=== PATIENT | male | born 1945 | race Caucasian/White ===

== ENCOUNTER 2018-02-25 12:37 | Emergency (ER) | payer MEDICARE, OTHER, SELFPAY ==
[2018-02-25 12:38] VITALS: BP 160/87; PULSE 110; RESP 18; TEMP 36.5; O2SAT 98; BMI 22.0
--- NOTE | 2018-02-25 12:54 | EKG12_ITS ---
Test Reason : CP Blood Pressure : / mmHG Vent. Rate : 099 BPM Atrial Rate : 099 BPM P-R Int : 152 ms QRS Dur : 082 ms QT Int : 330 ms P-R-T Axes : 067 062 058 degrees QTc Int : 423 ms Normal sinus rhythm Minimal voltage criteria for LVH, may be normal variant Nonspecific ST abnormality Abnormal ECG Confirmed by CARI PARDO, TAJ ([id number]), news video editor JACQUELINE COHEN ([id number]) on 03/01/2018 2:45:32 PM Referred By: WILLEM Confirmed By:TAJ ALCALA MD
--- NOTE | 2018-02-25 12:54 | RAD_ITS ---
STUDY: X-RAY CHEST REASON FOR EXAM: Male, 72 years old. Chest pain. TECHNIQUE: AP upright portable view. COMPARISON: None. FINDINGS: Pulmonary hypoinflation. Equivocal pulmonary nodule in the right upper lobe measuring approximately 0.6 x 0.9 cm. This overlies the right sixth posterior rib. There is no demonstrated pleural abnormality. Normal size heart. Normal mediastinum and jefferson. Normal visualized pulmonary arteries. Normal visualized aortic arch and descending thoracic aorta. Normal visualized thoracic spine. Normal visualized ribs, clavicles, and shoulders. There is no demonstrated abnormality of the visualized soft tissue structures of the upper abdomen. RAD/Chest 1 View (Portable) IMPRESSION: 1. Equivocal pulmonary nodule in the right upper lobe measuring 0.6 x 0.9 cm. 2. Mild COPD. 3. No acute cardiopulmonary pathology. COMMENT: High resolution CT chest will be very helpful for further evaluation. Electronically Signed: Gavino Castro MD at 13:56 EST , Service support ,
[2018-02-25 12:55] VITALS: BP 161/94; PULSE 91; RESP 17; O2SAT 100
[2018-02-25 13:05] LABS: Absolute Lymphocyte Count 1.25 X10^3/ul (0.83-4.51); Absolute Neutrophil Count 3.4 X10^3/uL (2.0-7.7); Basophil# 0.03 X10^3/uL; Basophil% 0.6 % (0-1); Eosinophil# 0.03 X10^3/uL; Eosinophils% 0.6 % (0-5); Hematocrit 40.7 % (40-54); Hemoglobin 13.6 g/dl (13.0-16.5); Lymphocyte # 1.25 X10^3/ul (4.0); Lymphocyte % 24.1 % (19-41); Mean Corp Hgb Conc 33.4 g/gl (32-36); Mean Corpuscular Volume 89.6 fL (80-94); Mean Platelet Vol. 10.1 fl (6.2-12.0); Monocyte# 0.47 X10^3/uL; Monocyte% 9.1 % (0-10); Neutrophil # 3.39 X10^3/uL (2.7-7.7); Neutrophil % 65.4 % (47-70); POSITIVE COUNT NO; POSITIVE DIFFERENTIAL NO; POSITIVE MORPHOLOGY NO; Platelet Count 240 K/mm3 (150-450); RBC Distribution Width CV 13.9 % (11.6-14.6); RBC Distribution Width SD 44.7 fl (35.1-43.9); Red Blood Count 4.54 M/mm3 (4.6-6.2); White Blood Count 5.2 K/mm3 (4.4-11.0)
--- NOTE | 2018-02-25 13:08 | ED.VISSUMM ---
- ER Visit Summary Date of Service: 02/25/18 Chief Complaint: Chest pain History of Present Illness: The patient is a 72 M history of prior chest pain of uncertain etiology. Patient states had a negative stress test 10 or so years ago. Also one time when he was at an area of [place] he went to a local hospital they were concerned he may be having an [place]. He transferred him to [facility] about 6 years ago and he states he had a negative cardiac catheterization and workup then. States he is very active he has no exertional chest pain or exertional dyspnea. He states the last several days he has had chest pain. Not associated with exertion or position. Denies any dyspnea. No hemoptysis. No pleuritic nature to the pain. He is never had a DVT or PE. He has had no recent travel, surgery or immobilization. No calf pain or swelling. There is no significant family history of cardiac disease. He quit smoking 25 years ago. He is not treated for hypertension and is currently on no medications. He is not treated for high cholesterol. Physical Examination: Very well-appearing 72-year-old male. Vital signs are stable he is afebrile. His pulse ox is 98% on room air no hypoxia. HEENT exam unremarkable. Neck nontender no lymphadenopathy. No JVD. Lungs clear to auscultation bilaterally. Heart regular rhythm rate about 100 no murmur. Chest wall nontender. No ecchymosis or bruising. No subcu air crepitance. Abdomen is soft and nontender normal bowel sounds no peritoneal signs. Moving all 4 extremities. Equal symmetrical endband sizer. Dorsi plantar flexion intact. Equal symmetrical radial pulses. Calves are nontender without edema or cords. Back is nontender. Neurologically is awake and alert with no focal motor deficits. Test Results: Patient will undergo cardiac workup. CBC normal. White count of 5. Hemoglobin 13. Electrolytes unremarkable. Troponin normal. EKG sinus rhythm rate of 70 no change. Unchanged from prior EKG from 2013. Chest x-ray no acute process the radiologist read a right upper lobe nodule. Which I discussed with the patient he can do follow-up for that. Emergency Department Course and Treatment: Patient treated with p.o. aspirin. Treatment Plan: Repeat exam patient is doing well at 1536. He symptom-free. His exam is unchanged. We discussed all his test results. He is comfortable being discharged home. In light that he has had a prior negative stress test. Negative cardiac catheter he has had atypical noncardiac chest pain before along with this being nonexertional and comfortable with him being discharged. Disposition: [] Impression: Acute atypical chest pain This note was generated with [employer] dictation software. It may contain incorrect words, spelling, and punctuation that were not noted in review of the chart prior to signing ED Disposition - Plan for ED Patient: Chief Complaint: Chest Pain Referrals: Nick Mercedes Chi, MD [Primary Care Provider] -
--- NOTE | 2018-02-25 13:11 | ED.DCSUM_ITS ---
- ER Visit Summary Date of Service: 02/25/18 Chief Complaint: Chest pain History of Present Illness: The patient is a 72 M history of prior chest pain of uncertain etiology. Patient states had a negative stress test 10 or so years ago. Also one time when he was at an area of [place] he went to a local hospital they were concerned he may be having an [place]. He transferred him to [facility] about 6 years ago and he states he had a negative cardiac catheterization and workup then. States he is very active he has no exertional chest pain or exertional dyspnea. He states the last several days he has had chest pain. Not associated with exertion or position. Denies any dyspnea. No hemoptysis. No pleuritic nature to the pain. He is never had a DVT or PE. He has had no recent travel, surgery or immobilization. No calf pain or swelling. There is no significant family history of cardiac disease. He quit smoking 25 years ago. He is not treated for hypertension and is currently on no medications. He is not treated for high cholesterol. Physical Examination: Very well-appearing 72-year-old male. Vital signs are stable he is afebrile. His pulse ox is 98% on room air no hypoxia. HEENT exam unremarkable. Neck nontender no lymphadenopathy. No JVD. Lungs clear to auscultation bilaterally. Heart regular rhythm rate about 100 no murmur. Chest wall nontender. No ecchymosis or bruising. No subcu air crepitance. Abdomen is soft and nontender normal bowel sounds no peritoneal signs. Moving all 4 extremities. 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 Dorsi plantar flexion intact. Equal symmetrical radial pulses. Calves are nontender without edema or cords. Back is nontender. Neurologically is awake and alert with no focal motor deficits. Test Results: Patient will undergo cardiac workup. CBC normal. White count of 5. Hemoglobin 13. Electrolytes unremarkable. Troponin normal. EKG sinus rhythm rate of 70 no change. Unchanged from prior EKG from 2013. Chest x-ray no acute process the radiologist read a right upper lobe nodule. Which I discussed with the patient he can do follow-up for that. Emergency Department Course and Treatment: Patient treated with p.o. aspirin. Treatment Plan: Repeat exam patient is doing well at 1536. He symptom-free. His exam is unchanged. We discussed all his test results. He is comfortable being discharged home. In light that he has had a prior negative stress test. Negative cardiac catheter he has had atypical noncardiac chest pain before along with this being nonexertional and comfortable with him being discharged. Disposition: [] Impression: Acute atypical chest pain This note was generated with [employer] dictation software. It may contain incorrect words, spelling, and punctuation that were not noted in review of the chart prior to signing ED Disposition - Plan for ED Patient: Chief Complaint: Chest Pain Referrals: Nick Mercedes Chi, MD [Primary Care Provider] -
[2018-02-25] MEDS: Aspirin 81 MG TAB.CHEW 324 MG PO (13:12)
[2018-02-25 13:16] LABS: Anion Gap 6 (5-15); BUN 11 mg/dL (7-18); BUN/Creat Ratio 13.5 RATIO (10-20); Calcium,Total 8.4 mg/dL (8.5-10.1); Chloride 104 mmol/L (98-107); Creatinine, Serum 0.82 mg/dL (0.70-1.30); EST Glomerular Filtration Rate 99 mL/min (>60); Est Glom Filt Rate - Afr Amer 120 mL/min (>60); Estimated Creatinine Clearance 71.31 ml/min; Glucose 106 mg/dL (74-106); Potassium 3.7 mmol/L (3.5-5.1); Sodium Level 138 mmol/L (136-145)
--- NOTE | 2018-02-25 15:40 | ED.DEP ---
ED Disposition - Plan for ED Patient: Disposition: Home or Assisted Living Chief Complaint: Chest Pain Instructions: ED Chest Pain Atypical Unkn Cause Referrals: Nick Mercedes Chi, MD [Primary Care Provider] - As soon as possible Additional Instructions: Your labs and tests were all negative today. Call and follow-up with Dr. Mercedes for repeat evaluation and he can decide if he wants to do outpatient stress testing.
[2018-02-25 15:48] VITALS: BP 144/84; PULSE 70; RESP 16; O2SAT 99
== END 2018-02-25 16:00 | disposition home or self-care (01) ==
PROVIDERS: Emergency Provider Emergency Medicine; Family Provider Family Medicine Geriatric Medicine; PCP Family Medicine Geriatric Medicine
DX: R07.89 Other chest pain (principal); Z87.891 Personal history of nicotine dependence
CPT/HCPCS: 71045; 80048; 84484; 85025; 93005; 99285; A4216

== ENCOUNTER → 2018-03-02 14:58 | Outpatient (CLI) | payer MEDICARE, OTHER, SELFPAY ==
[2018-02-25 12:38] VITALS: BMI 22.0
[2018-03-04 07:42] LABS: Hep C Antibodies <0.1 s/co ratio (0.0-0.9)
--- OUTSIDE RECORDS SUMMARY | 2018-04-18 20:50 | XMS RPT_ITS ---
:1945 Author Organization OHIP Support Name Relationship Address Phone KAMRYN CANTOR Unavailable [address] + [place] [address] DEVAUGHN, CARLA Unavailable [address] + [place] [address] R Unavailable Unavailable Unavailable DEVAUGHN, KAMRYN Unavailable [address] + [place] [address] DEVAUGHN, CARLA Unavailable [address] + [place] [address] R Unavailable Unavailable Unavailable DEVAUGHN, CARLA Unavailable Unavailable + DEVAUGHN, CARLA Unavailable Unavailable + DEVAUGHN, KAMRYN Unavailable [address] [facility] + [place] [address] DEVAUGHN, CARLA Unavailable [address] + [place] [address] R Unavailable Unavailable Unavailable DEVAUGHN, KAMRYN Unavailable [address] + [place] [address] DEVAUGHN, CARLA Unavailable [address] + [place] [address] R Unavailable Unavailable Unavailable DEVAUGHN, KAMRYN Unavailable [facility] + [place] [address] DEVAUGHN, CARLA Unavailable [address] + [place] [address] R Unavailable Unavailable Unavailable DEVAUGHN, KAMRYN Unavailable [facility] + [place] [address] DEVAUGHN, CARLA Unavailable [address] + [place] [address] R Unavailable Unavailable Unavailable DEVAUGHN, KAMRYN Unavailable [facility] + [place] [address] DEVAUGHN, CARLA Unavailable [address] + [place] [address] R Unavailable Unavailable Unavailable DEVAUGHN, KAMRYN Unavailable [facility] + [place] [address] DEVAUGHN, CARLA Unavailable [address] + [place] [address] R Unavailable Unavailable Unavailable DEVAUGHN, KAMRYN Unavailable [facility] + [place] [address] DEVAUGHN, CARLA Unavailable [address] + [place] [address] R Unavailable Unavailable Unavailable Care Team Providers Name Role Phone Daren, Carmen Chi Attending Unavailable Daren, Carmen Chi Primary Care Unavailable Daren, Carmen Chi Attending Unavailable Daren, Carmen Chi Referring Unavailable Daren, Carmen Chi Primary Care Unavailable Daren, Carmen Chi Attending Unavailable Daren, Camren Chi Referring Unavailable Daren, Carmen Chi Primary Care Unavailable Daphney Branch Attending Unavailable Manuelito, Jona Attending Unavailable Daren, Carmen Chi Referring Unavailable Dani Menchaca Attending Unavailable Daren, Carmen Chi Primary Care Unavailable Manuelito, Ona Attending Unavailable Manuelito, Ona Attending Unavailable Manuelito, Jona Referring Unavailable Daren, Carmen Chi Primary Care Unavailable Manuelito, Ona Attending Unavailable Manuelito, Jona Referring Unavailable Daren, Carmen Chi Primary Care Unavailable Manuelito, Jona Consulting Unavailable Chong, Dr. Santi Enciso Attending Unavailable Hearn, Dr. Santi Pinedo Referring Unavailable Nadiya, Dr. Santi Pinedo Primary Care Unavailable PROBLEMS PROBLEMS DATE TYPE CONDITION / CODE ATTENDING STATUS SOURCE 04/07/2018 Unknown R07.9 - Chest Manuelito, Jona Active [place] pain, unspecified Community / R07.9(ICD-10) Hospital Repository 03/02/2018 Unknown Z13.89 - Daren, Carmen Chi Active [place] Encounter for Community screening for Hospital other disorder / Repository Z13.89(ICD-10) PROCEDURES PROCEDURES No Procedure Records FoundRESULTS RESULTS STRESS REPORT Observed: 04/07/2018 Status: F Source: [place] 12:55 PM [facility] Cardiovascular Services [address] [place] [address] MR#: [id number] Acct: [id number] Name: TONEY CANTOR Rep #: [id number] : 1945 72 From: Jona Billings MD Primary Care: Daren PARDO,Carmen Calderón Status: REG CLI Ordering Dr: Etta: Conrado Treviño Stress Test Report Exercise myocardial perfusion stress test. 72-year-old man with a history of chest pain. Medications: Aspirin pravastatin and lisinopril. Stress protocol: Resting EKG demonstrates normal sinus rhythm with a rate of 75 bpm normal intervals are noted resting blood pressure 132/80 mmHg. The patient exercised according to regular Riley protocol for a total duration of 9 minutes and 30 seconds patient completed 1 minute 30 seconds to stage IV of the Riley protocol the maximum heart rate attained was 160 bpm which was 106% of maximum predicted heart rate the maximum workload was 10.9 metabolic equivalents. At rest there were no ST or T wave changes noted suggest ischemia at peak exercise upsloping ST changes only were noted with normally the criteria for ischemia. No clinical angina was noted. The resting blood pressure 132/90 with a peak blood pressure 150/78. Myocardial perfusion protocol. 10.6 mCi of technetium 99m sestamibi was injected at rest. The patient exercised according to regular Riley protocol. At peak exercise 31.7 mCi of technetium 99m sestamibi was injected stress images were obtained stress and rest images were reconstructed and compared in the short axis vertical long horizontal long axis. Gated images were also obtained Perfusion SPECT analysis: Review of the stress images demonstrate normal uptake of tracer noted in all areas of the myocardium. The resting images similarly demonstrate normal uptake of tracer noted in all areas of the myocardium. No areas of reversibility are noted suggest ischemia. Gated SPECT analysis: The gated ejection fraction is noted to be 72%. Conclusion: Normal exercise myocardial perfusion stress test at a high workload. Preserved ejection fraction. Good functional aerobic capacity. 04/07/18 1255 <Electronically signed by Jona Billings MD> Date Jona Billings MD CC: Jona Billings MD; Carmen Chong MD Date Dictated: 04/07/18 1252 Date Transcribed: 04/07/18 125 Upkeep Worker: CO Signed ECHOCARDIOGRAM COMPLETE Observed: 04/07/2018 Status: F Source: [place] [address]:31 PM [facility] REPOSIT[facility] Cardiovascular Services [address] [place] [address] Echo Complete 04/07/18922 MR#: [id number] Acct: [id number] Name: TONEY CANTOR Rep #: [id number] : 1945 72 From: Jona Billings MD Attending Dr: Jona Billings MD Status: REG CLI Ordering Dr: Jona Billings MD Date: 04/07/18 Location: [facility] Sex: M C Admitted: Reason For Study: CHEST PAIN Procedure This was a 2D Doppler, Color Flow transthoracic echocardiogram. Exam performed in department. Left Ventricle Normal LV size. Left ventricular systolic function is normal. The estimated ejection fraction is 60 %. Stage 1 diastolic dysfunction. No regional wall motion abnormalities noted. Right Ventricle Normal RV size. Normal systolic function. Atria Normal left atrium. Normal right atrium. Patent foramen ovale. Hypermobile atrial septum. Mitral Valve Normal mitral valve. Trivial mitral valve insufficiency. Tricuspid Valve Normal tricuspid valve. Mild (1+) tricuspid valve insufficiency. Pulmonary artery systolic pressure is 25 mmHg. Aortic Valve Trisinus/trileaflet aortic valve. Pulmonic Valve Normal pulmonic valve. Great Vessels Normal aortic root. The pulmonary artery is normal size. Normal inferior vena cava. Pericardium/Pleural No pericardial effusion. Medication Performed a rapid injection of agitated mix of 9 cc saline and 1cc air to assess for atrial septal defect. MMode/2D Measurements AND Calculations LVIDd: 4.6 cm IVSd: 0.54 cm Ao root diam: 3.3 cm LVIDs: 3.0 cm LVPWd: 0.70 cm RVDd: 3.8 cm FS: 34.3 % LAV(MOD-bp): 33.7 ml EDV(MOD-sp2): 73.7 ml SV(MOD-sp2): 48.6 ml LAV(MOD-bp) Indexed: 20.5 ml/m2 EF(MOD-sp2): 66.0 % LAV(MOD-sp2): 38.4 ml LAV(MOD-sp4): 27.9 ml LA dimension(2D): 2.9 cm LA A4 area: 13.0 cm2 RA A4 area: 15.0 cm2 Time Measurements MV dec time: 0.25 sec Doppler Measurements AND Calculations MV E max cristino: 81.5 cm/sec Lat Peak E' Cristino: 11.6 cm/sec Med Peak E' Cristino: 9.7 cm/sec MV A max cristino: 81.0 cm/sec E/E' lat: 7.0 E/E' med: 8.4 MV E/A: 1.0 Ao V2 max: 144.0 cm/sec LV V1 max: 147.4 cm/sec PA V2 max: 112.2 cm/sec Ao max P.3 mmHg LV V1 max P.7 mmHg TR max cristino: 228.9 cm/sec TR max P.1 mmHg Interpretation Summary Normal LV size. Left ventricular systolic function is normal. The estimated ejection fraction is 60 %. Stage 1 diastolic dysfunction. Hypermobile atrial septum. Patent foramen ovale. Mild (1+) tricuspid valve insufficiency. Ordering Physician: Jona Billings Referring Physician: CARMEN CHONG Performed By: Hanna Guy RDCS 04/07/18 1230 Date Jona Billings MD CC: Jona Billings MD; Carmen Chong MD Date Dictated: 04/07/18922 Date Transcribed: 04/07/18 123 Upkeep Worker: Signed DIAG MAMM W/CAD, Observed: 03/11/2018 Status: F Source: [facility] 8:48 AM [facility] REPOSITORY [facility] Imaging Services [address] [place], [place] [address] [address] DIAG MAMM W/CAD, BILAT MR#: [id number] Acct: [id number] Name: TONEY CANTOR Rep #: [id number] : 1945 M 72 From: Anuj Dean MD PCP: Carmen Chong MD, Chi Status: REG CLI Study: DIAG MAMM W/CAD, BILAT Date of Exam: 03/11/18 Exam# [id number] Ordering Dr: Carmen Chong MD MAMMOGRAPHY - BILATERAL DIAGNOSTIC REASON FOR EXAM: Male, 72 years old. Left breast discomfort. PERTINENT HISTORY: Non-contributory. TECHNIQUE: Digital bilateral breast basil (3D mammographic acquisition) in the CC and MLO projections. 2-D mediolateral oblique (MLO) and craniocaudad (CC) views of both breasts were obtained. CAD: Full Field Digital Mammography with Computer Added Detection was performed. COMPARISON: None. Baseline examination. FINDINGS: Breast Composition: The breasts are almost entirely fatty. There are no dominant masses or suspicious calcifications. No other significant abnormalities are identified. BI/DIAG MAMM W/CAD, BILAT IMPRESSION: Negative diagnostic mammogram. Yearly followup mammogram recommended. (A) ASSESSMENT CATEGORY: BIRADS Category 1: Negative. A letter regarding these results will be sent to the patient by the facility within 30 days. Approximately 10% of breast cancers are not detected by mammography. A normal mammogram should not delay biopsy of a clinically suspicious abnormality. Electronically Signed: Anuj Dean MD at 15:03 EST Tel [phone], Service support , CC: Carmen Chong MD Upkeep Worker: Signed CARDIOLOGY VISIT Observed: 03/10/2018 Status: F Source: [place] 4:34 PM [facility] REPOSITORY [facility] [address] [place] [address]. [address] [place] [address] OFFICE VISIT Date of Service: 03/10/18 MR#: [id number] Acct: [id number] Name: TONEY CANTOR Rep #: [id number] : 1945 Provider: Jona Billings MD Age/Sex: 72/M Location: [facility] Status: Signed HPI HPI Chief Complaint: Initial visit Details: TONEY CANTOR, is a 72 M who presents to the office today for an initial visit. He is a gentleman with no previous coronary artery disease history who says that he has been very active and has had chest discomfort which is lasted approximately 3 weeks. He says that it does not necessarily occur with activity he is very active and sometimes rakes leaves without any problems. He has had no dizziness or diaphoresis no near syncope or syncope. Approximately 6 years ago he presented here with significant chest discomfort and there was a concern that he was having a myocardial infarction was transferred to [facility] where he underwent a cardiac catheterization which was normal. He has had not had any dizziness or diaphoresis no near syncope or syncope. He did have a stress test approximately 10 years ago or so. He presented to the emergency room recently with a discomfort his EKG demonstrated normal sinus rhythm with no acute changes but minimal voltage criteria for LVH was noted. His physical exam here today demonstrates clear lung witt regular rate and rhythm and no pedal edema. Intake Vital Signs03/10/18 Height 5 ft 5 in Intake Visit Reasons: PCP ref'd for chest pain Allergies Iodinated Contrast- Oral and IV Dye [CONTRASTS] Allergy (Verified 03/10/18 12:43) Hives Medications aspirin 81 mg tablet,delayed release 81 mg PO QDAY #30 tab 03/10/18 [Rx Confirmed 03/10/18] azelaic acid 20 % topical cream 1 applic TOPICAL BID 03/10/18 [History Confirmed 03/10/18] lisinopril 10 mg tablet 10 mg PO DAILY #30 tab 03/10/18 [Rx Confirmed 03/10/18] [facility] Medical History Hyperlipidemia (Chronic) Lung nodule (Chronic) Rosacea (Chronic) Tinnitus (Chronic) Surgical History History of eye surgery (Resolved) History of left heart catheterization (Resolved 2011) History of nasal septoplasty (Resolved) Social History Smoking Status: Former smoker quit date: 03/23/91 pack-years: 13 ROS Const Const: Negative for fatigue, weakness, difficulty sleeping, frequent falls, excessive sweating or headache(s) Eyes Eyes: Negative for loss of peripheral vision, transient loss of vision, blurry vision, tunnel vision or double vision ENT ENT: Negative for headache(s), dizziness, Nosebleed/epistaxis or balance problems Cardio Chest Pain: Yes Location: left chest Palpitations: No Edema: None Muscle aches with walking: None Resp Respiratory: Negative for SOB with activity, SOB at rest, SOB orthopnea\SOB lying down, paroxysmal nocturnal dyspnea or Cough GI GI: Negative nausea, heartburn, black,tarry stools or vomiting : Negative for hematuria Musc Musc: Negative for balance problems, muscle aches/ myalgia, muscle weakness or joint pain Skin Skin: Negative non-healing lesions, unusual bruising or rash Neuro Neuro: Negative for weakness, frequent falls, headache(s), blurry vision, double vision, dizziness, lightheadedness, orthostatic symptoms, near syncope, syncope or lack of coordination Allan Hematologic/Lymphatic: Negative for easy bruising or easy bleeding Endo Endo: Negative for fatigue, excessive sweating or increased thirst/drinking Psych Psych: Negative for anxiety or depression Allergy Allergy/Immunology: Negative for hives, Negative for rash Cardiology Exam Const Appearance: cooperative, healthy appearing, well developed, well groomed and no acute distress Nutritional Appearance: well nourished and average body habitus Orientation: alert, awake and oriented x3 Head Head: normal to inspection, normocephalic and atraumatic Ears: hearing grossly normal bilaterally and external ears normal Nose: external nose normal, nasal mucous membranes and turbinates normal, nares normal, septum normal, no nasal discharge Face and Sinus: face symmetric Mouth: oral mucosae normal, tongue normal, oropharynx normal and moist mucous membranes Teeth and gingiva: dentition normal Throat: posterior oropharynx normal, tonsils normal and uvula midline Eyes General: appearance normal, both eyes and all related structures Eyelids: eyelids normal Conjunctivae: conjunctivae normal Pupils: PERRL, normal by confrontation and accommodation normal EOM: EOM intact bilaterally Neck Neck: normal visual inspection, trachea midline and no JVD JVD: +5 Carotids: normal carotid upstroke and bounding pulses Chest Chest inspection: normal inspection of the chest, symmetric chest movement and normal respiratory effort Auscultation: Bilateral: Clear to Auscultation Cardio Palpation: normal PMI Rate: regular rate Rhythm: regular rhythm Heart sounds: S1 normal, S2 normal and normal, physiologic split S2; negative rub, gallop or murmur GI GI: normal to inspection, soft, no hepatosplenomegaly and bowel sounds present Neuro General: alert, awake, oriented x3, no focal sensory deficit, gait normal and moves all extremities Skin Skin: no rashes or lesions noted Extremities Pulses: Normal: Right Femoral Pulse, Left Femoral Pulse, Right Dorsalis Pedis Pulse, Left Dorsalis Pedis Pulse, Right Posterior Tibial Pulse, Left Posterior Tibial Pulse, Right Radial Pulse, Left Radial Pulse Lower Extremity Edema: None: Bilateral Musculoskel Musculoskeletal: No joint tenderness Psych Psychological: normal affect Assessment AND Plan 1. Chest pain, unspecified type R07.9 Plan He does complain of chest discomfort which appears to be somewhat atypical. My recommendation would be to better control his blood pressure with lisinopril 10 mg a day and take a baby aspirin. In addition I would suggest that he start an antacid 20 mg of omeprazole a day. A stress test and an echocardiogram will be performed and depending on the findings further recommendations will be made. If his blood pressure response to exercise is normal and the stress test is normal then I will take him off all the medications. They appear to be enough atypical findings that I do not think that he needs to have a stress test right away. Thank you for allowing me to participate in the care of your patient. Please don't hesitate to call if any issues arise Orders Orders: Plan Detail Other Medications New: Follow Up 3 Months (jhr) Coding Level of Care Code Off vis,new,level 4 Diagnoses Chest pain, unspecified type R07.9 Chest pain type: unspecified Coding Level of Care Code Off vis,new,level 4 Diagnoses Chest pain, unspecified type R07.9 Chest pain type: unspecified 03/10/18 1634 <Electronically signed by Jona Billings MD> Date Jona Billings MD Cosigner Signature: Date (if applicable) CC: Carmen Chong MD AORTA Observed: 03/08/2018 Status: F Source: [place] 8:12 AM [facility] Imaging Services [address] [place] [address] Aorta MR#: [id number] Acct: [id number] Name: TONEY CANTOR Rep #: [id number] : 1945 M 72 From: Aron Diaz DO PCP: Daren PARDO,Carmen Calderón Status: REG CLI Study: Aorta Date of Exam: 03/08/18 Exam# [id number] Ordering Dr: Carmen Chong MD PROCEDURES: ULTRASOUND AORTA REASON FOR EXAM: Male, 72 years old. History of tobacco use, rule out abdominal aortic aneurysm TECHNIQUE: Ultrasound evaluation of the aorta was performed with real-time and static manjarrez-scale imaging. COMPARISON: None. FINDINGS: There is no elongation or tortuosity of the abdominal aorta. Aorta measures: Proximal 2.4 cm. Middle 2.0 cm. Distal 1.6 cm. Aorta measure transversely: Proximal 2.6 cm. Middle 2.4 cm. Distal 1.7 cm. Right iliac artery measures: 0.9 cm. Right iliac artery measure transversely: 0.9 cm. Left iliac artery measures: 0.8 cm. Left iliac artery measure transversely: 0.9 cm. There is no demonstrated aneurysm.. US/Aorta IMPRESSION: Normal abdominal aorta. Electronically Signed: Aron Diaz DO at 11:06 EST Tel , Service support , CC: Carmen Chong MD Upkeep Worker: Signed HEPATITIS C ANTIBODIES Collected: 03/02/2018 Status: F Source: [place] 3:01 PM [facility] REPOSITORY TYPE CODE TESTS RESULT OUT OF RANGE REFERENCE UNITS LAB L3100.0650 0.0-0.9 s/co ratio Normal HEP C AB <0.1 Result Comment: Negative: < 0.8 Indeterminate: 0.8 - 0.9 Positive: > 0.9 The CDC recommends that a positive HCV antibody result be followed up with a HCV Nucleic Acid Amplification test (908114). Performed at: [address] [id number] Manufacturing Project Manager: Steven Gonzalez PhD, Phone: [phone] Performed By: #### L3100.0625 #### [facility] (refer to report for specific site) refer to report for address and phone number 12 LEAD ELECTROCARDIOGRAM Observed: 03/01/2018 Status: F Source: [place] 2:45 PM [facility] Cardiovascular Services [address] [place] [address] 12 Lead EKG 02/25/18 1246 MR#: [id number] Acct: [id number] Name: TONEY CANTOR Rep #: [id number] : 1945 72 From: Jona Billings MD Attending Dr: Status: DEP ER Ordering Dr: Dani Menchaca MD Date: 02/25/18 Location: ED Sex: M C Admitted: Test Reason : CP Blood Pressure : / mmHG Vent. Rate : 099 BPM Atrial Rate : 099 BPM P-R Int : 152 ms QRS Dur : 082 ms QT Int : 330 ms P-R-T Axes : 067 062 058 degrees QTc Int : 423 ms Normal sinus rhythm Minimal voltage criteria for LVH, may be normal variant Nonspecific ST abnormality Abnormal ECG Confirmed by JONA BILLINGS MD ([id number]), publication editor JACQUELINE COHEN ([id number]) on 03/01/2018 2:45:32 PM Referred By: WILLEM Confirmed By:JONA BILLINGS MD 03/01/18 1445 Date Jona Billings MD CC: Dani Menchaca MD; Carmen Chong MD Signed DISCHARGE INSTRUCTION Observed: 02/25/2018 Status: F Source: [place] 4:52 PM [facility] Medical Records Department [address] [place] [address] Discharge Instruction 02/25/18 1540 MR#: [id number] Acct: [id number] Name: TONEY CANTOR Rep #: [id number] : 1945 72 From: Dani Menchaca MD PCP: Carmen Chong MD, Chi Status: DEP ER ED Disposition - Plan for ED Patient: Disposition: Home or Assisted Living Chief Complaint: Chest Pain Instructions: ED Chest Pain Atypical Unkn Cause Referrals: Carmen Chong Chi, MD [Primary Care Provider] - As soon as possible Additional Instructions: Your labs and tests were all negative today. Call and follow-up with Dr. Chong for repeat evaluation and he can decide if he wants to do outpatient stress testing. What to do if you have Problems For any increased pain, shortness of breath, bleeding, nausea or vomiting, chest pain, or any unexpected problems, contact your Primary Care Provider. Call [facility] ([phone]) or report to the closest Emergency Room. Call 911 if necessary. 02/25/18 1652 <Electronically signed by Dani Menchaca MD> Date Dani Menchaca MD Cosigner Signature (If Indicated): Date CC: Carmen Chong MD EMERGENCY DEPARTMENT Observed: 02/25/2018 Status: F Source: [place] [facility] 4:52 PM [facility] Medical Records Department [address] [place] [address] Emergency Department Summary 02/25/18 1308 MR#: [id number] Acct: [id number] Name: TONEY CANTOR Rep #: [id number] : 1945 72 From: Dani Menchaca MD PCP: Carmen Chong MD, Chi Status: DEP ER - ER Visit Summary Date of Service: 02/25/18 Chief Complaint: Chest pain History of Present Illness: The patient is a 72 M history of prior chest pain of uncertain etiology. Patient states had a negative stress test 10 or so years ago. Also one time when he was at an area of [place] he went to a local hospital they were concerned he may be having an [place]. He transferred him to [facility] about 6 years ago and he states he had a negative cardiac catheterization and workup then. States he is very active he has no exertional chest pain or exertional dyspnea. He states the last several days he has had chest pain. Not associated with exertion or position. Denies any dyspnea. No hemoptysis. No pleuritic nature to the pain. He is never had a DVT or PE. He has had no recent travel, surgery or immobilization. No calf pain or swelling. There is no significant family history of cardiac disease. He quit smoking 25 years ago. He is not treated for hypertension and is currently on no medications. He is not treated for high cholesterol. Physical Examination: Very well-appearing 72-year-old male. Vital signs are stable he is afebrile. His pulse ox is 98% on room air no hypoxia. HEENT exam unremarkable. Neck nontender no lymphadenopathy. No JVD. Lungs clear to auscultation bilaterally. Heart regular rhythm rate about 100 no murmur. Chest wall nontender. No ecchymosis or bruising. No subcu air crepitance. Abdomen is soft and nontender normal bowel sounds no peritoneal signs. Moving all 4 extremities. Equal symmetrical morning show host. Dorsi plantar flexion intact. Equal symmetrical radial pulses. Calves are nontender without edema or cords. Back is nontender. Neurologically is awake and alert with no focal motor deficits. Test Results: Patient will undergo cardiac workup. CBC normal. White count of 5. Hemoglobin 13. Electrolytes unremarkable. Troponin normal. EKG sinus rhythm rate of 70 no change. Unchanged from prior EKG from 2013. Chest x-ray no acute process the radiologist read a right upper lobe nodule. Which I discussed with the patient he can do follow-up for that. Emergency Department Course and Treatment: Patient treated with p.o. aspirin. Treatment Plan: Repeat exam patient is doing well at 1536. He symptom-free. His exam is unchanged. We discussed all his test results. He is comfortable being discharged home. In light that he has had a prior negative stress test. Negative cardiac catheter he has had atypical noncardiac chest pain before along with this being nonexertional and comfortable with him being discharged. Disposition: [] Impression: Acute atypical chest pain This note was generated with [employer] dictation software. It may contain incorrect words, spelling, and punctuation that were not noted in review of the chart prior to signing ED Disposition - Plan for ED Patient: Chief Complaint: Chest Pain Referrals: Carmen Chong Chi, MD [Primary Care Provider] - What to do if you have Problems For any increased pain, shortness of breath, bleeding, nausea or vomiting, chest pain, or any unexpected problems, contact your Primary Care Provider. Call [facility] ([phone]) or report to the closest Emergency Room. Call 911 if necessary. 02/25/18 8492 <Electronically signed by Dani Menchaca MD> Date Dani Menchaca MD Cosigner Signature (If Indicated): Date CC: Carmen Chong MD CHEST 1 VIEW Observed: 02/25/2018 Status: F Source: DWIGHT (PORTABLE) 12:55 PM [facility] Imaging Services [address] [place] [address] 14382 Chest 1 View (Portable) MR#: [id number] Acct: [id number] Name: TNOEY CANTOR Rep #: [id number] : 1945 M 72 From: Gavino Castro MD PCP: Carmen Chong MD, Chi Status: REG ER Study: Chest 1 View (Portable) Date of Exam: 02/25/18 Exam# [id number] Ordering Dr: Dani Menchaca MD STUDY: X-RAY CHEST REASON FOR EXAM: Male, 72 years old. Chest pain. TECHNIQUE: AP upright portable view. COMPARISON: None. FINDINGS: Pulmonary hypoinflation. Equivocal pulmonary nodule in the right upper lobe measuring approximately 0.6 x 0.9 cm. This overlies the right sixth posterior rib. There is no demonstrated pleural abnormality. Normal size heart. Normal mediastinum and jefferson. Normal visualized pulmonary arteries. Normal visualized aortic arch and descending thoracic aorta. Normal visualized thoracic spine. Normal visualized ribs, clavicles, and shoulders. There is no demonstrated abnormality of the visualized soft tissue structures of the upper abdomen. RAD/Chest 1 View (Portable) IMPRESSION: 1. Equivocal pulmonary nodule in the right upper lobe measuring 0.6 x 0.9 cm. 2. Mild COPD. 3. No acute cardiopulmonary pathology. COMMENT: High resolution CT chest will be very helpful for further evaluation. Electronically Signed: Gavino Castro MD at 13:56 EST , Service support , CC: Dani Menchaca MD; Carmen Chong MD Upkeep Worker: Signed CBC W/DIFF, AUTOMATED Collected: 02/25/2018 Status: F Source: FAIZA 12:50 PM [facility] REPOSITORY TYPE CODE TESTS RESULT OUT OF RANGE REFERENCE UNITS LAB L100.1000 4.4-11.0 K/mm3 Normal WBC 5.2 LAB L100.1200 4.6-6.2 M/mm3 Low RBC 4.54 LAB L100.1300 13.0-16.5 g/dl Normal HGB 13.6 LAB L100.1400 40-54 % Normal HCT 40.7 LAB L100.1500 80-94 fL Normal MCV 89.6 LAB L100.1600 27.0-32.0 pg Normal MCH 30.0 LAB L100.1700 32-36 g/gl Normal MCHC 33.4 LAB L100.1810 11.6-14.6 % Normal RDW CV 13.9 LAB L100.1820 35.1-43.9 fl High RDW SD 44.7 LAB L100.1900 150-450 K/mm3 Normal PLT 240 LAB L100.2000 6.2-12.0 fl Normal MPV 10.1 LAB L100.2100 47-70 % Normal NEUT% 65.4 LAB L100.2200 19-41 % Normal LY% 24.1 LAB L100.2300 0-10 % Normal MONO% 9.1 LAB L100.2400 0-5 % Normal EO% 0.6 LAB L100.2500 0-1 % Normal BASO% 0.6 LAB L100.2550 0.0-0.9 % Normal IM GRAN % 0.200 Result Comment: IG% - Immature Granulocytes (promyelocytes, myelocytes and metamyelocytes) > 1% indicates that a LEFT SHIFT is Present. LAB L100.2620 2.0-7.7 X10 3/uL Normal Absolute Neut 3.4 LAB L100.2720 0.83-4.51 X10 3/ul Normal Absolute Lymph 1.25 Performed By: #### L100.0100 #### [facility] [address] [place], [address] BASIC METABOLIC Collected: 02/25/2018 Status: F Source: DWIGHT PROFILE (BMP) 12:50 PM [facility] REPOSITORY TYPE CODE TESTS RESULT OUT OF RANGE REFERENCE UNITS LAB L501.0100 74-106 mg/dL Normal GLU 106 Result Comment: Fasting Glucose result from 100 to 125 mg/dL suggests IMPAIRED HOMEOSTASIS per A.D.A. criteria. Please note revised GLUCOSE reference range effective 2017. LAB L501.1000 7-18 mg/dL Normal BUN 11 LAB L501.1100 0.70-1.30 mg/dL Normal CREAT,SERUM 0.82 Result Comment: The validity of the calculated GFR AND GFRAA in patients over 70 years has not been determined. Clinical correlation is essential. LAB L501.1110 >60 mL/min Normal EST GFR 99 Result Comment: Non- GFR Calc LAB L501.1115 >60 mL/min Normal EST GFR - AA 120 Result Comment: GFR Calc LAB L501.1255 ml/min Normal Estimated CRCL 71.31 LAB L501.1300 10-20 RATIO Normal BUN/CRE 13.5 LAB L501.2200 8.5-10 mg/dL Low .1 CA 8.4 LAB L501.5300 136-14 mmol/L Normal 5 NA 138 LAB L501.5600 3.5-5. mmol/L Normal 1 K 3.7 LAB L501.5900 98-107 mmol/L Normal CL 104 LAB L501.6100 21.0-3 mmol/L Normal 2.0 CO2 28.0 LAB L501.6200 5-15 Normal GAP 6 Performed By: #### L500.2500, L501.4010 #### [facility] [address] [place], [address] TROPONIN-I Collected: 02/25/2018 Status: F Source: FAIZA 12:50 PM [facility] REPOSITORY TYPE CODE TESTS RESULT OUT OF RANGE REFERENCE UNITS LAB L501.4010 <0.045 ng/mL Normal < 0.015 TROPONIN-I Result Comment: TROPONIN-I EXPECTED VALUES <0.045 Negative 0.045 - 0.590 Consistent with Cardiac Damage > OR = 0.600 Critical Value Not every elevated troponin is indicative of WA. These values should be used with clinical judgement in examining the patient's clinical picture for diagnosis. To establish a diagnosis of WA versus myocardial injury, there must be a demonstrated rise and/or fall in the troponin values, in addition to ischemic symptoms, EKG changes, new regional wall motion abnormality, and/or angiographical evidence. PLEASE NOTE: REFERENCE RANGES EDITED 17 Performed By: #### L500.2500, L501.4010 #### [facility] [address] [place], [address] ALLERGIES ALLERGIES DATE TYPE / CODE NAME / CODE REACTION SEVERITY SOURCE 03/10/2018 Drug Iodinated Hives Unknown [facility] Allergy/[facility] 392306(SNOM and IV Repository ED CT) Dye/[id number](R XNORM) ENCOUNTERS ENCOUNTERS ADMIT/DISCHARGE ACCOUNT ADMITTING ENCOUNTER LOCATION SOURCE NUMBER CLASS 04/07/2018 [id number] Ambulatory BMSBuilding:Karsten Kendall MS.CF.[facility] Repository 04/07/2018 [id number] Ambulatory [facility] ing:[facility] Repository 03/31/2018 [id number] Ambulatory [address] [place] [address] Repository 03/11/2018 [id number] Ambulatory [facility] ing:OPUS Repository 03/10/2018/03/10/20 [id number] Ambulatory BMSBuilding:Karsten Kendall 20 MS.[facility] Repository 03/09/2018 [id number] Ambulatory BMSBuilding:Karsten Kendall MS.[facility] Repository 03/08/2018 [id number] Ambulatory [facility] ing:US Repository 03/02/2018 [id number] Ambulatory [facility] ing:POLAB3 Repository 02/25/2018/02/26/20 [id number] Emergency [address] ing:ED Repository 02/25/2018/02/26/20 [id number] Ambulatory BMSBuilding:[place] [facility] Repository PAYERS PAYERS ENCOUNTER GUARANTOR PAYER SUBSCRIBER SOURCE 04/07/2018 TONEY Odell Primary TONEY Odell [place] [id number] [place] Insurance:MEDICARE HOUSERDOB: [place] PART A [facility] [id number] Hospital 884[address]Ddw: (330) Number: Repository [phone] () [id number] Date:2018-03-11 04/07/2018 Secondary TONEY Odell [place] Insurance:[facility] HOUSERDOB: [facility] CARE [id number] Hospital Number: Repository [id number] Date:7082-92-04NW [facility] [place], [place] [address]EJ: 04/07/2018 Tertiary NOT GIVENUNK [place] Insurance:SELF PAY [facility] Number: Effective Repository Date:2018-04-07 04/07/2018 TONEY Odell Primary TONEY Kendall [id number] [place] Insurance:MEDICARE HOUSERDOB: [place] PART A [facility] [id number] Hospital 56645Qfu: (330) Number: Repository [phone] () [id number] Date:2018-03-11 04/07/2018 Secondary TONEY A [place] Insurance:[facility] HOUSERDOB: [facility] CARE [id number] Hospital Number: Repository [id number] Date:2813-89-95[address], [place] [address]ZZ: 04/07/2018 Tertiary NOT GIVENUNK [place] Insurance:SELF PAY [facility] Number: Effective Repository Date:2018-03-11 03/31/2018 TONEY Primary TONEY University HOUSERDOB: Insurance:MedicarePol HOUSERDOB: [facility] icy Number: [id number] Repository NAPLES CAROLE, [id number] 0 [facility] [id number]: Date:Plan Name:[facility] LIYA LAM B [id number]: (HH) (HP) 03/31/[address] [facility] Insurance:United HOUSERDOB: [facility] HealthCare [id number] Repository [place] Number: 0 [place] [id number] LIYA LAM Date:Plan Name:Health [id number]: () 03/11/2018 TONEY Cass Primary TONEY A [place] [id number] [place] Insurance:MEDICARE HOUSERDOB: [place] PART A [facility] [id number] [facility] [address]702Fsf: (330) Number: Repository [phone] () [id number] Date:2018-03-02 03/11/2018 Secondary TONEY A [place] Insurance:[facility] HOUSERDOB: [facility] CARE [id number] Hospital Number: Repository [id number] Date:1817-89-14WX [facility] [address]70[address], [place] [address]XV: 03/11/2018 Tertiary NOT GIVENUNK [place] Insurance:SELF PAY [facility] Hospital Number: Effective Repository Date:2018-03-02 03/10/2018 TONEY A Primary Insurance: TONEY A [place] [id number] [place] [facility] HOUSERDOB: [place] Number: [id number] [facility] 67423Qtl: 330 [id number] Repository [phone] () Date:9647-95-07JS [address] [address]QJQZJ, [place] [address]YL: 03/10/2018 Secondary TONEY A [place] Insurance:[facility] HOUSERDOB: [facility] CARE [id number] [id number] Hospital Number: Repository [id number] Date:9357-71-16OB [facility] [address]QS, [place] [address]AV: 03/10/2018 Tertiary NOT GIVENUNK [place] Insurance:SELF PAY [facility] Number: Effective Repository Date:2018-03-10 03/09/2018 TONEY A Primary TONEY A [place] [id number] [place] Insurance:MEDICARE HOUSERDOB: [place] PART A [facility] [id number] Hospital 538[address]Whr: (330) Number: Repository [phone] () [id number] Date:2018-03-09 03/09/2018 Secondary TONEY A [place] Insurance:[facility] HOUSERDOB: [facility] CARE [address] [place] [address] [id number] Hospital Number: Repository [id number] Date:0281-56-27VH [facility] [id number], [place] [address]XA: 03/09/2018 Tertiary NOT GIVENUNK [place] Insurance:SELF PAY [facility] Hospital Number: Effective Repository Date:2018-03-09 03/08/2018 TONEY A Primary TONEY A [place] [id number] [place] Insurance:MEDICARE HOUSERDOB: [place] PART A [facility] [id number] Hospital 19[address]Ecp: (330) Number: Repository [phone] () [id number] Date:2018-03-02 03/08/2018 Secondary TONEY A [place] Insurance:[facility] HOUSERDOB: Community CARE [id number] Hospital Number: Repository [id number] Date:7752-83-87GW [facility] [address]507[address]NMFAXJT, [place] [address]TT: 03/08/2018 Tertiary NOT GIVENUNK [place] Insurance:SELF PAY [facility] Number: Effective Repository Date:2018-03-02 03/02/2018 TONEY A Primary TONEY A [place] [id number] [place] Insurance:MEDICARE HOUSERDOB: [place] PART A [facility] [id number] Hospital 10[address]Upd: (330) Number: Repository [phone] () [id number] Date:2018-03-02 03/02/2018 Secondary TONEY A [place] Insurance:UNITED TH HOUSERDOB: [facility] CARE [id number] Hospital Number: Repository [id number] Date:5838-37-39AB [address], [place] [address]ZZ: 03/02/2018 Tertiary NOT GIVENUNK [place] Insurance:SELF PAY [facility] Number: Effective Repository Date:2018-03-02 02/25/2018 TONEY A Primary TONEY A [place] [id number] [place] Insurance:MEDICARE HOUSERDOB: [place] [facility] [id number] Hospital [address]Mbg: (330) Number: Repository [phone] () [id number] Date:2018-02-25 02/25/2018 Secondary TONEY A [place] Insurance:[facility] HOUSERDOB: [place] [id number] [id number] Hospital Number: Repository [id number] Date:7870-91-37WG [address], [place] [address]DH: 02/25/2018 Tertiary NOT GIVENUNK [place] Insurance:SELF PAY [facility] Hospital Number: Effective Repository Date:2018-02-25 02/25/2018 TONEY A Primary Insurance:RR TONEY A [place] [id number] [place] MEDICAREPoly HOUSERDOB: [place] Number: [id number] Hospital [address]Kza: 330 [id number] Repository [phone] () Date:9348-45-21VT [address] [address]HDYR [place] [address]OB: 02/25/2018 Secondary TONEY A [place] Insurance:[facility] HOUSERDOB: [place] [id number] [id number] Hospital Number: Repository [id number] Date:5399-10-09TW [address], [place] [address]RM: 02/25/2018 Tertiary NOT GIVENUNK [place] Insurance:SELF PAY [facility]: Effective Repository Date:2018-02-25
== END ==
PROVIDERS: Family Provider Family Medicine Geriatric Medicine; PCP Family Medicine Geriatric Medicine; Visit Provider Family Medicine Geriatric Medicine
DX: Z13.89 Encounter for screening for other disorder (principal)
CPT/HCPCS: 36415; 86803

== ENCOUNTER → 2018-03-08 08:10 | Outpatient (CLI) | payer MEDICARE, OTHER, SELFPAY ==
[2018-02-25 12:38] VITALS: BMI 22.0
--- NOTE | 2018-03-08 08:12 | US_ITS ---
PROCEDURES: ULTRASOUND AORTA REASON FOR EXAM: Male, 72 years old. History of tobacco use, rule out abdominal aortic aneurysm TECHNIQUE: Ultrasound evaluation of the aorta was performed with real-time and static manjarrez-scale imaging. COMPARISON: None. FINDINGS: There is no elongation or tortuosity of the abdominal aorta. Aorta measures: Proximal 2.4 cm. Middle 2.0 cm. Distal 1.6 cm. Aorta measure transversely: Proximal 2.6 cm. Middle 2.4 cm. Distal 1.7 cm. Right iliac artery measures: 0.9 cm. Right iliac artery measure transversely: 0.9 cm. Left iliac artery measures: 0.8 cm. Left iliac artery measure transversely: 0.9 cm. There is no demonstrated aneurysm.. US/Aorta IMPRESSION: Normal abdominal aorta. Electronically Signed: Aron Diaz DO at 11:06 EST Tel , Service support ,
--- OUTSIDE RECORDS SUMMARY | 2018-06-09 18:58 | XMS RPT_ITS ---
:1945 Author Organization OHIP Support Name Relationship Address Phone KAMRYN CANTOR Unavailable [address] + [place] [address] DEVAUGHN, CARLA Unavailable [address] + [place] [address] R Unavailable Unavailable Unavailable DEVAUGHN, KAMRYN Unavailable [address] + [place] [address] DEVAUGHN, CARLA Unavailable [address] + [place] [address] R Unavailable Unavailable Unavailable DEVAUGHN, CARLA Unavailable Unavailable + DEVAUGHN, CARLA Unavailable Unavailable + DEVAUGHN, KAMRYN Unavailable [address] + [place] [address] DEVAUGHN, CARLA Unavailable [address] + [place] [address] R Unavailable Unavailable Unavailable DEVAUGHN, KAMRYN Unavailable [address] + [place] [address] DEVAUGHN, CARLA Unavailable [address] + [place] [address] R Unavailable Unavailable Unavailable DEVAUGHN, KAMRYN Unavailable [address] + [place] [address] DEVAUGHN, CARLA Unavailable [address] + [place] [address] R Unavailable Unavailable Unavailable DEVAUGHN, KAMRYN Unavailable [address] + [place] [address] DEVAUGHN, CARLA Unavailable [address] + [place] [address] R Unavailable Unavailable Unavailable DEVAUGHN, KAMRYN Unavailable [address] + [place] [address] DEVAUGHN, CARLA Unavailable [address] + [place] [address] R Unavailable Unavailable Unavailable DEVAUGHN, KAMRYN Unavailable [address] + [place] [address] DEVAUGHN, CARLA Unavailable [address] + [place] [address] R Unavailable Unavailable Unavailable DEVAUGHN, KAMRYN Unavailable [address] + [place] [address] DEVAUGHN, CARLA Unavailable [address] + [place] [address] R Unavailable Unavailable Unavailable Care Team Providers Name Role Phone Daphney Branch Attending Unavailable Manuelito, Point Clear Attending Unavailable Daren, Carmen Chi Referring Unavailable Dani Menchaca Attending Unavailable Daren, Carmen Chi Primary Care Unavailable Draen, Carmen Chi Attending Unavailable Daren, Carmen Chi Referring Unavailable Daren, Carmen Chi Primary Care Unavailable Daren, Carmen Chi Attending Unavailable Daren, Carmen Chi Referring Unavailable Daren, Carmen Chi Primary Care Unavailable Daren, Caremn Chi Attending Unavailable Daren, Cramen Chi Primary Care Unavailable Manuelito, Point Clear Attending Unavailable Manuelito, Point Clear Referring Unavailable Daren, Carmen Chi Primary Care Unavailable Manuelito, Point Clear Consulting Unavailable Manuelito, Point Clear Attending Unavailable Manuelito, Jona Referring Unavailable Daren, Carmen Chi Primary Care Unavailable Manuelito, Jona Attending Unavailable Chong, Dr. Santi Enciso Attending Unavailable Hearn, Dr. Santi Pinedo Referring Unavailable Hearn, Dr. Santi Pinedo Primary Care Unavailable PROBLEMS [...] 04/07/2018 Status: F Source: [place] 12:55 PM [facility] REPOSITORY [facility] Cardiovascular Services [address] [place] [address] MR#: [id number] Acct: [id number] Name: TONEY CANTOR Rep #: [id number] : 1945 72 From: Jona Billings MD [...] Dictated: 04/07/18 1252 Date Transcribed: 04/07/18 125 Data Processing Specialist: [place] Signed ECHOCARDIOGRAM COMPLETE Observed: 04/07/2018 Status: F Source: [place] [address]:31 PM [facility] REPOSITORY [facility] Cardiovascular Services [address] [place] [address] Echo Complete 04/07/18922 MR#: [id number] Acct: [id number] Name: TONEY CANTOR Rep #: [id number] : 1945 72 From: Jona Billings MD Attending Dr: Jona Billings MD Status: REG CLI Ordering Dr: Jona Billings MD Date: 04/07/18 Location: [facility] Sex: M C Admitted: Reason For [...] Date Dictated: 04/07/18922 Date Transcribed: 04/07/18 123 Data Processing Specialist: Signed DIAG MAMM W/CAD, Observed: 03/11/2018 Status: F Source: [facility] 8:48 AM [facility] REPOSITORY [facility] Imaging Services [address] [place], [place] [address] [address] DIAG MAMM W/CAD, BILAT MR#: [id number] Acct: [id number] Name: TONEY CANTOR Rep #: [id number] : 1945 M 72 From: Anuj Dean MD PCP: Carmen Chong MD, Chi Status: REG CLI Study: DIAG MAMM W/CAD, BILAT Date of Exam: 03/11/18 Exam# [id number] Ordering Dr: Carmen Chong MD MAMMOGRAPHY - [...] Anuj Dean MD at 15:03 EST Tel [phone], Service support , CC: Carmen Chong MD Data Processing Specialist: Signed CARDIOLOGY VISIT Observed: 03/10/2018 Status: F Source: [place] REPORT 4:34 PM [facility] REPOSITORY [facility] [address] [place] [address]. [address] [place] [address] OFFICE VISIT Date of Service: 03/10/18 MR#: [id number] Acct: [id number] Name: TONEY CANTOR Rep #: [id number] : 1945 Provider: Jona Billings MD Age/Sex: 72/M Location: [facility] Status: Signed HPI HPI Chief Complaint: Initial [...] having a myocardial infarction was transferred to [facility] where he underwent a cardiac catheterization which [...] DAILY #30 tab 03/10/18 [Rx Confirmed 03/10/18] [facility] Medical History Hyperlipidemia (Chronic) Lung nodule (Chronic) [...] 03/08/2018 Status: F Source: [place] 8:12 AM [facility] REPOSITORY [facility] Imaging Services [address] [place] [address] Aorta MR#: [id number] Acct: [id number] Name: TONEY CANTOR Rep #: [id number] : 1945 M 72 From: Aron Diaz DO PCP: Daren PARDO,Carmen Calderón Status: REG CLI Study: Aorta Date of Exam: 03/08/18 Exam# [id number] Ordering Dr: Carmen Chong MD PROCEDURES: ULTRASOUND [...] Service support , CC: Carmen Chong MD Data Processing Specialist: Signed HEPATITIS C ANTIBODIES Collected: 03/02/2018 Status: F Source: [place] 3:01 PM [facility] REPOSITORY TYPE CODE TESTS RESULT OUT OF RANGE REFERENCE UNITS LAB L3100.0650 0.0-0.9 s/co ratio Normal HEP C AB <0.1 Result Comment: Negative: < 0.8 Indeterminate: 0.8 - 0.9 Positive: > 0.9 The CDC recommends that a positive HCV antibody result be followed up with a HCV Nucleic Acid Amplification test (874163). Performed at: [address] [id number] Flat Breakdown Processor: Steven Gonzalez PhD, Phone: [phone] Performed By: #### L3100.0625 #### [facility] (refer to report for specific site) refer to report for address and phone number 12 LEAD ELECTROCARDIOGRAM Observed: 03/01/2018 Status: F Source: [place] 2:45 PM [facility] REPOSITORY [facility] Cardiovascular Services [address] [place] [address] 12 Lead EKG 02/25/18 1246 MR#: [id number] Acct: [id number] Name: TONEY CANTOR Rep #: [id number] : 1945 72 From: Jona Billings MD [...] ECG Confirmed by JONA BILLINGS MD ([id number]), editor in chief JACQUELINE COHEN ([id number]) on 03/01/2018 2:45:32 PM Referred By: WILLEM Confirmed By:JONA BILLINGS MD 03/01/18 1445 Date Jona Billings MD CC: Dani Menchaca MD; Carmen Chong MD Signed DISCHARGE INSTRUCTION Observed: 02/25/2018 Status: F Source: [place] 4:52 PM [facility] REPOSITORY [facility] Medical Records Department [address] [place] [address] Discharge Instruction 02/25/18 1540 MR#: [id number] Acct: [id number] Name: TONEY CANTOR Rep #: [id number] : 1945 72 From: Dani Menchaca MD [...] your Primary Care Provider. Call [facility] ([phone]) or report to the closest Emergency Room. Call 911 if necessary. 02/25/18 1652 <Electronically signed by Dani Menchaca MD> Date Dani Menchaca MD Cosigner Signature (If Indicated): Date CC: Carmen Chong MD EMERGENCY DEPARTMENT Observed: 02/25/2018 Status: F Source: [place] SUMMARY 4:52 PM [facility] REPOSITORY [facility] Medical Records Department [address] [place] [address] Emergency Department Summary 02/25/18 1308 MR#: [id number] Acct: [id number] Name: TONEY CANTOR Rep #: [id number] : 1945 72 From: Dani Menchaca MD [...] when he was at an area of [place] he went to a local hospital they were concerned he may be having an [place]. He transferred him to [facility] about 6 years ago and he states [...] signs. Moving all 4 extremities. Equal symmetrical demonstrator sales. Dorsi plantar flexion intact. Equal symmetrical radial [...] chest pain This note was generated with [employer] dictation software. It may contain incorrect words, [...] your Primary Care Provider. Call [facility] ([phone]) or report to the closest Emergency Room. Call 911 if necessary. 02/25/18 4422 <Electronically signed by Dani Menchaca MD> Date Dani Menchaca MD Cosigner Signature (If Indicated): Date CC: Carmen Chong MD CHEST 1 VIEW Observed: 02/25/2018 Status: F Source: [place] (PORTABLE) 12:55 PM [facility] REPOSITORY [facility] Imaging Services [address] [place] [address] Chest 1 View (Portable) MR#: [id number] Acct: [id number] Name: TONEY CANTOR Rep #: [id number] : 1945 M 72 From: Gavino Castro MD PCP: Carmen Chong MD, Chi Status: REG ER Study: Chest 1 View (Portable) Date of Exam: 02/25/18 Exam# [id number] Ordering Dr: Dani Menchaca MD STUDY: X-RAY [...] CC: Dani Menchaca MD; Carmen Chong MD Data Processing Specialist: Signed CBC W/DIFF, AUTOMATED Collected: 02/25/2018 Status: F Source: [place] 12:50 PM [facility] REPOSITORY TYPE CODE TESTS RESULT OUT OF [...] Lymph 1.25 Performed By: #### L100.0100 #### [facility] Laboratory [address] [facility] [place], [address] BASIC METABOLIC Collected: 02/25/2018 Status: F Source: [place] PROFILE (BMP) 12:50 PM [facility] REPOSITORY TYPE CODE TESTS RESULT OUT OF [...] 6 Performed By: #### L500.2500, L501.4010 #### [facility] Laboratory [address] [facility] [place], [address] TROPONIN-I Collected: 02/25/2018 Status: F Source: [place] 12:50 PM [facility] REPOSITORY TYPE CODE TESTS RESULT OUT OF RANGE REFERENCE UNITS LAB L501.4010 <0.045 ng/mL Normal < 0.015 TROPONIN-I Result Comment: TROPONIN-I EXPECTED VALUES <0.045 Negative 0.045 - 0.590 Consistent with Cardiac Damage > OR = 0.600 Critical Value Not every elevated troponin is indicative of [place]. These values should be used with clinical judgement in examining the patient's clinical picture for diagnosis. To establish a diagnosis of [place] versus myocardial injury, there must be a demonstrated rise and/or fall in the troponin values, in addition to ischemic symptoms, EKG changes, new regional wall motion abnormality, and/or angiographical evidence. PLEASE NOTE: REFERENCE RANGES EDITED 17 Performed By: #### L500.2500, L501.4010 #### [facility] [address], [address] ALLERGIES ALLERGIES DATE TYPE / CODE NAME / CODE REACTION SEVERITY SOURCE 03/10/2018 Drug Iodinated Hives Unknown [facility] Allergy/[facility] [id number](SNOM and IV Repository ED CT) Dye/[id number](R XNORM) ENCOUNTERS ENCOUNTERS ADMIT/DISCHARGE ACCOUNT ADMITTING ENCOUNTER LOCATION SOURCE NUMBER CLASS 04/07/2018 [id number] Ambulatory BMSBuilding:Karsten Kendall MS.CF.[facility] Repository 04/07/2018 [id number] Ambulatory [facility] ing:[facility] Repository 03/31/2018 [id number] Ambulatory [address] [place] [address] Repository 03/11/2018 [id number] Ambulatory [facility] ing:OPUS Repository 03/10/2018/03/10/20 [id number] Ambulatory BMSBuilding:Karsten Kendall 20 MS.[facility] Repository 03/09/2018 [id number] Ambulatory BMSBuilding:Karsten Kendall MS.[facility] Repository 03/08/2018 [id number] Ambulatory [facility] ing:US Repository 03/02/2018 [id number] Ambulatory [facility] ing:POLAB3 Repository 02/25/2018/02/26/20 [id number] Emergency [address] ing:ED Repository 02/25/2018/02/26/20 [id number] Ambulatory BMSBuilding:[place] [facility] Repository PAYERS PAYERS ENCOUNTER GUARANTOR PAYER SUBSCRIBER SOURCE 04/07/2018 TONEY Odell Primary TONEY Odell [place] [id number] [place] Insurance:MEDICARE HOUSERDOB: [place] PART A [facility] [id number] Hospital [address]Jmb: (330) Number: Repository [phone] () [id number] Date:2018-03-11 04/07/2018 Secondary TONEY Odell [place] Insurance:[facility] HOUSERDOB: [facility] CARE [id number] Hospital Number: Repository [id number] Date:6505-26-58RY [facility] [address]36[address], [place] [address]CH: 04/07/2018 Tertiary NOT GIVENUNK [place] Insurance:SELF PAY [facility] Number: Effective Repository Date:2018-04-07 04/07/2018 TONEY Odell Primary TONEY Kendall [id number] [place] Insurance:MEDICARE HOUSERDOB: [place] PART A [facility] [id number] Hospital [address]Uno: (330) Number: Repository [phone] () [id number] Date:2018-03-11 04/07/2018 Secondary TONEY A [place] Insurance:[facility] HOUSERDOB: [facility] CARE [id number] Hospital Number: Repository [id number] Date:1890-61-[address], [place] [address]NX: 04/07/2018 Tertiary NOT GIVENUNK [place] Insurance:SELF PAY [facility] Number: Effective Repository Date:2018-03-11 03/31/2018 TONEY Primary TONEY University HOUSERDOB: Insurance:MedicarePol HOUSERDOB: [facility] icy Number: [id number] Repository [place], [id number] 0 [facility] [id number]: Date:Plan Name:[facility] LIYA LAM B [id number]: (EK) (HP) 03/31/2018 Secondary [facility] Insurance:United HOUSERDOB: [facility] [id number] Repository [place] Number: 0 [place] [id number] LIYA LAM Date:Plan Name:Health [id number]: () 03/11/2018 TONEY Cass Primary TONEY A [place] [id number] [place] Insurance:MEDICARE HOUSERDOB: [place] PART A [facility] [id number] [facility] 118[address]Vpg: (330) Number: Repository [phone] () [id number] Date:2018-03-02 03/11/2018 Secondary TONEY A [place] Insurance:[facility] HOUSERDOB: [facility] CARE [id number] Hospital Number: Repository [id number] Date:6098-14-80LY [facility] [address]TCEFVHB, [place] [address]SV: 03/11/2018 Tertiary NOT GIVENUNK [place] Insurance:SELF PAY [facility] Hospital Number: Effective Repository Date:2018-03-02 03/10/2018 TONEY A Primary Insurance: TONEY A [place] [id number] [place] MEDICAREKaleida Healthy HOUSERDOB: [place] Number: [id number] [facility] [address]Jlj: 330 [id number] Repository [phone] () Date:3541-90-49[address] [address], [place] [address]TY: 03/10/2018 Secondary TONEY A [place] Insurance:[facility] HOUSERDOB: [facility] CARE [id number] [id number] Hospital Number: Repository [id number] Date:5029-27-62TR [facility] [address]690ZLPQCOP, [place] [address]JI: 03/10/2018 Tertiary NOT GIVENUNK [place] Insurance:SELF PAY [facility] Number: Effective Repository Date:2018-03-10 03/09/2018 TONEY A Primary TONEY A [place] [id number] [place] Insurance:MEDICARE HOUSERDOB: [place] PART A [facility] [id number] Hospital [address]Ayh: (330) Number: Repository [phone] () [id number] Date:2018-03-09 03/09/2018 Secondary TONEY A [place] Insurance:[facility] HOUSERDOB: [facility] CARE [address] [place] [address] [id number] Hospital Number: Repository [id number] Date:7984-56-96YK [facility] 188383RPFINJK, [place] [address]TD: 03/09/2018 Tertiary NOT GIVENUNK [place] Insurance:SELF PAY [facility] Hospital Number: Effective Repository Date:2018-03-09 03/08/2018 TONEY A Primary TONEY A [place] [id number] [place] Insurance:MEDICARE HOUSERDOB: [place] PART A [facility] [id number] Hospital [address]Amk: (330) Number: Repository [phone] () [id number] Date:2018-03-02 03/08/2018 Secondary TONEY A [place] Insurance:[facility] HOUSERDOB: Community CARE [id number] Hospital Number: Repository [id number] Date:0546-26-41VT [facility] [address]8073[place]UQ, [place] [address]HA: 03/08/2018 Tertiary NOT GIVENUNK [place] Insurance:SELF PAY [facility] Number: Effective Repository Date:2018-03-02 03/02/2018 TONEY A Primary TONEY A [place] [id number] [place] Insurance:MEDICARE HOUSERDOB: [place] PART A [facility] [id number] Hospital [address]Cbt: (330) Number: Repository [phone] () [id number] Date:2018-03-02 03/02/2018 Secondary TONEY A [place] Insurance:UNITED TH HOUSERDOB: [facility] CARE [id number] [id number] Hospital Number: Repository [id number] Date:4074-81-36[address]JXMGHSC, [place] [address]VD: 03/02/2018 Tertiary NOT GIVENUNK [place] Insurance:SELF PAY [facility] Number: Effective Repository Date:2018-03-02 02/25/2018 TONEY A Primary TONEY A [place] [id number] [place] Insurance:MEDICARE HOUSERDOB: [place] [facility] [place] [facility] [id number] Hospital [address]Wyy: (330) Number: Repository [phone] () [id number] Date:2018-02-25 02/25/2018 Secondary TONEY A [place] Insurance:[facility] HOUSERDOB: [place] [id number] [id number] Hospital Number: Repository [id number] Date:1420-71-66[address]IPF, [place] [address]DI: 02/25/2018 Tertiary NOT GIVENUNK [place] Insurance:SELF PAY [facility] Hospital Number: Effective Repository Date:2018-02-25 02/25/2018 TONEY A Primary Insurance:RR TONEY A [place] [id number] [place] MEDICAREPoly HOUSERDOB: [place] Number: [id number] Hospital 12[address]Ftx: 330 [id number] Repository [phone] () Date:8863-20-13[address]OTGYCLJ [place] [address]PB: 02/25/2018 Secondary TONEY A [place] Insurance:[facility] HOUSERDOB: [place] [id number] [id number] Hospital Number: Repository [id number] Date:2835-33-70CM [address]GUCMX, [place] [address]AR: 02/25/2018 Tertiary NOT GIVENUNK [place] Insurance:SELF PAY [facility] Number: Effective Repository Date:2018-02-25
== END ==
PROVIDERS: Family Provider Family Medicine Geriatric Medicine; PCP Family Medicine Geriatric Medicine; Referring Provider Family Medicine Geriatric Medicine; Visit Provider Family Medicine Geriatric Medicine
DX: Z87.891 Personal history of nicotine dependence (principal)
CPT/HCPCS: 76775

== ENCOUNTER → 2018-03-11 08:43 | Outpatient (CLI) | payer MEDICARE, OTHER, SELFPAY ==
[2018-02-25 12:38] VITALS: BMI 22.0
[2018-03-10 15:56] VITALS: BMI 21.6
--- NOTE | 2018-03-11 08:46 | BI_ITS ---
MAMMOGRAPHY - BILATERAL DIAGNOSTIC REASON FOR EXAM: Male, 72 years old. Left breast discomfort. PERTINENT HISTORY: Non-contributory. TECHNIQUE: Digital bilateral breast basil (3D mammographic acquisition) in the CC and MLO projections. 2-D mediolateral oblique (MLO) and craniocaudad (CC) views of both breasts were obtained. CAD: Full Field Digital Mammography with Computer Added Detection was performed. COMPARISON: None. Baseline examination. FINDINGS: Breast Composition: The breasts are almost entirely fatty. There are no dominant masses or suspicious calcifications. No other significant abnormalities are identified. BI/DIAG MAMM W/CAD, BILAT IMPRESSION: Negative diagnostic mammogram. Yearly followup mammogram recommended. (A) ASSESSMENT CATEGORY: BIRADS Category 1: Negative. A letter regarding these results will be sent to the patient by the facility within 30 days. Approximately 10% of breast cancers are not detected by mammography. A normal mammogram should not delay biopsy of a clinically suspicious abnormality. Electronically Signed: Anuj Dean MD at 15:03 EST Tel [phone], Service support ,
== END ==
PROVIDERS: Family Provider Family Medicine Geriatric Medicine; PCP Family Medicine Geriatric Medicine; Referring Provider Family Medicine Geriatric Medicine; Visit Provider Family Medicine Geriatric Medicine
DX: N62 Hypertrophy of breast (principal)
CPT/HCPCS: 77062; 77066; G0279

== ENCOUNTER → 2018-04-07 06:42 | Outpatient (CLI) | payer MEDICARE, OTHER, SELFPAY ==
[2018-03-10 15:56] VITALS: BMI 21.6
--- NOTE | 2018-04-07 06:45 | ECHOD_ITS ---
Reason For Study: CHEST PAIN Procedure This was a 2D Doppler, Color Flow transthoracic echocardiogram. Exam performed in department. Left Ventricle Normal LV size. Left ventricular systolic function is normal. The estimated ejection fraction is 60 %. Stage 1 diastolic dysfunction. No regional wall motion abnormalities noted. Right Ventricle Normal RV size. Normal systolic function. Atria Normal left atrium. Normal right atrium. Patent foramen ovale. Hypermobile atrial septum. Mitral Valve Normal mitral valve. Trivial mitral valve insufficiency. Tricuspid Valve Normal tricuspid valve. Mild (1+) tricuspid valve insufficiency. Pulmonary artery systolic pressure is 25 mmHg. Aortic Valve Trisinus/trileaflet aortic valve. Pulmonic Valve Normal pulmonic valve. Great Vessels Normal aortic root. The pulmonary artery is normal size. Normal inferior vena cava. Pericardium/Pleural No pericardial effusion. Medication Performed a rapid injection of agitated mix of 9 cc saline and 1cc air to assess for atrial septal defect. MMode/2D Measurements & Calculations LVIDd: 4.6 cm IVSd: 0.54 cm Ao root diam: 3.3 cm LVIDs: 3.0 cm LVPWd: 0.70 cm RVDd: 3.8 cm FS: 34.3 % LAV(MOD-bp): 33.7 ml EDV(MOD-sp2): 73.7 ml SV(MOD-sp2): 48.6 ml LAV(MOD-bp) Indexed: 20.5 ml/m2 EF(MOD-sp2): 66.0 % LAV(MOD-sp2): 38.4 ml LAV(MOD-sp4): 27.9 ml LA dimension(2D): 2.9 cm LA A4 area: 13.0 cm2 RA A4 area: 15.0 cm2 Time Measurements MV dec time: 0.25 sec Doppler Measurements & Calculations MV E max cristino: 81.5 cm/sec Lat Peak E' Cristino: 11.6 cm/sec Med Peak E' Cristino: 9.7 cm/sec MV A max cristino: 81.0 cm/sec E/E' lat: 7.0 E/E' med: 8.4 MV E/A: 1.0 Ao V2 max: 144.0 cm/sec LV V1 max: 147.4 cm/sec PA V2 max: 112.2 cm/sec Ao max P.3 mmHg LV V1 max P.7 mmHg TR max cristino: 228.9 cm/sec TR max P.1 mmHg Interpretation Summary Normal LV size. Left ventricular systolic function is normal. The estimated ejection fraction is 60 %. Stage 1 diastolic dysfunction. Hypermobile atrial septum. Patent foramen ovale. Mild (1+) tricuspid valve insufficiency. Ordering Physician: Jona Billings Referring Physician: CARMEN CHONG Performed By: Farley, Hanna, RDCS
--- NOTE | 2018-04-07 12:52 | STRESSREP ---
Stress Test Report Exercise myocardial perfusion stress test. 72-year-old man with a history of chest pain. Medications: Aspirin pravastatin and lisinopril. Stress protocol: Resting EKG demonstrates normal sinus rhythm with a rate of 75 bpm normal intervals are noted resting blood pressure 132/80 mmHg. The patient exercised according to regular Riley protocol for a total duration of 9 minutes and 30 seconds patient completed 1 minute 30 seconds to stage IV of the Riley protocol the maximum heart rate attained was 160 bpm which was 106% of maximum predicted heart rate the maximum workload was 10.9 metabolic equivalents. At rest there were no ST or T wave changes noted suggest ischemia at peak exercise upsloping ST changes only were noted with normally the criteria for ischemia. No clinical angina was noted. The resting blood pressure 132/90 with a peak blood pressure 150/78. Myocardial perfusion protocol. 10.6 mCi of technetium 99m sestamibi was injected at rest. The patient exercised according to regular Riley protocol. At peak exercise 31.7 mCi of technetium 99m sestamibi was injected stress images were obtained stress and rest images were reconstructed and compared in the short axis vertical long horizontal long axis. Gated images were also obtained Perfusion SPECT analysis: Review of the stress images demonstrate normal uptake of tracer noted in all areas of the myocardium. The resting images similarly demonstrate normal uptake of tracer noted in all areas of the myocardium. No areas of reversibility are noted suggest ischemia. Gated SPECT analysis: The gated ejection fraction is noted to be 72%. Conclusion: Normal exercise myocardial perfusion stress test at a high workload. Preserved ejection fraction. Good functional aerobic capacity.
--- OUTSIDE RECORDS SUMMARY | 2018-06-11 22:14 | XMS RPT_ITS ---
:1945 Author Organization OHIP Support Name Relationship Address Phone KAMRYN CANTOR Unavailable [address] + [place] [address] DEVAUGHN, CARLA Unavailable [address] + [place] [address] R Unavailable Unavailable Unavailable DEVAUGHN, KAMRYN Unavailable [address] + [place] [address] DEVAUGHN, CARLA Unavailable [address] + [place] [address] R Unavailable Unavailable Unavailable DEVAUGHN, CARLA Unavailable Unavailable + DEVAUGHN, CARLA Unavailable Unavailable + DEVAUGHN, KAMRYN Unavailable [address] + [place] [address] DEVAUGHN, CARLA Unavailable [address] + [place] [address] R Unavailable Unavailable Unavailable DEVAUGHN, KAMRYN Unavailable [address] + [place] [address] DEVAUGHN, CARLA Unavailable [address] + [place] [address] R Unavailable Unavailable Unavailable DEVAUGHN, KAMRYN Unavailable [address] + [place] [address] DEVAUGHN, CARLA Unavailable [address] + [place] [address] R Unavailable Unavailable Unavailable DEVAUGHN, KAMRYN Unavailable [address] + [place] [address] DEVAUGHN, CARLA Unavailable [address] + [place] [address] R Unavailable Unavailable Unavailable DEVAUGHN, KAMRYN Unavailable [address] + [place] [address] DEVAUGHN, CARLA Unavailable [address] + [place] [address] R Unavailable Unavailable Unavailable DEVAUGHN, KAMRYN Unavailable [address] + [place] [address] DEVAUGHN, CARLA Unavailable [address] + [place] [address] R Unavailable Unavailable Unavailable DEVAUGHN, KAMRYN Unavailable [address] + [place] [address] DEVAUGHN, CARLA Unavailable [address] + [place] [address] R Unavailable Unavailable Unavailable Care Team Providers [...] Daren, Carmen Chi Primary Care Unavailable Manuelito, Soldier Attending Unavailable Manuelito, Soldier Attending Unavailable Manuelito, Jona Referring Unavailable Daren, Carmen Chi Primary Care Unavailable Manuelito, Soldier Attending Unavailable Manuelito, Jona Referring Unavailable Daren, [...] 04/07/2018 Status: F Source: [place] 12:55 PM [facility] HOSPITAL REPOSITORY [facility] Cardiovascular Services [address] [place] [address] MR#: [id number] Acct: [id number] Name: TONEY CANTOR Rep #: [id number] : 1945 72 From: Jona Billings MD [...] Dictated: 04/07/18 1252 Date Transcribed: 04/07/18 125 Assignment Officer: CO Signed ECHOCARDIOGRAM COMPLETE Observed: 04/07/2018 Status: F Source: [place] [address]:31 PM [facility] Cardiovascular Services [address] [place] [address] Echo Complete 04/07/18922 MR#: [id number] Acct: [id number] Name: TONEY CANTOR Rep #: [id number] : 1945 72 From: Jona Billings MD Attending Dr: Jona Billings MD Status: REG CLI Ordering Dr: Jona Billings MD Date: 04/07/18 Location: [facility] Sex: M C Admitted: Reason For Study: [...] Date Dictated: 04/07/18922 Date Transcribed: 04/07/18 123 Assignment Officer: Signed DIAG MAMM W/CAD, Observed: 03/11/2018 Status: F Source: [facility] 8:48 AM [facility] Imaging Services [address] [place], [place] [address] [address] DIAG MAMM W/CAD, BILAT MR#: [id number] Acct: [id number] Name: TONEY CANTOR Rep #: [id number] : 1945 M 72 From: Anuj Dean MD PCP: Carmen Chong MD, Chi Status: REG CLI Study: DIAG MAMM W/CAD, BILAT Date of Exam: 03/11/18 Exam# [id number] Ordering Dr: Carmen Chong MD MAMMOGRAPHY - [...] Anuj Dean MD at 15:03 EST Tel [phone], Service support , CC: Carmen Chong MD Assignment Officer: Signed CARDIOLOGY VISIT Observed: 03/10/2018 Status: F Source: [place] RE[place] 4:34 PM [facility] [address] [place] [address]. [address] [place] [address] OFFICE VISIT Date of Service: 03/10/18 MR#: [id number] Acct: [id number] Name: TONEY CANTOR Rep #: [id number] : 1945 Provider: Jona Billings MD Age/Sex: 72/M Location: [facility] Status: Signed HPI HPI Chief Complaint: Initial [...] having a myocardial infarction was transferred to [facility] where he underwent a cardiac catheterization [...] DAILY #30 tab 03/10/18 [Rx Confirmed 03/10/18] [facility] Medical History Hyperlipidemia (Chronic) Lung nodule (Chronic) [...] 03/08/2018 Status: F Source: [place] 8:12 AM [facility] Imaging Services [address] [place] [address] Aorta MR#: [id number] Acct: [id number] Name: TONEY CANTOR Rep #: [id number] : 1945 M 72 From: Aron Diaz DO PCP: Daren PARDO,Carmen Calderón Status: REG CLI Study: Aorta Date of Exam: 03/08/18 Exam# [id number] Ordering Dr: Carmen Chong MD PROCEDURES: ULTRASOUND [...] Service support , CC: Carmen Chong MD Assignment Officer: Signed HEPATITIS C ANTIBODIES Collected: 03/02/2018 Status: F Source: [place] 3:01 PM [facility] TYPE CODE TESTS RESULT OUT OF RANGE REFERENCE UNITS LAB L3100.0650 0.0-0.9 s/co ratio Normal HEP C AB <0.1 Result Comment: Negative: < 0.8 Indeterminate: 0.8 - 0.9 Positive: > 0.9 The CDC recommends that a positive HCV antibody result be followed up with a HCV Nucleic Acid Amplification test (510239). Performed at: [address] [id number] Bankruptcy Assistant: Steven Gonzalez PhD, Phone: [phone] Performed By: #### L3100.0625 #### [facility] (refer to report for specific site) refer to report for address and phone number 12 LEAD ELECTROCARDIOGRAM Observed: 03/01/2018 Status: F Source: [place] 2:45 PM [facility] Cardiovascular Services [address] [place] [address] 12 Lead EKG 02/25/18 1246 MR#: [id number] Acct: [id number] Name: TONEY CANTOR Rep #: [id number] : 1945 72 From: Jona Billings MD [...] ECG Confirmed by JONA BILLINGS MD ([id number]), script editor JACQUELINE COHEN ([id number]) on 03/01/2018 2:45:32 PM Referred By: WILLEM Confirmed By:JONA BILLINGS MD 03/01/18 1445 Date Jona Billings MD CC: Dani Menchaca MD; Carmen Chong MD Signed DISCHARGE INSTRUCTION Observed: 02/25/2018 Status: F Source: [place] 4:52 PM [facility] Medical Records Department [address] [place] [address] Discharge Instruction 02/25/18 1540 MR#: [id number] Acct: [id number] Name: TONEY CANTOR Rep #: [id number] : 1945 72 From: Dani Menchaca MD [...] your Primary Care Provider. Call [facility] ([phone]) or report to the closest Emergency Room. Call 911 if necessary. 02/25/18 1652 <Electronically signed by Dani Menchaca MD> Date Dani Menchaca MD Cosigner Signature (If Indicated): Date CC: Carmen Chong MD EMERGENCY DEPARTMENT Observed: 02/25/2018 Status: F Source: [place] SUMMARY 4:52 PM [facility] RE[facility] Medical Records Department [address] [place] [address] Emergency Department Summary 02/25/18 1308 MR#: [id number] Acct: [id number] Name: TONEY CANTOR Rep #: [id number] : 1945 72 From: Dani Menchaca MD [...] when he was at an area of [place] he went to a local hospital they were concerned he may be having an MN. He transferred him to [facility] about 6 years ago and [...] signs. Moving all 4 extremities. Equal symmetrical senior editor. Dorsi plantar flexion intact. Equal symmetrical radial [...] chest pain This note was generated with userfox dictation software. It may contain incorrect words, [...] your Primary Care Provider. Call [facility] ([phone]) or report to the closest Emergency Room. Call 911 if necessary. 02/25/18 4982 <Electronically signed by Dani Menhcaca MD> Date Dani Menchaca MD Cosigner Signature (If Indicated): Date CC: Carmen Chong MD CHEST 1 VIEW Observed: 02/25/2018 Status: F Source: [place] (PORTABLE) 12:55 PM [facility] Imaging Services [address] [place] [address] Chest 1 View (Portable) MR#: [id number] Acct: [id number] Name: TONEY CANTOR Rep #: [id number] : 1945 M 72 From: Gavino Castro MD PCP: Carmen Chong MD, Chi Status: REG ER Study: Chest 1 View (Portable) Date of Exam: 02/25/18 Exam# [id number] Ordering Dr: Dani Menchaca MD STUDY: X-RAY [...] CC: Dani Menchaca MD; Carmen Chong MD Assignment Officer: Signed CBC W/DIFF, AUTOMATED Collected: 02/25/2018 Status: F Source: [place] 12:50 PM [facility] TYPE CODE TESTS RESULT OUT OF [...] Lymph 1.25 Performed By: #### L100.0100 #### [facility] [address] [facility] [place], [address] BASIC METABOLIC Collected: 02/25/2018 Status: F Source: [place] PROFILE (BMP) 12:50 PM [facility] RE[facility] TYPE CODE TESTS RESULT OUT OF [...] 6 Performed By: #### L500.2500, L501.4010 #### [facility] [address] [facility] [place], [address] TROPONIN-I Collected: 02/25/2018 Status: F Source: [place] 12:50 PM [facility] TYPE CODE TESTS RESULT OUT OF RANGE REFERENCE UNITS LAB L501.4010 <0.045 ng/mL Normal < 0.015 TROPONIN-I Result Comment: TROPONIN-I EXPECTED VALUES <0.045 Negative 0.045 - 0.590 Consistent with Cardiac Damage > OR = 0.600 Critical Value Not every elevated troponin is indicative of MN. These values should be used with clinical judgement in examining the patient's clinical picture for diagnosis. To establish a diagnosis of MN versus myocardial injury, there must be a demonstrated rise and/or fall in the troponin values, in addition to ischemic symptoms, EKG changes, new regional wall motion abnormality, and/or angiographical evidence. PLEASE NOTE: REFERENCE RANGES EDITED 17 Performed By: #### L500.2500, L501.4010 #### [facility] [address] [place], [address] ALLERGIES ALLERGIES DATE TYPE / CODE NAME / CODE REACTION SEVERITY SOURCE 03/10/2018 Drug Iodinated Hives Unknown [facility] Allergy/[facility] [id number](SNOM and IV Repository ED CT) Dye/[id number](R XNORM) ENCOUNTERS ENCOUNTERS ADMIT/DISCHARGE ACCOUNT ADMITTING ENCOUNTER LOCATION SOURCE NUMBER CLASS 04/07/2018 [id number] Ambulatory BMSBuilding:Karsten Kendall MS.CF.[facility] Repository 04/07/2018 [id number] Ambulatory [facility] ing:[facility] Repository 03/31/2018 [id number] Ambulatory [address] [place] [address] Repository 03/11/2018 [id number] Ambulatory [facility] ing:OPUS Repository 03/10/2018/03/10/20 [id number] Ambulatory BMSBuilding:Karsten [address] 18 MS.[facility] Repository 03/09/2018 [id number] Ambulatory BMSBuilding:Karsten Kendall MS.[facility] Repository 03/08/2018 [id number] Ambulatory [facility] ing:US Repository 03/02/2018 [id number] Ambulatory [facility] ing:POLAB3 Repository 02/25/2018/02/26/20 [id number] Emergency [address] ing:ED Repository 02/25/2018/02/26/20 [id number] Ambulatory BMSBuilding:[place] [address] [facility] Repository PAYERS PAYERS ENCOUNTER GUARANTOR PAYER SUBSCRIBER SOURCE 04/07/2018 TONEY Odell Primary TONEY Odell [place] [id number] [place] Insurance:MEDICARE HOUSERDOB: [place] PART A [facility] [id number] Hospital [address]Doo: (330) Number: Repository [phone] () [id number] Date:2018-03-11 04/07/2018 Secondary TONEY Odell [place] Insurance:[facility] HOUSERDOB: [facility] CARE [id number] Hospital Number: Repository [id number] Date:2618-15-48FX [facility] [address]BB[place], [place] [address]XQ: 04/07/2018 Tertiary NOT GIVENUNK [place] Insurance:SELF PAY [facility] Number: Effective Repository Date:2018-04-07 04/07/2018 TONEY Odell Primary TONEY [place] [id number] [place] Insurance:MEDICARE HOUSERDOB: [place] PART A [facility] [id number] Hospital [address]Aej: (330) Number: Repository [phone] () [id number] Date:2018-03-11 04/07/2018 Secondary TONEY A [place] Insurance:[facility] HOUSERDOB: [facility] CARE [id number] Hospital Number: Repository [id number] Date:1783-85-62AC [address], [place] [address]ME: 04/07/2018 Tertiary NOT GIVENUNK [place] Insurance:SELF PAY [facility] Number: Effective Repository Date:2018-03-11 03/31/2018 TONEY Primary TONEY University HOUSERDOB: Insurance:MedicarePol HOUSERDOB: [facility] icy Number: [id number] Repository [place], [id number] 0 [facility] [id number]: Date:Plan Name:[facility] LIYA LAM B [id number]: (TH) (HP) 03/31/2018 Secondary [facility] Insurance:United HOUSERDOB: [facility] HealthCare [id number] Repository [place] Number: 0 [place] [id number] LIYA LAM Date:Plan Name:Health [id number]: () 03/11/2018 TONEY Cass Primary TONEY A [place] [id number] [place] Insurance:MEDICARE HOUSERDOB: [place] [facility] [id number] [facility] [address]Cjz: (330) Number: Repository [phone] () [id number] Date:2018-03-02 03/11/2018 Secondary TONEY A [place] Insurance:[facility] HOUSERDOB: [facility] CARE [id number] Hospital Number: Repository [id number] Date:2662-69-71NX [facility] [address]CPZTWTF, [place] [address]HB: 03/11/2018 Tertiary NOT GIVENUNK [place] Insurance:SELF PAY [facility] Number: Effective Repository Date:2018-03-02 03/10/2018 TONEY A Primary Insurance: TONEY A [place] [id number] [place] [facility] HOUSERDOB: [place] Number: [id number] [facility] [address]Iha: 330 [id number] Repository [phone] () Date:1841-20-51RX [address] [address]ONLFU, [place] [address]AE: 03/10/2018 Secondary TONEY A [place] Insurance:[facility] HOUSERDOB: [facility] CARE [id number] Hospital Number: Repository [id number] Date:1566-01-58EY [facility] [address]32[address]HVQSBOC, [place] [address]HB: 03/10/2018 Tertiary NOT GIVENUNK [place] Insurance:SELF PAY [facility] Number: Effective Repository Date:2018-03-10 03/09/2018 TONEY A Primary TONEY A [place] [id number] [place] Insurance:MEDICARE HOUSERDOB: [place] [facility] [id number] Hospital [address]Wbw: (330) Number: Repository [phone] () [id number] Date:2018-03-09 03/09/2018 Secondary TONEY A [place] Insurance:UNITED [facility] HOUSERDOB: [facility] CARE [address] [place] [address] [id number] Hospital Number: Repository [id number] Date:6041-56-34UR [facility] [address]84[address]GFZ[place]QU, [place] [address]CG: 03/09/2018 Tertiary NOT GIVENUNK [place] Insurance:SELF PAY [facility] Number: Effective Repository Date:2018-03-09 03/08/2018 TONEY A Primary TONEY A [place] [id number] [place] Insurance:MEDICARE HOUSERDOB: [place] [facility] [id number] Hospital [address]Rfo: (330) Number: Repository [phone] () [id number] Date:2018-03-02 03/08/2018 Secondary TONEY A [place] Insurance:UNITED [facility] HOUSERDOB: Community CARE [id number] Hospital Number: Repository [id number] Date:1792-85-45EP [facility] [address]20930MPTZKUQ, [place] [address]GW: 03/08/2018 Tertiary NOT GIVENUNK [place] Insurance:SELF PAY [facility] Number: Effective Repository Date:2018-03-02 03/02/2018 TONEY A Primary TONEY A [place] [id number] [place] Insurance:MEDICARE HOUSERDOB: [place] [facility] [id number] Hospital 157[address]Iho: (330) Number: Repository [phone] () [id number] Date:2018-03-02 03/02/2018 Secondary TONEY A [place] Insurance:UNITED TH HOUSERDOB: [facility] CARE [address]Dekudo [id number] Hospital Number: Repository [id number] Date:0917-22-41CW [address], [place] [address]RV: 03/02/2018 Tertiary NOT GIVENUNK [place] Insurance:SELF PAY [facility] Number: Effective Repository Date:2018-03-02 02/25/2018 TONEY A Primary TONEY A [place] [id number] [place] Insurance:MEDICARE HOUSERDOB: [place] [facility] [id number] Hospital [address]Ttu: (330) Number: Repository [phone] () [id number] Date:2018-02-25 02/25/2018 Secondary TONEY A [place] Insurance:[facility] HOUSERDOB: [place] [id number] [id number] Hospital Number: Repository [id number] Date:7083-33-23RX [address]CRJZVS, [place] [address]LE: 02/25/2018 Tertiary NOT GIVENUNK [place] Insurance:SELF PAY [facility] Number: Effective Repository Date:2018-02-25 02/25/2018 TONEY A Primary Insurance:RR TONEY A [place] [id number] [place] MEDICAREPoly HOUSERDOB: [place] Number: [id number] Hospital [address]Oni: 330 [id number] Repository [phone] () Date:2266-09-03WN [address] [address]GHVPMHF [place] [address]BW: 02/25/2018 Secondary TONEY A [place] Insurance:[facility] HOUSERDOB: [place] [id number] [id number] Hospital Number: Repository [id number] Date:5248-49-98AE [address]NZJ[address], [place] [address]DV: 02/25/2018 Tertiary NOT GIVENUNK [place] Insurance:SELF PAY [facility] Number: Effective Repository Date:2018-02-25
== END ==
PROVIDERS: Family Provider Family Medicine Geriatric Medicine; PCP Family Medicine Geriatric Medicine; Referring Provider Internal Medicine Cardiovascular Disease; Visit Provider Internal Medicine Cardiovascular Disease
DX: R07.9 Chest pain, unspecified (principal)
CPT/HCPCS: 78452; 93017; 93306; A9500; A4216

== ENCOUNTER → 2018-07-22 | Outpatient (CLI) | payer MEDICARE, OTHER, SELFPAY ==
[2018-06-07 09:50] VITALS: BMI 22.1
--- NOTE | 2018-07-22 09:49 | RAD_ITS ---
STUDY: X-RAY - CERVICAL SPINE REASON FOR EXAM: Male, 73 years old. Left-sided neck pain for 2-3 weeks TECHNIQUE: 3 view(s) of the cervical spine were obtained. COMPARISON: None FINDINGS: Normal anterior atlantoaxial articulation. Normal odontoid process. Normal cervical lordosis. There is loss of disc space at C6-C7 more than C5-C6. Multilevel facet arthropathy identified with degenerative anterolisthesis of C4 in relation to C5 (2 mm). No compression fractures seen. The soft tissue structures are unremarkable. RAD/Cerv Spine 2 or 3 Views IMPRESSION: Degenerative disc disease and facet arthropathy, as above. Electronically Signed: Laci Babb MD at 19:38 EDT , Service support ,
== END | disposition home or self-care (01) ==
LOC: RAD 09:48
PROVIDERS: Family Provider Family Medicine Geriatric Medicine; PCP Family Medicine Geriatric Medicine; Referring Provider Family Medicine Geriatric Medicine; Visit Provider Family Medicine Geriatric Medicine
DX: M50.80 Other cervical disc disorders, unspecified cervical region (principal)
CPT/HCPCS: 72040

== ENCOUNTER → 2018-08-10 | Outpatient (CLI) | payer MEDICARE, OTHER, SELFPAY ==
[2018-08-10 10:30] VITALS: BMI 22.1
[2018-08-17 16:09] LABS: Lyme IgG P18 Ab Absent (.); Lyme IgG P23 Ab Absent (.); Lyme IgG P28 Ab Present (.); Lyme IgG P30 Ab Absent (.); Lyme IgG P39 Ab Absent (.); Lyme IgG P41 Ab Present (.); Lyme IgG P45 Ab Absent (.); Lyme IgG P58 Ab Absent (.); Lyme IgG P66 Ab Absent (.); Lyme IgG P93 Ab Absent (.); Lyme IgM P23 Ab Absent (.); Lyme IgM P39 Ab Absent (.); Lyme IgM P41 Ab Absent (.)
[2018-08-17 16:39] LABS: Lyme IgG WB Interpretation Negative (.); Lyme IgM WB Interpretation Negative (.)
== END | disposition home or self-care (01) ==
LOC: POLAB3 15:45
PROVIDERS: Family Provider Family Medicine Geriatric Medicine; PCP Family Medicine Geriatric Medicine; Visit Provider Family Medicine Geriatric Medicine
DX: A69.20 Lyme disease, unspecified (principal)
CPT/HCPCS: 36415; 86617

== ENCOUNTER → 2018-08-31 | Outpatient (CLI) | payer MEDICARE, OTHER, SELFPAY ==
[2018-08-10 10:30] VITALS: BMI 22.1
[2018-08-31 12:46] LABS: Absolute Lymphocyte Count 0.94 X10^3/ul (0.83-4.51); Absolute Neutrophil Count 5.4 X10^3/uL (2.0-7.7); Basophil# 0.01 X10^3/uL; Basophil% 0.1 % (0-1); Eosinophil# 0.01 X10^3/uL; Eosinophils% 0.1 % (0-5); Hematocrit 41.1 % (40-54); Hemoglobin 13.7 g/dl (13.0-16.5); Lymphocyte # 0.94 X10^3/ul (4.0); Lymphocyte % 13.2 % (19-41); Mean Corp Hgb Conc 33.3 g/gl (32-36); Mean Corpuscular Hgb 29.7 pg (27.0-32.0); Mean Corpuscular Volume 89.2 fL (80-94); Mean Platelet Vol. 9.8 fl (6.2-12.0); Monocyte# 0.67 X10^3/uL; Monocyte% 9.4 % (0-10); Neutrophil # 5.42 X10^3/uL (2.7-7.7); Neutrophil % 76.4 % (47-70); Platelet Count 259 K/mm3 (150-450); RBC Distribution Width CV 14.2 % (11.6-14.6); Red Blood Count 4.61 M/mm3 (4.6-6.2); White Blood Count 7.1 K/mm3 (4.4-11.0)
[2018-08-31 13:06] LABS: ALB/GLOB Ratio 0.9 RATIO (0.9-2.4); AST(SGOT) 16 U/L (15-37); Alanine Aminotransfer ALT/SGPT 35 U/L (16-61); Albumin, Serum 3.4 g/dL (3.2-5.0); Alkaline Phosphatase 66 U/L (45-117); Anion Gap 4 (5-15); BUN 18 mg/dL (7-18); BUN/Creat Ratio 21.4 RATIO (10-20); Calcium,Total 8.8 mg/dL (8.5-10.1); Chloride 102 mmol/L (98-107); Creatinine, Serum 0.84 mg/dL (0.70-1.30); EST Glomerular Filtration Rate 95 mL/min (>60); Est Glom Filt Rate - Afr Amer 115 mL/min (>60); Globulin 3.6 g/dL (2.2-4.2); Glucose 116 mg/dL (74-106); Potassium 4.2 mmol/L (3.5-5.1); Sodium Level 135 mmol/L (136-145); Thyroid Stim Hormone (TSH) 0.87 uIU/mL (0.358-3.74)
[2018-08-31 13:12] LABS: POSITIVE COUNT NO; POSITIVE DIFFERENTIAL NO; POSITIVE MORPHOLOGY NO
== END | disposition home or self-care (01) ==
LOC: POLAB3 11:08
PROVIDERS: Family Provider Family Medicine Geriatric Medicine; PCP Family Medicine Geriatric Medicine; Visit Provider Family Medicine Geriatric Medicine
DX: I10 Essential (primary) hypertension (principal)
CPT/HCPCS: 36415; 80053; 84443; 85025

== ENCOUNTER → 2019-03-03 12:15 | Outpatient (CLI) | payer MEDICARE, OTHER, SELFPAY ==
[2018-09-02 11:10] VITALS: BMI 22.1
[2019-03-03 12:37] LABS: Absolute Lymphocyte Count 1.07 X10^3/uL (0.83-4.51); Absolute Neutrophil Count 3.4 X10^3/uL (2.0-7.7); Basophil# 0.04 X10^3/uL; Basophil% 0.8 % (0-1); Eosinophil# 0.07 X10^3/uL; Eosinophils% 1.4 % (0-5); Hematocrit 43.2 % (40-54); Hemoglobin 13.8 g/dL (13.0-16.5); Lymphocyte # 1.07 X10^3/ul (4.0); Lymphocyte % 20.8 % (19-41); Mean Corp Hgb Conc 31.9 g/dL (32-36); Mean Corpuscular Hgb 29.4 pg (27.0-32.0); Mean Corpuscular Volume 91.9 fL (80-94); Mean Platelet Vol. 10.6 fl (6.2-12.0); Monocyte# 0.56 X10^3/uL; Monocyte% 10.9 % (0-10); NRBC Flagged by Analyzer 0 % (0-5); Neutrophil # 3.39 X10^3/uL (2.7-7.7); Neutrophil % 65.7 % (47-70); Platelet Count 240 K/mm3 (150-450); RBC Distribution Width CV 13.2 % (11.6-14.6); RBC Distribution Width SD 44.7 fl (35.1-43.9); White Blood Count 5.2 K/mm3 (4.4-11.0)
[2019-03-03 13:19] LABS: AST(SGOT) 21 U/L (15-37); Alanine Aminotransfer ALT/SGPT 27 U/L (16-61); Albumin, Serum 3.8 g/dL (3.2-5.0); Alkaline Phosphatase 72 U/L (45-117); Anion Gap 6 (5-15); BUN 11 mg/dL (7-18); BUN/Creat Ratio 11.9 RATIO (10-20); Calcium,Total 8.6 mg/dL (8.5-10.1); Chloride 104 mmol/L (98-107); Creatinine, Serum 0.92 mg/dL (0.70-1.30); EST Glomerular Filtration Rate 86 mL/min (>60); Est Glom Filt Rate - Afr Amer 104 mL/min (>60); Globulin 3.7 g/dL (2.2-4.2); Glucose 130 mg/dL (74-106); Potassium 3.9 mmol/L (3.5-5.1); Protein, Total 7.5 g/dL (6.4-8.2); Sodium Level 138 mmol/L (136-145); Thyroid Stim Hormone (TSH) 1.85 uIU/mL (0.358-3.74)
== END ==
PROVIDERS: Family Provider Family Medicine Geriatric Medicine; PCP Family Medicine Geriatric Medicine; Visit Provider Family Medicine Geriatric Medicine
DX: E55.9 Vitamin D deficiency, unspecified (principal); I10 Essential (primary) hypertension
CPT/HCPCS: 36415; 80053; 82306; 84443; 85025

== ENCOUNTER → 2019-05-18 14:44 | Outpatient (CLI) | payer MEDICARE, OTHER, SELFPAY ==
[2018-09-02 11:10] VITALS: BMI 22.1
--- NOTE | 2019-05-18 14:55 | RAD_ITS ---
STUDY: X-RAY - LUMBAR SPINE REASON FOR EXAM: Male, 73 years old. Pt. has history of sciatic pain, currently has been having pain for 3 weeks without relief, NKI TECHNIQUE: 3 view(s) of the lumbar spine were obtained. COMPARISON: None FINDINGS: Decreased lumbar lordosis. There is mild levo scoliosis. There is a normal alignment of the vertebrae. No evidence for acute fracture or subluxation.. There is narrowing of the T12-L1 and L1-2 disc space level and mild endplate spurring The soft tissue structures are unremarkable. RAD/Lumbar Spine 2 or 3 Views IMPRESSION: Mild scoliosis and degenerative change. No evidence for acute fracture or subluxation Electronically Signed: Dani Akhtar MD at 22:53 EST , Service support ,
== END ==
PROVIDERS: PCP Family Medicine Geriatric Medicine; Referring Provider Family Medicine Geriatric Medicine; Visit Provider Family Medicine Geriatric Medicine
DX: M54.5 Low back pain (principal)
CPT/HCPCS: 72100

== ENCOUNTER → 2019-05-25 16:22 | Outpatient (CLI) | payer MEDICARE, OTHER, SELFPAY ==
[2018-09-02 11:10] VITALS: BMI 22.1
--- NOTE | 2019-05-25 16:30 | RAD_ITS ---
STUDY: X-RAY - LEFT HAND REASON FOR EXAM: Male, 73 years old. Left hand swelling and bruising posterior mid hand in area of 2nd-4th metacarpals. NKI. TECHNIQUE: 3 view(s) of the hand. COMPARISON: None. FINDINGS: Normal radiocarpal articulation. Normal distal radioulnar joint. Normal visualized carpal bones. Normal carpal articulations Normal carpometacarpal articulation of the thumb. Normal second through fifth carpometacarpal joints. Normal metacarpi. Normal metacarpophalangeal joint of the thumb. Normal interphalangeal joint of the thumb. Normal proximal and distal phalanges of the thumb. Normal metacarpophalangeal joints of the second through fifth fingers. Degenerative changes at the proximal interphalangeal joints of the second and third fingers. Normal phalanges of the second through fifth fingers. The soft tissue structures are unremarkable. RAD/Hand Min 3 Views IMPRESSION: No acute bony injury of the hand. Electronically Signed: Jong Martinez DO at 22:20 EST Tel [phone], Service support ,
== END ==
PROVIDERS: PCP Family Medicine Geriatric Medicine; Referring Provider Family Medicine Geriatric Medicine; Visit Provider Family Medicine Geriatric Medicine
DX: M79.609 Pain in unspecified limb (principal)
CPT/HCPCS: 73130

== ENCOUNTER → 2019-06-04 08:44 | Outpatient (CLI) | payer MEDICARE, OTHER, SELFPAY ==
[2018-09-02 11:10] VITALS: BMI 22.1
--- NOTE | 2019-06-04 09:21 | MRI_ITS ---
STUDY: MRI LEFT HAND REASON FOR EXAM: Male, 74 years old. PAIN OVER METACARPALS AFTER WRINGING OUT A TOWEL 2 WEEKS AGO. TECHNIQUE: Standardized fat and water weighted pulse sequences were obtained in all 3 orthogonal planes. COMPARISON: X-ray May 25, 2019 FINDINGS: FIRST DIGIT: There is joint space narrowing with spurring and subchondral cysts at the carpometacarpal articulation of the thumb.. Normal metacarpophalangeal joint. Normal interphalangeal joint. Normal proximal, and distal phalanges. Normal flexor and extensor tendons. There is no soft tissue abnormality. SECOND DIGIT: There is cyst or erosion of the head of the second metacarpus. Normal metacarpophalangeal joint. Normal proximal and distal interphalangeal joints. Normal proximal, middle and distal phalanges. Normal flexor and extensor tendons. There is no soft tissue abnormality. THIRD DIGIT: There is cyst or erosion of the head of the third metacarpus. Normal metacarpophalangeal joint. Normal proximal and distal interphalangeal joints. Normal proximal, middle and distal phalanges. Fluid in the sheath of the flexor tendon. There is no soft tissue abnormality. FOURTH DIGIT: There is cyst or erosion of the head of the fourth metacarpus. Normal metacarpophalangeal joint. Normal proximal and distal interphalangeal joints. Normal proximal, middle and distal phalanges. Normal flexor and extensor tendons. There is no soft tissue abnormality. FIFTH DIGIT: There is small cyst or erosion of the head of the fifth metacarpus. Normal metacarpophalangeal joint. Normal proximal and distal interphalangeal joints. Normal proximal, middle and distal phalanges. Normal flexor and extensor tendons. There is no soft tissue abnormality. Normal visualized thenar and hypothenar muscles. Normal lumbricalis and interosseous muscles. There are no solid, cystic or lipomatous masses. MRI/Upper Ext/No Jt/ wo IMPRESSION: No fracture. Arthritic changes including with cysts or erosions of the metacarpal heads and at the basal joint of the thumb. Tenosynovitis with fluid in the sheath of the flexor tendon of the third finger. Electronically Signed: Jt Heredia MD at 11:35 EDT , Service support ,
== END ==
PROVIDERS: PCP Family Medicine Geriatric Medicine; Referring Provider Family Medicine Geriatric Medicine; Visit Provider Family Medicine Geriatric Medicine
DX: M79.643 Pain in unspecified hand (principal)
CPT/HCPCS: 73218

== ENCOUNTER → 2019-09-01 14:58 | Outpatient (CLI) | payer MEDICARE, OTHER, SELFPAY ==
[2018-09-02 11:10] VITALS: BMI 22.1
[2019-09-01 15:47] LABS: Absolute Lymphocyte Count 1.32 X10^3/uL (0.83-4.51); Basophil# 0.05 X10^3/uL; Eosinophil# 0.06 X10^3/uL; Eosinophils% 1.2 % (0-5); Hematocrit 41.5 % (40-54); Hemoglobin 13.2 g/dL (13.0-16.5); Lymphocyte # 1.32 X10^3/ul (4.0); Lymphocyte % 25.8 % (19-41); Mean Corp Hgb Conc 31.8 g/dL (32-36); Mean Corpuscular Hgb 29.3 pg (27.0-32.0); Mean Platelet Vol. 10.3 fl (6.2-12.0); Monocyte# 0.67 X10^3/uL; Monocyte% 13.1 % (0-10); NRBC Flagged by Analyzer 0 % (0-5); Neutrophil % 58.7 % (47-70); Platelet Count 249 K/mm3 (150-450); RBC Distribution Width CV 13.9 % (11.6-14.6); Red Blood Count 4.51 M/mm3 (4.6-6.2); White Blood Count 5.1 K/mm3 (4.4-11.0)
[2019-09-01 16:02] LABS: Vitamin D,25 Hydroxy 26.8 ng/mL
[2019-09-01 16:14] LABS: AST(SGOT) 24 U/L (15-37); Alanine Aminotransfer ALT/SGPT 26 U/L (16-61); Albumin, Serum 3.8 g/dL (3.2-5.0); Alkaline Phosphatase 65 U/L (45-117); Anion Gap 5 (5-15); BUN 12 mg/dL (7-18); BUN/Creat Ratio 15.5 RATIO (10-20); Calcium,Total 9.3 mg/dL (8.5-10.1); Chloride 104 mmol/L (98-107); Creatinine, Serum 0.77 mg/dL (0.70-1.30); EST Glomerular Filtration Rate 105 mL/min (>60); Est Glom Filt Rate - Afr Amer 127 mL/min (>60); Globulin 3.8 g/dL (2.2-4.2); Glucose 94 mg/dL (74-106); Potassium 4.5 mmol/L (3.5-5.1); Protein, Total 7.6 g/dL (6.4-8.2); Sodium Level 140 mmol/L (136-145); Thyroid Stim Hormone (TSH) 1.65 uIU/mL (0.358-3.74)
== END ==
PROVIDERS: PCP Family Medicine Geriatric Medicine; Visit Provider Family Medicine Geriatric Medicine
DX: I10 Essential (primary) hypertension (principal); E55.9 Vitamin D deficiency, unspecified
CPT/HCPCS: 36415; 80053; 82306; 84443; 85025

== ENCOUNTER → 2020-03-06 10:57 | Outpatient (CLI) | payer MEDICARE, OTHER, SELFPAY ==
[2018-09-02 11:10] VITALS: BMI 22.1
[2020-03-06 12:19] LABS: Absolute Lymphocyte Count 1.02 X10^3/uL (0.83-4.51); Absolute Neutrophil Count 2.9 X10^3/uL (2.0-7.7); Basophil# 0.04 X10^3/uL; Basophil% 0.9 % (0-1); Eosinophil# 0.12 X10^3/uL; Eosinophils% 2.6 % (0-5); Hemoglobin 13.2 g/dL (13.0-16.5); Lymphocyte # 1.02 X10^3/ul (4.0); Lymphocyte % 21.9 % (19-41); Mean Corp Hgb Conc 31.4 g/dL (32-36); Mean Corpuscular Hgb 28.8 pg (27.0-32.0); Mean Corpuscular Volume 91.5 fL (80-94); Mean Platelet Vol. 9.7 fl (6.2-12.0); Monocyte# 0.61 X10^3/uL; Monocyte% 13.1 % (0-10); NRBC Flagged by Analyzer 0 % (0-5); Neutrophil # 2.86 X10^3/uL (2.7-7.7); Neutrophil % 61.3 % (47-70); Platelet Count 238 K/mm3 (150-450); RBC Distribution Width CV 13.8 % (11.6-14.6); RBC Distribution Width SD 46.5 fl (35.1-43.9); Red Blood Count 4.59 M/mm3 (4.6-6.2); White Blood Count 4.7 K/mm3 (4.4-11.0)
[2020-03-06 12:38] LABS: Vitamin D,25 Hydroxy 19.1 ng/mL
[2020-03-06 13:07] LABS: ALB/GLOB Ratio 0.9 RATIO (0.9-2.4); AST(SGOT) 18 U/L (15-37); Alanine Aminotransfer ALT/SGPT 27 U/L (16-61); Albumin, Serum 3.6 g/dL (3.2-5.0); Alkaline Phosphatase 78 U/L (45-117); Anion Gap 5 (5-15); BUN 9 mg/dL (7-18); BUN/Creat Ratio 11.3 RATIO (10-20); Calcium,Total 8.6 mg/dL (8.5-10.1); Chloride 106 mmol/L (98-107); Creatinine, Serum 0.79 mg/dL (0.70-1.30); EST Glomerular Filtration Rate 102 mL/min (>60); Est Glom Filt Rate - Afr Amer 123 mL/min (>60); Glucose 81 mg/dL (74-106); Potassium 4.2 mmol/L (3.5-5.1); Protein, Total 7.6 g/dL (6.4-8.2); Sodium Level 140 mmol/L (136-145); Thyroid Stim Hormone (TSH) 1.38 uIU/mL (0.358-3.74)
== END ==
PROVIDERS: PCP Family Medicine Geriatric Medicine; Visit Provider Family Medicine Geriatric Medicine
DX: E55.9 Vitamin D deficiency, unspecified (principal); I10 Essential (primary) hypertension
CPT/HCPCS: 36415; 80053; 82306; 84443; 85025

== ENCOUNTER → 2020-07-06 13:20 | Outpatient (CLI) | payer MEDICARE, OTHER, SELFPAY ==
[2018-09-02 11:10] VITALS: BMI 22.1
--- NOTE | 2020-07-06 13:28 | RAD_ITS ---
STUDY: X-RAY - LUMBAR SPINE REASON FOR EXAM: Male, 75 years old. Lower back pain. TECHNIQUE: 3 view(s) of the lumbar spine were obtained. COMPARISON: 05/18/2019. FINDINGS: Normal lumbar lordosis. There is no substantial scoliosis. There is a normal alignment of the vertebrae. There is multilevel endplate spondylosis of the lumbar vertebrae. Is mild disc space narrowing most marked at L1-2 and L5-S1. Facet degenerative change. There is no evidence of acute fracture or loss of vertebral axial height.. The soft tissue structures are unremarkable. RAD/Lumbar Spine 2 or 3 Views IMPRESSION: Stable degenerative changes of the lumbar spine. Electronically Signed: Marcel Marte DO at 23:55 EDT Tel [phone], Service support ,
== END ==
PROVIDERS: PCP Family Medicine Geriatric Medicine; Referring Provider Family Medicine Geriatric Medicine; Visit Provider Family Medicine Geriatric Medicine
DX: M54.5 Low back pain (principal)
CPT/HCPCS: 72100

== ENCOUNTER → 2020-07-31 07:10 | Outpatient (CLI) | payer MEDICARE, OTHER, SELFPAY ==
[2018-09-02 11:10] VITALS: BMI 22.1
--- NOTE | 2020-07-31 07:20 | MRI_ITS ---
STUDY: MRI LUMBAR SPINE WITHOUT CONTRAST REASON FOR EXAM: Male, 75 years old. SCIATICA TECHNIQUE: Standardized fat and water weighted pulse sequences were obtained in the sagittal and axial planes. COMPARISON: X-ray 07/06/2020 FINDINGS: T12-L1: Normal endplates. Normal disc height, hydration and morphology. Normal bilateral facet joints. Normal central canal and bilateral lateral recesses. Normal bilateral intervertebral neural foramina. Normal lumbar lordosis. There is no substantial scoliosis. Normal conus medullaris that terminates at the L1/L2. L1-2: Mild bilobed disc protrusion produces mild spinal stenosis and mild bilateral neural foraminal stenosis. L2-3: Mild bilobed disc protrusion produces mild spinal stenosis and mild bilateral neural foraminal stenosis. L3-4: Normal endplates. Normal disc height, hydration and morphology. Normal bilateral facet joints. Normal central canal and bilateral lateral recesses. Normal bilateral intervertebral neural foramina. L4-5: Moderate broad disc protrusion produces moderate spinal stenosis with moderate bilateral lateral recess stenosis with abutment of the L5 nerve roots bilaterally and moderate bilateral neural foraminal stenosis. L5-S1: Mild broad disc protrusion produces mild frontal stenosis and mild bilateral neural foraminal stenosis. Normal visualized sacral ala. Normal visualized paraspinous soft tissue structures. MRI/Spine Lumbar (Routine) IMPRESSION: Multilevel degenerative changes, as described above. Electronically Signed: Sanju Kasper MD at 8:56 EDT Tel , Service support ,
== END ==
PROVIDERS: PCP Family Medicine Geriatric Medicine; Referring Provider Family Medicine Geriatric Medicine; Visit Provider Family Medicine Geriatric Medicine
DX: M54.30 Sciatica, unspecified side (principal)
CPT/HCPCS: 72148

== ENCOUNTER 2020-08-13 09:00 | Outpatient (RCR) | payer MEDICARE, OTHER, SELFPAY ==
[2018-09-02 11:10] VITALS: BMI 22.1
--- NOTE | 2020-07-23 17:09 | HP.PTEVAL_ITS ---
Patient's Visit Information TONEY Odell DEVAUGHN is a 75 year old M referred to Physical Therapy by Dr. Nick Mercedes MD with a diagnosis of Spinal Stenosis, Disc Herniation, Sciatica. Date of Evaluation: 07/23/20 Physical Therapist: Carmine Iniguez DPT - Visit Plan Frequency: 1x/Week Duration: 4 Weeks Plan: Pt. is currently independent with his HEP of repeated lumbar flexion exercises every 1-2 hours, clam shells, and bugs-legs only. The pt. was unable to tolerate glute bridges at this time, but is something that we should work towards. The pt. needs to increase transverse abdominal and hip extension strength. Continue to have the pt. progress lumbar flexion exercises and lumbar mechanical traction should be considered in follow up visits as this is something the pt. liked in previous PT treatments. - Subjective Pt. is a 75 yo male who presents to the clinic with low back and hip pain, with symptoms going down into the ankle. The pt. has had symptoms on and off for about 10 years now and has had therapy periodically to reduce the sciatic nerve pain. Previous treatments that have helped the patient is flexion exercises and lumbar traction. He states that in the beginning of June, he and his son drove down to [place] and the drive back made his symptoms worse, which is why he is here for PT. His pain can get up to a 5-6/10 when doing things around the house, walking, and when he stands for long periods of times. The pt. reports that sitting and leaning over in a chair feels good and that he tries to do this to relieve his pain. Denies numbness and tingling and night pain, but has had these symptoms before. 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 - Pain L Low back/hip Pain Intensity (Out of 10): 2 Pain Intensity Range: 5 - Objective Posture: Rounded shoulders, forward head, increased kyphosis in the T-spine. Sensory: All intact, no numbness or tingling. Reflexes: Patellar and Achilles +2 = normal. MMT: Rectus Abdominus 5/5, B Hip flexion 5/5, B Knee flexion 5/5, B knee extension 5/5, B Dorsiflexion/inversion 5/5, B eversion 5/5, R hip extension 4/5 L hip extension 4/5 with pain. ROM: Lumbar flex, lumbar ext = limited, lumbar rotation, lumbar side-bending. Joint Assessment: Hypomobile fro m T7-T10, Upper Lumbar spring tests caused pain and were hypomobile. Special Tests: L +Quadrant Test. Pt. presented to the clinic with flexed posture and limited lumbar extension. The pt. prefers to be in flexed positions due to the symptoms that the patient experiences when he is lumbar extension. The pt. exhibited weak hip extension strength and all others were considered normal. The patients symptoms centralized when doing flexion based exercises and peripheralized when doing extension based exercises and is something that should be implemented in his HEP. The pt. needs PT to address the impairments listed above and to decrease the pain that the patient is experiencing in his low back, hip, and ankle so the pt. can perform all ADL's and hobbies such as golfing and bowling without pain and discomfort. - Special Tests L/S Slump test left side: Positive L/S Slump test right side: Negative L/S Left Straight Leg Raise: Negative L/S Right Straight Leg Raise: Negative Lumbar Lying: Flexion - Mechanical Response: Increases motion Lumbar Lying: Flexion - Symptoms During Testing: Centralizing Lumbar Lying: Flexion - Symptoms After Testing: Centralized Lumbar Lying: Extension - Mechanical Response: Decreases motion Lumbar Lying: Extension - Symptoms During Testing: Peripheralizing Lumbar Lying: Extension - Symptoms After Testing: Peripheralized - Goals Goal 1:: LTG: Pt. will be compliant and independent with his HEP. Goal Time Frame: 2-4 Weeks Goal 2:: LTG: Pt. will be able to walk a 1/2 mile with pain less than a 1/10. Goal Time Frame: 4-6 Weeks Goal 3:: LTG: Pt. will be able to perform all ADL's at home with pain less than a 1/10. Goal Time Frame: 4-6 Weeks Goal 4:: LTG: Pt. will be a 5/5 bilaterally in hip extension, so the pt. can lift medium weighted objects around the house. Goal Time Frame: 4-6 Weeks Goal 5:: LTG: Pt. will increase his lumbar extension ROM by 50%, so the pt. can stand longer than 10 minutes without pain. Goal Time Frame: 4-6 Weeks - Rehabilitation Potential Physical Therapy Diagnosis: The pt. presents to the clinic today with signs and symptoms of lumbar spinal stenosis and sciatic nerve impingement, creating low back, hip, and ankle pain. The pt. denies any N/T and needs PT to address his pain, decreased lumbar extension, and decreased muscular strength. Rehabilitation Potential: Good - Anticipated Interventions Patient/Client Instruction: Educate patient on: Condition, Plan of Care For the Purpose of:: To decrease pain, To increase ROM, To improve muscle performance and motor function, To improve ability to perform ADL's, To increase tolerance to activity/condition/position, To improve performance and independence with ADL's, To improve ability of physical actions for home/c ommunity/work/leisure, To increase flexibility/ROM, To assume or resume ADL's, To reduce risk of recurrence, To prevent re-injury, To improve tolerance to ADL's Therapeutic Exercise to Include: Strength training, Power training, Balance training, Body mechanics, Postural training, Passive ROM, Active ROM, Dynamic Lumbar Stabilization, Moe Exercises For the Purpose of:: To decrease pain, To decrease swelling/inflammation, To increase ROM, To improve nutrient delivery to tissue, To improve muscle performance and motor function, To improve health of tissue, To decrease soft tissue restriction, To increase flexibility/ROM, To improve decision making, To improve self management, To prevent re-injury Pelvic traction supine: Yes For the Purpose of:: To decrease pain, To increase ROM, To improve nutrient delivery to tissue Thank you for the opportunity to evaluate your patient. For Medicare and Medicare HMO plans, please review the plan of care and approve it. It will need to be FAXED BACK to us at [phone] for Medicare purposes. For Medicare only, by signing this I certify the plan of care. Please let me know if there are questions or concerns regarding this plan of care. Physician Signature: Date:
== END 2020-08-13 19:00 | disposition home or self-care (01) ==
LOC: PT 09:00
PROVIDERS: PCP Family Medicine Geriatric Medicine; Referring Provider Family Medicine Geriatric Medicine; Visit Provider Family Medicine Geriatric Medicine
DX: M54.5 Low back pain (principal)
CPT/HCPCS: 97012; 97110; 97161

== ENCOUNTER → 2020-09-04 11:17 | Outpatient (CLI) | payer MEDICARE, OTHER, SELFPAY ==
[2018-09-02 11:10] VITALS: BMI 22.1
[2020-09-04 12:34] LABS: Absolute Lymphocyte Count 0.96 X10^3/uL (0.83-4.51); Absolute Neutrophil Count 3.5 X10^3/uL (2.0-7.7); Basophil# 0.03 X10^3/uL; Basophil% 0.6 % (0-1); Eosinophil# 0.02 X10^3/uL; Eosinophils% 0.4 % (0-5); Hematocrit 41.9 % (40-54); Hemoglobin 13.2 g/dL (13.0-16.5); Lymphocyte # 0.96 X10^3/ul (0.83-4.51); Lymphocyte % 18.6 % (19-41); Mean Corp Hgb Conc 31.5 g/dL (32-36); Mean Corpuscular Hgb 28.9 pg (27.0-32.0); Mean Corpuscular Volume 91.9 fL (80-94); Mean Platelet Vol. 10.1 fl (6.2-12.0); Monocyte# 0.61 X10^3/uL; Monocyte% 11.8 % (0-10); NRBC Flagged by Analyzer 0 % (0-5); Neutrophil # 3.54 X10^3/uL (2.7-7.7); Neutrophil % 68.4 % (47-70); Platelet Count 267 K/mm3 (150-450); RBC Distribution Width CV 14.6 % (11.6-14.6); RBC Distribution Width SD 49.6 fl (35.1-43.9); Red Blood Count 4.56 M/mm3 (4.6-6.2); White Blood Count 5.2 K/mm3 (4.4-11.0)
[2020-09-04 12:35] LABS: Vitamin D,25 Hydroxy 18.8 ng/mL
[2020-09-04 12:51] LABS: ALB/GLOB Ratio 0.9 RATIO (0.9-2.4); AST(SGOT) 24 U/L (15-37); Alanine Aminotransfer ALT/SGPT 29 U/L (16-61); Albumin, Serum 3.5 g/dL (3.2-5.0); Alkaline Phosphatase 69 U/L (45-117); Anion Gap 7 (5-15); BUN 9 mg/dL (7-18); BUN/Creat Ratio 10.6 RATIO (10-20); Calcium,Total 8.4 mg/dL (8.5-10.1); Chloride 103 mmol/L (98-107); Creatinine, Serum 0.85 mg/dL (0.70-1.30); EST Glomerular Filtration Rate 94 mL/min (>60); Est Glom Filt Rate - Afr Amer 113 mL/min (>60); Globulin 3.7 g/dL (2.2-4.2); Glucose 104 mg/dL (74-106); Potassium 3.9 mmol/L (3.5-5.1); Protein, Total 7.2 g/dL (6.4-8.2); Sodium Level 138 mmol/L (136-145); Thyroid Stim Hormone (TSH) 1.62 uIU/mL (0.358-3.74)
== END ==
PROVIDERS: PCP Family Medicine Geriatric Medicine; Visit Provider Family Medicine Geriatric Medicine
DX: E55.9 Vitamin D deficiency, unspecified (principal); I10 Essential (primary) hypertension
CPT/HCPCS: 36415; 80053; 82306; 84443; 85025

== ENCOUNTER 2021-01-04 10:00 | Outpatient (RCR) | payer MEDICARE, OTHER, SELFPAY ==
--- NOTE | 2020-12-06 13:26 | HP.PTEVAL ---
Patient's Visit Information TONEY Odell DEVAUGHN is a 75 year old M referred to Physical Therapy by CLIF Cavanaugh with a diagnosis of OTHER SPECIFIED AFTERCARE FOLLOWING SURGERY. Date of Evaluation: 12/06/20 Physical Therapist: Ken Israel, PT, Cert MDT, OCS - Visit Plan Frequency: 2x /Week Duration: 4 Weeks Plan: PT INTERVETIONS POSTURAL EX'S,DLS ABD/BACK ,LUMBAR ROM GUILHERME,LE FLEXABLITY ADN FUNCTIONAL STRENGTHENING - Subjective This 75 y/o male presents to physical therapy with Left L4-5 micro decompression and microdisectomy on 11/12/[address] Bucio at [facility] d/c next day 11/13/20 and lumbar brace. Seen Last 12/06/20 recommended PT wean brace as tolerated and lumbar ROM after 3 weeks. Tried PT prior to PT didn't help and epidural injections didn't. Patient had MRI prior to surgery. Patient has had lumbar radicular symptoms many years . Symptoms worse with walking and standing and had multiple opinions. Currently, pain located left ankle mild sore back. Denies paresthesia/tingling . Coughing/sneezing -. Bowel/bladder -. Aggravating sitting and standing. Alleviating factors with movement and walking. Patient surgery lumbar affects QOL. SOCIAL: . VOCATION: retired - Pain Left Ankle Pain Intensity (Out of 10): 2 Bilateral Back Pain Intensity (Out of 10): 0 Pain Intensity Range: 10 - Objective POSTURE: mild forward posture. SKIN: incision well approximate. SYMMTRIES: align. PALAPTION: unremarkable. LUMBAR ROM: flexion min loss ,extension mod loss, side glides mod loss. FLEXABLITY: hams min tight. MMT: quads/hams 4/5,hip flexion 4-/5,hip abduction 4-/5,ankle 5/5 - Special Tests L/S Slump test left side: Negative L/S Slump test right side: Negative L/S Left Straight Leg Raise: Negative L/S Right Straight Leg Raise: Negative - Balance/Special Test Scores Oswestry Low Back Score: 19 - Goals Goal 1:: I with HEP to manage back pain Goal Time Frame: 4-6 Weeks Goal 2:: Patient to improve posture for ADL'S for function and housework's Goal Time Frame: 4-6 Weeks Goal 3:: Patient to decrease pain and radicular symptoms by 75 % improvement to improve function Goal Time Frame: 4-6 Weeks Goal 4:: Patient to improve lumbar ROM for function of recovery to improve housework tasks Goal Time Frame: 4-6 Weeks Goal 5:: Patient to improve back owestry score by 5 points or to improve QOL. Goal Time Frame: 4-6 Weeks - Rehabilitation Potential Physical Therapy Diagnosis: This patient underwent s/p lumbar left L4-5 micro decompression, microdiscectomy with decrease ROM ,strength ,function and lumbar ROM impairs function and ADL's thus benefit from skilled PT Rehabilitation Potential: Good - Anticipated Interventions Patient/Client Instruction: Educate patient on: Condition, Plan of Care For the Purpose of:: To decrease pain, To increase ROM, To improve muscle performance and motor function, To improve ability to perform ADL's, To increase tolerance to activity/condition/position, To improve ability of physical actions for home/community/work/leisure, To decrease soft tissue restriction, To increase flexibility/ROM, To reduce risk of recurrence, To prevent re-injury Therapeutic Exercise to Include: Strength training, Endurance training, Body mechanics, Postural training, Flexibilty training, Passive ROM, Active ROM, Dynamic Lumbar Stabilization Comment: BLE For the Purpose of:: To decrease pain, To increase ROM, To improve muscle performance and motor function, To increase tolerance to activity/condition/position, To improve ability of physical actions for home/community/work/leisure, To improve health of tissue, To decrease soft tissue restriction, To increase flexibility/ROM, To reduce risk of recurrence Thank you for the opportunity to evaluate your patient. For Medicare and Medicare HMO plans, please review the plan of care and approve it. It will need to be FAXED BACK to us at [phone] for Medicare purposes. For Medicare only, by signing this I certify the plan of care. Please let me know if there are questions or concerns regarding this plan of care. Physician Signature: Date:
--- NOTE | 2021-01-04 10:29 | HP.PTEVAL ---
Patient's Visit Information TONEY Odell DEVAUGHN is a 75 year old M referred to Physical Therapy by CLIF Cavanaugh with a diagnosis of OTHER SPECIFIED AFTERCARE FOLLOWING SURGERY. Date of Evaluation: 12/06/20 Physical Therapist: Ken Israel, PT, Cert MDT, OCS - Visit Plan Frequency: 2x /Week Duration: 4 Weeks Plan: D/C - Subjective This 75 y/o male presents to physical therapy with Left L4-5 micro decompression and microdisectomy on 11/12/[address] Bucio at [facility] d/c next day 11/13/20 and lumbar brace. Seen Last 12/06/20 recommended PT wean brace as tolerated and lumbar ROM after 3 weeks. Tried PT prior to PT didn't help and epidural injections didn't. Patient had MRI prior to surgery. Patient has had lumbar radicular symptoms many years . Symptoms worse with walking and standing and had multiple opinions. Currently, pain located left ankle mild sore back. Denies paresthesia/tingling . Coughing/sneezing -. Bowel/bladder -. Aggravating sitting and standing. Alleviating factors with movement and walking. Patient surgery lumbar affects QOL. SOCIAL: . VOCATION: retired - Pain Left Ankle Pain Intensity (Out of 10): 0 Bilateral Back Pain Intensity (Out of 10): 0 Pain Intensity Range: 10 - Objective POSTURE: mild forward posture. SKIN: incision well approximate. SYMMTRIES: align. PALAPTION: unremarkable. LUMBAR ROM: flexion min loss ,extension mod loss, side glides mod loss. FLEXABLITY: hams min tight. MMT: quads/hams 4/5,hip flexion 4-/5,hip abduction 4-/5,ankle 5/5 - Special Tests L/S Slump test left side: Negative L/S Slump test right side: Negative L/S Left Straight Leg Raise: Negative L/S Right Straight Leg Raise: Negative - Balance/Special Test Scores Oswestry Low Back Score: 2 - Goals Goal 1:: I with HEP to manage back pain Goal Time Frame: 4-6 Weeks Goal 2:: Patient to improve posture for ADL'S for function and housework's Goal Time Frame: 4-6 Weeks Goal 3:: Patient to decrease pain and radicular symptoms by 75 % improvement to improve function Goal Time Frame: 4-6 Weeks Goal 4:: Patient to improve lumbar ROM for function of recovery to improve housework tasks Goal Time Frame: 4-6 Weeks Goal 5:: Patient to improve back owestry score by 5 points or to improve QOL. Goal Time Frame: 4-6 Weeks - Rehabilitation Potential Physical Therapy Diagnosis: This patient underwent s/p lumbar left L4-5 micro decompression, microdiscectomy with decrease ROM ,strength ,function and lumbar ROM impairs function and ADL's thus benefit from skilled PT Rehabilitation Potential: Good - Anticipated Interventions Patient/Client Instruction: Educate patient on: Condition, Plan of Care For the Purpose of:: To decrease pain, To increase ROM, To improve muscle performance and motor function, To improve ability to perform ADL's, To increase tolerance to activity/condition/position, To improve ability of physical actions for home/community/work/leisure, To decrease soft tissue restriction, To increase flexibility/ROM, To reduce risk of recurrence, To prevent re-injury Therapeutic Exercise to Include: Strength training, Endurance training, Body mechanics, Postural training, Flexibilty training, Passive ROM, Active ROM, Dynamic Lumbar Stabilization Comment: BLE For the Purpose of:: To decrease pain, To increase ROM, To improve muscle performance and motor function, To increase tolerance to activity/condition/position, To improve ability of physical actions for home/community/work/leisure, To improve health of tissue, To decrease soft tissue restriction, To increase flexibility/ROM, To reduce risk of recurrence Thank you for the opportunity to evaluate your patient. For Medicare and Medicare HMO plans, please review the plan of care and approve it. It will need to be FAXED BACK to us at [phone] for Medicare purposes. For Medicare only, by signing this I certify the plan of care. Please let me know if there are questions or concerns regarding this plan of care. Physician Signature: Date:
--- NOTE | 2021-01-04 10:29 | HP.PTDCSUM ---
It has been my pleasure to treat TONEY Odell DEVAUGHN referred by CLIF Cavanaugh, with the diagnosis of OTHER SPECIFIED AFTERCARE FOLLOWING SURGERY for a total of 9 visit(s). Discharge Date: 01/04/21 Please see the following information for a summary of their discharge status. Subjective: Doing well ready for d/c Left Ankle Pain Intensity (Out of 10): 0 Bilateral Back Pain Intensity (Out of 10): 0 % Improvement: 70 Objective/Function: POSTURE:WFL. GAIT: RECIPROCAL PATTERN. NEURO: INTACT. MMT: QUADS/HAMS /HIP 4/5. LUMBAR ROM: FLEXION MIN LOSS,EXTENSION MIN/MOD LOSS Goal 1:: I with HEP to manage back pain Goal Progress: Goal Met Goal 2:: Patient to improve posture for ADL'S for function and housework's Goal Progress: Goal Met Goal 3:: Patient to decrease pain and radicular symptoms by 75 % improvement to improve function Goal Progress: Goal Met Goal 4:: Patient to improve lumbar ROM for function of recovery to improve housework tasks Goal Progress: Goal Met Goal 5:: Patient to improve back owestry score by 5 points or to improve QOL. Goal Progress: Goal Met Plan: D/C Discharge Comments: HEP [facility] If there are questions or concerns regarding this patient's physical therapy, please feel free to call me at [phone]. Thank you for the referral of this patient. Sincerely, Ken Israel, PT, Cert MDT, OCS Balance/Gait/Functional tests - Balance/Special Test Scores Oswestry Low Back Score: 2
== END 2021-01-04 12:48 | disposition home or self-care (01) ==
LOC: PT 10:00
PROVIDERS: PCP Family Medicine Geriatric Medicine; Referring Provider Nurse Practitioner Acute Care; Visit Provider Nurse Practitioner Acute Care
DX: Z48.89 Encounter for other specified surgical aftercare (principal)
CPT/HCPCS: 97110; 97162

== ENCOUNTER → 2021-02-07 10:48 | Outpatient (CLI) | payer MEDICARE, OTHER, SELFPAY ==
[2021-02-07 12:30] LABS: Absolute Lymphocyte Count 1.15 X10^3/uL (0.83-4.51); Absolute Neutrophil Count 2.6 X10^3/uL (2.0-7.7); Basophil# 0.04 X10^3/uL; Basophil% 0.9 % (0-1); Eosinophil# 0.08 X10^3/uL; Eosinophils% 1.8 % (0-5); Hematocrit 39.9 % (40-54); Hemoglobin 12.9 g/dL (13.0-16.5); Lymphocyte # 1.15 X10^3/ul (0.83-4.51); Lymphocyte % 25.5 % (19-41); Mean Corp Hgb Conc 32.3 g/dL (32-36); Mean Corpuscular Hgb 29.3 pg (27.0-32.0); Mean Corpuscular Volume 90.5 fL (80-94); Monocyte# 0.66 X10^3/uL; Monocyte% 14.6 % (0-10); NRBC Flagged by Analyzer 0 % (0-5); Neutrophil # 2.57 X10^3/uL (2.7-7.7); Platelet Count 257 K/mm3 (150-450); RBC Distribution Width CV 13.9 % (11.6-14.6); RBC Distribution Width SD 46.5 fl (35.1-43.9); Red Blood Count 4.41 M/mm3 (4.6-6.2); White Blood Count 4.5 K/mm3 (4.4-11.0)
[2021-02-07 12:52] LABS: ALB/GLOB Ratio 0.8 RATIO (0.9-2.4); AST(SGOT) 24 U/L (15-37); Alanine Aminotransfer ALT/SGPT 28 U/L (16-61); Albumin, Serum 3.3 g/dL (3.2-5.0); Alkaline Phosphatase 76 U/L (45-117); Anion Gap 4 (5-15); BUN 13 mg/dL (7-18); BUN/Creat Ratio 17.2 RATIO (10-20); Calcium,Total 8.6 mg/dL (8.5-10.1); Chloride 105 mmol/L (98-107); Creatinine, Serum 0.76 mg/dL (0.70-1.30); EST Glomerular Filtration Rate 108 mL/min (>60); Est Glom Filt Rate - Afr Amer 130 mL/min (>60); Glucose 91 mg/dL (74-106); Potassium 4.2 mmol/L (3.5-5.1); Protein, Total 7.3 g/dL (6.4-8.2); Sodium Level 137 mmol/L (136-145); Thyroid Stim Hormone (TSH) 2.32 uIU/mL (0.358-3.74)
== END ==
PROVIDERS: PCP Family Medicine Geriatric Medicine; Visit Provider Family Medicine Geriatric Medicine
DX: R53.83 Other fatigue (principal)
CPT/HCPCS: 36415; 80053; 84443; 85025

== ENCOUNTER → 2021-03-07 12:11 | Outpatient (CLI) | payer MEDICARE, OTHER, SELFPAY ==
[2021-03-07 12:48] LABS: Absolute Lymphocyte Count 0.92 X10^3/uL (0.83-4.51); Basophil# 0.04 X10^3/uL; Basophil% 1.1 % (0-1); Eosinophil# 0.06 X10^3/uL; Eosinophils% 1.7 % (0-5); Hemoglobin 12.7 g/dL (13.0-16.5); Lymphocyte # 0.92 X10^3/ul (0.83-4.51); Lymphocyte % 25.4 % (19-41); Mean Corp Hgb Conc 32.6 g/dL (32-36); Mean Corpuscular Hgb 29.2 pg (27.0-32.0); Mean Corpuscular Volume 89.7 fL (80-94); Mean Platelet Vol. 10.4 fl (6.2-12.0); Monocyte# 0.55 X10^3/uL; Monocyte% 15.2 % (0-10); NRBC Flagged by Analyzer 0 % (0-5); Neutrophil # 2.04 X10^3/uL (2.7-7.7); Neutrophil % 56.3 % (47-70); Platelet Count 229 K/mm3 (150-450); RBC Distribution Width CV 13.4 % (11.6-14.6); RBC Distribution Width SD 44.2 fl (35.1-43.9); Red Blood Count 4.35 M/mm3 (4.6-6.2); White Blood Count 3.6 K/mm3 (4.4-11.0)
[2021-03-07 13:19] LABS: Vitamin D,25 Hydroxy 19.4 ng/mL
[2021-03-07 13:39] LABS: ALB/GLOB Ratio 0.9 RATIO (0.9-2.4); AST(SGOT) 18 U/L (15-37); Alanine Aminotransfer ALT/SGPT 25 U/L (16-61); Albumin, Serum 3.4 g/dL (3.2-5.0); Alkaline Phosphatase 82 U/L (45-117); Anion Gap 2 (5-15); BUN 15 mg/dL (7-18); BUN/Creat Ratio 19.6 RATIO (10-20); Calcium,Total 8.9 mg/dL (8.5-10.1); Chloride 106 mmol/L (98-107); Creatinine, Serum 0.77 mg/dL (0.70-1.30); EST Glomerular Filtration Rate 106 mL/min (>60); Est Glom Filt Rate - Afr Amer 128 mL/min (>60); Globulin 3.8 g/dL (2.2-4.2); Glucose 102 mg/dL (74-106); Potassium 4.2 mmol/L (3.5-5.1); Protein, Total 7.2 g/dL (6.4-8.2); Sodium Level 138 mmol/L (136-145); Thyroid Stim Hormone (TSH) 1.72 uIU/mL (0.358-3.74)
== END ==
PROVIDERS: PCP Family Medicine Geriatric Medicine; Visit Provider Family Medicine Geriatric Medicine
DX: E55.9 Vitamin D deficiency, unspecified (principal); I10 Essential (primary) hypertension
CPT/HCPCS: 36415; 80053; 82306; 84443; 85025

== ENCOUNTER → 2021-03-20 | Outpatient (CLI) | payer MEDICARE, OTHER, SELFPAY | END | disposition home or self-care (01) | LOC: LABSPEC 15:40 | PROVIDERS: PCP Family Medicine Geriatric Medicine; Referring Provider Physician Assistant; Visit Provider Physician Assistant | DX: U07.1 COVID-19 (principal) | CPT/HCPCS: 87635; U0005; U0003 ==

== ENCOUNTER 2021-04-30 11:29 | Outpatient (CLI) | payer MEDICARE, OTHER, SELFPAY ==
[2021-04-30 14:15] LABS: Creatinine, Serum 0.72 mg/dL (0.70-1.30); EST Glomerular Filtration Rate 113 mL/min (>60); Est Glom Filt Rate - Afr Amer 137 mL/min (>60)
== END 2021-04-30 23:59 | disposition home or self-care (01) ==
LOC: LAB 11:31
PROVIDERS: PCP Family Medicine Geriatric Medicine; Visit Provider Nurse Practitioner
DX: M54.10 Radiculopathy, site unspecified (principal)
CPT/HCPCS: 36415; 82565

== ENCOUNTER 2021-05-13 10:30 | Outpatient (RCR) | payer MEDICARE, OTHER, SELFPAY ==
--- NOTE | 2021-04-17 11:48 | HP.PTEVAL ---
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 Date of Evaluation: 04/17/21 Physical Therapist: Ken Israel, PT, Cert MDT, OCS - Visit Plan Frequency: 2x /Week Duration: 4 Weeks Plan: PT INTERVETIONS DLS,POSTURAL EX'S ,LE FLEXABILITY ,MODALTIES PRN AND FUNCTIONAL STRENGTHNEING - Subjective This 75 y/o male presents to physical therapy with back pain with radiculopathy. Patient underwent s/p lumbar discectomy/laminectomy in October 2019. Patient did PT which helped and ex's at [employer] [employer] [employer] on own doing well . But started bowling and symptoms progressively worse with back and left leg. So, seen EXTERIOR DESIGNER and recommended PT tried prednisone didn't help . Pain ,located left lumbar tibia to foot. Patient has tingling in foot . During day ache in ankle and tibia. Aggravating sitting, twisting, driving and sleeping. Patient symptoms affects ability to sleep pain in worse. Coughing/sneezing-.Bowel/bladder -. Patient pain affects ability to perform ADLS and housework's. SOCIAL: single. VOCATION: retired - Pain Left Lower Extremity Pain Intensity (Out of 10): 5 Pain Intensity Range: 10 Comment: lower leg Left Back Pain Intensity (Out of 10): 1 Pain Intensity Range: 10 - Objective POSTURE: mild forward posture. GAIT: reciprocal pattern. NEURO: c/o tingling left foot, reflexes L3-4,L5-S1 2/3. SYMMRTIES: align. MMT: quads/hams 4/5, hip flexion ,hip abduction 4-/5,ankle 4/5. LUMBAR ROM: min loss, extension min/mod loss ,side glides mins. FLEXABLITY: hamstrings min tight - Special Tests L/S Slump test left side: Negative L/S Slump test right side: Negative L/S Left Straight Leg Raise: Negative L/S Right Straight Leg Raise: Negative Lumbar Standing: Flexion - Mechanical Response: No effect Lumbar Standing: Flexion - Symptoms During Testing: No effect Lumbar Standing: Flexion - Symptoms After Testing: No effect Lumbar Standing: Extension - Mechanical Response: No effect Lumbar Standing: Extension - Symptoms During Testing: No effect Lumbar Standing: Extension - Symptoms After Testing: No effect Lumbar Standing: Right Side Glides - Mechanical Response: No effect Lumbar Standing: Right Side [place] - Symptoms During Testing: No effect Lumbar Standing: Right Side [place] - Symptoms After Testing: No effect Lumbar Standing: Left Side [place] - Mechanical Response: No effect Lumbar Standing: Left Side [place] - Symptoms During Testing: No effect Lumbar Standing: Left Side [place] - Symptoms After Testing: No effect - Balance/Special Test Scores Oswestry Low Back Score: 27 - Goals Goal 1:: I with HEP for lumbar Goal Time Frame: 4-6 Weeks Goal 2:: Patient to demonstrate 50% improvement with lower leg symptoms with function. Goal Time Frame: 4-6 Weeks Goal 3:: Patient improve strength hip strength 4-/5 to improve gait Goal Time Frame: 4-6 Weeks Goal 4:: Patient to improve back owestry by 5 points to improve function/QOL Goal Time Frame: 4-6 Weeks Goal 5:: Patient improve posture and positioning at night to sleep 80% of the time Goal Time Frame: 4-6 Weeks - Rehabilitation Potential Physical Therapy Diagnosis: Patient has h/o lumbar laminectomy /discectomy last year but symptoms became worse in left lower leg with positioning and sleeping and daily function thus benefit from skilled PT Rehabilitation Potential: Good - Anticipated Interventions Patient/Client Instruction: Educate patient on: Condition, Plan of Care For the Purpose of:: To decrease pain, To increase ROM, To improve muscle performance and motor function, To improve ability to perform ADL's, To increase tolerance to activity/condition/position, To improve ability of physical actions for home/community/work/leisure, To improve health of tissue, To decrease soft tissue restriction, To increase flexibility/ROM Therapeutic Exercise to Include: Strength training, Power training, Body mechanics, Postural training, Flexibilty training, Dynamic Lumbar Stabilization For the Purpose of:: To decrease pain, To increase ROM, To improve muscle performance and motor function, To improve ability to perform ADL's, To increase tolerance to activity/condition/position, To improve ability of physical actions for home/community/work/leisure, To improve health of tissue, To decrease soft tissue restriction, To increase flexibility/ROM TENS: Yes IF ES: Yes Cryotherapy (ice pack, ice massage): Yes Ultrasound (thermal/non thermal): Yes For the Purpose of:: To decrease pain, To increase ROM, To improve nutrient delivery to tissue, To increase oxygenation perfusion, To improve health of tissue, To decrease soft tissue restriction Thank you for the opportunity to evaluate your patient. For Medicare and Medicare HMO plans, please review the plan of care and approve it. It will need to be FAXED BACK to us at [phone] for Medicare purposes. For Medicare only, by signing this I certify the plan of care. Please let me know if there are questions or concerns regarding this plan of care. Physician Signature: Date:
== END 2021-05-13 19:00 | disposition home or self-care (01) ==
LOC: PT 10:30
PROVIDERS: PCP Family Medicine Geriatric Medicine; Referring Provider Nurse Practitioner; Visit Provider Nurse Practitioner
DX: M43.16 Spondylolisthesis, lumbar region (principal); M54.10 Radiculopathy, site unspecified
CPT/HCPCS: 97035; 97110; 97162

== ENCOUNTER → 2021-09-05 | Outpatient (CLI) | payer MEDICARE, OTHER, SELFPAY ==
[2021-09-05 11:53] LABS: Absolute Lymphocyte Count 1.09 X10^3/uL (0.83-4.51); Absolute Neutrophil Count 2.3 X10^3/uL (2.0-7.7); Basophil# 0.05 X10^3/uL; Basophil% 1.2 % (0-1); Eosinophil# 0.13 X10^3/uL; Eosinophils% 3.1 % (0-5); Hematocrit 37.2 % (40-54); Hemoglobin 12.2 g/dL (13.0-16.5); Lymphocyte # 1.09 X10^3/ul (0.83-4.51); Lymphocyte % 26.3 % (19-41); Mean Corp Hgb Conc 32.8 g/dL (32-36); Mean Corpuscular Hgb 29.2 pg (27.0-32.0); Mean Platelet Vol. 10.5 fl (6.2-12.0); Monocyte# 0.57 X10^3/uL; Monocyte% 13.8 % (0-10); NRBC Flagged by Analyzer 0 % (0-5); Neutrophil # 2.29 X10^3/uL (2.7-7.7); Neutrophil % 55.4 % (47-70); Platelet Count 204 K/mm3 (150-450); RBC Distribution Width CV 13.7 % (11.6-14.6); RBC Distribution Width SD 45.1 fl (35.1-43.9); Red Blood Count 4.18 M/mm3 (4.6-6.2); White Blood Count 4.1 K/mm3 (4.4-11.0)
[2021-09-05 12:20] LABS: ALB/GLOB Ratio 0.9 RATIO (0.9-2.4); AST(SGOT) 25 U/L (15-37); Alanine Aminotransfer ALT/SGPT 28 U/L (16-61); Albumin, Serum 3.4 g/dL (3.2-5.0); Alkaline Phosphatase 77 U/L (45-117); Anion Gap 5 (5-15); BUN 15 mg/dL (7-18); Calcium,Total 8.5 mg/dL (8.5-10.1); Chloride 106 mmol/L (98-107); Creatinine, Serum 0.75 mg/dL (0.70-1.30); EST Glomerular Filtration Rate 108 mL/min (>60); Est Glom Filt Rate - Afr Amer 131 mL/min (>60); Globulin 3.6 g/dL (2.2-4.2); Glucose 93 mg/dL (74-106); Potassium 4.4 mmol/L (3.5-5.1); Sodium Level 137 mmol/L (136-145); Thyroid Stim Hormone (TSH) 1.56 uIU/mL (0.358-3.74)
[2021-09-05 12:26] LABS: Vitamin D,25 Hydroxy 21.8 ng/mL
== END | disposition home or self-care (01) ==
LOC: POLAB3 10:37
PROVIDERS: PCP Family Medicine Geriatric Medicine; Visit Provider Family Medicine Geriatric Medicine
DX: E55.9 Vitamin D deficiency, unspecified (principal); I10 Essential (primary) hypertension
CPT/HCPCS: 36415; 80053; 82306; 84443; 85025

== ENCOUNTER → 2021-09-12 | Outpatient (CLI) | payer MEDICARE, OTHER, SELFPAY ==
--- NOTE | 2021-09-12 10:43 | RAD_ITS ---
STUDY: X-RAY - UNILATERAL RIBS ( RIGHT ) WITH CHEST REASON FOR EXAM: Male, 76 years old. Rib pain. TECHNIQUE - RIBS: 4 view(s) of the ribs. TECHNIQUE - CHEST: Single frontal view of the chest. COMPARISON: Chest x-ray dated 02/25/2018. FINDINGS - RIBS: Diffuse osteopenia of the osseous structure. No displaced rib fracture identified. FINDINGS - CHEST: Stable hyperinflation with scattered healed parenchymal granulomatous calcifications. Thickening of the horizontal fissure on the right unchanged. There is no demonstrated pleural abnormality. Normal size heart. Normal mediastinum and jefferson. Normal visualized pulmonary arteries. Stable aortic tortuosity. Normal visualized thoracic spine. Normal visualized ribs, clavicles, and shoulders. There is no demonstrated abnormality of the visualized soft tissue structures of the upper abdomen. RAD/Ribs Uni Min 3V w/PA Chest IMPRESSION: RIBS: Osteopenia. No displaced rib fracture. CHEST: Stable mild hyperexpansion. Electronically Signed: Richard Royal MD at 9:34 EDT ,
== END | disposition home or self-care (01) ==
PROVIDERS: PCP Family Medicine Geriatric Medicine; Referring Provider Family Medicine Geriatric Medicine; Visit Provider Family Medicine Geriatric Medicine
DX: R07.89 Other chest pain (principal)
CPT/HCPCS: 71101

== ENCOUNTER 2021-11-22 13:25 | Emergency (ER) | payer MEDICARE, OTHER, SELFPAY ==
[2021-11-22 13:25] VITALS: BP 148/87; BP 160/103; PULSE 90; PULSE 92; RESP 14; RESP 15; TEMP 36.8; TEMP 37.2; O2SAT 97; O2SAT 98; BMI 21.2
--- NOTE | 2021-11-22 13:50 | EKG12_ITS ---
Test Reason : CP Blood Pressure : / mmHG Vent. Rate : 099 BPM Atrial Rate : 099 BPM P-R Int : 158 ms QRS Dur : 076 ms QT Int : 330 ms P-R-T Axes : 067 063 053 degrees QTc Int : 423 ms Normal sinus rhythm Normal ECG Confirmed by BALJIT PARDO, GIL ([id number]), editor newspaper HA RAYMOND ([id number]) on 11/26/2021 8:57:34 AM Referred By: DILIA Confirmed By:JULIANNE SMILEY MD
[2021-11-22 14:07] LABS: Absolute Lymphocyte Count 0.94 X10^3/uL (0.83-4.51); Absolute Neutrophil Count 3.6 X10^3/uL (2.0-7.7); Basophil# 0.03 X10^3/uL; Basophil% 0.6 % (0-1); Eosinophil# 0.02 X10^3/uL; Eosinophils% 0.4 % (0-5); Hematocrit 40.4 % (40-54); Hemoglobin 13.3 g/dL (13.0-16.5); Lymphocyte # 0.94 X10^3/ul (0.83-4.51); Lymphocyte % 18.4 % (19-41); Mean Corp Hgb Conc 32.9 g/dL (32-36); Mean Corpuscular Hgb 29.4 pg (27.0-32.0); Mean Corpuscular Volume 89.4 fL (80-94); Mean Platelet Vol. 9.7 fl (6.2-12.0); Monocyte# 0.55 X10^3/uL; Monocyte% 10.7 % (0-10); NRBC Flagged by Analyzer 0 % (0-5); Neutrophil # 3.57 X10^3/uL (2.7-7.7); Neutrophil % 69.7 % (47-70); Platelet Count 231 K/mm3 (150-450); RBC Distribution Width CV 14.6 % (11.6-14.6); RBC Distribution Width SD 47.1 fl (35.1-43.9); Red Blood Count 4.52 M/mm3 (4.6-6.2); White Blood Count 5.1 K/mm3 (4.4-11.0)
[2021-11-22 14:25] LABS: Troponin-I HS 5 pg/mL (3.0-78.0)
[2021-11-22 14:40] VITALS: BP 132/80; PULSE 69; RESP 12; O2SAT 100
--- NOTE | 2021-11-22 15:39 | ED.VIS.CHEST ---
HPI History of Present Illness Chief Complaint: Chest Pain Detail of Chief Complaint: Left sided chest pain with no associated symptoms or radiation Informant: patient Onset/Context/Timing Onset: Weeks (2.5 weeks ago) Activity at onset: sudden Timing: Continuous Quality: Positive for Aching Location: Left Parasternal Current Severity: Mild Maximum Severity: Moderate Worsened By: Nothing Relieved By: Nothing Associated Symptoms: Negative for Nausea, Vomiting, Diaphoresis, Dyspnea, Cough, Fever, Lightheadedness, Acid Reflux or Palpitations Narrative Narrative: Patient is a 76-year-old male with history of allergic rhinitis who presents with left-sided chest pain. His last stress test and cardiac cath were both negative. Patient states this episode of pain started 2.5 weeks ago. There is no exacerbating, precipitating or alleviating factors. There is no associated symptoms. He denies history of GERD, reflux or peptic ulcer disease. He denies black or maroon-colored stool. He denies dyspnea, dyspnea on exertion, PND or orthopnea. There is no history of trauma. He denies history of VTE. Denies leg pain, swelling or discoloration. Prior Similar Symptoms: Yes (No etiology was found) Recent Illness/Hospitalization: No CVD Risk Factors: Positive for Hypertension; Negative for Diabetes, Hypercholesterolemia, Family History 1' </=55 or Smoking PE Risk Factors: Negative for Recent Travel/Surgery, Recent Immobilization, Prior DVT or PE, Cancer or OCP + Smoking + >/=35 TAD Risk Factors: Positive for Hypertension; Negative for Marfan's Syndrome or Family History PFSH PFS Medical History Degenerative disc disease, cervical Essential (primary) hypertension Hyperlipidemia Lung nodule Patent foramen ovale Rosacea Rosacea Segmental and somatic dysfunction of cervical region Segmental and somatic dysfunction of thoracic region Tinnitus Home Medications fluticasone propionate 50 mcg/actuation nasal spray,suspension 2 spray intranasal DAILY 08/10/18 [History Last Taken Unknown] metronidazole 0.75 % topical gel 1 applic topical ONCE 08/10/18 [History Last Taken Unknown] doxycycline calcium 50 mg/5 mL oral syrup 50 mg PO BID 10/03/20 [History Last Taken Unknown] naproxen sodium 220 mg capsule (Aleve) 220 mg PO BID PRN 10/03/20 [History Last Taken Unknown] Allergy/AdvReac Type Severity Reaction Status Date / Time Iodinated Contrast Media Allergy Hives Verified 10/03/20 09:50 [CONTRASTS] Surgical History History of eye surgery History of left heart catheterization (2011) History of nasal septoplasty Social History Smoking Status: Former smoker quit date: 03/23/91 pack-years: 13 alcohol intake: current alcohol intake frequency: a few times a week Alcohol type: beer caffeine: No ROS ROS ED Constitutional Constitutional ED: Denies chills, fever(s), subjective or sweats Eyes Eyes: Reports none; Denies blurry vision or change in vision ENT ENT ED: Denies ear pain, rhinorrhea or sore throat Cardiovascular Cardiovascular: Reports as per HPI; Denies orthopnea or paroxysmal nocturnal dyspnea Respiratory/Chest Respiratory/Chest: Denies cough, dyspnea, dyspnea on exertion, orthopnea or paroxysmal nocturnal dyspnea Gastrointestinal Gastrointestinal: Denies abdominal pain, melena, nausea or vomiting Genitourinary Genitourinary ED: Denies dysuria or hematuria Musculoskeletal Musculoskeletal: Denies arthralgias, back pain, myalgias or neck pain Integumentary Denies Abrasions or rash Neurologic Neurologic: Denies paresthesias or weakness Psychiatric Psychiatric: Reports anxiety; Denies depression Hematologic/Lymphatic Hematologic/Lymphatic: Denies easy bleeding, easy bruising or lymphadenopathy EXAM Physical Exam Const Vital Signs: 11/22/21 13:25 11/22/21 13:25 11/22/21 14:40 Temperature 98.9 F 98.2 F Temperature Source Temporal Oral Pulse Rate 92 90 69 Respiratory Rate 14 15 12 Blood Pressure 148/87 H 160/103 H 132/80 H Blood Pressure Mean 107 122 97 Pulse Ox 98 97 100 Oxygen Delivery Method Room Air Room Air Room Air Positive well nourished and well developed General Appearance ED: well developed and NAD; Negative for pallor HEENT Reports moist mucous membranes HEENT Narrative: Ears normal. Nares patent. Uvula midline. No deviation tongue with protrusion. No erythema or exudate. normocephalic and atraumatic Eyes PERRL and EOMs intact bilaterally General Eye ED: Negative for pale conjunctiva or scleral icterus Neck no lymphadenopathy, supple and no JVD Resp normal respiratory effort and clear to auscultation bilaterally Cardio regular rate, regular rhythm, S1 normal heart sound, S2 normal heart sound and no murmurs Peripheral Pulses: pulses 2+ throughout GI soft to palpation, non-tender and non-distended; Negative for hepatosplenomegaly Back/Spine no CVA tenderness and no thoracic nor lumbar tenderness Extremity normal to inspection Extremity Narrative: There is no asymmetry, swelling, discoloration, leg vein distention, palpable cords or tenderness along the distribution of the deep venous system. Neuro oriented x3, CN's II-XII intact bilaterally, no sensory deficits noted and gait normal Sensorium / Orientation: awake Motor Exam: strength 5/5 throughout Psych mental status grossly normal Skin no rashes or lesions noted General Skin Exam: Negative for jaundice or pallor MDM MDM MDM Narrative Medical decision making narrative: With very atypical chest pain. Patient's work-up is negative. EKG revealed a normal sinus rhythm and normal. Troponin with 2-1/2 weeks of pain is less than 7 and is normal and has a 100% negative predictive value for cardiac disease. Lab Data Labs: Laboratory Results - last 24 hr 11/22/21 11/22/21 11/22/21 14:00 14:00 14:00 WBC 5.1 RBC 4.52 L Hgb 13.3 Hct 40.4 MCV 89.4 MCH 29.4 MCHC 32.9 RDW Std Deviation 47.1 H RDW Coeff of Tono 14.6 Plt Count 231 MPV 9.7 Immature Gran % (Auto) 0.200 Neut % (Auto) 69.7 Lymph % (Auto) 18.4 L [place] % (Auto) 10.7 H Eos % (Auto) 0.4 Baso % (Auto) 0.6 Absolute Neuts (auto) 3.6 Absolute Lymphs (auto) 0.94 Nucleated RBC % 0 Troponin I High Sens 5 Cancelled EKG Initial EKG: Attestation: I personally reviewed and interpreted this EKG as follows: Interpretation: Sinus Rhythm (Ventricular is 99. The EKG is normal. FL interval 208 ms. QS duration 76 ms. QT duration 330 ms. [place] is normal.) Discharge Plan Triage Chief Complaint: Chest Pain ED Provider: Shane Ortiz Dx/Rx/DC Orders Clinical Impression: Left-sided chest pain Instructions: ED Chest Pain, Noncardiac, ED Chest Pain, Uncertain Cause Prescriptions: No Action metronidazole 0.75 % gel 1 applic TOPICAL ONCE fluticasone propionate 50 mcg/actuation spray,suspension 2 spray INTRANASAL DAILY doxycycline calcium 50 mg/5 mL syrup 50 mg PO BID naproxen sodium [Aleve] 220 mg capsule 220 mg PO BID PRN Primary Care Provider: Nick Mercedes Chi Referrals: Nick Mercedes Chi, MD [Primary Care Provider] - As Needed Disposition Disposition: Home, Self Care
[2021-11-22 15:52] VITALS: BP 137/81; PULSE 70
== END 2021-11-22 15:53 | disposition home or self-care (01) ==
PROVIDERS: Emergency Provider Emergency Medicine; PCP Family Medicine Geriatric Medicine; Visit Provider Emergency Medicine
DX: R07.9 Chest pain, unspecified (principal); Z87.891 Personal history of nicotine dependence
CPT/HCPCS: 84484; 85025; 93005; 99284; J7030; A4216

== ENCOUNTER → 2022-03-27 | Outpatient (CLI) | payer MEDICARE, OTHER, SELFPAY ==
[2022-03-27 12:56] LABS: Absolute Lymphocyte Count 1.25 X10^3/uL (0.83-4.51); Absolute Neutrophil Count 2.3 X10^3/uL (2.0-7.7); Basophil# 0.02 X10^3/uL; Basophil% 0.5 % (0-1); Eosinophil# 0.15 X10^3/uL; Eosinophils% 3.4 % (0-5); Hematocrit 42.2 % (40-54); Hemoglobin 13.2 g/dL (13.0-16.5); Lymphocyte # 1.25 X10^3/ul (0.83-4.51); Lymphocyte % 28.5 % (19-41); Mean Corp Hgb Conc 31.3 g/dL (32-36); Mean Corpuscular Hgb 28.5 pg (27.0-32.0); Mean Corpuscular Volume 91.1 fL (80-94); Mean Platelet Vol. 10.7 fl (6.2-12.0); NRBC Flagged by Analyzer 0 % (0-5); Neutrophil # 2.25 X10^3/uL (2.7-7.7); Neutrophil % 51.4 % (47-70); Platelet Count 222 K/mm3 (150-450); RBC Distribution Width CV 13.9 % (11.6-14.6); RBC Distribution Width SD 46.7 fl (35.1-43.9); Red Blood Count 4.63 M/mm3 (4.6-6.2); White Blood Count 4.4 K/mm3 (4.4-11.0)
[2022-03-27 13:13] LABS: Vitamin D,25 Hydroxy 21.3 ng/mL
[2022-03-27 13:22] LABS: ALB/GLOB Ratio 0.9 RATIO (0.9-2.4); AST(SGOT) 23 U/L (15-37); Alanine Aminotransfer ALT/SGPT 28 U/L (16-61); Albumin, Serum 3.7 g/dL (3.2-5.0); Alkaline Phosphatase 74 U/L (45-117); Anion Gap 5 (5-15); BUN 17 mg/dL (7-18); BUN/Creat Ratio 18.4 RATIO (10-20); Calcium,Total 8.8 mg/dL (8.5-10.1); Chloride 104 mmol/L (98-107); Creatinine, Serum 0.92 mg/dL (0.70-1.30); EST Glomerular Filtration Rate 85 mL/min (>60); Est Glom Filt Rate - Afr Amer 103 mL/min (>60); Globulin 3.9 g/dL (2.2-4.2); Glucose 137 mg/dL (74-106); Protein, Total 7.6 g/dL (6.4-8.2); Sodium Level 136 mmol/L (136-145); Thyroid Stim Hormone (TSH) 2.08 uIU/mL (0.358-3.74)
== END | disposition home or self-care (01) ==
LOC: POLAB3 09:04
PROVIDERS: PCP Family Medicine Geriatric Medicine; Visit Provider Family Medicine Geriatric Medicine
DX: E55.9 Vitamin D deficiency, unspecified (principal); R53.83 Other fatigue
CPT/HCPCS: 36415; 80053; 82306; 84443; 85025

== ENCOUNTER → 2022-10-02 | Outpatient (CLI) | payer MEDICARE, OTHER, SELFPAY ==
[2022-10-02 12:03] LABS: Absolute Lymphocyte Count 1.27 X10^3/uL (0.83-4.51); Absolute Neutrophil Count 2.2 X10^3/uL (2.0-7.7); Basophil# 0.04 X10^3/uL; Eosinophil# 0.12 X10^3/uL; Eosinophils% 2.9 % (0-5); Hematocrit 40.9 % (40-54); Hemoglobin 13.1 g/dL (13.0-16.5); Lymphocyte # 1.27 X10^3/ul (0.83-4.51); Lymphocyte % 30.9 % (19-41); Mean Corpuscular Volume 90.7 fL (80-94); Mean Platelet Vol. 10.9 fl (6.2-12.0); Monocyte% 12.2 % (0-10); NRBC Flagged by Analyzer 0 % (0-5); Neutrophil # 2.17 X10^3/uL (2.7-7.7); Neutrophil % 52.8 % (47-70); Platelet Count 211 K/mm3 (150-450); RBC Distribution Width CV 14.7 % (11.6-14.6); RBC Distribution Width SD 49.7 fl (35.1-43.9); Red Blood Count 4.51 M/mm3 (4.6-6.2); White Blood Count 4.1 K/mm3 (4.4-11.0)
[2022-10-02 12:22] LABS: Vitamin D,25 Hydroxy 33.9 ng/mL
[2022-10-02 12:31] LABS: ALB/GLOB Ratio 0.8 RATIO (0.9-2.4); AST(SGOT) 21 U/L (15-37); Alanine Aminotransfer ALT/SGPT 21 U/L (16-61); Albumin, Serum 3.3 g/dL (3.2-5.0); Alkaline Phosphatase 71 U/L (45-117); Anion Gap 6 (5-15); BUN 16 mg/dL (7-18); BUN/Creat Ratio 19.2 RATIO (10-20); Calcium,Total 8.6 mg/dL (8.5-10.1); Chloride 105 mmol/L (98-107); Creatinine, Serum 0.83 mg/dL (0.70-1.30); EST Glomerular Filtration Rate 95 mL/min (>60); Est Glom Filt Rate - Afr Amer 115 mL/min (>60); Glucose 107 mg/dL (74-106); Potassium 4.1 mmol/L (3.5-5.1); Protein, Total 7.3 g/dL (6.4-8.2); Sodium Level 139 mmol/L (136-145); Thyroid Stim Hormone (TSH) 1.73 uIU/mL (0.358-3.74)
== END | disposition home or self-care (01) ==
LOC: POLAB3 08:50
PROVIDERS: PCP Family Medicine Geriatric Medicine; Visit Provider Family Medicine Geriatric Medicine
DX: R53.83 Other fatigue (principal); E55.9 Vitamin D deficiency, unspecified
CPT/HCPCS: 36415; 80053; 82306; 84443; 85025

== ENCOUNTER → 2023-03-04 | Outpatient (CLI) | payer MEDICARE, OTHER, SELFPAY | END | disposition home or self-care (01) | LOC: PSN 09:12 | PROVIDERS: PCP Family Medicine Geriatric Medicine; Referring Provider Family Medicine Geriatric Medicine; Visit Provider Family Medicine Geriatric Medicine | DX: R68.83 Chills (without fever) (principal) | CPT/HCPCS: 87635; 87804; 87807; C9803 ==

== ENCOUNTER → 2023-04-09 | Outpatient (CLI) | payer MEDICARE, OTHER, SELFPAY ==
--- OUTSIDE RECORDS SUMMARY | 2023-04-09 09:53 | XMS RPT_ITS | CCD ---
Author Name Unknown Address [address] [place] [address] Organization [facility] Care Team Providers Care Water Treatment Plant Supervisor Name Role Phone Santi Schwarz Unavailable Unavailable [employer] BIT TRIPOLER-AIDS COUNSELOR, Darlene Unavailable Allergies Allergy Classification Reported Allergen(s) Allergy Type Date of Onset Reaction(s) Facility (1 source) No Alert Propensity to adverse reactions to drug 1 Dept. of Dermatology (1 source) Contrast media drug allergy 1 hives [facility] Work Phone: (1 source) House dust mite; Translations: [DUST MITES] allergy to substance 1 [facility] Work Phone: Medications Current Medications Medication Drug Class(es) Dates Sig (Normalized) Sig (Original) ketoconazole 20 mg/ml topical cream (3 sources) Azole Antifungal Start: 03-31-2018 392267 Medication ketoconazole 2 % shampoo ketoconazole 2 % shampoo 2 % 1 Application topically every other day 03/31/2018 Active (Current) Completed/Discontinued Medications Medication Drug Class(es) Dates Sig (Normalized) Sig (Original) acetaminophen 500 mg oral tablet (1 source) TYLENOL EXTRA STRENGTH 500 MG TABS 1 tablet by mouth as needed acetaminophen 21016566079 Galina Tellez biotin 1 mg oral capsule (1 source) take 1 tablet by mouth once daily BIOTIN 1 MG CAPS 1 tablet by mouth once a day as directed biotin [id number] Iqra MAYER Cholecalciferol (1 source) Vitamin D take 1 tablet by mouth once daily VITAMIN D3 10 MCG (400 UNIT) CAPS 1 tablet by mouth once a day as directed cholecalciferol (vitamin d3) [id number] Iqra Hein AT doxycycline hyclate 20 mg oral tablet (1 source) Tetracycline-class Drug Start: 10-03-2020 DOXYCYCLINE HYCLATE 20 MG TABS 1 tablet by mouth as needed doxycycline hyclate [id number] Luis Fischerprem AT fluocinonide 0.5 mg/ml topical cream (1 source) Corticosteroid Start: 03-31-2018 147640 Medication fluocinonide 0.05 % topical solution fluocinonide 0.05 % topical solution 0.05 % 1 Application topically daily 03/31/2018 Prior History No Longer Active fluticasone propionate 0.05 mg/actuat metered dose nasal spray (1 source) Corticosteroid Start: 10-03-2020 take 1 spray(s) nasal route once daily FLONASE ALLERGY RELIEF 50 MCG/ACT SUSP 1 spray into both nostrils once a day as directed fluticasone propionate [id number] Erlinda Frey AT metroNIDAZOLE 7.5 mg/ml topical cream (2 sources) Nitroimidazole Antimicrobial Start: 10-03-2020 METRONIDAZOLE 0.75 % CREA to skin twice a day as directed metronidazole [id number] Erlinda Frey AT Problems Active Problems Problem Classification Problem Date Documented Date Episodic/Chronic Neoplasms of unspecified nature or uncertain behavior (2 sources) Neoplasm of uncertain behavior of skin Onset: 12-18-2020 Episodic Other acquired deformities (1 source) Lumbar spondylolisthesis; Translations: [Spondylolisthesis, lumbar region] Onset: 04-11-2021 04-11-2021 Episodic Other inflammatory condition of skin (3 sources) Other seborrheic dermatitis Onset: 03-30-2018 Episodic Other inflammatory condition of skin (2 sources) Pruritus, unspecified Onset: 03-30-2018 Episodic Other skin disorders (2 sources) Actinic keratosis Onset: 12-18-2020 Episodic Other skin disorders (2 sources) Rash and other nonspecific skin eruption Onset: 08-26-2016 Episodic Spondylosis; intervertebral disc disorders; other back problems (1 source) Prolapsed lumbar intervertebral disc; Translations: [Other intervertebral disc displacement, lumbar region] Onset: 10-11-2020 10-11-2020 Chronic Spondylosis; intervertebral disc disorders; other back problems (1 source) Backache; Translations: [Radiculopathy, site unspecified] Onset: 04-11-2021 04-11-2021 Episodic Past or Other Problems Problem Classification Problem Date Documented Da te Episodic/Chronic Other aftercare (1 source) Surgical follow-up; Translations: [Encounter for other specified surgical aftercare] Onset: 11-29-2020 11-29-2020 Episodic Unclassified (3 sources) Onset: 07-12-2019 Unclassified (1 source) Onset: 07-05-2014 Unclassified (1 source) Problem Results Test Name Value Interpretation Reference Range Facil ity Vital Signs Date Time Vital Sign Value Performing Clinician Facility 1945 23:00-0500 >na< Santi Schwarz Dept. of Dermatology NEGATED: Highlighted [id number] 15:16-0500 Body height 165.1 cm Iqra Duecker AT [facility] Work Phone: NEGATED: Highlighted [id number] 15:16-0500 Body height 165 cm Iqra Duecker AT [facility] Work Phone: NEGATED: Highlighted [id number] 15:16-0500 Body mass index (BMI) [Ratio] 22.55 kg/m2 Iqra Duecker AT [facility] Work Phone: NEGATED: Highlighted [id number] 15:16-0500 Body temperature 97.7 [degF] Iqra Duecker AT [facility] Work Phone: NEGATED: Highlighted [id number] 15:16-0500 Body weight 61.24 kg Iqra Duecker AT [facility] Work Phone: NEGATED: Highlighted [id number] 15:16-0500 Body weight 61 kg Iqra Duecker AT [facility] Work Phone: Encounters Encounter Date Encounter Type Care Provider Facility Start: 12-18-2020 Office outpatient vi sit 15 minutes Santi Chong Dept[facility] of Dermatology Start: 07-20-2019 Office outpatient vi sit 15 minutes Santi Schwarz [facility]at[facility] Start: 07-12-2019 Office outpatient vi sit 15 minutes Santi Schwarz [facility] Start: 03-30-2018 Office outpatient vi sit 15 minutes Santi Schwarz [facility] Start: 08-26-2016 Office outpatient vi sit 15 minutes Santi Schwarz [facility] Start: 07-05-2014 Office outpatient vi sit 15 minutes Santi Schwarz [facility]ology Start: 07-05-2014 Office outpatient vi sit 25 minutes Santi Schwarz Dept[facility] of Dermatology Procedures Date Procedure Procedure Detail Performing Clinician Start: 05-09-2021 End: 05-09-2021 BP scrn no perf at interval Darlene Ruiz BIT TRIPOLER-AIDS COUNSELOR Work Phone: Start: 05-09-2021 End: 05-09-2021 Calc BMI norm parameters Darlene Key ick BIT TRIPOLER-AIDS COUNSELOR Work Phone: Start: 05-09-2021 End: 05-09-2021 Current tobacco non-user cad cap copd pv dm Darlene Ruiz BIT TRIPOLER-AIDS COUNSELOR Work Phone: Start: 05-09-2021 End: 05-09-2021 Docrev cur meds by vidya Ruiz BIT TRIPOLER-AIDS COUNSELOR Work Phone: Start: 05-09-2021 End: 05-09-2021 Pain neg no plan Darlene Ruiz BIT TRIPOLER-AIDS COUNSELOR Work Phone: Start: 05-09-2021 End: 05-09-2021 Patient encounter procedure Darlene Ruiz BIT TRIPOLER-AIDS COUNSELOR Work Phone: Start: 12-18-2020 Destruction premalig nant lesion 1st Santi Schwarz Start: 12-18-2020 Established Office V isit Level 3 01045~GC~25 Santi Chong Start: 12-18-2020 Tangential biopsy sk in single lesion Santi Chong Start: 09-12-2019 Excision mal lesion trunk/arm/leg 1.1-2.0 cm Santi Schwarz Start: 07-20-2019 Punch biopsy skin si ngle lesion Santi Chong Start: 03-30-2018 Established Office V isit Level 4 Teofilo Cabral Start: 08-26-2016 Established Office V isit Level 3 Julianna Mata Start: 08-26-2016 Smr prim src wet wesley nt nfct agt Santiparker Schwarz Start: 07-05-2014 Bx skin subcutaneous&/mucous membrane 1 lesion Santi Chong NEGATED: Highlighted rowStart: 05-09-2021 End: 05-09-2021 Documentation of current medications Iqra Hein AT Plan of Treatment Date Care Activity Detail Author Start: 05-09-2021 End: 05-09-2021 Patient encounter procedure Appointment [facility] Work Phone: Immunizations Immunization Date Immunization Notes Care Provider Fa cility 1945 pneumococcal conjuga te vaccine, 7 valent Santi Schwarz Dept. of Dermatology Social History Date Type Detail Facility Start: 12-30-2020 End: 05-09-2021 Dept. of Dermatology Start: 1945 Sex Assigned At Male D ept. of Dermatology Goals Date Patient Goal Desired Activity /State Instructions 05-09-2021 Note Date & Type Note Facility [facility] Work Phone: Progress note 11-02-2020 Note Date & Type Note Facility 11-02-2020 Note HNO ID: [id number] Author: Amanuel Jc MD Service: ? Author Type: Physician Type: Progress Notes Filed: 11/02/2020 10:34 AM Note Text: NEUROSURGERY CONSULT NOTE Amanuel Jc MD Date of visit: November 02, 2020 Patient Name: Mr.Thomas Cass Cantor Date of : 1945 Current Age: [age] year old Sex: male MRN/E# [id number] Chief Complaint: Patient presents with: New Patient Evaluation HISTORY OF PRESENT ILLNESS : The patient is a 75 year old, right handed male without a significant past medical history, who presents for neurosurgical evaluation. Mr. Cantro presents to the office today as a new patient with imaging for evaluation of low back pain. He describes a 4 month history of worsening low back and left leg pain. He states he has a long standing history of low back pain with sciatica, however is usually able to relieve his symptoms with physical therapy and home exercises. Since June of this year he has experienced persistent low back pain into the left gluteal region through the left lateral calf and foot. He noes associated numbness and tingling in the left foot. He notes his pain is worse with standing, bending, lifting, and ambulation; improves with rest. He has participated in physical therapy and undergone lumbar epidural injections without lasting improvement of his symptoms. He presents today for evaluation and plan of care. Symptoms: low back pain into the left lower extremity PREVIOUS CONSERVATIVE TREATMENTS: Physical therapy Pain management Injections NSAID's Home exercise PREVIOUS SURGERY: None PAIN EVALUATION 11/02/2020 0952 Pain Level: 3 Pain Location: Leg-Left Description: Shooting Duration Amount of Time: 5 Duration Units: Months Frequency: Continuous Intervention/Comfort measure: Reposition;Positioning PAST MEDICAL HISTORY Diagnosis Date - Chronic rhinitis 2007 - Depression - Dizziness - light-headed intermittent, positional - Esophageal reflux rare severe episodes, negative cardiac admission - Hyperlipidemia borderline - Mycosis fungoides, unspecified site, 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 - Rosacea Dx in , dry skin also - Sciatica MRI 06/2010-mild stenosis - Spondylolisthesis of lumbar region 04/11/2015 - Tinnitus, bilateral PAST SURGICAL HISTORY Procedure Laterality Date - COLONOSCOP W/ OR W/O [facility] 08-01-04 Repeat in - COLONOSCOP W/ OR W/O [facility] 10/30/2014 Colonoscopy - EGD 2007 - EPIDURAL 2010 x2 - REPAIR OF NASAL SEPTUM Septoplasty - TONSILLECTOMY HX FAMILY HISTORY Problem Relation Age of Onset - Hypertension Father - None Mother - None Brother - Stroke Paternal Grandmother - Hypertension Paternal Grandmother ALLERGIES Allergen Reactions - Iodine [Contrast Dy* Hives - Latex Pt face gets red and has sinus issue Current Outpatient Medications Medication Sig Dispense Refill - Fluticasone Furoate (FLONASE SENSIMIST) 27.5 mcg/actuation nasal spray Use 2 Sprays in each nostril once daily. 0 - metroNIDAZOLE (NORITATE) 1 % cream Apply 1 application to affected area once daily as needed. No current facility-administered medications for this visit. REVIEW OF SYSTEMS Review of Systems Constitutional: Negative for chills, diaphoresis and fever. HENT: Negative for congestion, ear pain and sinus pressure. Eyes: Negative for discharge and redness. Respiratory: Negative for cough, shortness of breath and wheezing. Cardiovascular: Negative for chest pain, palpitations and leg swelling. Gastrointestinal: Negative for constipation, diarrhea and nausea. Endocrine: Negative for cold intolerance and heat intolerance. Genitourinary: Positive for difficulty urinating. Negative for frequency and urgency. Weak steam at hs Musculoskeletal: Positive for back pain. Negative for gait problem and neck pain. Skin: Negative for rash and wound. Allergic/Immunologic: Negative for environmental allergies and food allergies. Neurological: Negative for dizziness, weakness and numbness. Hematological: Does not bruise/bleed easily. Psychiatric/Behavioral: Negative for agitation. The patient is not nervous/anxious. OBJECTIVE: BP 158/91 Pulse 81 Temp 98 Ht 5' 5 (1.65m) Wt 127 lb (57.6kg) SpO2 98% BMI 21.13 kg/(m2). PHYSICAL EXAM: Physical Exam HENT: Head: Normocephalic and atraumatic. Right Ear: External ear normal. Left Ear: External ear normal. Eyes: Conjunctiva/sclera: Conjunctivae normal. Pulmonary: Effort: Pulmonary effort is normal. Musculoskeletal: General: Normal range of motion. Cervical back: Normal range of motion. Skin: General: Skin is warm and dry. Neurological: Mental Status: He is alert and oriented to person, place, and time. Gait: Gait is intact. Psychiatric: Mood and Affect: Mood and affect normal. Neurological Exam Mental Status Aler (more content not included)... [facility] Evaluation note Note Date & Type Note Facility Evaluation note N/A Dept. of Dermato logy Evaluation note Note Date & Type Note Facility Evaluation note There may be informa tion available, but it has not been provided by the sender. [facility] [place] [facility] Work Phone: Reason for referral (narrative) Note Date & Type Note Facility Dept. of Dermatology Summary Purpose Family History No Family History Records FoundNo Family History Records FoundThere may be information available, but it has not been provided by the sender.No Family History Records Found Advance Directives No Advanced Directives Records FoundNo Advanced Directives Records FoundThere may be information available, but it has not been provided by the sender.No Advanced Directives Records Found Chief Complaint Chief Complaint Description Start Date lower back post Left L4-5 mi crodecompression and microdiscectomy on 11/12/2020 Preliminary chief co mplaint data, not yet signed by the author as of Additional Source Comments (unrecognized sect ion and content) No Status Records FoundNo Status Records FoundNo Status Records Found INFORMATION SOURCE (unrecogn ized section and content) DATE CREATED AUTHOR AUTHOR'S ORGANIZ ATION 11/03/2020 [facility] DATE CREATED AUTHOR AUTHOR'S ORGANIZ ATION 05/15/2021 [facility] Reason for Visit (unrecogniz ed section and content) FOR RECORDS PERTAINING TO PATIENTS WHO ARE OR HAVE BEEN ENROLLED IN A CHEMICAL DEPENDENCY/SUBSTANCEABUSE PROGRAM, SOME INFORMATION MAY BE OMITTED. This clinical summary was aggregated from multiple sources. Caution should be exercised in using it in the provision of clinical care. This summary normalizes information from multiple sources, and as a consequence, information in this document may materially change the coding, format and clinical context of patient data. In addition, data may be omitted in some cases. CLINICAL DECISIONS SHOULD BE BASED ON THE PRIMARY CLINICAL RECORDS. [employer] provides no warranty or guarantee of the accuracy or completeness of information in this document.
[2023-04-09 12:19] LABS: Absolute Neutrophil Count 2.6 X10^3/uL (2.0-7.7); Basophil# 0.03 X10^3/uL; Basophil% 0.7 % (0-1); Eosinophil# 0.07 X10^3/uL; Eosinophils% 1.5 % (0-5); Hematocrit 42.6 % (40-54); Hemoglobin 13.5 g/dL (13.0-16.5); Lymphocyte % 26.3 % (19-41); Mean Corp Hgb Conc 31.7 g/dL (32-36); Mean Corpuscular Hgb 29.1 pg (27.0-32.0); Mean Corpuscular Volume 91.8 fL (80-94); Mean Platelet Vol. 10.1 fl (6.2-12.0); Monocyte# 0.61 X10^3/uL; Monocyte% 13.4 % (0-10); NRBC Flagged by Analyzer 0 % (0-5); Neutrophil # 2.64 X10^3/uL (2.7-7.7); Neutrophil % 57.9 % (47-70); Platelet Count 240 K/mm3 (150-450); RBC Distribution Width CV 14.6 % (11.6-14.6); RBC Distribution Width SD 49.1 fl (35.1-43.9); Red Blood Count 4.64 M/mm3 (4.6-6.2); White Blood Count 4.6 K/mm3 (4.4-11.0)
[2023-04-09 12:58] LABS: Vitamin D,25 Hydroxy 25.3 ng/mL
[2023-04-09 13:27] LABS: ALB/GLOB Ratio 0.9 RATIO (0.9-2.4); AST(SGOT) 23 U/L (15-37); Alanine Aminotransfer ALT/SGPT 30 U/L (16-61); Albumin, Serum 3.6 g/dL (3.2-5.0); Alkaline Phosphatase 84 U/L (45-117); Anion Gap 5 (5-15); BUN 17 mg/dL (7-18); BUN/Creat Ratio 20.5 RATIO (10-20); Calcium,Total 9.1 mg/dL (8.5-10.1); Chloride 105 mmol/L (98-107); Creatinine, Serum 0.83 mg/dL (0.70-1.30); EST Glomerular Filtration Rate 96 mL/min (>60); Est Glom Filt Rate - Afr Amer 116 mL/min (>60); Globulin 3.8 g/dL (2.2-4.2); Glucose 87 mg/dL (74-106); Potassium 3.9 mmol/L (3.5-5.1); Protein, Total 7.4 g/dL (6.4-8.2); Sodium Level 138 mmol/L (136-145); Thyroid Stim Hormone (TSH) 1.84 uIU/mL (0.358-3.74)
== END | disposition home or self-care (01) ==
LOC: POLAB3 09:29
PROVIDERS: PCP Family Medicine Geriatric Medicine; Visit Provider Family Medicine Geriatric Medicine
DX: R53.83 Other fatigue (principal); E55.9 Vitamin D deficiency, unspecified
CPT/HCPCS: 36415; 80053; 82306; 84443; 85025

== ENCOUNTER → 2023-04-30 | Outpatient (CLI) | payer MEDICARE, OTHER, SELFPAY ==
--- OUTSIDE RECORDS SUMMARY | 2023-04-30 09:34 | XMS RPT_ITS | CCD ---
Author Name Unknown Address [address] [place] [address] Organization [facility] Care Team Providers Care Marine Machinist Name Role Phone Santi Schwarz Unavailable Unavailable [employer] POLITICAL THEORY PROFESSOR-LIQUOR RECTIFIER, Darlene Unavailable [phone] Allergies Allergy Classification Reported Allergen(s) Allergy Type Date of Onset Reaction(s) Facility (1 source) No Alert Propensity to adverse reactions to drug 1 Dept. of Dermatology (1 source) Contrast media drug allergy 1 hives [facility] Work Phone: (1 source) House dust mite; Translations: [DUST MITES] allergy to substance 1 [facility] Work Phone: Medications Current Medications Medication Drug Class(es) Dates Sig (Normalized) Sig (Original) ketoconazole 20 mg/ml topical cream (3 sources) Azole Antifungal Start: 03-31-2018 742537 Medication ketoconazole 2 % shampoo ketoconazole 2 % shampoo 2 % 1 Application topically every other day 03/31/2018 Active (Current) Completed/Discontinued Medications Medication Drug Class(es) Dates Sig (Normalized) Sig (Original) acetaminophen 500 mg oral tablet (1 source) TYLENOL EXTRA STRENGTH 500 MG TABS 1 tablet by mouth as needed acetaminophen [id number] Galina Tellez biotin 1 mg oral capsule (1 source) take 1 tablet by mouth once daily BIOTIN 1 MG CAPS 1 tablet by mouth once a day as directed biotin [id number] Iqra MAYER Cholecalciferol (1 source) Vitamin D take 1 tablet by mouth once daily VITAMIN D3 10 MCG (400 UNIT) CAPS 1 tablet by mouth once a day as directed cholecalciferol (vitamin d3) [id number] Iqra Hein AT doxycycline hyclate 20 mg oral tablet (1 source) Tetracycline-class Drug Start: 10-03-2020 DOXYCYCLINE HYCLATE 20 MG TABS 1 tablet by mouth as needed doxycycline hyclate [id number] Luis Fischerprem AT fluocinonide 0.5 mg/ml topical cream (1 source) Corticosteroid Start: 03-31-2018 990141 Medication fluocinonide 0.05 % topical solution fluocinonide 0.05 % topical solution 0.05 % 1 Application topically daily 03/31/2018 Prior History No Longer Active fluticasone propionate 0.05 mg/actuat metered dose nasal spray (1 source) Corticosteroid Start: 10-03-2020 take 1 spray(s) nasal route once daily FLONASE ALLERGY RELIEF 50 MCG/ACT SUSP 1 spray into both nostrils once a day as directed fluticasone propionate [id number] Erlinda Frey AT metroNIDAZOLE 7.5 mg/ml topical cream (2 sources) Nitroimidazole Antimicrobial Start: 10-03-2020 METRONIDAZOLE 0.75 % CREA to skin twice a day as directed metronidazole [id number] Erlinda Frey AT Problems Active Problems Problem [...] Santi Schwarz Dept. of Dermatology NEGATED: Highlighted [id number] 15:16-0500 Body height 165.1 cm Iqra Duecker AT [facility] Work Phone: NEGATED: Highlighted [id number] 15:16-0500 Body height 165 cm Iqra Duecker AT [facility] Work Phone: NEGATED: Highlighted [id number] 15:16-0500 Body mass index (BMI) [Ratio] 22.55 kg/m2 Iqra Duecker AT [facility] Work Phone: NEGATED: Highlighted [id number] 15:16-0500 Body temperature 97.7 [degF] Iqra Duecker AT [facility] Work Phone: NEGATED: Highlighted [id number] 15:16-0500 Body weight 61.24 kg Iqra Duecker AT [facility] Work Phone: NEGATED: Highlighted [id number] 15:16-0500 Body weight 61 kg Iqra Duecker AT [facility] Work Phone: Encounters Encounter Date Encounter [...] scrn no perf at interval Darlene Ruiz POLITICAL THEORY PROFESSOR-LIQUOR RECTIFIER Work Phone: Start: 05-09-2021 End: 05-09-2021 Calc BMI norm parameters Darlene Key ick POLITICAL THEORY PROFESSOR-LIQUOR RECTIFIER Work Phone: Start: 05-09-2021 End: 05-09-2021 Current tobacco non-user cad cap copd pv dm Darlene Ruiz POLITICAL THEORY PROFESSOR-LIQUOR RECTIFIER Work Phone: Start: 05-09-2021 End: 05-09-2021 Docrev cur meds by vidya Ruiz POLITICAL THEORY PROFESSOR-LIQUOR RECTIFIER Work Phone: Start: 05-09-2021 End: 05-09-2021 Pain neg no plan Darlene Ruiz POLITICAL THEORY PROFESSOR-LIQUOR RECTIFIER Work Phone: Start: 05-09-2021 End: 05-09-2021 Patient encounter procedure Darlene Ruiz POLITICAL THEORY PROFESSOR-LIQUOR RECTIFIER Work Phone: Start: 12-18-2020 Destruction premalig nant lesion 1st Santi Schwarz Start: 12-18-2020 Established Office V isit Level 3 88016~GC~25 Santi Chong Start: 12-18-2020 Tangential biopsy sk [...] 05-09-2021 End: 05-09-2021 Patient encounter procedure Appointment [facility] Work [...] 05-09-2021 Note Date & Type Note Facility [facility] Work Phone: Progress note 11-02-2020 Note Date & Type Note Facility 11-02-2020 Note HNO ID: [id number] Author: Amanuel Jc MD Service: ? Author Type: Physician Type: Progress Notes Filed: 11/02/2020 10:34 AM Note Text: NEUROSURGERY CONSULT NOTE Amanuel Jc MD Date of visit: November 02, 2020 Patient Name: Mr.Thomas Cass Cantor Date of : 1945 Current Age: [age] year old Sex: male MRN/E# [id number] Chief Complaint: Patient presents with: New Patient Evaluation HISTORY OF PRESENT ILLNESS : The patient is a 75 year old, right handed male without a significant past medical history, who presents for neurosurgical evaluation. Mr. Cantor presents to the office today as a [...] Laterality Date - COLONOSCOP W/ OR W/O [facility] SPEC 08-01-04 Repeat in - COLONOSCOP W/ OR W/O [facility] SPEC 10/30/2014 Colonoscopy - EGD 2007 - [...] Mental Status Aler (more content not included)... [facility] Evaluation note Note Date & Type Note Facility Evaluation note N/A Dept. of Dermato logy Evaluation note Note Date & Type Note Facility Evaluation note There may be informa tion available, but it has not been provided by the sender. [facility] [place] [facility] Work Phone: Reason [...] DATE CREATED AUTHOR AUTHOR'S ORGANIZ ATION 11/03/2020 [facility] DATE CREATED AUTHOR AUTHOR'S ORGANIZ ATION 05/15/2021 [facility] Reason for Visit (unrecogniz ed section [...] BE BASED ON THE PRIMARY CLINICAL RECORDS. [employer] provides no warranty or guarantee of the accuracy or completeness of information in this document.
[2023-04-30 10:18] LABS: PSA,Total - Annual Screen 2.18 ng/mL (0.00-4.00)
== END | disposition home or self-care (01) ==
PROVIDERS: PCP Family Medicine Geriatric Medicine; Referring Provider Urology; Visit Provider Urology
DX: Z12.5 Encounter for screening for malignant neoplasm of prostate (principal)
CPT/HCPCS: 36415; 84153; G0103

== ENCOUNTER → 2023-05-08 | Outpatient (CLI) | payer MEDICARE, OTHER, SELFPAY ==
--- OUTSIDE RECORDS SUMMARY | 2023-05-08 09:30 | XMS RPT_ITS | CCD ---
Author Name Unknown Address [address] [place] [address] Organization [facility] Care Team Providers Care Food Service Technician Name Role Phone Santi Schwarz Unavailable Unavailable [employer] ORCHID HAND-REIMBURSEMENT COORDINATOR, Darlene Unavailable [phone] Allergies Allergy Classification Reported Allergen(s) Allergy Type Date of Onset Reaction(s) Facility (1 source) No Alert Propensity to adverse reactions to drug 1 [facility]atology (1 source) Contrast media drug allergy 1 hives [facility] Work Phone: (1 source) House dust mite; Translations: [DUST MITES] allergy to substance 1 [facility] Work Phone: Medications Current Medications Medication Drug Class(es) Dates Sig (Normalized) Sig (Original) ketoconazole 20 mg/ml topical cream (3 sources) Azole Antifungal Start: 03-31-2018 278259 Medication ketoconazole 2 % shampoo ketoconazole 2 % shampoo 2 % 1 Application topically every other day 03/31/2018 Active (Current) Completed/Discontinued Medications Medication Drug Class(es) Dates Sig (Normalized) Sig (Original) acetaminophen 500 mg oral tablet (1 source) TYLENOL EXTRA STRENGTH 500 MG TABS 1 tablet by mouth as needed acetaminophen [id number] Galina Tellez biotin 1 mg oral capsule (1 source) take 1 tablet by mouth once daily BIOTIN 1 MG CAPS 1 tablet by mouth once a day as directed biotin 71886978969 Iqra MAYER Cholecalciferol (1 source) Vitamin D take 1 tablet by mouth once daily VITAMIN D3 10 MCG (400 UNIT) CAPS 1 tablet by mouth once a day as directed cholecalciferol (vitamin d3) 92299431224 Iqra Hein AT doxycycline hyclate 20 mg oral tablet (1 source) Tetracycline-class Drug Start: 10-03-2020 DOXYCYCLINE HYCLATE 20 MG TABS 1 tablet by mouth as needed doxycycline hyclate [id number] Luis Fischerprem AT fluocinonide 0.5 mg/ml topical cream (1 source) Corticosteroid Start: 03-31-2018 854128 Medication fluocinonide 0.05 % topical solution fluocinonide 0.05 % topical solution 0.05 % 1 Application topically daily 03/31/2018 Prior History No Longer Active fluticasone propionate 0.05 mg/actuat metered dose nasal spray (1 source) Corticosteroid Start: 10-03-2020 take 1 spray(s) nasal route once daily FLONASE ALLERGY RELIEF 50 MCG/ACT SUSP 1 spray into both nostrils once a day as directed fluticasone propionate 55131893608 Erlinda Frey AT metroNIDAZOLE 7.5 mg/ml topical cream (2 sources) Nitroimidazole Antimicrobial Start: 10-03-2020 METRONIDAZOLE 0.75 % CREA to skin twice a day as directed metronidazole 12554868011 Erlinda Frey AT Problems Active Problems Problem [...] Santi Schwarz Dept. of Dermatology NEGATED: Highlighted [id number] 15:16-0500 Body height 165.1 cm Iqra Duecker AT [facility] Work Phone: NEGATED: Highlighted [id number] 15:16-0500 Body height 165 cm Iqra Duecker AT [facility] Work Phone: NEGATED: Highlighted [id number] 15:16-0500 Body mass index (BMI) [Ratio] 22.55 kg/m2 Iqra Duecker AT [facility] Work Phone: NEGATED: Highlighted [id number] 15:16-0500 Body temperature 97.7 [degF] Iqra Duecker AT [facility] Work Phone: NEGATED: Highlighted [id number] 15:16-0500 Body weight 61.24 kg Iqra Duecker AT [facility] Work Phone: NEGATED: Highlighted [id number] 15:16-0500 Body weight 61 kg Iqra Duecker AT [facility] Work Phone: Encounters Encounter Date Encounter Type Care Provider Facility Start: 12-18-2020 Office outpatient vi sit 15 minutes Santi Chong Dept. of Dermatology Start: 07-20-2019 Office outpatient vi sit 15 minutes Snati Schwarz Dept. of Dermatology Start: 07-12-2019 Office [...] scrn no perf at interval Darlene Ruiz ORCHID HAND-REIMBURSEMENT COORDINATOR Work Phone: Start: 05-09-2021 End: 05-09-2021 Calc BMI norm parameters Darlene Key ick ORCHID HAND-REIMBURSEMENT COORDINATOR Work Phone: Start: 05-09-2021 End: 05-09-2021 Current tobacco non-user cad cap copd pv dm Darlene Ruiz ORCHID HAND-REIMBURSEMENT COORDINATOR Work Phone: Start: 05-09-2021 End: 05-09-2021 Docrev cur meds by vidya Ruiz ORCHID HAND-REIMBURSEMENT COORDINATOR Work Phone: Start: 05-09-2021 End: 05-09-2021 Pain neg no plan Darlene Ruiz ORCHID HAND-REIMBURSEMENT COORDINATOR Work Phone: Start: 05-09-2021 End: 05-09-2021 Patient encounter procedure Darlene Ruiz ORCHID HAND-REIMBURSEMENT COORDINATOR Work Phone: Start: 12-18-2020 Destruction premalig nant lesion 1st Santi Schwarz Start: 12-18-2020 Established Office V isit Level 3 84631~GC~25 Santi Chong Start: 12-18-2020 Tangential biopsy sk [...] 05-09-2021 End: 05-09-2021 Patient encounter procedure Appointment [facility] Work Phone: Immunizations [...] 05-09-2021 Note Date & Type Note Facility [facility] Work Phone: Progress note 11-02-2020 Note Date & Type Note Facility 11-02-2020 Note HNO ID: [id number] Author: Amanuel Jc MD Service: ? Author Type: Physician Type: Progress Notes Filed: 11/02/2020 10:34 AM Note Text: NEUROSURGERY CONSULT NOTE Amanuel Jc MD Date of visit: November 02, 2020 Patient Name: Mr.Thomas Cass Cantor Date of : 1945 Current Age: [age] year old Sex: male MRN/E# [id number] Chief Complaint: Patient presents with: New Patient [...] Laterality Date - COLONOSCOP W/ OR W/O [facility] SPEC 08-01-04 Repeat in - COLONOSCOP W/ OR W/O [facility] SPEC 10/30/2014 Colonoscopy - EGD 2007 - [...] Mental Status Aler (more content not included)... [facility] Evaluation note Note Date & Type Note Facility Evaluation note N/A Dept. of Dermato logy Evaluation note Note Date & Type Note Facility Evaluation note There may be informa tion available, but it has not been provided by the sender. [facility] [place] [facility] Work Phone: Reason [...] DATE CREATED AUTHOR AUTHOR'S ORGANIZ ATION 11/03/2020 [facility] DATE CREATED AUTHOR AUTHOR'S ORGANIZ ATION 05/15/2021 [facility] Reason for Visit (unrecogniz ed [...] BE BASED ON THE PRIMARY CLINICAL RECORDS. [employer] provides no warranty or guarantee of the accuracy or completeness of information in this document.
== END | disposition home or self-care (01) ==
PROVIDERS: PCP Family Medicine Geriatric Medicine; Referring Provider Family Medicine Geriatric Medicine; Visit Provider Family Medicine Geriatric Medicine
DX: R68.83 Chills (without fever) (principal)
CPT/HCPCS: 87631

== ENCOUNTER → 2023-06-09 | Outpatient (CLI) | payer MEDICARE, OTHER, SELFPAY | END | disposition home or self-care (01) | LOC: PSN 10:48 | PROVIDERS: PCP Family Medicine Geriatric Medicine; Referring Provider Family Medicine Geriatric Medicine; Visit Provider Family Medicine Geriatric Medicine | DX: R68.83 Chills (without fever) (principal) | CPT/HCPCS: 87631 ==

== ENCOUNTER → 2023-10-08 | Outpatient (CLI) | payer MEDICARE, OTHER, SELFPAY ==
[2023-10-08 12:42] LABS: Absolute Lymphocyte Count 1.25 X10^3/uL (0.83-4.51); Absolute Neutrophil Count 2.1 X10^3/uL (2.0-7.7); Basophil# 0.04 X10^3/uL; Eosinophil# 0.14 X10^3/uL; Eosinophils% 3.4 % (0-5); Hematocrit 40.9 % (40-54); Hemoglobin 13.2 g/dL (13.0-16.5); Lymphocyte # 1.25 X10^3/ul (0.83-4.51); Lymphocyte % 30.1 % (19-41); Mean Corp Hgb Conc 32.3 g/dL (32-36); Mean Corpuscular Hgb 29.3 pg (27.0-32.0); Mean Corpuscular Volume 90.7 fL (80-94); Mean Platelet Vol. 10.6 fl (6.2-12.0); Monocyte# 0.58 X10^3/uL; NRBC Flagged by Analyzer 0 % (0-5); Neutrophil # 2.13 X10^3/uL (2.7-7.7); Neutrophil % 51.3 % (47-70); Platelet Count 208 K/mm3 (150-450); RBC Distribution Width CV 13.9 % (11.6-14.6); RBC Distribution Width SD 46.5 fl (35.1-43.9); Red Blood Count 4.51 M/mm3 (4.6-6.2); White Blood Count 4.2 K/mm3 (4.4-11.0)
[2023-10-08 13:07] LABS: Vitamin D,25 Hydroxy 26.2 ng/mL
[2023-10-08 13:55] LABS: ALB/GLOB Ratio 0.9 RATIO (0.9-2.4); AST(SGOT) 26 U/L (15-37); Alanine Aminotransfer ALT/SGPT 21 U/L (16-61); Albumin, Serum 3.5 g/dL (3.2-5.0); Alkaline Phosphatase 71 U/L (45-117); Anion Gap 6 (5-15); BUN 16 mg/dL (7-18); BUN/Creat Ratio 19.3 RATIO (10-20); Calcium,Total 8.9 mg/dL (8.5-10.1); Chloride 105 mmol/L (98-107); Creatinine, Serum 0.83 mg/dL (0.70-1.30); EST Glomerular Filtration Rate 96 mL/min (>60); Est Glom Filt Rate - Afr Amer 116 mL/min (>60); Globulin 3.8 g/dL (2.2-4.2); Glucose 82 mg/dL (74-106); Potassium 4.1 mmol/L (3.5-5.1); Protein, Total 7.3 g/dL (6.4-8.2); Sodium Level 138 mmol/L (136-145); Thyroid Stim Hormone (TSH) 2.19 uIU/mL (0.358-3.74)
== END | disposition home or self-care (01) ==
LOC: POLAB3 10:23
PROVIDERS: PCP Family Medicine Geriatric Medicine; Visit Provider Family Medicine Geriatric Medicine
DX: R53.83 Other fatigue (principal); E55.9 Vitamin D deficiency, unspecified
CPT/HCPCS: 36415; 80053; 82306; 84443; 85025

== ENCOUNTER → 2024-04-12 | Outpatient (CLI) | payer MEDICARE, OTHER, SELFPAY ==
[2024-04-12 10:16] LABS: Absolute Lymphocyte Count 1.23 X10^3/uL (0.83-4.51); Absolute Neutrophil Count 2.4 X10^3/uL (2.0-7.7); Basophil# 0.04 X10^3/uL; Basophil% 0.9 % (0-1); Eosinophil# 0.11 X10^3/uL; Eosinophils% 2.5 % (0-5); Hematocrit 39.4 % (40-54); Hemoglobin 12.8 g/dL (13.0-16.5); Lymphocyte # 1.23 X10^3/ul (0.83-4.51); Lymphocyte % 27.5 % (19-41); Mean Corp Hgb Conc 32.5 g/dL (32-36); Mean Corpuscular Hgb 28.8 pg (27.0-32.0); Mean Corpuscular Volume 88.7 fL (80-94); Monocyte# 0.66 X10^3/uL; Monocyte% 14.7 % (0-10); NRBC Flagged by Analyzer 0 % (0-5); Neutrophil # 2.43 X10^3/uL (2.7-7.7); Neutrophil % 54.2 % (47-70); Platelet Count 216 K/mm3 (150-450); RBC Distribution Width CV 14.5 % (11.6-14.6); RBC Distribution Width SD 46.5 fl (35.1-43.9); Red Blood Count 4.44 M/mm3 (4.6-6.2); White Blood Count 4.5 K/mm3 (4.4-11.0)
[2024-04-12 10:44] LABS: Vitamin D,25 Hydroxy 24.7 ng/mL
[2024-04-12 10:48] LABS: ALB/GLOB Ratio 0.9 RATIO (0.9-2.4); AST(SGOT) 20 U/L (15-37); Alanine Aminotransfer ALT/SGPT 26 U/L (16-61); Albumin, Serum 3.4 g/dL (3.2-5.0); Alkaline Phosphatase 80 U/L (45-117); Anion Gap 2 (5-15); BUN 13 mg/dL (7-18); BUN/Creat Ratio 14.5 RATIO (10-20); Calcium,Total 8.6 mg/dL (8.5-10.1); Chloride 108 mmol/L (98-107); EST Glomerular Filtration Rate 87 mL/min (>60); Est Glom Filt Rate - Afr Amer 106 mL/min (>60); Globulin 3.6 g/dL (2.2-4.2); Glucose 87 mg/dL (74-106); Sodium Level 138 mmol/L (136-145)
--- NOTE | 2024-04-12 11:05 | RAD_ITS ---
EXAM: XR CERVICAL SPINE, 2 OR 3 VIEWS CLINICAL INDICATION: CERVICAL DISC DISEASE TECHNIQUE: Frontal and lateral views of the cervical spine. COMPARISON: No relevant prior studies available. FINDINGS: VERTEBRAE: Multilevel bilateral facet arthropathy. DISC SPACES: Moderate disc space narrowing and marginal osteophytes C5-C6 and C6-C7. Uncovertebral joint osteophytes bilaterally at C5-C6 that may cause neural foraminal narrowing. SOFT TISSUES: Unremarkable. No prevertebral soft tissue widening. LUNG APICES: Clear. RAD/Cerv Spine 2 or 3 Views IMPRESSION: 1. Moderate spondylosis C5-C6 and C6-C7. 2. Uncovertebral joint osteophytes bilaterally at C5-C6 that may cause neural foraminal narrowing. 3. Multilevel bilateral facet arthropathy. Electronically Signed: Hansel Reese MD at 5:56 EST ,
== END | disposition home or self-care (01) ==
PROVIDERS: PCP Family Medicine Geriatric Medicine; Referring Provider Family Medicine Geriatric Medicine; Visit Provider Family Medicine Geriatric Medicine
DX: M50.90 Cervical disc disorder, unspecified, unspecified cervical region (principal); R53.83 Other fatigue; E55.9 Vitamin D deficiency, unspecified
CPT/HCPCS: 36415; 72040; 80053; 82306; 84443; 85025

== ENCOUNTER → 2024-05-03 | Outpatient (CLI) | payer MEDICARE, OTHER, SELFPAY ==
[2024-05-03 16:12] LABS: PSA,Total- Diagnostic 2.07 ng/mL (0.0-4.0)
== END | disposition home or self-care (01) ==
LOC: LAB 09:22
PROVIDERS: PCP Family Medicine Geriatric Medicine; Referring Provider Urology; Visit Provider Urology
DX: N40.1 Benign prostatic hyperplasia with lower urinary tract symptoms (principal)
CPT/HCPCS: 36415; 84153; G0103

== ENCOUNTER 2024-05-19 09:00 | Outpatient (RCR) | payer MEDICARE, OTHER, SELFPAY ==
--- NOTE | 2024-04-19 13:02 | HP.PTEVAL ---
Patient's Visit Information Visit Information Visit Information: TONEY CANTOR is a 78 year old M referred to Physical Therapy by Dr. Nick Mercedes MD with a diagnosis of CERVICAL DISC DISEASE. Date of Evaluation: 04/19/24 Physical Therapist: Ken Israel PT, Cert MDT, OCS Visit Plan Frequency: 2x /Week Duration: 4 Weeks Plan: PT INTERVENTIONS CERVICAL ROM ,POSTURAL EX'S ,STRENGTHENING ,AND MANUAL THERAPY ( CERVICAL TRACTION) Subjective Subjective: This 78 y/o male presents to physical therapy with cervical pain. Patient has had cervical pain ~ [address] palomino PT and x-rays Moderate spondylosis C5-C6 and C6-C7,Uncovertebral joint osteophytes bilaterally at C5-C6 that may cause .neural foraminal narrowing,Multilevel bilateral facet arthropathy. Patient has no medication. Denies MCNEILL/dizziness /nausea/tinnitus. Location left UT/Cervical. Aggravating factors ,turning ,driving. Alleviating factors rest.Patient denies paresthesia/tingling. Patient has seen chiropractor in past. Seems neck pain more in winter. Patient condition affects QOL and function. Goals rob decrease pain. SOCIAL: VOCATION: RETIRED Pain Left Neck: Pain Intensity (Out of 10): 2 Objective Objective: POSTURE: mild forward posture PALATION: unremarkable NEURO: denies paresthesia/tingling ,reflexes C5-6-7 2/3 CERVICAL ROM: flexion min loss ,lateral flexion/rotation mod loss ,extension mod loss MMT: BUE 4/5 Grossly Special Tests C/S Radiculapathy - Left Upper limb tension test: Negative C/S Radiculapathy - Right Upper limb tension test: Negative C/S Radiculapathy - Left Spurlings: Negative C/S Radiculapathy - Right Spurlings: Negative C/S Radiculapathy - Left Cervical distraction: Negative C/S Radiculapathy - Right Cervical distraction: Negative C/S Radiculapathy - Left Relief test: Negative C/S Radiculapathy - Right Relief test: Negative Sharp Rosa: Negative Vertebral Artery Test: Negative Alar Ligament Test: Negative Balance/Special Test Scores Oswestry Neck Score: 12 Goals Goal 1:: Patient to be I with HEP for neck Goal Time Frame: 4-6 Weeks Goal 2:: Patient demonstrate 50% improvement with less pain and improved function Goal Time Frame: 4-6 Weeks Goal 3:: Patient to improve quick dash by 5 points to improve QOL and function Goal Time Frame: 4-6 Weeks Goal 4:: Patient to improve cervical ROM for function of recovery to drive Goal Time Frame: 4-6 Weeks Rehabilitation Potential Physical Therapy Diagnosis: This patient has cervical pain with stenosis with decrease ROM and pain impairs function thus benefit from skilled PT Rehabilitation Potential: Good Anticipated Interventions Patient/Client Instruction: Educate patient on: Condition and Plan of Care For the Purpose of:: To decrease pain, To increase ROM, To improve muscle performance and motor function, To improve ability to perform ADL's, To improve ability of physical actions for home/community/work/leisure, To improve health of tissue, To decrease soft tissue restriction, To increase flexibility/ROM, To reduce risk of recurrence, To prevent re-injury and To improve tolerance to ADL's Therapeutic Exercise to Include: Strength training, Postural training, Flexibilty training and Active ROM For the Purpose of:: To decrease pain, To increase ROM, To improve muscle performance and motor function, To increase tolerance to activity/condition/position, To improve ability of physical actions for home/community/work/leisure, To improve health of tissue, To decrease soft tissue restriction, To increase flexibility/ROM and To improve tolerance to ADL's Manual Therapy Techniques to Include: Mobilization Comment: TRACTION CERVICAL For the Purpose of:: To decrease pain, To increase ROM, To improve nutrient delivery to tissue, To increase oxygenation perfusion, To improve health of tissue and To decrease soft tissue restriction TENS: Yes IF ES: Yes Cryotherapy (ice pack, ice massage): Yes Thermo therapy (hot pack): Yes Ultrasound (thermal/non thermal): Yes For the Purpose of:: To decrease pain, To increase ROM, To improve nutrient delivery to tissue and To increase oxygenation perfusion Text: Thank you for the opportunity to evaluate your patient. For Medicare and Medicare HMO plans, please review the plan of care and approve it. It will need to be FAXED BACK to us at [phone] for Medicare purposes. For Medicare only, by signing this I certify the plan of care. Please let me know if there are questions or concerns regarding this plan of care. Physician Signature: Date:
--- NOTE | 2024-05-19 09:28 | HP.PTDCSUM ---
Discharge Summary D/C summary: It has been my pleasure to treat TONEY CANTOR referred by Dr. Nick Mercedes MD, with the diagnosis of CERVICAL DISC DISEASE for a total of 10 visit(s). Discharge Date: 05/19/24 Please see the following information for a summary of their discharge status. Subjective Subjective: Workout at [employer] 2-3 xweek Patient is able to do as much as he wants Pain Left Neck: Pain Intensity (Out of 10): 2 Overall Improvement % Improvement: 20 Objective Objective/Function: POSTURE: mild forward posture PALATION: unremarkable NEURO: denies paresthesia/tingling ,reflexes C5-6-7 2/3 CERVICAL ROM: flexion min loss ,lateral flexion/rotation mod loss ,extension mod loss MMT: BUE 4/5 Grossly Goals Goal 1:: Patient to be I with HEP for neck Goal Progress: Goal Met Goal 2:: Patient demonstrate 50% improvement with less pain and improved function Goal Progress: Progressing Goal 3:: Patient to improve quick dash by 5 points to improve QOL and function Goal 4:: Patient to improve cervical ROM for function of recovery to drive Goal Progress: Goal Met Plan Plan: D/C TO HEP D/C Information Discharge Comments: HEP d/c sentence: If there are questions or concerns regarding this patient's physical therapy, please feel free to call me at [phone]. Thank you for the referral of this patient. Sincerely, Ken Israel, PT, Cert MDT, OCS Balance/Gait/Functional tests Balance/Special Test Scores Oswestry Neck Score: 6 Improvement % Improvement: 20
== END 2024-05-19 19:00 | disposition home or self-care (01) ==
LOC: PT 09:00
PROVIDERS: PCP Family Medicine Geriatric Medicine; Referring Provider Family Medicine Geriatric Medicine; Visit Provider Family Medicine Geriatric Medicine
DX: M50.90 Cervical disc disorder, unspecified, unspecified cervical region (principal); M54.2 Cervicalgia
CPT/HCPCS: 97110; 97140; 97162; 97530

== ENCOUNTER → 2024-07-27 | Outpatient (CLI) | payer MEDICARE, OTHER, SELFPAY ==
--- NOTE | 2024-07-27 06:49 | MRI_ITS ---
PROCEDURE: SPINE CERVICAL (ROUTINE) 07/27/2024 REASON FOR EXAM: NECK PAIN CERVICAL DISC DISEASE TECHNIQUE: Multiplanar and multisequence images were obtained without IV contrast administration. Axial and sagittal T1 and T2 weighted images were obtained. Fat suppressed images were also obtained. COMPARISON: None. FINDINGS: Diffuse spondylosis. Multilevel degenerative disc disease. There is normal signal intensity from the visualized bone marrow without evidence of replacement or acute fracture. The visualized portions of the spinal cord are unremarkable. The visualized portions of the posterior fossa are unremarkable. There is normal cervical lordosis. Evaluation of the individual levels revealed the following: C2-C3: Grade 1 anterolisthesis measuring 2.2 mm. Mild diffuse disc bulge. The spinal canal is not narrowed. Mild bilateral neural foraminal narrowing. C3-C4: Grade 1 anterolisthesis measuring 3.4 mm. Mild diffuse disc bulge. The spinal canal is not narrowed. Mild bilateral neural foraminal narrowing. C4-C5: Grade 1 anterolisthesis measuring 3.3 mm. Mild diffuse disc bulge. The spinal canal is not narrowed. Mild bilateral neural foraminal narrowing. C5-C6: Mild degenerative reactive bone marrow edema surrounding the left facet joint. Grade 1 anterolisthesis measuring 4.7 mm. Mild diffuse disc bulge. The spinal canal is mildly narrowed. Moderate bilateral neural foraminal narrowing. C6-C7: Grade 1 anterolisthesis measuring 2.8 mm. Mild diffuse disc bulge. The spinal canal is mildly narrowed. Moderate bilateral neural foraminal narrowing. C7-T1: Grade 1 anterolisthesis measuring 3.6 mm. Mild diffuse disc bulge. The spinal canal is not narrowed. Mild bilateral neural foraminal narrowing. MRI/Spine Cervical (Routine) IMPRESSION: Spondylosis. Degenerative disc disease. Reading [facility]
== END | disposition home or self-care (01) ==
LOC: OPMRI 07:40
PROVIDERS: PCP Family Medicine Geriatric Medicine; Referring Provider Family Medicine Geriatric Medicine; Visit Provider Family Medicine Geriatric Medicine
DX: M50.90 Cervical disc disorder, unspecified, unspecified cervical region (principal); M54.12 Radiculopathy, cervical region
CPT/HCPCS: 72141

== ENCOUNTER → 2024-08-18 | Outpatient (CLI) | payer MEDICARE, OTHER, SELFPAY ==
[2024-08-18 12:51] LABS: Absolute Lymphocyte Count 1.34 X10^3/uL (0.83-4.51); Absolute Neutrophil Count 3.5 X10^3/uL (2.0-7.7); Basophil# 0.05 X10^3/uL; Basophil% 0.9 % (0-1); Eosinophil# 0.21 X10^3/uL; Eosinophils% 3.6 % (0-5); Hemoglobin 11.9 g/dL (13.0-16.5); Lymphocyte # 1.34 X10^3/ul (0.83-4.51); Mean Corp Hgb Conc 33.1 g/dL (32-36); Mean Corpuscular Hgb 29.8 pg (27.0-32.0); Mean Platelet Vol. 10.3 fl (6.2-12.0); NRBC Flagged by Analyzer 0 % (0-5); Neutrophil # 3.49 X10^3/uL (2.7-7.7); Platelet Count 208 K/mm3 (150-450); RBC Distribution Width CV 14.4 % (11.6-14.6); RBC Distribution Width SD 47.4 fl (35.1-43.9); White Blood Count 5.8 K/mm3 (4.4-11.0)
== END | disposition home or self-care (01) ==
LOC: LAB 11:49
PROVIDERS: PCP Family Medicine Geriatric Medicine; Referring Provider Family Medicine Geriatric Medicine; Visit Provider Family Medicine Geriatric Medicine
DX: D64.9 Anemia, unspecified (principal)
CPT/HCPCS: 36415; 85025

== ENCOUNTER → 2024-10-11 | Outpatient (CLI) | payer MEDICARE, OTHER, SELFPAY ==
[2024-10-11 10:08] LABS: Hematocrit 42.1 % (40-54); Hemoglobin 13.7 g/dL (13.0-16.5); Immature Granulocytes Count 0.020 X10^3/uL (0.0-0.0); Mean Corp Hgb Conc 32.5 g/dL (32-36); Mean Corpuscular Volume 90.9 fL (80-94); Mean Platelet Vol. 10.1 fl (6.2-12.0); NRBC Flagged by Analyzer 0 % (0-5); Platelet Count 216 K/mm3 (150-450); RBC Distribution Width CV 14.3 % (11.6-14.6); RBC Distribution Width SD 47.9 fl (35.1-43.9); Red Blood Count 4.63 M/mm3 (4.6-6.2); White Blood Count 4.7 K/mm3 (4.4-11.0)
[2024-10-11 11:27] LABS: AST(SGOT) 22 U/L (<=37); Alanine Aminotransfer ALT/SGPT 19 U/L (<=46); Albumin, Serum 4.0 g/dL (3.4-4.8); Alkaline Phosphatase 79 U/L (40-129); Anion Gap 11 (5-15); BUN 14 mg/dL (4-19); BUN/Creat Ratio 17.6 RATIO (10-20); Calcium,Total 9.0 mg/dL (7.6-11.0); Carbon Dioxide 24.1 mmol/L (21.0-32.0); Chloride 103 mmol/L (98-108); Globulin 3.1 g/dL (2.2-4.2); Glucose 127 mg/dL (70-99); Potassium 4.1 mmol/L (3.3-5.1); Vitamin D,25 Hydroxy 22.2 ng/mL (30-100)
[2024-10-11 17:58] LABS: Xtra Tube Kwok EXTRA TUBE
--- OUTSIDE RECORDS SUMMARY | 2024-10-11 19:50 | XMS RPT_ITS | CCD ---
Author Organization [facility] Care Team Providers Care Soap Drier Operator Name Role Phone Santi Martin Unavailable Unavailable Opsitnick MULESER-GROCERY BUYER, Darlene Unavailable [phone] Daren PARDO, Dr. Nick Calderón Primary Care Provider Daren PARDO, Dr. Nick Calderón Attending Provider Daren PARDO, Dr. Nick Calderón Referring Provider Deacon PARDO, Dr. Ajit Granados Attending Provider [phone] Deacon PARDO, Dr. Ajit Granados Referring Provider [phone] Christos PARDO, Dr. Bunch Attending Provider [phone] Manuelito PARDO, Dr. Tenorio Attending Provider Jona Billings Attending Unavailable Daren, Nick Chi Primary Care Unavailable Roof Rex HITCHCOCK Attending Unavailable Daren, Nick Chi Referring Unavailable Daren, Nick Chi Primary Care Unavailable Julio C Sher Attending Unavailable Daren, Nick Chi Referring Unavailable Daren, Nick Chi Primary Care Unavailable Ajit Worthy Referring Unavailable Daren, Nick Chi Primary Care Unavailable Ajit Worthy Attending Unavailable Daren, Nick Chi Attending Unavailable Daren, Nick Chi Referring Unavailable Daren, Nick Chi Primary Care Unavailable Daren, Nick Chi Attending Unavailable Daren, Nick Chi Referring Unavailable Daren, Nick Chi Primary Care Unavailable Daren, Nick Chi Attending Unavailable Daren, Nick Chi Referring Unavailable Daren, Nick Chi Primary Care Unavailable Daren, Nick Chi Primary Care Unavailable Daren, Nick Chi Attending Unavailable Daren, Nick Chi Attending Unavailable Daren, Nick Chi Referring Unavailable Daren, Nick Chi Primary Care Unavailable Daren , Dr. Nick Calderón Primary Care Provider Daren PARDO, Dr. Nick Calderón Attending Provider Daren PARDO, Dr. Nick Calderón Referring Provider Allergies Allergy Classification Reported Allergen(s) Allergy Type Date of Onset Reaction(s) Facility (1 source) No Alert Propensity to adverse reactions to drug 1 [facility] (1 source) Contrast media drug allergy 1 [facility] Work Phone: (1 source) House dust mite; Translations: [DUST MITES] allergy to substance 1 [facility] Work Phone: (16 sources) Iodinated Contrast Media; Translations: [Iodinated Contrast Media] Allergy to substance 1 [facility] Medications Current Medications Medication Drug Class(es) Dates Sig (Normalized) Sig (Original) acetaminophen 325 mg oral tablet (5 sources) Start: 02-28-2024 take 1 tablet by mouth once as needed Acetaminophen (Tylenol) 325 mg tablet Active 325 mg PO ONCE as needed February 28, 2024 1:00am TYLENOL EXTRA ST RENGTH 500 MG TABS 1 tablet by mouth as needed acetaminophen [id number] Galina Tellez acetaminophen 250 mg / aspirin 250 mg / caffeine 65 mg oral tablet (3 sources) Platelet Aggregation Inhibitor, Nonsteroidal Anti-inflammatory Drug, Central Nervous System Stimulant, Methylxanthine Start: 08-04-2024 Duswjlr-Uqhgvwjopmvil-Wryrxz ne (Excedrin Migraine) 250-250-65 mg tablet Active 1 {tbl} PO EVERY 4-6 HOURS as needed August 04, 2024 12:00am ketoconazole 20 mg/ml topical cream (3 sources) Azole Antifungal Start: 03-31-2018 [id number] Medication ketoconazo le 2 % shampoo ketoconazole 2 % shampoo 2 % 1 Application topically every other day 03/31/2018 Active (Current) Start: 08-26-2016 720741 Medicat ion ketoconazole 2 % topical cream ketoconazole 2 % topical cream 2 % 1 Application to affected area daily 12/18/2020 Active (Current) tamsulosin hydrochloride 0.4 mg oral capsule (5 sources) alpha-Adrenergic Alyssa Start: 02-28-2024 take 1 capsule by mouth once daily Tamsulosin 0.4 mg capsule Active 0.4 mg PO daily February 28, 2024 1:00am take 1 capsule by mouth once victor hugo ly TAMSULOSIN HCL 0.4 MG CAPS 1 capsule by mouth once a day tamsulosin [id number] Luis Prado AT Completed/Discontinued Medications Medication Drug Class(es) Dates Sig (Normalized) Sig (Original) aspirin 81 mg delayed release oral tablet (15 sources) Platelet Aggregation Inhibitor, Nonsteroidal Anti-inflammatory Drug Start: 03-10-2018 End: 04-09-2018 Aspirin (Adult Low Dose Aspirin) 81 mg tablet,delayed release (DR/EC) Discontinued 81 mg PO daily March 10, 2018 1:00am April 09, 2018 3:38pm azelaic acid 200 mg/ml topical cream (15 sources) Start: 03-10-2018 End: 08-10-2018 Azelaic Acid 20 % cream Discontinued 1 NMA TOPICAL TWICE A DAY March 10, 2018 1:00am August 10, 2018 10:22am biotin 1 mg oral capsule (1 source) take 1 tablet by mouth once daily BIOTIN 1 MG CAPS 1 tablet by mouth once a day as directed biotin [id number] Iqra Hein AT Cholecalciferol (1 source) Vitamin D take 1 tablet by mouth once daily VITAMIN D3 10 MCG (400 UNIT) CAPS 1 tablet by mouth once a day as directed cholecalciferol (vitamin d3) [id number] Iqra Hein AT doxycycline calcium 10 mg/ml oral suspension (16 sources) Tetracycline-clas s Drug Start: 10-03-2020 End: 02-28-2024 take 50 mg by mouth twice daily Doxycycline Calcium 50 mg/5 mL syrup Discontinued 50 mg PO TWICE A DAY October 03, 2020 12:00am February 28, 2024 10:00am Start: 10-03-2020 DOXYCYCLINE HY CLATE 20 MG TABS 1 tablet by mouth as needed doxycycline hyclate [id number] Luis Prado AT fluocinonide 0.5 mg/ml topical cream (1 source) Corticosteroid Start: 03-31-2018 [id number] Medicat ion fluocinonide 0.05 % topical solution fluocinonide 0.05 % topical solution 0.05 % 1 Application topically daily 03/31/2018 Prior History No Longer Active fluticasone propionate 0.05 mg/actuat metered dose nasal spray (16 sources) Corticosteroid Start: 08-10-2018 End: 02-28-2024 Fluticasone Propionate 50 mcg/actuation spray,suspension Discontinued 2 NMA INTRANASAL DAILY August 10, 2018 12:00am February 28, 2024 10:00am Start: 08-10-2018 Fluticasone Pr opionate Active 2 SPRAY INTRANASAL DAILY August 10, 2018 12:00am lisinopril 10 mg oral tablet (15 sources) Angiotensin Converting Enzyme Inhibitor Start: 03-10-2018 End: 04-09-2018 take 1 tablet by mouth once daily Lisinopril 10 mg tablet Discontinued 10 mg PO DAILY March 10, 2018 1:00am April 09, 2018 3:38pm metroNIDAZOLE 7.5 mg/ml topical cream (17 sources) Nitroimidazole Antimicrobial Start: 10-03-2020 METRONIDAZOLE 0.75 % CREA to skin twice a day as directed metronidazole [id number] Erlinda Frey AT Start: 08-10-2018 Metronidazole 0.75 % gel Active 1 NMA TOPICAL ONCE August 10, 2018 12:00am Start: 08-10-2018 Metronidazole Active 1 APPLIC TOPICAL ONCE August 10, 2018 12:00am Start: 07-05-2014 [id number] Medicat ion metronidazole metronidazole 0.75 % 07/05/2014 Active (Outside) naproxen sodium 220 mg oral capsule (16 sources) Nonsteroidal Anti-inflammatory Drug Start: 10-03-2020 End: 02-28-2024 take 1 capsule by mouth twice daily as needed Naproxen Sodium (Aleve) 220 mg capsule Discontinued 220 mg PO TWICE A DAY as needed October 03, 2020 12:00am February 28, 2024 10:00am take 2 capsules by mouth twice d aily ALEVE 220 MG CAPS 2 capsule by mouth twice a day naproxen sodium [id number] Luis MAYER vitamin b complex (1 source) Nicotinic Acid, Vitamin B12 take 1 tablet by mouth once daily B-COMPLEX/B-12 TABS 1 tablet by mouth once a day as directed vitamin b complex [id number] Galina Tellez pravastatin sodium 40 mg oral tablet (15 sources) HMG-CoA Reductase Inhibitor Start: 019 End: 021 take 1 tablet by mouth once daily Pravastatin 40 mg tablet Discontinued 40 mg PO DAILY August 10, 2018 12:00am October 03, 2020 9:50am triamcinolone acetonide 0.25 mg/ml topical cream (1 source) Corticosteroid Start: [id number] Medication triamcinolone acetonide 0.025 % topical cream triamcinolone acetonide 0.025 % topical cream 0.025 % 1 Application to affected area daily 08/26/2016 Prior History No Longer Active vitamin e 100 unt oral tablet (1 source) take 1 capsule by mouth once daily VITAMIN E 45 MG (100 UNIT) CAPS 1 capsule by mouth once a day as directed vitamin e (dl, acetate) [id number] Iqra Hein AT Problems Active Problems Problem Classification Problem Date Documented Date Episodic/Chronic Cardiac and circulatory congenital anomalies (15 sources) Patent foramen ovale; Translations: [Atrial septal defect] 04-16-2019 Chronic Deficiency and other anemia (1 source) Anemia, unspecified; Translations: [Anemia, unspecified] Onset: 08-23-2024 Episodic Disorders of lipid metabolism (15 sources) Hyperlipidemia; Translations: [Hyperlipidemia, unspecified] 03-10-2018 Chronic Essential hypertension (15 sources) Essential hypertension; Translations: [Essential (primary) hypertension] 04-16-2019 Chronic Hyperplasia of prostate (1 source) Benign prostatic hyperplasia with lower urinary tract symptoms; Translations: [Benign prostatic hyperplasia with lower urinary tract symptoms] Onset: 05-18-2024 Chronic Neoplasms of unspecified nature or uncertain behavior (2 sources) Neoplasm of uncertain behavior of skin Onset: 12-18-2020 Episodic Nonspecific chest pain (20 sources) Chest pain; Translations: [Chest pain, unspecified] 11-30-2021 Episodic Other acquired deformities (1 source) Lumbar spondylolisthesis; Translations: [Spondylolisthesis, lumbar region] Onset: 04-11-2021 04-11-2021 Episodic Other acquired deformities (2 sources) Spondylolisthesis; Translations: [Spondylolisthesis, cervical region] 08-04-2024 Episodic Other inflammatory condition of skin (3 sources) Other seborrheic dermatitis Onset: 03-30-2018 Episodic Other inflammatory condition of skin (2 sources) Pruritus, unspecified Onset: 03-30-2018 Episodic Other skin disorders (2 sources) Actinic keratosis Onset: 12-18-2020 Episodic Other skin disorders (2 sources) Rash and other nonspecific skin eruption Onset: 08-26-2016 Episodic Other upper respiratory infections (4 sources) Upper respiratory infection; Translations: [Acute upper respiratory infection, unspecified] 02-28-2024 Episodic Spondylosis; intervertebral disc disorders; other back problems (18 sources) Prolapsed lumbar intervertebral disc; Translations: [Other intervertebral disc displacement, lumbar region] Onset: 10-11-2020 10-11-2020 Chronic Spondylosis; intervertebral disc disorders; other back problems (4 sources) Backache; Translations: [Radiculopathy, site unspecified] Onset: 04-11-2021 04-11-2021 Episodic Unclassified (1 source) Cough, unspecified; Translations: [Cough, unspecified] Onset: 02-28-2024 Past or Other Problems Problem Classification Problem Date Documented Da te Episodic/Chronic Malaise and fatigue (1 source) Other fatigue; Translations: [Other fatigue] Onset: 05-03-2024 Episodic Other aftercare (1 source) Surgical follow-up; Translations: [Encounter for other specified surgical aftercare] Onset: 11-29-2020 11-29-2020 Episodic Unclassified (3 sources) Onset: 07-12-2019 Unclassified (1 source) Onset: 07-05-2014 Unclassified (1 source) Problem Results Test Name Value Interpretation Reference Range Facility Absolute lymphocyte countOrd ered By: Nick Mercedes on 08-18-2024 Lymphocytes Auto (Unsp spec) [#/Vol] 1.34 10*3/uL 0.83-4.51 [facility] Absolute neutrophil countOrd ered By: Nick Mercedes on 08-18-2024 Neutrophils (Bld) [#/Vol] 3.5 10*3/uL 2.0-7.7 [facility] Automated lymphocyte count a s percentage of total leukocytesOrdered By: Nick Mercedes on 08-18-2024 Lymphocytes/100 WBC Auto (Unsp spec) 23.0 % 19-41 [facility] Basophil percentageOrdered B y: Nick Mercedes on 08-18-2024 Basophils/100 WBC (Bld) 0.9 % 0-1 [facility] CBC W/Diff, Automatedon 07-22 Absolute Lymph 1.34 X10 3/uL Normal 0.83-4.51 [facility] Comment on above: Performed By: #### L 100.0100 #### [facility] [address] [place], [address] Absolute Neut 3.5 X10 3/uL Normal 2.0-7.7 [facility] Comment on above: Performed By: #### L 100.0100 #### [facility] [address] [place], [address] Basophils/100 WBC (Bld) 0.9 % Normal 0-1 [facility] Comment on above: Performed By: #### L 100.0100 #### [facility] [address] [place], [address] Eosinophils/100 WBC (Bld) 3.6 % Normal 0-5 [facility] Comment on above: Performed By: #### L 100.0100 #### [facility] [address] [place], [address] Erythrocyte distribution width (RBC) [Ratio] 14.4 % Normal 11.6-14.6 [facility] Comment on above: Performed By: #### L 100.0100 #### [facility] [address] [place], [address] Hematocrit (Bld) [Volume fraction] 36.0 % Low 40-54 [facility] Comment on above: Performed By: #### L 100.0100 #### [facility] [address] [place], [address] Hemoglobin (Bld) [Mass/Vol] 11.9 g/dL Low 13.0-16.5 [facility] Comment on above: Performed By: #### L 100.0100 #### [facility] [address] [place], [address] IG% 0.500 Normal 0.0-0.9 [facility] Comment on above: Result Comment: IG% - Immature Granulocytes (promyelocytes, myelocytes and metamyelocytes) > 1% indicates that a LEFT SHIFT is Present. Performed By: #### L 100.0100 #### [facility] [address] [place], [address] Lymphocytes/100 WBC (Bld) 23.0 % Normal 19-41 [facility] Comment on above: Performed By: #### L 100.0100 #### [facility] [address] [place], [address] MCH (RBC) [Entitic mass] 29.8 pg Normal 27.0-32.0 [facility] Comment on above: Performed By: #### L 100.0100 #### [facility] [address] [place], [address] MCHC (RBC) [Mass/Vol] 33.1 g/dL Normal 32-36 [facility] Comment on above: Performed By: #### L 100.0100 #### [facility] [address] [place], [address] MCV (RBC) [Entitic vol] 90.0 fL Normal 80-94 [facility] Comment on above: Performed By: #### L 100.0100 #### [facility] [address] [place], [address] Monocytes/100 WBC (Bld) 12.0 % High 0-10 [facility] Comment on above: Performed By: #### L 100.0100 #### [facility] [address] [place], [address] Neutrophils/100 WBC (Bld) 60.0 % Normal 47-70 [facility] Comment on above: Performed By: #### L 100.0100 #### [facility] [address] [place], [address] Nucleated RBC (Bld) [#/Vol] 0 10*3/uL Normal 0-5 [facility] Comment on above: Performed By: #### L 100.0100 #### [facility] [address] [place], [address] Platelet mean volume (Bld) [Entitic vol] 10.3 fL Normal 6.2-12.0 [facility] Comment on above: Performed By: #### L 100.0100 #### [facility] [address] [place], [address] Platelets (Bld) [#/Vol] 208 10*3/uL Normal 150-450 [facility] Comment on above: Performed By: #### L 100.0100 #### [facility] [address] [place], [address] RBC (Bld) [#/Vol] 4.00 10*6/uL Low 4.6-6.2 [facility] Comment on above: Performed By: #### L 100.0100 #### [facility] [address] [place], [address] RDW SD 47.4 fl High 35.1-43.9 [facility] Comment on above: Performed By: #### L 100.0100 #### [facility] [address] [place], [address] WBC (Bld) [#/Vol] 5.8 10*3/uL Normal 4.4-11.0 [facility] Comment on above: Performed By: #### L 100.0100 #### [facility] [address] [place], [address] Eosinophil percentageOrdered By: Nick Mercedes on 08-18-2024 Eosinophils/100 WBC (Bld) 3.6 % 0-5 [facility] Erythrocyte distribution wid th ratioOrdered By: Nick Mercedes on 08-18-2024 Erythrocyte distribution width (RBC) [Ratio] 14.4 % 11.6-14.6 [facility] Erythrocyte distribution wid th standard deviationOrdered By: Nick Mercedes on 08-18-2024 Erythrocyte distribution width (RBC) [Ratio] 47.4 fl High 35.1-43.9 [facility] Hematocrit Auto (Bld) [Volum e fraction]Ordered By: Nick Mercedes on 08-18-2024 Hematocrit (Bld) [Volume fraction] 36.0 % Low 40-54 [facility] Hemoglobin measurementOrdere d By: Nick Mercedes on 08-18-2024 Hemoglobin (Bld) [Mass/Vol] 11.9 g/dL Low 13.0-16.5 [facility] Immature granulocytes/100 WB C Auto (Bld)Ordered By: Nick Mercedes 08-18-2024 Immature granulocytes/100 WBC (Bld) 0.500 % 0.0-0.9 [facility] Comment on above: IG% - Immature Granu locytes (promyelocytes, myelocytes and metamyelocytes) > 1% indicates that a LEFT SHIFT is Present. MCV (mean corpuscular volume ) determinationOrdered By: Nick Mercedes 08-18-2024 MCV (RBC) [Entitic vol] 90.0 fL 80-94 [facility] Mean corpuscular hemoglobin (MCH) determinationOrdered By: Nick Mercedes 08-18-2024 MCH (RBC) [Entitic mass] 29.8 pg 27.0-32.0 [facility] Mean corpuscular hemoglobin concentration (MCHC) determinationOrdered By: Nick Mercedes 08-18-2024 MCHC (RBC) [Mass/Vol] 33.1 g/dL 32-36 [facility] Mean platelet volume determi nationOrdered By: Nick Mercedes 08-18-2024 Platelet mean volume (Bld) [Entitic vol] 10.3 fL 6.2-12.0 [facility] Monocyte percentageOrdered B y: Nick Mercedes on 08-18-2024 Monocytes/100 WBC (Bld) 12.0 % High 0-10 [facility] Neutrophil percentageOrdered By: Nick Mercedes 08-18-2024 Neutrophils/100 WBC (Bld) 60.0 % 47-70 [facility] Nucleated red blood cell per centageOrdered By: Nick Mercedes on 08-18-2024 Nucleated RBC/100 WBC (Bld) [Ratio] 0 % 0-5 [facility] Platelet countOrdered By: Jamie Mercedes on 08-18-2024 Platelets (Bld) [#/Vol] 208 10*3/uL 150-450 [facility] RBC Auto (Bld) [#/Vol]Ordere d By: Nick Mercedes on 08-18-2024 RBC (Bld) [#/Vol] 4.00 10*6/uL Low 4.6-6.2 [facility] White blood cell (WBC) count Ordered By: Nick Mercedes on 08-18-2024 WBC (Bld) [#/Vol] 5.8 10*3/uL 4.4-11.0 [facility] Cerv Spine 2 or 3 Viewson Cerv Spine 2 or 3 Views [facility] [address] [place], [place] [address] Cerv Spine 2 or 3 Views MR#: [id number] Acct: [id number] Name: TONEY CANTOR Rep #: [id number] : 1945 M 79 From: Teofilo Hansen MD PCP: Dr. Nick Mercedes MD Status: DEP AMB Study: Cerv Spine 2 or 3 Views Date of Exam: 08/04/24 Exam# [id number] Ordering Dr: Jeanna Mcallister PA PROCEDURE: CERV SPINE 2 OR 3 VIEWS 08/04/2024 REASON FOR EXAM: CHRONIC PAIN TECHNIQUE: 2 views of the cervical spine. Flexion and extension COMPARISON: 04/12/2024 FINDINGS: The cervical spine is visualized on the lateral view from the skull base to the top of T1. Multilevel spondylosis/discogeni c changes again noted greatest at C5-6 and C6-7. On the flexion view there is a 1-2 mm anterolisthesis of C5 on C6 that is not readily apparent on the neutral image 04/12/2024. This does appear to resolve on the extension view. No fracture. No prevertebral soft tissue swelling. Multilevel facet degenerative changes. RAD/Cerv Spine 2 or 3 Views IMPRESSION: Multilevel spondylosis/discogeni c changes again noted greatest at C5-6 and C6-7. On the flexion view there is a 1-2 mm anterolisthesis of C5 on C6 that is not readily apparent on the neutral image 04/12/2024. This does appear to resolve on the extension view. Reading Location: [id number] CC: DANY Remy; Dr. 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 Orthopedic Visit Reporton Orthopedic Visit Report [facility] [address] [place] [address] [address] [place] [address] OFFICE VISIT Date of Service: 08/04/24 MR#: [id number] Acct: [id number] Name: TONEY CANTOR Rep #: [id number] : 1945 Provider: Dr. Julio C Sher MD Age/Sex: 79/M Location: [facility] [place] Status: Signed Intake Vital Signs 02/28/24 09:05 06/22/24 11:22 08/04/24 09:33 Height 5 ft 5 in 5 ft 5 in 5 ft 5 in Weight: 131 lb BMI 21.8 Intake Visit Reasons: CERVICAL SPINE Chief Complaint: Cervical Spine Pain Accompanied by: Self Is patient in pain?: No Allergies Iodinated Contrast Media (CONTRASTS) Allergy (Verified 08/04/24 09:38) Hives Medications ???Medication ???Instructions ???Recorded ???Confirmed ???Type metronidazole 0.75 % topical gel 1 applic topical ONCE 08/10/18 History acetaminophen 325 mg tablet 325 mg PO ONCE PRN 02/28/24 History (Tylenol) tamsulosin 0.4 mg capsule 0.4 mg PO QDAY 02/28/24 08/04/24 H istory aspirin-acetaminophen -caffeine 250 1 tab PO Q4-6H PRN 08/04/2407/21 History mg-250 mg-65 mg tablet (Excedrin Migraine) Have you fallen in the past year?: No [facility] Rosacea Patent foramen ovale Essential (primary) hypertension Segmental and somatic dysfunction of thoracic region Degenerative disc disease, cervical Segmental and somatic dysfunction of cervical region Tinnitus Rosacea Hyperlipidemia Lung nodule Surgical History History of nasal septoplasty History of eye surgery History of left heart catheterization (2011) Social History Smoking Status: Former smoker quit date: 03/23/91 pack-years: 13 alcohol intake: current alcohol intake frequency: a few times a week Alcohol type: beer caffeine: No HPI CERVICAL SPINE Details: This documentation accurately reflects the service provided and the decisions made by me, Dr. Julio C Sher MD 08/04/24 0957. Part of today???s visit was documented by Colleen Pabon ATC, acting as scribe. TONEY CANTOR is a 79 year old M here today for cervical spine pain. Patient states he doesn't have pain today. He states this spring he has been feeling pretty good as he has quit bowling. He states he believes bowling really aggravates it. He states during the winter his pain seems to be worse. When he was experiencing the pain he states he would get it at the back of the neck and run into the shoulder and down into the shoulder blades. He states he started having an achy pain down the arms but it was only occasionally. He denies any numbness/tingling into the arms/hands. He states he does get headaches and will occasionally wake up with a headache. He states the more movement and activity he does during the day seems to make the headaches better. He has dealt with sciatica in the left leg for several years. He has a history of lumbar spine surgery between L4-5 at [facility] in about 1634-1560. He denies any dexterity or balance issues. Dr. Mercedes had him do physical therapy for the neck. He denies any injections or surgery. Patient is RHD. Patient thinks the neck has been bothering him for 6 years off and on. Patient is non-diabetic, denies any history of stroke, no heart/lung problems, not currently taking blood thinners. Ortho Exam General General: Yes no acute distress and Yes well groomed Neurologic: Yes alert and Yes oriented x3 Psychologic: Yes reasonable and appropriate Spine SPINE TESTING CERVICAL THORACIC LUMBAR Musculoskeletal Strength 0=absent - 5=normal Details: Examination the neck shows no tenderness in the midline or paraspinal region today. Neurologic evaluation of upper extremity shows 5 x 5 power level shows normal sensations in all dermatomes. Tom's is negative. Romberg's is positive. Tandem gait shows mild imbalance. There is bilateral knee brisk reflexes. Coding Level of Care Code Off vis,new,level 4 Diagnoses Cervical radiculopathy M54.12 Spondylolisthesis, cervical region M43.12 Time Spent (min) 45 Assessment and Plan Assessment and Plan (1) Cervical radiculopathy: Status: Acute (2) Spondylolisthesis, cervical region: Status: Acute Orders: Orders Cerv Spine 2 or 3 Views Today M54.2 - Cervicalgia Plan Obtained and reviewed cervical spine x-rays today as well as x-rays and MRI that was done previously. Disc height loss at C5-6 and C6-7 noticed. Subtle C5-6 spondylolisthesis with mild dynamic instability noticed on x-rays. MRI shows C5-6 and C6-7 disc degeneration with mild cord indentation and foraminal stenosis. No cord signal changes. Explained imaging findings in detail with the patient. He carter (more content not included)... Normal [facility] Magnetic resonance imaging r eportOrdered By: Rosette Whittaker on 07-31-2024 Study report [facility] [facility] [address] [place] [address] Spine Cervical (Routine) MR#: [id number] Acct: [id number] Name: TONEY CANTOR Rep #: [id number] : 1945 M 79 From: Sonali Whittaker MD PCP: Dr. Nick Mercedes MD Status: REG Kamila MARTINEZ Study:Spine Cervical (Routine) Date of Exam: 07/27/24 Exam# [id number] Ordering Dr: Nick Mercedes MD PROCEDURE: SPINE CERVICAL (ROUTINE) 07/27/2024 REASON FOR EXAM: NECK PAIN CERVICAL DISC DISEASE TECHNIQUE: Multiplanar and multisequence images were obtained without IV contrast administration. Axial and sagittal T1 and T2 weighted images were obtained. Fat suppressed images were also obtained. COMPARISON: None. FINDINGS: Diffuse spondylosis. Multilevel degenerative disc disease. There is normal signal intensity from the visualized bone marrow without evidence of replacement or acute fracture. The visualized portions of the spinal cord are unremarkable. The visualized portions of the posterior fossa are unremarkable. There is normal cervical lordosis. Evaluation of the individual levels revealed the following: C2-C3: Grade 1 anterolisthesis measuring 2.2 mm. Mild diffuse disc bulge. The spinal canal is not narrowed. Mild bilateral neural foraminal narrowing. C3-C4: Grade 1 anterolisthesis measuring 3.4 mm. Mild diffuse disc bulge. The spinal canal is not narrowed. Mild bilateral neural foraminal narrowing. C4-C5: Grade 1 anterolisthesis measuring 3.3 mm. Mild diffuse disc bulge. The spinal canal is not narrowed. Mild bilateral neural foraminal narrowing. C5-C6: Mild degenerative reactive bone marrow edema surrounding the left facet joint. Grade 1 anterolisthesis measuring 4.7 mm. Mild diffuse disc bulge. The spinal canal is mildly narrowed. Moderate bilateral neural foraminal narrowing. C6-C7: Grade 1 anterolisthesis measuring 2.8 mm. Mild diffuse disc bulge. The spinal canal is mildly narrowed. Moderate bilateral neural foraminal narrowing. C7-T1: Grade 1 anterolisthesis measuring 3.6 mm. Mild diffuse disc bulge. The spinal canal is not narrowed. Mild bilateral neural foraminal narrowing. MRI/Spine Cervical (Routine) IMPRESSION: Spondylosis. Degenerative disc disease. Reading Location: [place] [address] CC: Dr. Nick Mercedes MD ~ Electrical Equipment Tester: Signed [facility] Spine Cervical (Routine)on 0 07-27-2024 Spine Cervical (Routine) [facility] [address] [place], [place] [address] Spine Cervical (Routine) MR#: [id number] Acct: [id number] Name: TONEY CANTOR Rep #: [id number] : 1945 M 79 From: Rosette walker MD PCP: Dr. Nick Mercedes MD Status: REG CLI Study: Spine Cervical (Routine) Date of Exam: Exam# [id number] Ordering Dr: Nick Mercedes MD PROCEDURE: SPINE CERVICAL (ROUTINE) 07/27/2024 REASON FOR EXAM: NECK PAIN CERVICAL DISC DISEASE TECHNIQUE: Multiplanar and multisequence images were obtained without IV contrast administration. Axial and sagittal T1 and T2 weighted images were obtained. Fat suppressed images were also obtained. COMPARISON: None. FINDINGS: Diffuse spondylosis. Multilevel degenerative disc disease. There is normal signal intensity from the visualized bone marrow without evidence of replacement or acute fracture. The visualized portions of the spinal cord are unremarkable. The visualized portions of the posterior fossa are unremarkable. There is normal cervical lordosis. Evaluation of the individual levels revealed the following: C2-C3: Grade 1 anterolisthesis measuring 2.2 mm. Mild diffuse disc bulge. The spinal canal is not narrowed. Mild bilateral neural foraminal narrowing. C3-C4: Grade 1 anterolisthesis measuring 3.4 mm. Mild diffuse disc bulge. The spinal canal is not narrowed. Mild bilateral neural foraminal narrowing. C4-C5: Grade 1 anterolisthesis measuring 3.3 mm. Mild diffuse disc bulge. The spinal canal is not narrowed. Mild bilateral neural foraminal narrowing. C5-C6: Mild degenerative reactive bone marrow edema surrounding the left facet joint. Grade 1 anterolisthesis measuring 4.7 mm. Mild diffuse disc bulge. The spinal canal is mildly narrowed. Moderate bilateral neural foraminal narrowing. C6-C7: Grade 1 anterolisthesis measuring 2.8 mm. Mild diffuse disc bulge. The spinal canal is mildly narrowed. Moderate bilateral neural foraminal narrowing. C7-T1: Grade 1 anterolisthesis measuring 3.6 mm. Mild diffuse disc bulge. The spinal canal is not narrowed. Mild bilateral neural foraminal narrowing. MRI/Spine Cervical (Routine) IMPRESSION: Spondylosis. Degenerative disc disease. Reading Location: [place] [address] CC: Dr. 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 PT D/C Summary (1)on 025 PT D/C Summary (1) [facility] [address] [place] [address] [address] [place] [id number] / REHABILITATION SERVICES DISCHARGE SUMMARY MR#: [id number] Acct: [id number] Name: TONEY CANTOR Rep #: [id number] : 1945 78 From: Naveed Dumont PT. MD Esquivel, OCS Referring Dr.: Dr. Nick Mercedes MD Status: REG RCR Insurance: [place] [employer] [facility] [facility] [id number] Discharge Summary D/C summary: It has been my pleasure to treat TONEY CANTOR referred by Dr. Nick Mercedes MD, with the diagnosis of CERVICAL DISC DISEASE for a total of 10 visit(s). Discharge Date: 05/19/24 Please see the following information for a summary of their discharge status. Subjective Subjective: Workout at [facility] 2-3 xweek Patient is able to do as much as he wants Pain Left Neck: Pain Intensity (Out of 10): 2 Overall Improvement % Improvement: 20 Objective Objective/Function: POSTURE: mild forward posture PALATION: unremarkable NEURO: denies paresthesia/tingling ,reflexes C5-6-7 2/3 CERVICAL ROM: flexion min loss ,lateral flexion/rotation mod loss ,extension mod loss MMT: BUE 4/5 Grossly Goals Goal 1:: Patient to be I with HEP for neck Goal Progress: Goal Met Goal 2:: Patient demonstrate 50% improvement with less pain and improved function Goal Progress: Progressing Goal 3:: Patient to improve quick dash by 5 points to improve QOL and function Goal 4:: Patient to improve cervical ROM for function of recovery to drive Goal Progress: Goal Met Plan Plan: D/C TO HEP D/C Information Discharge Comments: HEP d/c sentence: If there are questions or concerns regarding this patient's physical therapy, please feel free to call me at [phone]. Thank you for the referral of this patient. Sincerely, Ken Israel PT, Cert T, OCS Balance/Gait/Function al tests Balance/Special Test Scores Oswestry Neck Score: 6 Improvement % Improvement: 20 08/22/24 1854 CC: Dr. Nick Mercedes MD JLA Signed Normal [facility] PSA,Total - Annual Screenon 05-03-2024 PSA,TOT SCREEN 2.07 ng/mL Normal 0.00-4.00 [facility] Comment on above: Result Comment: This test was performed using the TPSA assay method for the Dimension chemistry system. Values obtained with different assay methods cannot be used interchangably. When changing PSA assays in the course of monitoring a patient, additional sequential testing should be carried out to confirm baseline values. Performed By: #### L 501.9940, L501.9910 #### [facility] [address] [place], [address] PSA,Total- Diagnosticon 04-23 PSA, DIAGNOSTIC 2.07 ng/mL Normal 0.0-4.0 [facility] Comment on above: Result Comment: This test was performed using the TPSA assay method for the Dimension chemistry system. Values obtained with different assay methods cannot be used interchangably. When changing PSA assays in the course of monitoring a patient, additional sequential testing should be carried out to confirm baseline values. Performed By: #### L 501.9940, L501.9910 #### [facility] [address] [place], [address] Inital Evaluation (1) - PTon 04-19-2024 Inital Evaluation (1) - PT [facility] [address] [place] [address] / REHABILITATION SERVICES INITIAL EVALUATION MR#: [id number] Acct: [id number] Name: TONEY CANTOR Rep #: [id number] : 1945 78 From: Naveed Dumont PT. T, OCS Referring Dr.: Dr. Nick Mercedes MD Status: REG RCR Insurance: [place] [employer] [facility] [id number] Patient's Visit Information Visit Information Visit Information: TONEY CANTOR is a 78 year old M referred to Physical Therapy by Dr. Nick Mercedes MD with a diagnosis of CERVICAL DISC DISEASE. Date of Evaluation: 04/19/24 Physical Therapist: Ken Israel PT, Cert T, OCS Visit Plan Frequency: 2x /Week Duration: 4 Weeks Plan: PT INTERVENTIONS CERVICAL ROM ,POSTURAL EX'S ,STRENGTHENING ,AND MANUAL THERAPY ( CERVICAL TRACTION) Subjective Subjective: This 78 y/o male presents to physical therapy with cervical pain. Patient has had cervical pain [address] recommended PT and x-rays Moderate spondylosis C5-C6 and C6-C7,Uncovertebral joint osteophytes bilaterally at C5-C6 that may cause .neural foraminal narrowing,Multilevel bilateral facet arthropathy. Patient has no medication. Denies MCNEILL/dizziness /nausea/tinnitus. Location left UT/Cervical. Aggravating factors ,turning ,driving. Alleviating factors rest.Patient denies paresthesia/tingling. Patient has seen chiropractor in past. Seems neck pain more in winter. Patient condition affects QOL and function. Goals rob decrease pain. SOCIAL: VOCATION: RETIRED Pain Left Neck: Pain Intensity (Out of 10): 2 Objective Objective: POSTURE: mild forward posture PALATION: unremarkable NEURO: denies paresthesia/tingling ,reflexes C5-6-7 2/3 CERVICAL ROM: flexion min loss ,lateral flexion/rotation mod loss ,extension mod loss MMT: BUE 4/5 Grossly Special Tests C/S Radiculapathy - Left Upper limb tension test: Negative C/S Radiculapathy - Right Upper limb tension test: Negative C/S Radiculapathy - Left Spurlings: Negative C/S Radiculapathy - Right Spurlings: Negative C/S Radiculapathy - Left Cervical distraction: Negative C/S Radiculapathy - Right Cervical distraction: Negative C/S Radiculapathy - Left Relief test: Negative C/S Radiculapathy - Right Relief test: Negative Sharp Rosa: Negative Vertebral Artery Test: Negative Alar Ligament Test: Negative Balance/Special Test Scores Oswestry Neck Score: 12 Goals Goal 1:: Patient to be I with HEP for neck Goal Time Frame: 4-6 Weeks Goal 2:: Patient demonstrate 50% improvement with less pain and improved function Goal Time Frame: 4-6 Weeks Goal 3:: Patient to improve quick dash by 5 points to improve QOL and function Goal Time Frame: 4-6 Weeks Goal 4:: Patient to improve cervical ROM for function of recovery to drive Goal Time Frame: 4-6 Weeks Rehabilitation Potential Physical Therapy Diagnosis: This patient has cervical pain with stenosis with decrease ROM and pain impairs function thus benefit from skilled PT Rehabilitation Potential: Good Anticipated Interventions Patient/Client Instruction: Educate patient on: Condition and Plan of Care For the Purpose of:: To decrease pain, To increase ROM, To improve muscle performance and motor function, To improve ability to perform ADL's, To improve ability of physical actions for home/community/work/l eisure, To improve health of tissue, To decrease soft tissue restriction, To increase flexibility/ROM, To reduce risk of recurrence, To prevent re-injury and To improve tolerance to ADL's Therapeutic Exercise to Include: Strength training, Postural training, Flexibilty training and Active ROM For the Purpose of:: To decrease pain, To increase ROM, To improve muscle performance and motor function, To increase tolerance to activity/condition/po sition, To improve ability of physical actions for home/community/work/l eisure, To improve health of tissue, To decrease soft tissue restriction, To increase flexibility/ROM and To improve tolerance to ADL's Manual Therapy Techniques to Include: Mobilization Comment: TRACTION CERVICAL For the Purpose of:: To decrease pain, To increase ROM, To improve nutrient delivery to tissue, To increase oxygenation perfusion, To improve health of tissue and To decrease soft tissue restriction TENS: Yes IF ES: Yes Cryotherapy (ice pack, ice massage): Yes Thermo therapy (hot pack): Yes Ultrasound (thermal/non thermal): Yes For the Purpose of:: To decrease pain, To increase ROM, To improve nutrient delivery to tissue and To increase oxygenation perfusion Text: Thank you for the opportunity to evaluate your patient. For Medicare and Medicare HMO plans, please review the plan of care and approve it. It will need to be FAXED BACK to us at [phone] for Medicare purposes. For Medicare only, by signing this I c (more content not included)... Normal [facility] Absolute lymphocyte countOrd ered By: Nick Mercedes on 04-12-2024 Lymphocytes Auto (Unsp spec) [#/Vol] 1.23 10*3/uL 0.83-4.51 [facility] Absolute neutrophil countOrd ered By: Nick Mercedes on 04-12-2024 Neutrophils (Bld) [#/Vol] 2.4 10*3/uL 2.0-7.7 [facility] Albumin to globulin ratioOrd ered By: Nick Mercedes on 04-12-2024 Albumin/Globulin [Mass ratio] 0.9 {ratio} 0.9-2.4 [facility] Automated lymphocyte count a s percentage of total leukocytesOrdered By: Nick Mercedes on 04-12-2024 Lymphocytes/100 WBC Auto (Unsp spec) 27.5 % -41 [facility] Basophil percentageOrdered B y: Nick Mercedes on 04-12-2024 Basophils/100 WBC (Bld) 0.9 % 0-1 [facility] Bilirubin, totalOrdered By: Nick Mercedes on 04-12-2024 Bilirubin [Mass/Vol] 0.40 mg/dL 0.20-1.00 [facility] Comment on above: For patients on eltr ombopag therapy, use of Dimension [place] TBIL is not recommended. Blood urea nitrogen (BUN)/cr eatinine ratioOrdered By: Nick Mercedes on 04-12-2024 Urea nitrogen/Creatinine [Mass ratio] 14.5 mg/mg 10-20 [facility] CBC W/Diff, Automatedon 03-24 Absolute Lymph 1.23 X10 3/uL Normal 0.83-4.51 [facility] Comment on above: Performed By: #### L 506.1000, L100.0100, L501.9520, L500.4050 #### [facility] [address] [place], [address] Absolute Neut 2.4 X10 3/uL Normal 2.0-7.7 [facility] Comment on above: Performed By: #### L 506.1000, L100.0100, L501.9520, L500.4050 #### [facility] [address] [place], [address] Basophils/100 WBC (Bld) 0.9 % Normal 0-1 [facility] Comment on above: Performed By: #### L 506.1000, L100.0100, L501.9520, L500.4050 #### [facility] [address] [place], [address] Eosinophils/100 WBC (Bld) 2.5 % Normal 0-5 [facility] Comment on above: Performed By: #### L 506.1000, L100.0100, L501.9520, L500.4050 #### [facility] [address] [place], [address] Erythrocyte distribution width (RBC) [Ratio] 14.5 % Normal 11.6-14.6 [facility] Comment on above: Performed By: #### L 506.1000, L100.0100, L501.9520, L500.4050 #### [facility] [address] [place], [address] Hematocrit (Bld) [Volume fraction] 39.4 % Low 40-54 [facility] Comment on above: Performed By: #### L 506.1000, L100.0100, L501.9520, L500.4050 #### [facility] [address] [place], [address] Hemoglobin (Bld) [Mass/Vol] 12.8 g/dL Low 13.0-16.5 [facility] Comment on above: Performed By: #### L 506.1000, L100.0100, L501.9520, L500.4050 #### [facility] [address] [place], [address] IG% 0.200 Normal 0.0-0.9 [facility] Comment on above: Result Comment: IG% - Immature Granulocytes (promyelocytes, myelocytes and metamyelocytes) > 1% indicates that a LEFT SHIFT is Present. Performed By: #### L 506.1000, L100.0100, L501.9520, L500.4050 #### [facility] [address] [place], [address] Lymphocytes/100 WBC (Bld) 27.5 % Normal 19-41 [facility] Comment on above: Performed By: #### L 506.1000, L100.0100, L501.9520, L500.4050 #### [facility] [address] [place], [address] MCH (RBC) [Entitic mass] 28.8 pg Normal 27.0-32.0 [facility] Comment on above: Performed By: #### L 506.1000, L100.0100, L501.9520, L500.4050 #### [facility] [address] [place], [address] MCHC (RBC) [Mass/Vol] 32.5 g/dL Normal 32-36 [facility] Comment on above: Performed By: #### L 506.1000, L100.0100, L501.9520, L500.4050 #### [facility] [address] [place], [address] MCV (RBC) [Entitic vol] 88.7 fL Normal 80-94 [facility] Comment on above: Performed By: #### L 506.1000, L100.0100, L501.9520, L500.4050 #### [facility] [address] [place], [address] Monocytes/100 WBC (Bld) 14.7 % High 0-10 [facility] Comment on above: Performed By: #### L 506.1000, L100.0100, L501.9520, L500.4050 #### [facility] [address] [place], [address] Neutrophils/100 WBC (Bld) 54.2 % Normal 47-70 [facility] Comment on above: Performed By: #### L 506.1000, L100.0100, L501.9520, L500.4050 #### [facility] [address] [place], [address] Nucleated RBC (Bld) [#/Vol] 0 10*3/uL Normal 0-5 [facility] Comment on above: Performed By: #### L 506.1000, L100.0100, L501.9520, L500.4050 #### [facility] [address] [place], [address] Platelet mean volume (Bld) [Entitic vol] 10.0 fL Normal 6.2-12.0 [facility] Comment on above: Performed By: #### L 506.1000, L100.0100, L501.9520, L500.4050 #### [facility] [address] [place], [address] Platelets (Bld) [#/Vol] 216 10*3/uL Normal 150-450 [facility] Comment on above: Performed By: #### L 506.1000, L100.0100, L501.9520, L500.4050 #### [facility] [address] [place], [address] RBC (Bld) [#/Vol] 4.44 10*6/uL Low 4.6-6.2 [facility] Comment on above: Performed By: #### L 506.1000, L100.0100, L501.9520, L500.4050 #### [facility] [address] [place], [address] RDW SD 46.5 fl High 35.1-43.9 [facility] Comment on above: Performed By: #### L 506.1000, L100.0100, L501.9520, L500.4050 #### [facility] [address] [place], [address] WBC (Bld) [#/Vol] 4.5 10*3/uL Normal 4.4-11.0 [facility] Comment on above: Performed By: #### L 506.1000, L100.0100, L501.9520, L500.4050 #### [facility] [address] [place], [address] Carbon dioxide measurementOr dered By: Nick Mercedes on 04-12-2024 CO2 [Moles/Vol] 27.0 mmol/L 21.0-32.0 [facility] Cerv Spine 2 or 3 Viewson Cerv Spine 2 or 3 Views [facility] [address] [place] [address] Cerv Spine 2 or 3 Views MR#: [id number] Acct: [id number] Name: TONEY CANTOR Rep #: [id number] : 1945 M 78 From: Hansel Flanagan PCP: Dr. Nick Mercedes MD Status: REG CLI Study: Cerv Spine 2 or 3 Views Date of Exam: 04/12/24 Exam# [id number] Ordering Dr: Nick Mercedes MD [id number] EXAM: XR CERVICAL SPINE, 2 OR 3 VIEWS CLINICAL INDICATION: CERVICAL DISC DISEASE TECHNIQUE: Frontal and lateral views of the cervical spine. COMPARISON: No relevant prior studies available. FINDINGS: VERTEBRAE: Multilevel bilateral facet arthropathy. DISC SPACES: Moderate disc space narrowing and marginal osteophytes C5-C6 and C6-C7. Uncovertebral joint osteophytes bilaterally at C5-C6 that may cause neural foraminal narrowing. SOFT TISSUES: Unremarkable. No prevertebral soft tissue widening. LUNG APICES: Clear. RAD/Cerv Spine 2 or 3 Views IMPRESSION: 1. Moderate spondylosis C5-C6 and C6-C7. 2. Uncovertebral joint osteophytes bilaterally at C5-C6 that may cause neural foraminal narrowing. 3. Multilevel bilateral facet arthropathy. Electronically Signed: Hansel Reese MD at 5:56 EST , CC: Dr. 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 Chloride measurementOrdered By: Nick Mercedes on 04-12-2024 Chloride [Moles/Vol] 108 mmol/L High 98-107 [facility] Comprehensive Metabolic Prof ilon 04-12-2024 Albumin [Mass/Vol] 3.4 g/dL Normal 3.2-5.0 [facility] Comment on above: Performed By: #### L 506.1000, L100.0100, L501.9520, L500.4050 ####[facility] [address] [place], [address] Albumin/Globulin [Mass ratio] 0.9 {ratio} Normal 0.9-2.4 [facility] Comment on above: Performed By: #### L 506.1000, L100.0100, L501.9520, L500.4050 ####[facility] [address] [place], [address] ALK P 80 U/L Normal 45-117 [facility] Comment on above: Performed By: #### L 506.1000, L100.0100, L501.9520, L500.4050 ####[facility] [address] [place], [address] ALT [Catalytic activity/Vol] 26 U/L Normal 16-61 [facility] Comment on above: Performed By: #### L 506.1000, L100.0100, L501.9520, L500.4050 ####[facility] [address] [place], [address] AST [Catalytic activity/Vol] 20 U/L Normal 15-37 [facility] Comment on above: Performed By: #### L 506.1000, L100.0100, L501.9520, L500.4050 ####[facility] [address] [place], [address] Bilirubin [Mass/Vol] 0.40 mg/dL Normal 0.20-1.00 [facility] Comment on above: Result Comment: For patients on eltrombopag therapy, use of Dimension [place] TBIL is not recommended. Performed By: #### L 506.1000, L100.0100, L501.9520, L500.4050 ####[facility] [address] [place], [address] BUN/CRE 14.5 RATIO Normal 10-20 [facility] Comment on above: Performed By: #### L 506.1000, L100.0100, L501.9520, L500.4050 ####[facility] [address] [place], [address] CA,Total 8.6 mg/dL Normal 8.5-10.1 [facility] Comment on above: Performed By: #### L 506.1000, L100.0100, L501.9520, L500.4050 ####[facility] [address] [place], [address] Chloride [Moles/Vol] 108 mmol/L High 98-107 [facility] Comment on above: Performed By: #### L 506.1000, L100.0100, L501.9520, L500.4050 ####[facility] [address] [place], [address] CO2 [Moles/Vol] 27.0 mmol/L Normal 21.0-32.0 [facility] Comment on above: Performed By: #### L 506.1000, L100.0100, L501.9520, L500.4050 ####[facility] [address] [place], [address] Creatinine [Mass/Vol] 0.90 mg/dL Normal 0.70-1.30 [facility] Comment on above: Result Comment: The validity of the calculated GFR GFRAA in patients over 70 years has not been determined. Clinical correlation is essential. Performed By: #### L 506.1000, L100.0100, L501.9520, L500.4050 ####[facility] [address] [place], [address] EST GFR - AA 106 mL/min Normal >60 [facility] Comment on above: Result Comment: Afri can Stateless GFR Calc Performed By: #### L 506.1000, L100.0100, L501.9520, L500.4050 ####[facility] [address] [place], [address] GAP 2 Low 5-15 [facility] Comment on above: Performed By: #### L 506.1000, L100.0100, L501.9520, L500.4050 ####[facility] [address] [place], [address] GFR/1.73 sq M.predicted among non-blacks MDRD (S/P/Bld) [Vol rate/Area] 87 mL/min/{1.73_m2} Normal >60 [facility] Comment on above: Result Comment: Non- GFR Calc Performed By: #### L 506.1000, L100.0100, L501.9520, L500.4050 ####[facility] [address] [place], [address] Globulin (S) [Mass/Vol] 3.6 g/dL Normal 2.2-4.2 [facility] Comment on above: Performed By: #### L 506.1000, L100.0100, L501.9520, L500.4050 ####[facility] [address] [place], [address] Glucose [Mass/Vol] 87 mg/dL Normal 74-106 [facility] Comment on above: Performed By: #### L 506.1000, L100.0100, L501.9520, L500.4050 ####[facility] [address] [place], [address] Potassium [Moles/Vol] 4.0 mmol/L Normal 3.5-5.1 [facility] Comment on above: Performed By: #### L 506.1000, L100.0100, L501.9520, L500.4050 ####[facility] [address] [place], [place], [address] Sodium [Moles/Vol] 138 mmol/L Normal 136-145 [facility] Comment on above: Performed By: #### L 506.1000, L100.0100, L501.9520, L500.4050 ####[facility] [address] [place], [address] T PROT 7.0 g/dL Normal 6.4-8.2 [facility] Comment on above: Performed By: #### L 506.1000, L100.0100, L501.9520, L500.4050 ####[facility] [address] [place], [address] Urea nitrogen [Mass/Vol] 13 mg/dL Normal 7-18 [facility] Comment on above: Performed By: #### L 506.1000, L100.0100, L501.9520, L500.4050 ####[facility] [address] [place], [address] Eosinophil percentageOrdered By: Nick Mercedes on 04-12-2024 Eosinophils/100 WBC (Bld) 2.5 % 0-5 [facility] Erythrocyte distribution wid th ratioOrdered By: Nick Mercedes on 04-12-2024 Erythrocyte distribution width (RBC) [Ratio] 14.5 % 11.6-14.6 [facility] Erythrocyte distribution wid th standard deviationOrdered By: Nick Daren on 04-12-2024 Erythrocyte distribution width (RBC) [Ratio] 46.5 fl High 35.1-43.9 [facility] Glomerular filtration rate ( GFR) estimationOrdered By: Nick Daren on 04-12-2024 GFR/1.73 sq M.predicted among non-blacks MDRD (S/P/Bld) [Vol rate/Area] 87 mL/min/{1.73_m2} >60 [facility] Comment on above: Non- GFR Calc Glucose measurementOrdered B y: Nick Mercedes on 04-12-2024 Glucose [Mass/Vol] 87 mg/dL 74-106 [facility] Hematocrit Auto (Bld) [Volum e fraction]Ordered By: Nick Mercedes on 04-12-2024 Hematocrit (Bld) [Volume fraction] 39.4 % Low 40-54 [facility] Hemoglobin measurementOrdere d By: Nick Mercedes on 04-12-2024 Hemoglobin (Bld) [Mass/Vol] 12.8 g/dL Low 13.0-16.5 [facility] Immature granulocytes/100 WB C Auto (Bld)Ordered By: Nick Mercedes 04-12-2024 Immature granulocytes/100 WBC (Bld) 0.200 % 0.0-0.9 [facility] Comment on above: IG% - Immature Granu locytes (promyelocytes, myelocytes and metamyelocytes) > 1% indicates that a LEFT SHIFT is Present. Laboratory - Chemistry and C hemistry - challengeOrdered By: Nick Mercedes 04-12-2024 AST [Catalytic activity/Vol] 20 U/L 15-37 [facility] MCV (mean corpuscular volume ) determinationOrdered By: Nick Mercedes 04-12-2024 MCV (RBC) [Entitic vol] 88.7 fL 80-94 [facility] Mean corpuscular hemoglobin (MCH) determinationOrdered By: Nick Mercedes 04-12-2024 MCH (RBC) [Entitic mass] 28.8 pg 27.0-32.0 [facility] Mean corpuscular hemoglobin concentration (MCHC) determinationOrdered By: Nick Mercedes 04-12-2024 MCHC (RBC) [Mass/Vol] 32.5 g/dL 32-36 [facility] Mean platelet volume determi nationOrdered By: Nick Mercedes 04-12-2024 Platelet mean volume (Bld) [Entitic vol] 10.0 fL 6.2-12.0 [facility] Monocyte percentageOrdered B y: Nick Mercedes on 04-12-2024 Monocytes/100 WBC (Bld) 14.7 % High 0-10 [facility] Neutrophil percentageOrdered By: Nick Mercedes on 04-12-2024 Neutrophils/100 WBC (Bld) 54.2 % 47-70 [facility] Nucleated red blood cell per centageOrdered By: Nick Mercedes on 04-12-2024 Nucleated RBC/100 WBC (Bld) [Ratio] 0 % 0-5 [facility] Platelet countOrdered By: Jamie Mercedes on 04-12-2024 Platelets (Bld) [#/Vol] 216 10*3/uL 150-450 [facility] Potassium measurementOrdered By: Nick Mercedes on 04-12-2024 Potassium [Moles/Vol] 4.0 mmol/L 3.5-5.1 [facility] RBC Auto (Bld) [#/Vol]Ordere d By: Nick Mercedes on 04-12-2024 RBC (Bld) [#/Vol] 4.44 10*6/uL Low 4.6-6.2 [facility] Serum anion gap measurementO rdered By: Nick Mercedes on 04-12-2024 Anion gap [Moles/Vol] 2 mmol/L Low 5-15 [facility] Serum globulin measurementOr dered By: Nick Mercedes on 04-12-2024 Globulin (S) [Mass/Vol] 3.6 g/dL 2.2-4.2 [facility] Serum or plasma alanine goetz otransferase (ALT) measurementOrdered By: Nick Mercedes 04-12-2024 ALT [Catalytic activity/Vol] 26 U/L 16-61 [facility] Serum or plasma albumin nova urement (mass/volume)Ordered By: Nick Mercedes 04-12-2024 Albumin [Mass/Vol] 3.4 g/dL 3.2-5.0 [facility] Serum or plasma alkaline dinorah sphatase measurementOrdered By: Nick Mercedes 04-12-2024 ALP [Catalytic activity/Vol] 80 U/L 45-117 [facility] Serum or plasma calcium nova urement (mass/volume)Ordered By: Nick Mercedes 04-12-2024 Calcium [Mass/Vol] 8.6 mg/dL 8.5-10.1 [facility] Serum or plasma creatinine m easurement (mass/volume)Ordered By: Nick Mercedes 04-12-2024 Creatinine [Mass/Vol] 0.90 mg/dL 0.70-1.30 [facility] Comment on above: The validity of the calculated GFR & GFRAA in patients over 70 years has not been determined. Clinical correlation is essential. Serum or plasma thyroid stim ulating hormone (TSH) measurement (units/volume)Ordered By: Nick Mercedes on 04-12-2024 TSH Qn 2.270 uIU/mL 0.358-3.740 [facility] Serum or plasma urea nitroge n measurement (mass/volume)Ordered By: Nick Mercedes on 04-12-2024 Urea nitrogen [Mass/Vol] 13 mg/dL 7-18 [facility] Sodium levelOrdered By: Nick Mercedes on 04-12-2024 Sodium [Moles/Vol] 138 mmol/L 136-145 [facility] Thyroid Stim Hormone (TSH)on 04-12-2024 TSH 2.270 uIU/mL Normal 0.358-3.740 [facility] Comment on above: Performed By: #### L 506.1000, L100.0100, L501.9520, L500.4050 ####[facility] [address] [place], [place], [address] Total proteinOrdered By: Nick Mercedes on 04-12-2024 Protein [Mass/Vol] 7.0 g/dL 6.4-8.2 [facility] Vitamin D,25 Hydroxyon 04-12 Vitamin D 25-OH 24.7 ng/mL Normal [facility] Comment on above: Result Comment: Mariah min D 25(OH) Status Range Deficiency <20 ng/mL (50nmol/L) Insufficiency 20 - 30 ng/mL (50 - 75 nmol/L) Sufficiency 30 - 100 ng/mL (75 - 250 nmol/L) Toxicity >100 ng/mL (>250 nmol/L) Performed By: #### L 506.1000, L100.0100, L501.9520, L500.4050 ####[facility] [address] [place], [address] White blood cell (WBC) count Ordered By: Nick Mercedes on 04-12-2024 WBC (Bld) [#/Vol] 4.5 10*3/uL 4.4-11.0 [facility] Urgent Care Visit Reporton 1 04-30-2023 Urgent Care Visit Report [facility] [address], [address] [place] [address] OFFICE VISIT Date of Service: 02/28/24 MR#: [id number] Acct: [id number] Name: TONEY CANTOR Rep #: [id number] : 1945 Provider: CLIF stapleton Age/Sex: 78/M Location: [facility] Status: Signed Intake Vital Signs 11/22/21 13:25 02/27/24 13:10 02/28/24 09:05 Height 5 ft 5 in 5 ft 5 in 5 ft 5 in Weight: 137 lb 8 oz BMI 22.8 BP 116/64 Blood Pressure Location Lt brachial Position Sitting Respiration 16 Pulse 67 Pulse Source Monitor Temp 98.3 F Temp Source Temporal Pulse Oximetry (%) 98 Oxygen Delivery Method room air Intake Visit Reasons: COUGH/SINUS/LOW GRADE FEVER Chief Complaint: L sided neck pain Is patient in pain?: No Allergies Iodinated Contrast Media (CONTRASTS) Allergy (Verified 02/28/24 09:05) Hives Medications ???Medication ???Instructions ???Recorded ???Confirmed ???Type metronidazole 0.75 % topical gel 1 applic topical ONCE 08/10/18 02/28/24 History acetaminophen 325 mg tablet 325 mg PO ONCE PRN 02/28/24 02/28/24 History (Tylenol) tamsulosin 0.4 mg capsule 0.4 mg PO QDAY 02/28/24 02/28/24 History Have you fallen in the past year?: No PFSH Medical History Degenerative disc disease, cervical Essential (primary) hypertension Hyperlipidemia Lung nodule Patent foramen ovale Rosacea Rosacea Segmental and somatic dysfunction of cervical region Segmental and somatic dysfunction of thoracic region Tinnitus Surgical History History of eye surgery History of left heart catheterization (2011) History of nasal septoplasty Social History Smoking Status: Former smoker quit date: 03/23/91 pack-years: 13 alcohol intake: current alcohol intake frequency: a few times a week Alcohol type: beer caffeine: No HPI HPI Chief Complaint: L sided neck pain Details: TONEY CANTOR, is a 78 M who presents to the office today for concerns regarding cough, sinus pain, and low grade fever. This started yesterday. He is concerned regarding worsening cough and sinus headache". He has taken OTC medications with minimal relieve. He denies known sick contacts. ROS Const Constitutional: Positive for fever(s), headache(s) and abnormal sleep pattern (cough keeps him up); No body ache, chills, fatigue or change in appetite Eyes Eyes: Positive for discharge (watery); No blurry vision, change in vision, double vision, irritation, vision loss, dry eyes, bulging eyes, floaters, visual disturbances, eye pain, Light sensitivity, spots in vision, tunnel vision or other ENT ENT: Positive for nasal congestion, sinus pressure, sinus pain, nasal discharge, post nasal drip, headache(s) and hoarseness; No ear or mastoid pain, ear discharge, ear pressure, tinnitus, dizziness/vertigo, nosebleed/epistaxis, nose pain, facial pain, dental pain, difficulty swallowing, bad breath, lip swelling, mouth lesions, mouth pain, neck pain, sore throat, tongue swelling or throat swelling Resp Respiratory: Positive for cough (intermittent prodcutve) Cough: Yes productive and non-productive and chest congestion; No change in phlegm color, hemoptysis, pain on inspiration, shortness of breath, pain with cough, stridor or wheezing Cardio Cardiology: No chest pain at rest, chest pain with exertion, shortness of breath, dyspnea on exertion or lightheadedness Gastro GI: No abdominal pain, change in bowel habits, constipation, diarrhea, difficulty swallowing, nausea/dyspepsia or vomiting Genitourinary Male: No burning urination or urinary frequency Musc Musculoskeletal: No joint pain or neck pain Skin Skin: No rash Neuro Neurology: Positive for headache(s); No visual disturbances Psych Psychiatric: Positive for abnormal sleep pattern (cough keeps him up) and No change in appetite Endo Endocrine: No fatigue Aller/Imm Allergy/Immunologic: No lip swelling, throat swelling, tongue swelling or wheezing Exam Const General: cooperative, healthy appearing, comfortable and no acute distress Orientation: alert, awake and oriented x3 HENWA Head: normal to inspection and normocephalic Ears: hearing grossly normal bilaterally, external ears normal and TM's normal bilaterally Nose: external nose normal, nares normal and no nasal discharge Face and sinus: normal facial exam and sinuses nontender Mouth: oral mucosae normal, lip normal, tongue normal, oropharynx normal and moist mucous membranes Throat: posterior oropharynx normal, tonsils normal, uvula midline and no postnasal drainage Eyes General: appearance normal, both eyes and all related structures Neck Neck: normal vis (more content not included)... Normal [facility] CBC W/Diff, Automatedon 09-20-2023 Absolute Lymph 1.25 X10 3/uL Normal 0.83-4.51 [facility] Comment on above: Performed By: #### L 100.0100, L501.9520, L506.1000, L500.4050 ####[facility] [address] [place], [address] Absolute Neut 2.1 X10 3/uL Normal 2.0-7.7 [facility] Comment on above: Performed By: #### L 100.0100, L501.9520, L506.1000, L500.4050 ####[facility] [address] [place], [address] Basophils/100 WBC (Bld) 1.0 % Normal 0-1 [facility] Comment on above: Performed By: #### L 100.0100, L501.9520, L506.1000, L500.4050 ####[facility] [address] [place], [address] Eosinophils/100 WBC (Bld) 3.4 % Normal 0-5 [facility] Comment on above: Performed By: #### L 100.0100, L501.9520, L506.1000, L500.4050 ####[facility] [address] [place], [address] Erythrocyte distribution width (RBC) [Ratio] 13.9 % Normal 11.6-14.6 [facility] Comment on above: Performed By: #### L 100.0100, L501.9520, L506.1000, L500.4050 ####[facility] [address] [place], [address] Hematocrit (Bld) [Volume fraction] 40.9 % Normal 40-54 [facility] Comment on above: Performed By: #### L 100.0100, L501.9520, L506.1000, L500.4050 ####[facility] [address] [place], [address] Hemoglobin (Bld) [Mass/Vol] 13.2 g/dL Normal 13.0-16.5 [facility] Comment on above: Performed By: #### L 100.0100, L501.9520, L506.1000, L500.4050 ####[facility] [address] [place], [address] IG% 0.200 Normal 0.0-0.9 [facility] Comment on above: Result Comment: IG% - Immature Granulocytes (promyelocytes, myelocytes and metamyelocytes) > 1% indicates that a LEFT SHIFT is Present. Performed By: #### L 100.0100, L501.9520, L506.1000, L500.4050 ####[facility] [address] [place], [address] Lymphocytes/100 WBC (Bld) 30.1 % Normal 19-41 [facility] Comment on above: Performed By: #### L 100.0100, L501.9520, L506.1000, L500.4050 ####[facility] [address] [place], [address] MCH (RBC) [Entitic mass] 29.3 pg Normal 27.0-32.0 [facility] Comment on above: Performed By: #### L 100.0100, L501.9520, L506.1000, L500.4050 ####[facility] [address] [place], [address] MCHC (RBC) [Mass/Vol] 32.3 g/dL Normal 32-36 [facility] Comment on above: Performed By: #### L 100.0100, L501.9520, L506.1000, L500.4050 ####[facility] [address] [place], [address] MCV (RBC) [Entitic vol] 90.7 fL Normal 80-94 [facility] Comment on above: Performed By: #### L 100.0100, L501.9520, L506.1000, L500.4050 ####[facility] [address] [place], [address] Monocytes/100 WBC (Bld) 14.0 % High 0-10 [facility] Comment on above: Performed By: #### L 100.0100, L501.9520, L506.1000, L500.4050 ####[facility] [address] [place], [address] Neutrophils/100 WBC (Bld) 51.3 % Normal 47-70 [facility] Comment on above: Performed By: #### L 100.0100, L501.9520, L506.1000, L500.4050 ####[facility] [address] [place], [address] Nucleated RBC (Bld) [#/Vol] 0 10*3/uL Normal 0-5 [facility] Comment on above: Performed By: #### L 100.0100, L501.9520, L506.1000, L500.4050 ####[facility] [address] [place], [address] Platelet mean volume (Bld) [Entitic vol] 10.6 fL Normal 6.2-12.0 [facility] Comment on above: Performed By: #### L 100.0100, L501.9520, L506.1000, L500.4050 ####[facility] [address] [place], [address] Platelets (Bld) [#/Vol] 208 10*3/uL Normal 150-450 [facility] Comment on above: Performed By: #### L 100.0100, L501.9520, L506.1000, L500.4050 ####[facility] [address] [place], [address] RBC (Bld) [#/Vol] 4.51 10*6/uL Low 4.6-6.2 [facility] Comment on above: Performed By: #### L 100.0100, L501.9520, L506.1000, L500.4050 ####[facility] [address] [place], [address] RDW SD 46.5 fl High 35.1-43.9 [facility] Comment on above: Performed By: #### L 100.0100, L501.9520, L506.1000, L500.4050 ####[facility] [address] [place], [address] WBC (Bld) [#/Vol] 4.2 10*3/uL Low 4.4-11.0 [facility] Comment on above: Performed By: #### L 100.0100, L501.9520, L506.1000, L500.4050 ####[facility] [address] [place], [address] Comprehensive Metabolic Prof ilon 10-08-2023 Albumin [Mass/Vol] 3.5 g/dL Normal 3.2-5.0 [facility] Comment on above: Performed By: #### L 100.0100, L501.9520, L506.1000, L500.4050 ####[facility] [address] [place], [address] Albumin/Globulin [Mass ratio] 0.9 {ratio} Normal 0.9-2.4 [facility] Comment on above: Performed By: #### L 100.0100, L501.9520, L506.1000, L500.4050 ####[facility] [address] [place], [address] ALK P 71 U/L Normal 45-117 [facility] Comment on above: Performed By: #### L 100.0100, L501.9520, L506.1000, L500.4050 ####[facility] [address] [place], [address] ALT [Catalytic activity/Vol] 21 U/L Normal 16-61 [facility] Comment on above: Performed By: #### L 100.0100, L501.9520, L506.1000, L500.4050 ####[facility] [address] [place], [address] AST [Catalytic activity/Vol] 26 U/L Normal 15-37 [facility] Comment on above: Performed By: #### L 100.0100, L501.9520, L506.1000, L500.4050 ####[facility] [address] [place], [address] Bilirubin [Mass/Vol] 0.60 mg/dL Normal 0.20-1.00 [facility] Comment on above: Result Comment: For patients on eltrombopag therapy, use of Dimension [place] TBIL is not recommended. Performed By: #### L 100.0100, L501.9520, L506.1000, L500.4050 ####[facility] [address] [place], [address] BUN/CRE 19.3 RATIO Normal 10-20 [facility] Comment on above: Performed By: #### L 100.0100, L501.9520, L506.1000, L500.4050 ####[facility] [address] [place], [address] CA,Total 8.9 mg/dL Normal 8.5-10.1 [facility] Comment on above: Performed By: #### L 100.0100, L501.9520, L506.1000, L500.4050 ####[facility] [address] [place], [address] Chloride [Moles/Vol] 105 mmol/L Normal 98-107 [facility] Comment on above: Performed By: #### L 100.0100, L501.9520, L506.1000, L500.4050 ####[facility] [address] [place], [address] CO2 [Moles/Vol] 27.0 mmol/L Normal 21.0-32.0 [facility] Comment on above: Performed By: #### L 100.0100, L501.9520, L506.1000, L500.4050 ####[facility] [address] [place], [address] Creatinine [Mass/Vol] 0.83 mg/dL Normal 0.70-1.30 [facility] Comment on above: Result Comment: The validity of the calculated GFR GFRAA in patients over 70 years has not been determined. Clinical correlation is essential. Performed By: #### L 100.0100, L501.9520, L506.1000, L500.4050 ####[facility] [address] [place], [address] EST GFR - AA 116 mL/min Normal >60 [facility] Comment on above: Result Comment: Afri can Stateless GFR Calc Performed By: #### L 100.0100, L501.9520, L506.1000, L500.4050 ####[facility] [address] [place], [address] GAP 6 Normal 5-15 [facility] Comment on above: Performed By: #### L 100.0100, L501.9520, L506.1000, L500.4050 ####[facility] [address] [place], [address] GFR/1.73 sq M.predicted among non-blacks MDRD (S/P/Bld) [Vol rate/Area] 96 mL/min/{1.73_m2} Normal >60 [facility] Comment on above: Result Comment: Non- GFR Calc Performed By: #### L 100.0100, L501.9520, L506.1000, L500.4050 ####[facility] [address] [place], [address] Globulin (S) [Mass/Vol] 3.8 g/dL Normal 2.2-4.2 [facility] Comment on above: Performed By: #### L 100.0100, L501.9520, L506.1000, L500.4050 ####[facility] [address] [place], [address] Glucose [Mass/Vol] 82 mg/dL Normal 74-106 [facility] Comment on above: Performed By: #### L 100.0100, L501.9520, L506.1000, L500.4050 ####[facility] [address] [place], [address] Potassium [Moles/Vol] 4.1 mmol/L Normal 3.5-5.1 [facility] Comment on above: Performed By: #### L 100.0100, L501.9520, L506.1000, L500.4050 ####[facility] [address] [place], [address] Sodium [Moles/Vol] 138 mmol/L Normal 136-145 [facility] Comment on above: Performed By: #### L 100.0100, L501.9520, L506.1000, L500.4050 ####[facility] [address] [place], [address] T PROT 7.3 g/dL Normal 6.4-8.2 [facility] Comment on above: Performed By: #### L 100.0100, L501.9520, L506.1000, L500.4050 ####[facility] [address] [place], [address] Urea nitrogen [Mass/Vol] 16 mg/dL Normal - [facility] Comment on above: Performed By: #### L 100.0100, L501.9520, L506.1000, L500.4050 ####[facility] [address] [place], [address] Thyroid Stim Hormone (TSH)on 10-08-2023 TSH 2.19 uIU/mL Normal 0.358-3.74 [facility] Comment on above: Performed By: #### L 100.0100, L501.9520, L506.1000, L500.4050 ####[facility] [address] [place], [address] Vitamin D,25 Hydroxyon 10-07 Vitamin D 25-OH 26.2 ng/mL Normal [facility] Comment on above: Result Comment: Mariah min D 25(OH) Status Range Deficiency <20 ng/mL (50nmol/L) Insufficiency 20 - 30 ng/mL (50 - 75 nmol/L) Sufficiency 30 - 100 ng/mL (75 - 250 nmol/L) Toxicity >100 ng/mL (>250 nmol/L) Performed By: #### L 100.0100, L501.9520, L506.1000, L500.4050 ####[facility] [address] [place], [address] Laboratory - Microbiology an d Antimicrobial susceptibilityOrdered By: Nick Mercedes on 06-09-2023 SARS-CoV-2 (COVID-19) RNA HUMERA+probe Ql (Unsp spec) [facility] Laboratory - Microbiology an d Antimicrobial susceptibilityOrdered By: Nick Mercedes on 05-08-2023 SARS-CoV-2 (COVID-19) RNA HUMERA+probe Ql (Unsp spec) [facility] SARS-CoV-2 (COVID-19) RNA HUMERA+probe Ql (Unsp spec) [facility] No Panel InformationOrdered By: Ajit Worthy on 04-30-2023 Prostate Specific Antigen Screen 2.18 ng/mL 0.00-4.00 [facility] Comment on above: This test was perfor med using the TPSA assay method for [employer] chemistry system. Values obtained with differentassay methods cannot be used interchangably.When changing PSA assays in the course of monitoring apatient, additional sequential testing should be carriedout to confirm baseline values. Absolute lymphocyte countOrd ered By: Nick Mercedes on 04-09-2023 Lymphocytes Auto (Unsp spec) [#/Vol] 1.20 10*3/uL 0.83-4.51 [facility] Automated lymphocyte count a s percentage of total leukocytesOrdered By: Nick Mercedes on 04-09-2023 Lymphocytes/100 WBC Auto (Unsp spec) 26.3 % 19-41 [facility] Basophil percentageOrdered B y: Nick Mercedes on 04-09-2023 Basophils/100 WBC (Bld) 0.7 % 0-1 [facility] Bilirubin [Mass/Vol] 0.60 mg/dL 0.20-1.00 [facility] Comment on above: For patients on eltr ombopag therapy, use of Dimension [place] TBIL is not recommended. Chloride [Moles/Vol] 105 mmol/L 98-107 [facility] Eosinophils/100 WBC (Bld) 1.5 % 0-5 [facility] Glucose [Mass/Vol] 87 mg/dL 74-106 [facility] Hemoglobin (Bld) [Mass/Vol] 13.5 g/dL 13.0-16.5 [facility] Monocytes/100 WBC (Bld) 13.4 % 0-10 [facility] Neutrophils (Bld) [#/Vol] 2.6 10*3/uL 2.0-7.7 [facility] Neutrophils/100 WBC (Bld) 57.9 % 47-70 [facility] Potassium [Moles/Vol] 3.9 mmol/L 3.5-5.1 [facility] Protein [Mass/Vol] 7.4 g/dL 6.4-8.2 [facility] Sodium [Moles/Vol] 138 mmol/L 136-145 [facility] WBC (Bld) [#/Vol] 4.6 10*3/uL 4.4-11.0 [facility] Determination of erythrocyte mean corpuscular volume (MCV)Ordered By: Nick Mercedes on 04-09-2023 MCV (RBC) [Entitic vol] 91.8 fL 80-94 [facility] Erythrocyte distribution wid th ratioOrdered By: Nick Mercedes 04-09-2023 Erythrocyte distribution width (RBC) [Ratio] 14.6 % 11.6-14.6 [facility] Erythrocyte distribution wid th standard deviationOrdered By: Nick Mercedes 04-09-2023 Erythrocyte distribution width (RBC) [Entitic vol] 49.1 fL 35.1-43.9 [facility] Hematocrit Auto (Bld) [Volum e fraction]Ordered By: [facility] Daren 04-09-2023 Hematocrit (Bld) [Volume fraction] 42.6 % 40-54 [facility] Immature granulocytes/100 WB C Auto (Bld)Ordered By: Nick Mercedes 04-09-2023 Immature granulocytes/100 WBC (Bld) 0.200 % 0.0-0.9 [facility] Comment on above: IG% - Immature Granu locytes (promyelocytes, myelocytes and metamyelocytes) > 1% indicates that a LEFT SHIFT is Present. Laboratory - Chemistry and C hemistry - challengeOrdered By: Nick Mercedes on 04-09-2023 Albumin/Globulin [Mass ratio] 0.9 {ratio} 0.9-2.4 [facility] ALP [Catalytic activity/Vol] 84 U/L 45-117 [facility] ALT [Catalytic activity/Vol] 30 U/L 16-61 [facility] CO2 [Moles/Vol] 28.0 mmol/L 21.0-32.0 [facility] Globulin (S) [Mass/Vol] 3.8 g/dL 2.2-4.2 [facility] Urea nitrogen/Creatinine [Mass ratio] 20.5 mg/mg 10-20 [facility] Laboratory - Hematology and Cell countsOrdered By: Nick Mercedes on 04-09-2023 MCH (RBC) [Entitic mass] 29.1 pg 27.0-32.0 [facility] MCHC (RBC) [Mass/Vol] 31.7 g/dL 32-36 [facility] Nucleated RBC/100 WBC (Bld) [Ratio] 0 % 0-5 [facility] Platelets (Bld) [#/Vol] 240 10*3/uL 150-450 [facility] No Panel InformationOrdered By: Nick Mercedes on 04-09-2023 Estimated GFR (MDRD) Amer 116 mL/min >60 [facility] Comment on above: GFR Calc Estimated GFR (MDRD) Non-Af Amer 96 mL/min >60 [facility] Comment on above: Non- GFR Calc Vitamin D 25-Hydroxy 25.3 ng/mL [facility] Comment on above: Vitamin D 25(OH) Sta tus Range Deficiency <20 ng/mL (50nmol/L) Insufficiency 20 - 30 ng/mL (50 - 75 nmol/L) Sufficiency 30 - 100 ng/mL (75 - 250 nmol/L) Toxicity >100 ng/mL (>250 nmol/L) Platelet mean volume [place] (Bld) [Entitic vol]Ordered By: Nick Mercedes on 04-09-2023 Platelet mean volume (Bld) [Entitic vol] 10.1 fL 6.2-12.0 [facility] RBC Auto (Bld) [#/Vol]Ordere d By: Nick Mercedes on 04-09-2023 RBC (Bld) [#/Vol] 4.64 10*6/uL 4.6-6.2 [facility] Serum or plasma calcium nova urement (mass/volume)Ordered By: Nick Mercedes on 04-09-2023 Calcium [Mass/Vol] 9.1 mg/dL 8.5-10.1 [facility] Serum or plasma creatinine m easurement (mass/volume)Ordered By: Nick Mercedes on 04-09-2023 Creatinine [Mass/Vol] 0.83 mg/dL 0.70-1.30 [facility] Comment on above: The validity of the calculated GFR & GFRAA in patients over 70 years has not been determined. Clinical correlation is essential. Serum or plasma thyroid stim ulating hormone (TSH) measurement (units/volume)Ordered By: Nick Mercedes on 04-09-2023 TSH Qn 1.84 uIU/mL 0.358-3.74 [facility] Serum or plasma urea nitroge n measurement (mass/volume)Ordered By: Nick Mercedes on 04-09-2023 Urea nitrogen [Mass/Vol] 17 mg/dL 7-18 [facility] Thin prep Papanicolaou smear with manual screeningOrdered By: Nick Mercedes on 04-09-2023 Thin prep Papanicolaou smear with manual screening 3.6 g/dL 3.2-5.0 [facility] Thin prep Papanicolaou smear with manual screening 23 U/L 15-37 [facility] Thin prep Papanicolaou smear with manual screening 5 5-15 [facility] Laboratory - Microbiology an d Antimicrobial susceptibilityOrdered By: Nick Mercedes on 03-04-2023 SARS-CoV-2 (COVID-19) RNA HUMERA+probe Ql (Unsp spec) [facility] SARS-CoV-2 (COVID-19) RNA HUMERA+probe Ql (Unsp spec) [facility] No Panel InformationOrdered By: Nick Mercedes on 03-04-2023 Influenza Types A,B Direct FA (TERA) [facility] Influenza Types A,B Direct FA (TERA) [facility] RSV Ag EIAOrdered By: Nick correia on 03-04-2023 RSV Ag Immune stain Ql (Tiss) [facility] RSV Ag Immune stain Ql (Tiss) [facility] Absolute lymphocyte countOrd ered By: Nick Mercedes on 10-02-2022 Lymphocytes Auto (Unsp spec) [#/Vol] 1.27 10*3/uL 0.83-4.51 [facility] Basophil percentageOrdered B y: Nick Mercedes on 10-02-2022 Basophils/100 WBC (Bld) 1.0 % 0-1 [facility] Bilirubin [Mass/Vol] 0.60 mg/dL 0.20-1.00 [facility] Comment on above: For patients on eltr ombopag therapy, use of Dimension [place] TBIL is not recommended. Chloride [Moles/Vol] 105 mmol/L 98-107 [facility] Eosinophils/100 WBC (Bld) 2.9 % 0-5 [facility] Glucose [Mass/Vol] 107 mg/dL 74-106 [facility] Comment on above: Fasting Glucose resu lt from 100 to 125 mg/dL suggests IMPAIRED HOMEOSTASIS per A.D.A. criteria. Neutrophils (Bld) [#/Vol] 2.2 10*3/uL 2.0-7.7 [facility] Neutrophils/100 WBC (Bld) 52.8 % 47-70 [facility] Potassium [Moles/Vol] 4.1 mmol/L 3.5-5.1 [facility] Protein [Mass/Vol] 7.3 g/dL 6.4-8.2 [facility] Sodium [Moles/Vol] 139 mmol/L 136-145 [facility] WBC (Bld) [#/Vol] 4.1 10*3/uL 4.4-11.0 [facility] Blood erythrocytes count (nu mber/volume)Ordered By: Nick Mercedes on 10-02-2022 RBC (Bld) [#/Vol] 4.51 10*6/uL 4.6-6.2 [facility] Blood hemoglobin measurement (mass/volume)Ordered By: Nick Mercedes on 10-02-2022 Hemoglobin (Bld) [Mass/Vol] 13.1 g/dL 13.0-16.5 [facility] Blood lymphocytes/100 leukoc ytesOrdered By: Nick Mercedes on 10-02-2022 Lymphocytes/100 WBC (Bld) 30.9 % 19-41 [facility] Blood monocytes/100 leukocyt esOrdered By: Nick Mercedes on 10-02-2022 Monocytes/100 WBC (Bld) 12.2 % 0-10 [facility] Blood platelet mean volumeOr dered By: Nick Mercedes on 10-02-2022 Platelet mean volume (Bld) [Entitic vol] 10.9 fL 6.2-12.0 [facility] Determination of erythrocyte mean corpuscular volume (MCV)Ordered By: Nick Mercedes on 10-02-2022 MCV (RBC) [Entitic vol] 90.7 fL 80-94 [facility] Hematocrit Auto (Bld) [Volum e fraction]Ordered By: Nick Mercedes on 10-02-2022 Hematocrit (Bld) [Volume fraction] 40.9 % 40-54 [facility] Laboratory - Chemistry and C hemistry - challengeOrdered By: Nick Daren on 10-02-2022 ALP [Catalytic activity/Vol] 71 U/L 45-117 [facility] ALT [Catalytic activity/Vol] 21 U/L 16-61 [facility] CO2 [Moles/Vol] 28.0 mmol/L 21.0-32.0 [facility] Globulin (S) [Mass/Vol] 4.0 g/dL 2.2-4.2 [facility] Urea nitrogen/Creatinine [Mass ratio] 19.2 mg/mg 10-20 [facility] Laboratory - Hematology and Cell countsOrdered By: Nick Mercedes 10-02-2022 Erythrocyte distribution width (RBC) [Entitic vol] 49.7 fL 35.1-43.9 [facility] Erythrocyte distribution width (RBC) [Ratio] 14.7 % 11.6-14.6 [facility] Immature granulocytes/100 WBC (Bld) 0.200 % 0.0-0.9 [facility] Comment on above: IG% - Immature Granu locytes (promyelocytes, myelocytes and metamyelocytes) > 1% indicates that a LEFT SHIFT is Present. MCH (RBC) [Entitic mass] 29.0 pg 27.0-32.0 [facility] Nucleated RBC/100 WBC (Bld) [Ratio] 0 % 0-5 [facility] MCHC Auto (RBC) [Mass/Vol]Or dered By: Nick Mercedes on 10-02-2022 MCHC (RBC) [Mass/Vol] 32.0 g/dL 32-36 [facility] No Panel InformationOrdered By: Nick Mercedes on 10-02-2022 Estimated GFR (MDRD) Amer 115 mL/min >60 [facility] Comment on above: GFR Calc Estimated GFR (MDRD) Non-Af Amer 95 mL/min >60 [facility] Comment on above: Non- GFR Calc Thyroid Stimulating Hormone (TSH) 1.73 uIU/mL 0.358-3.74 [facility] Vitamin D 25-Hydroxy 33.9 ng/mL [facility] Comment on above: Vitamin D 25(OH) Sta tus Range Deficiency <20 ng/mL (50nmol/L) Insufficiency 20 - 30 ng/mL (50 - 75 nmol/L) Sufficiency 30 - 100 ng/mL (75 - 250 nmol/L) Toxicity >100 ng/mL (>250 nmol/L) Platelets bldOrdered By: Nick Mercedes on 10-02-2022 Platelets (Bld) [#/Vol] 211 10*3/uL 150-450 [facility] Serum or plasma albumin nova urement (mass/volume)Ordered By: Nick Mercedes 10-02-2022 Albumin [Mass/Vol] 3.3 g/dL 3.2-5.0 [facility] Serum or plasma albumin/glob ulin mass ratioOrdered By: Nick Mercedes 10-02-2022 Albumin/Globulin [Mass ratio] 0.8 {ratio} 0.9-2.4 [facility] Serum or plasma calcium nova urement (mass/volume)Ordered By: Nick Mercedes 10-02-2022 Calcium [Mass/Vol] 8.6 mg/dL 8.5-10.1 [facility] Serum or plasma creatinine m easurement (mass/volume)Ordered By: Nick Mercedes 10-02-2022 Creatinine [Mass/Vol] 0.83 mg/dL 0.70-1.30 [facility] Comment on above: The validity of the calculated GFR & GFRAA in patients over 70 years has not been determined. Clinical correlation is essential. Serum or plasma urea nitroge n measurement (mass/volume)Ordered By: Nick Mercedes 10-02-2022 Urea nitrogen [Mass/Vol] 16 mg/dL 7-18 [facility] Thin prep Papanicolaou smear with manual screeningOrdered By: Nick Mercedes 10-02-2022 Thin prep Papanicolaou smear with manual screening 21 U/L 15-37 [facility] Thin prep Papanicolaou smear with manual screening 6 5-15 [facility] Absolute lymphocyte countOrd ered By: Dr. Mercedes on 03-27-2022 Lymphocytes Auto (Unsp spec) [#/Vol] 1.25 10*3/uL 0.83-4.51 [facility] Basophil percentageOrdered B y: Dr. Mercedes on 03-27-2022 Basophils/100 WBC (Bld) 0.5 % 0-1 [facility] Bilirubin [Mass/Vol] 0.60 mg/dL 0.20-1.00 [facility] Comment on above: For patients on eltr ombopag therapy, use of Dimension [place] TBIL is not recommended. Chloride [Moles/Vol] 104 mmol/L 98-107 [facility] Eosinophils/100 WBC (Bld) 3.4 % 0-5 [facility] Glucose [Mass/Vol] 137 mg/dL 74-106 [facility] Comment on above: Fasting Glucose resu lt greater than or equal to 126 mg/dL suggests DIABETES MELLITUS per A.D.A. criteria. Neutrophils (Bld) [#/Vol] 2.3 10*3/uL 2.0-7.7 [facility] Neutrophils/100 WBC (Bld) 51.4 % 47-70 [facility] Potassium [Moles/Vol] 4.0 mmol/L 3.5-5.1 [facility] Protein [Mass/Vol] 7.6 g/dL 6.4-8.2 [facility] Sodium [Moles/Vol] 136 mmol/L 136-145 [facility] WBC (Bld) [#/Vol] 4.4 10*3/uL 4.4-11.0 [facility] Blood erythrocytes count (nu mber/volume)Ordered By: Dr. Mercedes on 03-27-2022 RBC (Bld) [#/Vol] 4.63 10*6/uL 4.6-6.2 [facility] Blood hemoglobin measurement (mass/volume)Ordered By: Dr. Mercedes on 03-27-2022 Hemoglobin (Bld) [Mass/Vol] 13.2 g/dL 13.0-16.5 [facility] Blood lymphocytes/100 leukoc ytesOrdered By: Dr. Mercedes on 03-27-2022 Lymphocytes/100 WBC (Bld) 28.5 % 19-41 [facility] Blood monocytes/100 leukocyt esOrdered By: Dr. Mercedes on 03-27-2022 Monocytes/100 WBC (Bld) 16.0 % 0-10 [facility] Blood platelet mean volumeOr dered By: Dr. Mercedes on 03-27-2022 Platelet mean volume (Bld) [Entitic vol] 10.7 fL 6.2-12.0 [facility] Determination of erythrocyte mean corpuscular volume (MCV)Ordered By: Dr. Mercedes on 03-27-2022 MCV (RBC) [Entitic vol] 91.1 fL 80-94 [facility] Hematocrit Auto (Bld) [Volum e fraction]Ordered By: Dr. Mercedes on 03-27-2022 Hematocrit (Bld) [Volume fraction] 42.2 % 40-54 [facility] Laboratory - Chemistry and C hemistry - challengeOrdered By: Dr. Mercedes on 03-27-2022 ALP [Catalytic activity/Vol] 74 U/L 45-117 [facility] ALT [Catalytic activity/Vol] 28 U/L 16-61 [facility] CO2 [Moles/Vol] 27.0 mmol/L 21.0-32.0 [facility] Globulin (S) [Mass/Vol] 3.9 g/dL 2.2-4.2 [facility] Urea nitrogen/Creatinine [Mass ratio] 18.4 mg/mg 10-20 [facility] Laboratory - Hematology and Cell countsOrdered By: Dr. Mercedes on 03-27-2022 Erythrocyte distribution width (RBC) [Entitic vol] 46.7 fL 35.1-43.9 [facility] Erythrocyte distribution width (RBC) [Ratio] 13.9 % 11.6-14.6 [facility] Immature granulocytes/100 WBC (Bld) 0.200 % 0.0-0.9 [facility] Comment on above: IG% - Immature Granu locytes (promyelocytes, myelocytes and metamyelocytes) > 1% indicates that a LEFT SHIFT is Present. MCH (RBC) [Entitic mass] 28.5 pg 27.0-32.0 [facility] Nucleated RBC/100 [facility] (Bld) [[facility]] 0 [facility] [Mass/Vol]Or dered By: Dr. Mercedes on 03-27-2022 MCHC (RBC) [Mass/Vol] 31.3 g/dL 32-36 [facility] No Panel InformationOrdered By: Dr. Mercedes on 03-27-2022 Estimated GFR (MDRD) Amer 103 mL/min >60 [facility] Comment on above: GFR Calc Estimated GFR (MDRD) Non-Af Amer 85 mL/min >60 [facility] Comment on above: Non- GFR Calc Thyroid Stimulating Hormone (TSH) 2.08 uIU/mL 0.358-3.74 [facility] Vitamin D 25-Hydroxy 21.3 ng/mL [facility] Comment on above: Vitamin D 25(OH) Sta tus Range Deficiency <20 ng/mL (50nmol/L) Insufficiency 20 - 30 ng/mL (50 - 75 nmol/L) Sufficiency 30 - 100 ng/mL (75 - 250 nmol/L) Toxicity >100 ng/mL (>250 nmol/L) Platelets bldOrdered By: Dr. Mercedes on 03-27-2022 Platelets (Bld) [#/Vol] 222 10*3/uL 150-450 [facility] Serum or plasma albumin nova urement (mass/volume)Ordered By: Dr. Mercedes on 03-27-2022 Albumin [Mass/Vol] 3.7 g/dL 3.2-5.0 [facility] Serum or plasma albumin/glob ulin mass ratioOrdered By: Dr. Mercedes on 03-27-2022 Albumin/Globulin [Mass ratio] 0.9 {ratio} 0.9-2.4 [facility] Serum or plasma calcium nova urement (mass/volume)Ordered By: Dr. Mercedes on 03-27-2022 Calcium [Mass/Vol] 8.8 mg/dL 8.5-10.1 [facility] Serum or plasma creatinine m easurement (mass/volume)Ordered By: Dr. Mercedes on 03-27-2022 Creatinine [Mass/Vol] 0.92 mg/dL 0.70-1.30 [facility] Comment on above: The validity of the calculated GFR & GFRAA in patients over 70 years has not been determined. Clinical correlation is essential. Serum or plasma urea nitroge n measurement (mass/volume)Ordered By: Dr. Mercedes on 03-27-2022 Urea nitrogen [Mass/Vol] 17 mg/dL 7-18 [facility] Thin prep Papanicolaou smear with manual screeningOrdered By: Dr. Mercedes on 03-27-2022 Thin prep Papanicolaou smear with manual screening 23 U/L 15-37 [facility] Thin prep Papanicolaou smear with manual screening 5 5-15 [facility] Absolute lymphocyte counton 11-22-2021 Lymphocytes Auto (Unsp spec) [#/Vol] 0.94 10*3/uL 0.83-4.51 [facility] Work Phone: Basophil percentageon 2021 Basophils/100 WBC (Bld) 0.6 % 0-1 [facility] Work Phone: [phone] Eosinophils/100 WBC (Bld) 0.4 % 0-5 [facility] Work Phone: Neutrophils (Bld) [#/Vol] 3.6 10*3/uL 2.0-7.7 [facility] Work Phone: Neutrophils/100 WBC (Bld) 69.7 % 47-70 [facility] Work Phone: [phone] WBC (Bld) [#/Vol] 5.1 10*3/uL 4.4-11.0 [facility] Work Phone: Blood erythrocytes count (nu mber/volume)on 11-22-2021 RBC (Bld) [#/Vol] 4.52 10*6/uL 4.6-6.2 [facility] Work Phone: Blood hemoglobin measurement (mass/volume)on 11-22-2021 Hemoglobin (Bld) [Mass/Vol] 13.3 g/dL 13.0-16.5 [facility] Work Phone: Blood lymphocytes/100 leukoc yteson 11-22-2021 Lymphocytes/100 WBC (Bld) 18.4 % 19-41 [facility] Work Phone: Blood monocytes/100 leukocyt eson 11-22-2021 Monocytes/100 WBC (Bld) 10.7 % 0-10 [facility] Work Phone: Blood platelet mean volumeon 11-22-2021 Platelet mean volume (Bld) [Entitic vol] 9.7 fL 6.2-12.0 [facility] Work Phone: Determination of erythrocyte mean corpuscular volume (MCV)on 11-22-2021 MCV (RBC) [Entitic vol] 89.4 fL 80-94 [facility] Work Phone: Hematocrit Auto (Bld) [Volum e fraction]on 11-22-2021 Hematocrit (Bld) [Volume fraction] 40.4 % 40-54 [facility] Work Phone: Laboratory - Hematology and Cell countson 11-22-2021 Erythrocyte distribution width (RBC) [Entitic vol] 47.1 fL 35.1-43.9 [facility] Work Phone: Erythrocyte distribution width (RBC) [Ratio] 14.6 % 11.6-14.6 [facility] Work Phone: Immature granulocytes/100 WBC (Bld) 0.200 % 0.0-0.9 [facility] Work Phone: Comment on above: IG% - Immature Granu locytes (promyelocytes, myelocytes and metamyelocytes) > 1% indicates that a LEFT SHIFT is Present. MCH (RBC) [Entitic mass] 29.4 pg 27.0-32.0 [facility] Work Phone: Nucleated RBC/100 WBC (Bld) [Ratio] 0 % 0-5 [facility] Work Phone: MCHC Auto (RBC) [Mass/Vol]on 11-22-2021 MCHC (RBC) [Mass/Vol] 32.9 g/dL 32-36 [facility] Work Phone: No Panel Informationon 11-22 Troponin I High Sensitivity 5 pg/mL 3.0-78.0 [facility] Work Phone: Comment on above: Please Note: New [place] t Units and Gender Specific Reference Ranges. For more information see Policy Stat Procedure [place] High Sensitivity Troponin (TNIH) and attachments. Platelets bldon 11-22-2021 Platelets (Bld) [#/Vol] 231 10*3/uL 150-450 [facility] Work Phone: [phone] Absolute lymphocyte counton 09-05-2021 Lymphocytes Auto (Unsp spec) [#/Vol] 1.09 10*3/uL 0.83-4.51 [facility] Work Phone: [phone] Basophil percentageon 2021 Basophils/100 WBC (Bld) 1.2 % 0-1 [facility] Work Phone: Bilirubin [Mass/Vol] 0.30 mg/dL 0.20-1.00 [facility] Work Phone: [phone] Comment on above: For patients on eltr ombopag therapy, use of Dimension [place] TBIL is not recommended. Chloride [Moles/Vol] 106 mmol/L 98-107 [facility] Work Phone: [phone] Eosinophils/100 WBC (Bld) 3.1 % 0-5 [facility] Work Phone: Glucose [Mass/Vol] 93 mg/dL 74-106 [facility] Work Phone: [phone] Neutrophils (Bld) [#/Vol] 2.3 10*3/uL 2.0-7.7 [facility] Work Phone: [phone] Neutrophils/100 WBC (Bld) 55.4 % 47-70 [facility] Work Phone: [phone] Potassium [Moles/Vol] 4.4 mmol/L 3.5-5.1 [facility] Work Phone: Protein [Mass/Vol] 7.0 g/dL 6.4-8.2 [facility] Work Phone: Sodium [Moles/Vol] 137 mmol/L 136-145 [facility] Work Phone: WBC (Bld) [#/Vol] 4.1 10*3/uL 4.4-11.0 [facility] Work Phone: Blood erythrocytes count (nu mber/volume)on 09-05-2021 RBC (Bld) [#/Vol] 4.18 10*6/uL 4.6-6.2 [facility] Blood hemoglobin measurement (mass/volume)on 09-05-2021 Hemoglobin (Bld) [Mass/Vol] 12.2 g/dL 13.0-16.5 [facility] Work Phone: Blood lymphocytes/100 leukoc yteson 09-05-2021 Lymphocytes/100 WBC (Bld) 26.3 % 19-41 [facility] Work Phone: [phone] Blood monocytes/100 leukocyt eson 09-05-2021 Monocytes/100 WBC (Bld) 13.8 % 0-10 [facility] Work Phone: Blood platelet mean volumeon 09-05-2021 Platelet mean volume (Bld) [Entitic vol] 10.5 fL 6.2-12.0 [facility] Work Phone: Determination of erythrocyte mean corpuscular volume (MCV)on 09-05-2021 MCV (RBC) [Entitic vol] 89.0 fL 80-94 [facility] Work Phone: Hematocrit Auto (Bld) [Volum e fraction]on 09-05-2021 Hematocrit (Bld) [Volume fraction] 37.2 % 40-54 [facility] Work Phone: Laboratory - Chemistry and C hemistry - challengeon 09-05-2021 ALP [Catalytic activity/Vol] 77 U/L 45-117 [facility] Work Phone: ALT [Catalytic activity/Vol] 28 U/L 16-61 [facility] Work Phone: CO2 [Moles/Vol] 26.0 mmol/L 21.0-32.0 [facility] Work Phone: Globulin (S) [Mass/Vol] 3.6 g/dL 2.2-4.2 [facility] Work Phone: Urea nitrogen/Creatinine [Mass ratio] 20.0 mg/mg 10-20 [facility] Work Phone: Laboratory - Hematology and Cell countson 09-05-2021 Erythrocyte distribution width (RBC) [Entitic vol] 45.1 fL 35.1-43.9 [facility] Work Phone: Erythrocyte distribution width (RBC) [Ratio] 13.7 % 11.6-14.6 [facility] Work Phone: Immature granulocytes/100 WBC (Bld) 0.200 % 0.0-0.9 [facility] Work Phone: Comment on above: IG% - Immature Granu locytes (promyelocytes, myelocytes and metamyelocytes) > 1% indicates that a LEFT SHIFT is Present. MCH (RBC) [Entitic mass] 29.2 pg 27.0-32.0 [facility] Work Phone: Nucleated RBC/100 WBC (Bld) [Ratio] 0 % 0-5 [facility] Work Phone: MCHC Auto (RBC) [Mass/Vol]on 09-05-2021 MCHC (RBC) [Mass/Vol] 32.8 g/dL 32-[facility] No Panel Informationon 09-05 Estimated GFR (MDRD) Amer 131 mL/min >60 [facility] Work Phone: Comment on above: GFR Calc Estimated GFR (MDRD) Non-Af Amer 108 mL/min >60 [facility] Work Phone: Comment on above: Non- GFR Calc Thyroid Stimulating Hormone (TSH) 1.56 uIU/mL 0.358-3.74 [facility] Work Phone: Vitamin D 25-Hydroxy 21.8 ng/mL [facility] Work Phone: Comment on above: Vitamin D 25(OH) Sta tus Range Deficiency <20 ng/mL (50nmol/L) Insufficiency 20 - 30 ng/mL (50 - 75 nmol/L) Sufficiency 30 - 100 ng/mL (75 - 250 nmol/L) Toxicity >100 ng/mL (>250 nmol/L) Platelets bldon 09-05-2021 Platelets (Bld) [#/Vol] 204 10*3/uL 150-450 [facility] Work Phone: Serum or plasma albumin nova urement (mass/volume)on 09-05-2021 Albumin [Mass/Vol] 3.4 g/dL 3.2-5.0 [facility] Work Phone: Serum or plasma albumin/glob ulin mass ratioon 09-05-2021 Albumin/Globulin [Mass ratio] 0.9 {ratio} 0.9-2.4 [facility] Work Phone: Serum or plasma calcium nova urement (mass/volume)on 09-05-2021 Calcium [Mass/Vol] 8.5 mg/dL 8.5-10.1 [facility] Work Phone: Serum or plasma creatinine m easurement (mass/volume)on 09-05-2021 Creatinine [Mass/Vol] 0.75 mg/dL 0.70-1.30 [facility] Work Phone: Comment on above: The validity of the calculated GFR & GFRAA in patients over 70 years has not been determined. Clinical correlation is essential. Serum or plasma urea nitroge n measurement (mass/volume)on 09-05-2021 Urea nitrogen [Mass/Vol] 15 mg/dL 7-18 [facility] Work Phone: Thin prep Papanicolaou smear with manual screeningon 09-05-2021 Thin prep Papanicolaou smear with manual screening 25 U/L 15-37 [facility] Work Phone: Thin prep Papanicolaou smear with manual screening 5 5-15 [facility] Work Phone: Clinical Summary: Cb walker 05-09-2021 77 OP Visit Invalid Interpretation Code [facility] Work Phone: Office Visit: Postop - subse quent visit, Rm: 30on 05-09-2021 NEGATED: Highlighted rowMRI (magnetic resonance imaging) history of the lumbar spine on 05/06/2021 at [facility] Invalid Interpretation Code [facility] Work Phone: NEGATED: Highlighted rowxray history of the lumbosacral spine on 04/11/2021 at [facility] Invalid Interpretation Code [facility] Work Phone: CNOVon 11-02-2020 CNOV Office Visit (HIRAMAGAK ) DEVAUGHNTONEY ([id number]) 1945 M Date Time Provider Department 11/02/20 9:45 AM DOLLY DEL REAL During your visit today, we recorded the following information about you: Temperature Pulse Blood pressure Weight 98 degrees 81/minute 158/91 57.6 kg Height 1.651 m Dolly Del Real MD 11/02/2020 10:34 AM Signed NEUROSURGERY CONSULT NOTE Dolly Del Real MD Date of visit: November 02, 2020 Patient Name: Mr.Thomas Odell Devaughn Date of : 1945 Current Age: [age] year old Sex: male MRN/E# [id number] Chief Complaint: Patient presents with: New Patient [...] Duration Units: Months Frequency: Continuous Intervention/Comfort measure: Reposition;Positionin g PAST MEDICAL HISTORY Diagnosis Date - Chronic [...] Laterality Date - COLONOSCOP W/ [facility] W/O [facility] SPE[facility] 08-01-04 Repeat in - COLONOSCOP W/ OR W/O [facility] SPEC 10/30/2014 Colonoscopy - EGD 2007 - 2010 x2 - REPAIR OF NASAL SEPTUM [...] and numbness. Hematological: Does not bruise/bleed easily. Psychiatric/Behaviora l: Negative for agitation. The patient is not nervous/anxious. OBJECTIVE: BP 158/91 Pulse 81 Temp 98 Ht 5' 5" (1.65m) Wt 127 lb (57.6kg) SpO2 98% BMI 21.13 kg/(m2). PHYSICAL EXAM: Physical Exam HENT: Head: Normocephalic and atraumatic. Right Ear: External ear normal. Left Ear: External ear normal. Eyes: Conjunctiva/sclera: Conjunctivae normal. Pulmonary: Effort: Pulmonary effort is normal. Musculoskeletal: General: Normal range of motion (more content not included)... Normal [facility] MR-Spine Lumbar (Routine) IM PORTon 07-31-2020 MR-Spine Lumbar (Routine) IMPORT Images were obtained outside of [facility] [id number] Normal [facility] [facility] FLOW CYTOMETRY TESTon 2019 FLOW TEST ORDERED CUTANEOUS PANEL Normal [facility] Comment on above: Performed By: #### F CTST #### [facility] [address] [place] [address] SURF MARKERS >15,PATH REVon 09-13-2019 PATH REV. >15 MARKERS KIP Normal [facility] Comment on above: Result Comment: By h er/his signature above, the Pathologist listed as making the final interpretation certifies that she/he has personally reviewed this case. Performed By: #### P R194 #### [facility] [address] [place] [address] SURFACE MARKERS CUTANEOUS PA NELon 09-13-2019 CD19 26 % of Lymph Normal [facility] Comment on above: Result Comment: Poly clonal [place]/Lambda= 67:24 (suboptimal recovery in the stained sample) Performed By: #### C UPAN #### [facility] [address] [place] [address] CD4 45 % of Lymph Normal [facility] Comment on above: Result Comment: No e vidence of clonality by TRBC1 staining. Performed By: #### C UPAN #### [facility] [address] [place] [address] CD8 27 % of Lymph Normal [facility] Comment on above: Result Comment: Slig htly skewed TRBC1 staining (85:15) however no other abnormality noted. Performed By: #### C UPAN #### [facility] [address] [place] [address] DIAGNOSIS SEE BELOW Normal [facility] Comment on above: Result Comment: No d efinitive immunophenotypic evidence of non-Hodgkin lymphoma. Performed By: #### C UPAN #### [facility] [address] [place] [address] NOTE SEE BELOW Normal [facility] Comment on above: Result Comment: Clin ical and morphologic correlation is suggested. Performed By: #### C UPAN #### [facility] [address] [place] [address] Lymphocytes/100 WBC (Bld) 8 % Normal [facility] Comment on above: Performed By: #### C UPAN #### [facility] [address] [place] [address] NK 0 % of Lymph Normal [facility] Comment on above: Performed By: #### C UPAN #### [facility] [address] [place] [address] NUMBER OF CELLS COLLECTED 3,900 - 9,000 Normal [facility] Comment on above: Performed By: #### C UPAN #### [facility] [address] [place] [address] CELL COUNT 0.46 x10E9/L Normal [facility] Comment on above: Performed By: #### C UPAN #### [facility] [address] [place] [address] SPECIMEN SITE Skin Biopsy Normal [facility] Comment on above: Performed By: #### C UPAN #### [facility] [address] [place] [address] Dermatopathologyon 0 Dermatopathology [facility] Dermatopathology Laboratory [address] [place] [id number] DERMATOPATHOLOGY REPORT Name:TONEY CANTOR [facility]. Rec #. [id number] Location: [facility] Date of Procedure: 09/12/2019 Race: PT DECLINED Date Received: 09/13/2019 /Sex: 1945 (Age: 74) / M Date Reported: 09/14/2019 Other: Submitting Physician:TAMIKA OVALLE MD FINAL DIAGNOSIS SKIN, LEFT POSTERIOR SHOULDER, EXCISION: FIBROSIS WITH A FOCAL LYMPHOHISTIOCYTIC AND NEUTROPHILIC INFILTRATE, INKED MARGINS FREE IN PLANES OF SECTIONS EXAMINED, SEE NOTE. Note: Microscopic examination reveals a specimen that extends into the subcutaneous fat. An area with horizontally oriented collagen and vertically oriented vessels is present. Underlying the area of fibrosis there is a focal nodular infiltrate of lymphocytes, histiocytes and neutrophils with an occasional to rare plasma cell and eosinophil. There is a separate even smaller collection of lymphocytes that are small around a blood vessel. Some of the inflammation appears secondary to the previous procedure although there is a very small focus that could represent residual atypical lymphocytic infiltrate. It is too small to further characterize. Electronically Signed Out by SYBIL WHITAKER M.D. Electronically Signed Out By SYBIL WHITAKER MD/ALICE By the signature on this report, the individual or group listed as making the Final Interpretation/Diagno sis certifies that they have reviewed this case. Clinical History: [id number] (C). Atypical lymphocytic infiltrate. A piece was taken from center of specimen for flow. Excision. Specimens Submitted As: A: SKIN, LEFT POSTERIOR SHOULDER Gross Description: Received in formalin is one escobedo-brown piece of skin measuring 35 x 15 x 5 mm. The specimen is inked and embedded in toto in four blocks. The tips are in Block 1. mlz/09/13/2019 Normal [facility] Comment on above: Performed By: #### D #### Dermatopathology FLOW CYTOMETRY TESTon 2019 SOURCE SKIN Normal [facility] Comment on above: Performed By: #### F CTST #### [facility] [address] [place] [address] SURFACE MARKERS CUTANEOUS PA NELon 09-12-2019 METHOD SEE BELOW Normal [facility] Comment on above: Result Comment: This test is a multicolor, whole blood lysis assay. It was developed and its performance characteristics determined by the Department of Pathology, [facility], and has not been cleared or approved by the U.S. Food and Drug Administration. The laboratory is regulated under CLIA as qualified to perform high complexity testing. This test is used for clinical purposes. It should not be regarded as investigational or for research. Immunophenotypic analysis was performed using the following antibodies: CD45, HLADR, CD30, CD4, CD14, CD3, CD56, CD7, CD8, CD2, CD26, CD5, TCR alpha/beta, TCR gamma/delta, CD10, CD45RA, CD25, CD45RO, [place], Lambda, CD20, CD38, CD19. Performed By: #### C UPAN #### [facility] [address] [place] [address] SPECIMEN VIABILITY Acceptable Normal [facility] Comment on above: Performed By: #### C UPAN #### [facility] [address] [place] [address] Dermatopathologyon 0 Dermatopathology 4 Pathologist: SYBIL WHITAKER MD Date of Procedure: 07/20/2019 Date Received: 07/21/2019 Date Reported 07/29/2019 Submitting Physician: SANTI MARTIN MD Location: ADE Copy To/Referring/Attendin g: HERIBERTO JUARES DO FINAL DIAGNOSIS A. SKIN, R UPPER CHEST, PUNCH BIOPSY: FOCAL PAPILLARY DERMAL EDEMA WITH A VERY MILD SUPERFICIAL LYMPHOCYTIC INFILTRATE, SEE NOTE. Note: Microscopic examination reveals a specimen that extends into the deep reticular dermis. The epidermis is flattened in areas and there is focal papillary dermal fibrosis with a mild interstitial and perivascular lymphocytic infiltrate of small lymphocytes. Multiple step sections were performed. These findings are not specific. Chronic superficial dermatitis and a partially treated cutaneous T-cell lymphoma, mycosis fungoides type, cannot be excluded. B. SKIN, R ANTERIOR PROXIMAL ARM, PUNCH BIOPSY: MINIMAL SUPERFICIAL PERIVASCULAR LYMPHOCYTIC INFILTRATE WITH ERYTHROCYTE EXTRAVASATION, SEE NOTE. Note: Microscopic examination reveals a specimen that extends into the deep reticular dermis. There is very mild acanthosis and there is a minimal superficial perivascular lymphocytic infiltrate with erythrocyte extravasation with occasional neutrophils. The erythrocyte extravasation appears to be secondary to the biopsy. Ecchymosis is less likely. The findings of cutaneous T-cell lymphoma are not present. C. SKIN, L POSTERIOR SHOULDER, PUNCH BIOPSY: ATYPICAL LYMPHOCYTIC INFILTRATE, SEE NOTE. Note: Microscopic examination reveals a specimen that extends into the superficial subcutaneous fat. There is a superficial and mid nodular infiltrate of lymphocytes. Approximately sixty-five percent of the lymphocytes stain with antibodies against CD79a with fewer cells staining with antibodies against CD20. Approximately thirty-five percent of the cells stain with antibodies against CD3 and CD7. The CD79a cells are more centrally located. The ratio of CD4 to CD8 in the dermis is approximately 2:1. There is no significant staining with antibodies against CD30, CD56 or TCR Delta. There are collections of bcl-6 positive cells which favor B lymphocytes. The majority of the cells stain with antibodies against bcl-2. A PD-1 stain reveals one focal area of collections of more densely packed PD-1 cells with a moderate number of PD-1 cells in the periphery. There is a hair shaft with a foreign body giant cell infiltrate adjacent to the inflammation. All control slides stain appropriately. A germinal center is seen on the bcl-6 stain. The small collections of bcl-6 cells are small. The differential includes cutaneous lymphoid hyperplasia, a primary cutaneous follicle center B-cell lymphoma and a primary cutaneous small to medium pleomorphic T-cell lymphoproliferative disorder. While cutaneous lymphoid hyperplasia is favored, a low grade B-cell lymphoma and T-cell lymphoproliferative disorder cannot be excluded. Further biopsies including biopsies for flow cytometry may be helpful. Electronically Signed Out by SYBIL WHITAKER M.D. Note One or more of the reagents used to perform assays on this specimen MAY have contained components considered to be analyte specific reagents (ASR's). ASR's have not been cleared or approved by the U.S. Food and Drug Administration. These assays were developed and their performance characteristics determined by the Department of Pathology at [facility]. The FDA does not require this test to go through premarket FDA review. This test is used for clinical purposes. It should not be regarded as investigational or for research. This laboratory is certified under the Clinical Laboratory Improvement Amendments (CLIA) as qualified to perform high complexity clinical laboratory testing. The assays were performed with appropriate positive and negative controls which stained appropriately. Electronically Signed Out By SYBIL WHITAKER MD/[facility] Clinical History: A: [place] dermal nodule, R/O CTCL. Punch Biopsy. B: [place] plaque, CTCL vs. spongiotic derm. Punch Biopsy. C: [place] papule, CTCL vs. [place]'s vs. folliculitis. Punch Biopsy. ([facility]). Specimens Submitted As: A: SKIN, R UPPER CHEST B: SKIN, R ANTERIOR PROXIMAL ARM C: SKIN, L POSTERIOR SHOULDER Gross Description: A: Received in formalin is a escobedo-brown, cylindrical piece of skin measuring [id number]. The specimen is inked and embedded in toto. B: Received in formalin is a escobedo-brown, cylindrical piece of skin measuring [id number]. The specimen is inked and embedded in toto. C: Received in formalin is a [place]edo, cylindrical piece of skin measuring [id number]. The specimen is inked and embedded in toto. dcp/07/21/2019 Normal [facility] Comment on above: Performed By: #### D #### Dermatopathology Vital Signs Date Time Vital Sign Value Performing Clinician Facility 08-04-2024 09:33-0400 Body height 165.[address] Nick Mercedes MD Work Phone: [facility] 08-04-2024 09:33-0400 Body mass index (BMI) [Ratio] 21.8 kg/m2 Dr. Nick Mercedes MD Work Phone: [facility] 08-04-2024 09:33-0400 Body weight 59.[address] Nick Mercedes MD Work Phone: [facility] 11-22-2021 15:52-0400 Diastolic blood pressure 81 mm[Hg] [facility] Work Phone: 11-22-2021 15:52-0400 Heart rate 70 /min [facility] Work Phone: 11-22-2021 15:52-0400 Systolic blood pressure 137 mm[Hg] [facility] Work Phone: 11-22-2021 14:40-0400 Respiratory rate 12 /min [facility] Work Phone: 11-22-2021 14:40-0400 SaO2% (BldA) [Mass fraction] 100 % [facility] Work Phone: 11-22-2021 13:25-0400 Body height 165.1 cm [facility] Work Phone: 11-22-2021 13:25-0400 Body mass index (BMI) [Ratio] 21.2 kg/m2 [facility] Work Phone: 11-22-2021 13:25-0400 Body temperature 98.2 [degF] [facility] Work Phone: 11-22-2021 13:25-0400 Body weight 58.05 kg [facility] Work Phone: 1945 23:00-0500 >na< Santi Martin Dept. of Dermatology NEGATED: Highlighted [id number] 15:16-0500 Body height 165.1 cm Iqra Hein AT [facility] Work Phone: NEGATED: Highlighted [id number] 15:16-0500 Body height 165 cm Iqra Duecker AT [facility] Work Phone: NEGATED: Highlighted [id number] 15:16-0500 Body mass index (BMI) [Ratio] 22.55 kg/m2 Iqra Duecker AT [facility] Work Phone: NEGATED: Highlighted [id number] 15:16-0500 Body temperature 97.7 [degF] Iqra Duecker AT [facility] Work Phone: NEGATED: Highlighted [id number] 15:16-0500 Body weight 61.24 kg Iqra Duecker AT [facility] Work Phone: NEGATED: Highlighted [id number] 15:16-0500 Body weight 61 kg Iqra Duecker AT [facility] Work Phone: Encounters Encounter Date Encounter Type Care Provider Facility Start: 08-18-2024 End: 08-18-[address] Nick Mercedes MD Work Phone: [facility] Work Phone: Start: 08-18-2024 End: 08-18-[address] Nick Mercedes MD -Laboratory Work Phone: Start: 08-18-2024 End: 08-18-2024 ambulatory Nick Mercedes Facility:[facility] Start: 08-04-2024 End: 08-04-[address] Jona Billings MD -[facility] Start: 08-04-2024 End: 08-04-[address] Nick Mercedes MD Work Phone: [facility] Work Phone: Start: 07-27-2024 End: 07-27-[address] Nick Mercedes MD Work Phone: [facility] Work Phone: Start: 07-27-2024 End: 07-27-[address] Nick [facility] Work Phone: Start: 07-27-2024 End: 07-27-2024 ambulatory Nick Chi Daren Facility:[facility] Start: 05-19-2024 ambulatory Nick Chi Daren Facility:[facility] Start: 05-19-[address] Nick villagran MD -Physical Therapy Work Phone: Start: 05-03-2024 End: 05-03-[address] Ajit Worthy MD -Laboratory Work Phone: Start: 05-03-2024 End: 05-03-2024 ambulatory Ajit Worthy Facility:[facility] Start: 04-12-2024 End: 04-12-[address] Nick Mercedes MD -Laboratory, Phy Office 3rd Flr Start: 04-12-2024 End: 04-12-2024 ambulatory Nick Chi Daren Facility:[facility] Start: 02-28-2024 End: 02-28-2024 ambulatory Rxe Enoc Satnam HITCHCOCK Facility:[facility] Start: 10-08-2023 End: 10-08-2023 ambulatory Nick Chi Daren Facility:[facility] Start: 06-09-2023 End: 06-09-[address] [facility] Work Phone: Start: 06-09-2023 End: 06-09-[address] [facility] Services/Neurology Work Phone: Start: 05-08-2023 End: 05-08-[address] [facility] Work Phone: Start: 05-08-2023 End: 05-08-[address] [facility]Neurology Work Phone: Start: 04-30-2023 End: 04-30-[address] [facility] Work Phone: Start: 04-30-2023 End: 04-30-[address] [facility]-Laboratory Work Phone: Start: 04-09-2023 End: 04-09-[address] [facility] Work Phone: Start: 04-09-2023 End: 04-09-[address] [facility]-Laboratory, Phy Office 3rd Flr Start: 03-04-2023 End: 03-04-[address] [facility] Work Phone: Start: 03-04-2023 End: 03-04-[address] [facility]Pulmonary Services/Neurology Work Phone: Start: 10-02-2022 End: 10-02-[address] [facility] Work Phone: Start: 10-02-2022 End: 10-02-[address] [facility]-Laboratory, Phy Office 3rd Flr Start: 03-27-2022 End: 03-27-[address] [facility] Work Phone: Start: 03-27-2022 End: 03-27-2022 [facility] Start: 11-22-2021 End: 11-22-2021 Emergency department patient visit [facility]Emergency Department Start: 09-12-2021 End: 09-12-[address] [facility]-Radiology, [facility] Start: 09-05-2021 End: 09-05-[address] [facility]-Laboratory, Phy Office 3rd Flr Start: 05-13-2021 Registered Recurring [facility]Physical Therapy Start: 12-18-2020 Office outpatient vi sit 15 minutes Santi Martin Dept. of Dermatology Start: 07-20-2019 Office outpatient vi sit 15 minutes Santi Martin Dept. of Dermatology Start: 07-12-2019 Office outpatient vi sit 15 minutes Santi Martin Dept. of Dermatology Start: 03-30-2018 Office outpatient vi sit 15 minutes Santi Martin Dept. of Dermatology Start: 08-26-2016 Office outpatient vi sit 15 minutes Santi Martin Dept. of Dermatology Start: 07-05-2014 Office outpatient vi sit 15 minutes Santi Martin Dept. of Dermatology Start: 07-05-2014 Office outpatient vi sit 25 minutes [facility] Procedures Date Procedure Procedure Detail Performing Clinician Start: 08-04-2024 X-ray of cervical spine Dr. Nick Mercedes MD Work Phone: Start: 07-27-2024 MRI of cervical spine Panchito Mercedes MD Work Phone: Start: 05-03-2024 Assay of prostate sp ecific antigen total Dr. Nick Mercedes MD Work Phone: Comment on above: This test was perfor med using the TPSA assay method for [employer] chemistry system. Values obtained with differentassay methods cannot be used interchangably.When changing PSA assays in the course of monitoring apatient, additional sequential testing should be carriedout to confirm baseline values. Start: 04-12-2024 X-ray of cervical spine Dr. Nick Mercedes MD Work Phone: Start: 04-12-2024 Measurement of renal function Dr. Nick Mercedes MD Work Phone: Comment on above: GFR Calc Start: 04-12-2024 Vitamin D, 25-hydrox y measurement Dr. Nick Mercedes MD Work Phone: Comment on above: Vitamin D 25(OH) Sta tus Range Deficiency <20 ng/mL (50nmol/L) Insufficiency 20 - 30 ng/mL (50 - 75 nmol/L) Sufficiency 30 - 100 ng/mL (75 - 250 nmol/L) Toxicity >100 ng/mL (>250 nmol/L) Start: 06-09-2023 SARS-CoV-2, Influenz a & RSV (PCR) Start: 05-08-2023 SARS-CoV-2, Influenz a & RSV (PCR) Start: 03-04-2023 Coronavirus COVID-19 PCR Start: 03-04-2023 Influenza Types A,B Direct FA (TERA) Start: 03-04-2023 Respiratory syncytia l virus antigen assay Start: 09-12-2021 X-ray of chest posteroanterior view Start: 05-09-2021 End: 05-09-2021 BP scrn no perf at interval Darlene Ruiz [employer] Work Phone: Start: 05-09-2021 End: 05-09-2021 Calc BMI norm parameters Darlene Key ick [employer] Work Phone: Start: 05-09-2021 End: 05-09-2021 Current tobacco non-user cad cap copd pv dm Darlene Ruiz [employer] Work Phone: Start: 05-09-2021 End: 05-09-2021 Docrev cur meds by vidya Ruiz [employer] Work Phone: Start: 05-09-2021 End: 05-09-2021 Pain neg no plan Darlene Ruiz [employer] Work Phone: Start: 05-09-2021 End: 05-09-2021 Patient encounter procedure Darlene Ruiz [employer] Work Phone: Start: 12-18-2020 Destruction premalig nant lesion 1st Santi Martin Start: 12-18-2020 Established Office V isit Level 3 74710~GC~25 Santi Martin Start: 12-18-2020 Tangential biopsy sk in single lesion Santi Martin Start: 09-12-2019 Excision mal lesion trunk/arm/leg 1.1-2.0 cm Santi Martin Start: 07-20-2019 Punch biopsy skin si ngle lesion Santi Martin Start: 03-30-2018 Established Office V isit Level 4 Teofilo Cabral Start: 08-26-2016 Established Office V isit Level 3 Julianna Mata Start: 08-26-2016 Smr prim src wet wesley nt nfct agt Santi Martin Start: 07-05-2014 Bx skin subcutaneous&/mucous membrane 1 lesion Santi Martin NEGATED: Highlighted rowStart: 05-09-2021 End: 05-09-2021 Documentation of current medications Iqra Hein AT Plan of Treatment Date Care Activity Detail Author Start: 08-04-2024 X-ray of cervical spine Cerv Spine [address] [facility] Start: 08-04-2024 XR Cervical spine [address] [facility] Start: 09-12-2021 X-ray of chest posteroanterior view Ribs Uni Min 3V w/PA Chest [facility] Work Phone: Start: 09-12-2021 XR Ribs GE 3 Views [address] Chest PA [facility] Work Phone: Start: 05-09-2021 End: 05-09-2021 Patient encounter procedure Appointment [facility] Work Phone: Patient Education ED Chest Pain, Noncardiac ED Chest Pain, Uncertain Cause [facility] Work Phone: [facility] Work Phone: Immunizations Immunization Date Immunization Notes Care Provider Ezio murguia 1945 pneumococcal conjuga te vaccine, 7 valent Santi Martin Dept. of Dermatology Payers Date Payer Category Payer Private Health Insurance [id number] 2023 Self-pay [id number] 2012 Medicare [id number] Unknown VA AUTH REQUIR ED SEE NOTE [id number] Unknown [id number] Unknown [id number] Unknown [id number] .[id number] Unknown [id number] .[id number] Unknown [id number] .[id number] Unknown [id number] .[id number] Unknown [id number] .[id number] Unknown [id number] Social History Date Type Detail Facility Start: 10-03-2020 End: 11-22-2021 Dept. of Dermatology Start: 1945 Sex Assigned At Male [facility] Start: 06-22-2024 [facility] Goals Date Patient Goal Desired Activity /State Mental Status Date Assessment Result Facility 11-22-2021 Cognitive function Voice/Name [facility] Work Phone: Evaluation note 08-04-2024 Note Date & Type Note Facility 08-04-2024 Evaluation note Diagnosis Onset Date Resolution Cervical radiculopathy acute Ma 2024 9:24am Spondylolisthesis, cervical region acute August 04, 2024 9:24am [facility] Work Phone: Instructions 05-09-2021 Note Date & Type Note Facility 05-09-2021 Instructions Completed [facility] [place] [facility] Work Phone: Progress note 11-02-2020 Note Date & Type Note Facility 11-02-2020 Note HNO ID: [id number] Author: Dolly Del Real MD Service: ? Author Type: Physician Type: Progress Notes Filed: 11/02/2020 10:34 AM Note Text: NEUROSURGERY CONSULT NOTE Dolly Del Real MD Date of visit: November 02, 2020 Patient Name: Mr.Thomas Cass Cantor Date of : 1945 Current Age: [age] year old Sex: male MRN/E# [id number] Chief Complaint: Patient presents with: New Patient Evaluation HISTORY OF PRESENT ILLNESS : The patient is a 75 year old, right handed male without a significant past medical history, who presents for neurosurgical evaluation. Mr. Cnator presents to the office today as a [...] Laterality Date - COLONOSCOP W/ OR W/O BRS SPEC 08-01-04 Repeat in - COLONOSCOP W/ OR W/O BRSH SPEC 10/30/2014 Colonoscopy - EGD 2007 - [...] 158/91 Pulse 81 Temp 98 Ht 5' 5" (1.65m) Wt 127 lb (57.6kg) SpO2 98% [...] Mental Status Aler (more content not included)... [facility] Evaluation note Note Date & Type Note Facility Evaluation note N/A Dept. of Dermato logy Evaluation note Note Date & Type Note Facility Evaluation note There may be informa tion available, but it has not been provided by the sender. [facility] Work Phone: Evaluation note Note Date & Type Note Facility Evaluation note No assessment information availa ble [facility] Work Phone: Reason for referral (narrative) Note Date & Type Note Facility Reason for referral (narrati ve) NA NA Dept. of Dermatology Reason for referral (narrative) Note Date & Type Note Facility Reason for referral (narrative) No reason for referral information available [facility] Work Phone: Summary Purpose Family History No Family History Records FoundNo Family History Records FoundThere may be information available, but it has not been provided by the sender.No Family History Records FoundNo Family History Records Found Advance Directives Advance Directive Response Recorded Date/ Time Living Will No February 25 18 1:54pm Power of Mid Teacher No February 25, 2018 1:54pm Advance Directive Response Recorded Date/ Time Living Will No November 22 022 1:41pm Power of Mid Teacher No November 22, 2021 1:41pm Advance Directive Response Recorded Date/ Time Living Will No November 22 022 12:41pm Power of Mid Teacher No November 22, 2021 12:41pm Chief Complaint Chief Complaint Description Start Date lower back post Left L4-5 mi crodecompression and microdiscectomy on 11/12/2020 Preliminary chief co mplaint data, not yet signed by the author as of Chief Complaint and Reason for Visit Chief Complaint PACK PN W/ RADIC/SPO NDYLOLISTHESIS L4/L5, RX HERE Chief Complaint CHEST PAIN Chief Complaint SCREENING Chief Complaint SCREENING VIRAL SYPMTOMS Chief Complaint SCREENING VIRAL SYPMTOMS VIRAL SYMPTOMS Chief Complaint Admit Date CDD. RX HERE May 19, 2024 9:00am NECK PAIN/CERVICAL DISC DISEASE/RADICULO DANIE July 27, 2024 7:00am Chief Complaint Admit Date CDD. RX HERE May 19, 2024 9:00am NECK PAIN/CERVICAL DISC DISEASE/RADICULO DANIE July 27, 2024 7:00am CERVICAL SPINE August 04, 2024 9:24a m Room 1 August 04, 2024 9:41a m Reason for Visit Admit Date Cervical radiculopathy August 04, 2024 9: 24am Spondylolisthesis, cervical region July 212024 9:24am Additional Source Comments (unrecognized sect ion and content) No Status Records FoundNo Status Records FoundNo Status Records FoundNo Status Records Found INFORMATION SOURCE (unrecogn ized section and content) DATE CREATED AUTHOR 10/09/2019 [facility] DATE CREATED AUTHOR AUTHOR'S ORGANIZ ATION 11/03/2020 [facility] DATE CREATED AUTHOR AUTHOR'S ORGANIZ ATION 05/15/2021 [facility] DATE CREATED AUTHOR AUTHOR'S ORGANIZ ATION 08/23/2024 [facility] Reason for Visit (unrecogniz ed section and content) Reason For Visit Description Postop - subsequent visit Preliminary reason f or visit data, not yet signed by the author as of lower back post Left L4-5 microdecompression and microdiscectomy on 11/12/2020 Care Teams (unrecognized sec tion and content) Team Status: Active Member Role Status Dates Dr. Nick Mercedes MD Family Provider Active Dr. Nick Mercedes MD Primary Care Provider Active Team Status: Inactive Member Role Status Dates Dr. Nick Mercedes MD Primary Care Provider, Attending Provider Active Team Status: Inactive Member Role Status Dates Dr. Nick Mercedes MD Primary Care Provi geno, Attending Provider, Referring Provider Active Team Status: Inactive Member Role Status Dates Dr. Nick Mercedes MD Primary Care Provider Active Dr. Ajit Worthy MD Attending Provider, Referr ing Provider Active Team Status: Active Member Role Status Dates Dr. Nick Mercedes MD Primary Care Provider Active Team Status: Inactive Member Role Status Dates Dr. Nick Mercedes MD Primary Care Provider Active Start: April 12, 2024 End: April 12, 2024 Dr. Nick Mercedes MD Attending Provider Active Start: April 12, 2024 End: April 12, 2024 Dr. Nick Mercedes MD Referring Provider Active Start: April 12, 2024 End: April 12, 2024 Team Status: Inactive Member Role Status Dates Dr. Nick Mercedes MD Primary Care Provider Active Start: May 03, 2024 End: May 03, 2024 Dr. Ajit Worthy MD Attending Provider Active Start: May 03, 2024 End: May 03, 2024 Dr. Ajit Worthy MD Referring Provider Active Start: May 03, 2024 End: May 03, 2024 Team Status: Active Member Role Status Dates Dr. Nick Mercedes MD Primary Care Provider Active Start: May 19, 2024 Dr. Nick Mercedes MD Attending Provider Active Start: May 19, 2024 Dr. Nick Mercedes MD Referring Provider Active Start: May 19, 2024 Team Status: Inactive Member Role Status Dates Dr. Nick Mercedes MD Primary Care Provider Active Start: July 27, 2024 End: July 27, 2024 Dr. Nick Mercedes MD Attending Provider Active Start: July 27, 2024 End: July 27, 2024 Dr. Nick Mercedes MD Referring Provider Active Start: July 27, 2024 End: July 27, 2024 Team Status: Active Member Role Status Dates Dr. Nick Mercedes MD Primary Care Provider Active Start: August 04, 2024 Dr. Nick Mercedes MD Referring Provider Active Start: August 04, 2024 Dr. Julio C Sher MD Attending Provider Active Start: August 04, 2024 Team Status: Inactive Member Role Status Dates Dr. Nick Mercedes MD Primary Care Provider Active Start: August 04, 2024 End: August 04, 2024 Dr. Jona Billings MD Attending Provider Active S tart: August 04, 2024 End: August 04, 2024 Team Status: Inactive Member Role Status Dates Dr. Nick Mercedes MD Primary Care Provider Active Start: August 04, 2024 End: August 04, 2024 Dr. Nick Mercedes MD Referring Provider Active Start: August 04, 2024 End: August 04, 2024 Dr. Juilo C Sher MD Attending Provider Active Start: August 04, 2024 End: August 04, 2024 Team Status: Inactive Member Role Status Dates Dr. Nick Mercedes MD Primary Care Provider Active Start: August 18, 2024 End: August 18, 2024 Dr. Nick Mercedes MD Attending Provider Active Start: August 18, 2024 End: August 18, 2024 Dr. Nick Mercedes MD Referring Provider Active Start: August 18, 2024 End: August 18, 2024 FOR RECORDS PERTAINING TO PATIENTS WHO ARE [...] BE BASED ON THE PRIMARY CLINICAL RECORDS. [employer] provides no warranty or guarantee of the accuracy or completeness of information in this document.
== END | disposition home or self-care (01) ==
LOC: POLAB3 09:57
PROVIDERS: PCP Family Medicine Geriatric Medicine; Visit Provider Family Medicine Geriatric Medicine
DX: E55.9 Vitamin D deficiency, unspecified (principal); R53.83 Other fatigue
CPT/HCPCS: 36415; 80053; 82306; 84443; 85025

== ENCOUNTER 2025-02-04 17:15 | Emergency (ER) | payer MEDICARE, OTHER, SELFPAY ==
[2025-02-04 17:16] VITALS: BP 158/81; PULSE 72; RESP 16; TEMP 36.7; O2SAT 98; BMI 21.2
--- NOTE | 2025-02-04 18:23 | EX.ED.VIS.EY ---
HPI History of Present Illness Chief Complaint: Eye Problem Informant: patient Onset/Context/Timing Location: Left Eye Onset: Today Context: Sudden Onset Timing: Continuous Worsened by: Nothing Relieved by: Nothing Associated Symptoms Associated Symptoms - Eyes: Burning, Foreign body sensation and Pain; Negative for Crusting, Drainage, Eyelid swelling, Itching, Matting, Photophobia or Redness History of injury: Yes, Direct trauma and Foreign body Visual correction: None Narrative Narrative: Patient presents with eye injury that occurred today. Patient states he was taking some brush to the [place] when one of the branches hit him in his left eye. Patient admits to some pain and foreign body sensation in his left eye. Patient denies any blurry vision or double vision. Patient does not wear glasses or contacts. Patient denies any matting or crusting. Patient denies any discharge or drainage. [facility] Medical History Rosacea Patent foramen ovale Essential (primary) hypertension Segmental and somatic dysfunction of thoracic region Degenerative disc disease, cervical Segmental and somatic dysfunction of cervical region Tinnitus Rosacea Hyperlipidemia Lung nodule Home Medications Medication Instructions Recorded Last Taken Type metronidazole 0.75 % topical gel 1 applic topical ONCE 08/10/18 Unknown History acetaminophen 325 mg tablet 325 mg PO ONCE PRN 02/28/24 Unknown History (Tylenol) tamsulosin 0.4 mg capsule 0.4 mg PO QDAY 02/28/24 Unknown History lfqyynj-prsyhbdjkcafm-snxpaupa 250 1 tab PO Q4-6H PRN 08/04/24 Unknown History mg-250 mg-65 mg tablet (Excedrin Migraine) Allergy/AdvReac Type Severity Reaction Status Date / Time Iodinated Contrast Media Allergy Hives Verified 02/04/25 17:16 (CONTRASTS) Surgical History History of nasal septoplasty History of eye surgery History of left heart catheterization (2011) Social History Smoking Status: Former smoker quit date: 03/23/91 pack-years: 13 alcohol intake: current alcohol intake frequency: a few times a week Alcohol type: beer caffeine: No ROS ROS ED Constitutional Constitutional ED: Denies chills or fever(s) Eyes Eyes: Denies blurry vision or change in vision ENT ENT ED: Denies rhinorrhea or sore throat Cardiovascular Cardiovascular: Denies chest pain or palpitations Respiratory/Chest Respiratory/Chest: Denies cough or dyspnea Gastrointestinal Gastrointestinal: Denies nausea or vomiting Genitourinary Genitourinary ED: Denies dysuria or hematuria Musculoskeletal Musculoskeletal: Reports back pain; Denies neck pain Integumentary Denies abscess or rash Neurologic Neurologic: Denies headache(s) or weakness Allergic/Immunologic Allergic/Immunologic ED: Denies mouth swelling or urticaria EXAM Physical Exam Const Vital Signs: 02/04/25 17:16 Temperature 98.1 F Temperature Source Oral Pulse Rate 72 Respiratory Rate 16 Blood Pressure 158/81 H Blood Pressure Mean 106 Pulse Ox 98 Oxygen Delivery Method Room Air Positive well nourished and well developed General Appearance ED: well developed and NAD HEENT atraumatic Eyes Eyes Narrative: Pupils are equal, round, and reactive to light bilaterally. Extraocular muscles are intact. Conjunctiva slightly injected on the left. There are no foreign bodies noted. Anterior chamber was clear. There is no hyphema noted. Funduscopic examination was benign. Neck supple and no JVD Neuro oriented x3, CN's II-XII intact bilaterally, moves all extremities and no sensory deficits noted Sensorium / Orientation: alert Motor Exam: strength 5/5 throughout Skin no wounds MDM MDM MDM Narrative Medical decision making narrative: Visual acuity was 20/50 in the right eye, 20/40 in the left eye, and 20/30 with both eyes. Tetracaine and fluorescein dye was applied. There is a corneal abrasion over the inferior cornea. Patient was given erythromycin ophthalmic ointment. Patient was instructed to apply this every 4 hours while awake. Patient was instructed to follow-up with his primary care physician in 2 days for reevaluation. Patient understood and was agreeable with the plan. All questions were answered. Discharge Plan Triage Chief Complaint: Eye Problem ED Provider: Bryant Sharma Dx/Rx/DC Orders Clinical Impression: Corneal abrasion, left, Essential (primary) hypertension Instructions: ED Corneal Abrasion Prescriptions: No Action metronidazole 0.75 % gel 1 applic TOPICAL ONCE tamsulosin 0.4 mg capsule 0.4 mg PO QDAY acetaminophen [Tylenol] 325 mg tablet 325 mg PO ONCE PRN Excedrin Migraine 250-250-65 mg tablet 1 tab PO Q4-6H PRN Primary Care Provider: Nick Mercedes Chi Referrals: Nick Mercedes Chi, MD [Primary Care Provider, Geriatrics] - 2 Days Print Language: Yakut Disposition Disposition: Home, Self Care
[2025-02-04] MEDS: Tetracaine 0.5% Ophthalmic Bottle 1 DRP OPHTHALMIC (18:47)
--- OUTSIDE RECORDS SUMMARY | 2025-02-04 19:01 | XMS RPT_ITS | CCD ---
Author Organization [facility] Care Team Providers Care Mixer Driver Name Role Phone Santi Martin Unavailable Unavailable [employer] DELINQUENT ACCOUNT CLERK-COMMERCIAL HORTICULTURE INSTRUCTOR, Darlene Unavailable Daren PARDO, Dr. Nick Calderón Primary Care Provider Daren PARDO, Dr. Nick Calderón Attending Provider Daren PARDO, Dr. Nick Calderón Referring Provider Deacon PARDO, Dr. Ajit Granados Attending Provider Deacon PARDO, Dr. Ajit Granados Referring Provider Christos PARDO, Dr. Bunch Attending Provider Manuelito PARDO, Dr. Tenorio Attending Provider Daren PARDO, Dr. Nick Calderón Primary Care Provider Daren PARDO, Dr. Nick Calderón Attending Provider Daren PARDO, Dr. Nick Calderón Referring Provider Daren PARDO, Dr. Nick Calderón Primary Care Provider [phone] Daren PARDO, Dr. Nick Calderón Attending Provider Daren PARDO, Dr. Nick Calderón Referring Provider [phone] Daren, Nick Chi Primary Care Unavailable Jona Billings Attending Unavailable Rex Hay NP Attending Unavailable Daren, Nick Chi Primary Care Unavailable Daren, Nick Chi Referring Unavailable Julio C Sher Attending Unavailable Daren, Nick Chi Primary Care Unavailable Draen, Nick Chi Referring Unavailable DeaconAjit Referring Unavailable DeaconAjit Attending Unavailable Daren, Nick Chi Primary Care Unavailable Daren, Nick Chi Primary Care Unavailable Daren, Nick Chi Referring Unavailable Daren, Nick Chi Attending Unavailable Daren, Nick Chi Primary Care Unavailable Daren, Nick Chi Referring Unavailable Daren, Nick Chi Attending Unavailable Daren, Nick Chi Attending Unavailable Daren, Nick Chi Primary Care Unavailable Daren, Nick Chi Primary Care Unavailable Daren, Nick Chi Referring Unavailable Daren, Nick Chi Attending Unavailable Daren, Nick Chi Primary Care Unavailable Daren, Nick Chi Referring Unavailable Daren, Nick Chi Attending Unavailable Allergies Allergy Classification Reported Allergen(s) Allergy Type Date of Onset Reaction(s) Facility (1 source) No Alert Propensity to adverse reactions to drug 1 [facility]at[facility] (1 source) Contrast media drug allergy 1 [facility] Work Phone: (1 source) House dust mite; Translations: [DUST MITES] allergy to substance 1 [facility] Work Phone: (18 sources) Iodinated Contrast Media; Translations: [Iodinated Contrast Media] Allergy to substance 1 [facility] Medications Current Medications Medication Drug Class(es) Dates Sig (Normalized) Sig (Original) acetaminophen 325 mg oral tablet (7 sources) Start: 02-28-2024 take 1 tablet by mouth once as needed Acetaminophen (Tylenol) 325 mg tablet Active 325 mg PO ONCE as needed February 28, 2024 1:00am TYLENOL EXTRA ST RENGTH 500 MG TABS 1 tablet by mouth as needed acetaminophen [id number] Galina Tellez acetaminophen 250 mg / aspirin 250 mg / caffeine 65 mg oral tablet (5 sources) Platelet Aggregation Inhibitor, Nonsteroidal Anti-inflammatory Drug, Central Nervous System Stimulant, Methylxanthine Start: 08-04-2024 Aypuwgq-Wtiygccqigszv-Emidiv ne (Excedrin Migraine) 250-250-65 mg tablet Active 1 {tbl} PO EVERY 4-6 HOURS as needed August 04, 2024 12:00am ketoconazole 20 mg/ml topical cream (3 sources) Azole Antifungal Start: 03-31-2018 [id number] Medication ketoconazo le 2 % shampoo ketoconazole 2 % shampoo 2 % 1 Application topically every other day 03/31/2018 Active (Current) Start: 08-26-2016 [id number] Medicat ion ketoconazole 2 % topical cream ketoconazole 2 % topical cream 2 % 1 Application to affected area daily 12/18/2020 Active (Current) tamsulosin hydrochloride 0.4 mg oral capsule (7 sources) alpha-Adrenergic Alyssa Start: 02-28-2024 take 1 capsule by mouth once daily Tamsulosin 0.4 mg capsule Active 0.4 mg PO daily February 28, 2024 1:00am take 1 capsule by mouth once victor hugo ly TAMSULOSIN HCL 0.4 MG CAPS 1 capsule by mouth once a day tamsulosin [id number] Luis Prado AT Completed/Discontinued Medications Medication Drug Class(es) Dates Sig (Normalized) Sig (Original) aspirin 81 mg delayed release oral tablet (17 sources) Platelet Aggregation Inhibitor, Nonsteroidal Anti-inflammatory Drug Start: 03-10-2018 End: 04-09-2018 Aspirin (Adult Low Dose Aspirin) 81 mg tablet,delayed release (DR/EC) Discontinued 81 mg PO daily 30 3 March 10, 2018 1:00am April 09, 2018 3:38pm azelaic acid 200 mg/ml topical cream (17 sources) Start: 03-10-2018 End: 08-10-2018 Azelaic Acid 20 % cream Discontinued 1 NMA TOPICAL TWICE A DAY March 10, 2018 1:00am August 10, 2018 10:22am biotin 1 mg oral capsule (1 source) take 1 tablet by mouth once daily BIOTIN 1 MG CAPS 1 tablet by mouth once a day as directed biotin [id number] Iqra Hein AT Cholecalciferol (1 source) Vitamin D take 1 tablet by mouth once daily VITAMIN D3 10 MCG (400 UNIT) CAPS 1 tablet by mouth once a day as directed cholecalciferol (vitamin d3) [id number] Iqra Hein AT doxycycline calcium 10 mg/ml oral suspension (18 sources) Tetracycline-clas s Drug Start: 10-03-2020 End: 02-28-2024 take 50 mg by mouth twice daily Doxycycline Calcium 50 mg/5 mL syrup Discontinued 50 mg PO TWICE A DAY October 03, 2020 12:00am February 28, 2024 10:00am Start: 10-03-2020 DOXYCYCLINE HY CLATE 20 MG TABS 1 tablet by mouth as needed doxycycline hyclate [id number] Luis Prado AT fluocinonide 0.5 mg/ml topical cream (1 source) Corticosteroid Start: 03-31-2018 [id number] Medicat ion fluocinonide 0.05 % topical solution fluocinonide 0.05 % topical solution 0.05 % 1 Application topically daily 03/31/2018 Prior History No Longer Active fluticasone propionate 0.05 mg/actuat metered dose nasal spray (18 sources) Corticosteroid Start: 08-10-2018 End: 02-28-2024 Fluticasone Propionate 50 mcg/actuation spray,suspension Discontinued 2 NMA INTRANASAL DAILY August 10, 2018 12:00am February 28, 2024 10:00am Start: 08-10-2018 Fluticasone Pr opionate Active 2 SPRAY INTRANASAL DAILY August 10, 2018 12:00am lisinopril 10 mg oral tablet (17 sources) Angiotensin Converting Enzyme Inhibitor Start: 03-10-2018 End: 04-09-2018 take 1 tablet by mouth once daily Lisinopril 10 mg tablet Discontinued 10 mg PO DAILY 30 3 March 10, 2018 1:00am April 09, 2018 3:38pm metroNIDAZOLE 7.5 mg/ml topical cream (19 sources) Nitroimidazole Antimicrobial Start: 10-03-2020 METRONIDAZOLE 0.75 % CREA to skin twice a day as directed metronidazole [id number] Erlinda Frey AT Start: 08-10-2018 Metronidazole 0.75 % gel Active 1 NMA TOPICAL ONCE August 10, 2018 12:00am Start: 08-10-2018 Metronidazole Active 1 APPLIC TOPICAL ONCE August 10, 2018 12:00am Start: 07-05-2014 [id number] Medicat ion metronidazole metronidazole 0.75 % 07/05/2014 Active (Outside) naproxen sodium 220 mg oral capsule (18 sources) Nonsteroidal Anti-inflammatory Drug Start: 10-03-2020 End: 02-28-2024 take 1 capsule by mouth twice daily as needed Naproxen Sodium (Aleve) 220 mg capsule Discontinued 220 mg PO TWICE A DAY as needed October 03, 2020 12:00am February 28, 2024 10:00am take 2 capsules by mouth twice d aily ALEVE 220 MG CAPS 2 capsule by mouth twice a day naproxen sodium [id number] Luis MAYER vitamin b complex (1 source) Nicotinic Acid, Vitamin B12 take 1 tablet by mouth once daily B-COMPLEX/B-12 TABS 1 tablet by mouth once a day as directed vitamin b complex [id number] Galina Tellez pravastatin sodium 40 mg oral tablet (17 sources) HMG-CoA Reductase Inhibitor Start: End: 021 take 1 tablet by mouth once daily Pravastatin 40 mg tablet Discontinued 40 mg PO DAILY August 10, 2018 12:00am October 03, 2020 9:50am triamcinolone acetonide 0.25 mg/ml topical cream (1 source) Corticosteroid Start: 803 [id number] Medication triamcinolone acetonide 0.025 % topical cream triamcinolone acetonide 0.025 % topical cream 0.025 % 1 Application to affected area daily 08/26/2016 Prior History No Longer Active vitamin e 100 unt oral tablet (1 source) take 1 capsule by mouth once daily KP VITAMIN E 45 MG (100 UNIT) CAPS 1 capsule by mouth once a day as directed vitamin e (dl, acetate) [id number] Iqra Hein AT Problems Active Problems Problem Classification Problem Date Documented Date Episodic/Chronic Cardiac and circulatory congenital anomalies (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) Patent foramen ovale; Translations: [Atrial septal defect] 04-16-2019 Chronic Deficiency and other anemia (1 source) Anemia, unspecified; Translations: [Anemia, unspecified] Onset: 08-23-2024 Episodic Disorders of lipid metabolism (17 sources) Hyperlipidemia; Translations: [Hyperlipidemia, unspecified] 03-10-2018 Chronic Essential hypertension (17 sources) Essential hypertension; Translations: [Essential (primary) hypertension] [...] pain; Translations: [Chest pain, unspecified] 11-30-2021 Episodic Nutritional deficiencies (1 source) Vitamin D deficiency, unspecified; Translations: [Vitamin D deficiency, unspecified] Onset: 10-18-2024 Chronic Other acquired deformities (1 source) Lumbar spondylolisthesis; Translations: [Spondylolisthesis, lumbar region] Onset: 04-11-2021 04-11-2021 Episodic Other acquired deformities (6 sources) Spondylolisthesis; Translations: [Spondylolisthesis, cervical region] 08-04-2024 Episodic Other inflammatory condition of skin (3 sources) Other seborrheic dermatitis Onset: 03-30-2018 Episodic Other inflammatory condition of skin (2 sources) Pruritus, unspecified Onset: 03-30-2018 Episodic Other skin disorders (2 sources) Actinic keratosis Onset: 12-18-2020 Episodic Other skin disorders (2 sources) Rash and other nonspecific skin eruption Onset: 08-26-2016 Episodic Other upper respiratory infections (6 sources) Upper respiratory infection; Translations: [Acute upper respiratory infection, unspecified] 02-28-2024 Episodic Spondylosis; intervertebral disc disorders; other back problems (19 sources) Prolapsed lumbar intervertebral disc; Translations: [Other intervertebral disc displacement, lumbar region] Onset: 10-11-2020 10-11-2020 Chronic Spondylosis; intervertebral disc disorders; other back problems (8 sources) Backache; Translations: [Radiculopathy, site unspecified] Onset: [...] lymphocyte countOrd ered By: Nick Mercedes on 10-11-2024 Lymphocytes Auto (Unsp spec) [#/Vol] 1.31 10*3/uL 0.83-4.51 [facility] Absolute neutrophil countOrd ered By: Nick Mercedes on 10-11-2024 Neutrophils (Bld) [#/Vol] 2.7 10*3/uL 2.0-7.7 [facility] Anion gap in Serum or Plasma Ordered By: Nick Mercedes on 10-11-2024 Anion gap [Moles/Vol] 11 mmol/L 5-15 [facility] Automated lymphocyte count a s percentage of total leukocytesOrdered By: Nick Mercedes on 10-11-2024 Lymphocytes/100 WBC Auto (Unsp spec) 27.8 % 19- [facility] BUN/creatinine ratioOrdered By: Nick Mercedes on 10-11-2024 Urea nitrogen/Creatinine [Mass ratio] 17.6 mg/mg 10- [facility] Basophil percentageOrdered B y: Nick Mercedes on 10-11-2024 Basophils/100 WBC (Bld) 0.8 % 0-1 [facility] Bilirubin, totalOrdered By: Nick Mercedes on 10-11-2024 Bilirubin [Mass/Vol] 0.44 mg/dL 0.00-1.30 [facility] CBC W/Diff, Automatedon 09-21 Absolute Lymph 1.31 X10 3/uL Normal 0.83-4.51 [facility] Comment on above: Performed By: #### L 506.1001, L500.4050, L501.9520, L100.0100 #### [facility] [address] [place], [address] Absolute Neut 2.7 X10 3/uL Normal 2.0-7.7 [facility] Comment on above: Performed By: #### L 506.1001, L500.4050, L501.9520, L100.0100 #### [facility] [address] [place], [address] Basophils/100 WBC (Bld) 0.8 % Normal 0-1 [facility] Comment on above: Performed By: #### L 506.1001, L500.4050, L501.9520, L100.0100 #### [facility] [address] [place], [address] Eosinophils/100 WBC (Bld) 2.5 % Normal 0-5 [facility] Comment on above: Performed By: #### L 506.1001, L500.4050, L501.9520, L100.0100 #### [facility] [address] [place], [address] Erythrocyte distribution width (RBC) [Ratio] 14.3 % Normal 11.6-14.6 [facility] Comment on above: Performed By: #### L 506.1001, L500.4050, L501.9520, L100.0100 #### [facility] [address] [place], [address] Hematocrit (Bld) [Volume fraction] 42.1 % Normal 40-54 [facility] Comment on above: Performed By: #### L 506.1001, L500.4050, L501.9520, L100.0100 #### [facility] [address] [place], [address] Hemoglobin (Bld) [Mass/Vol] 13.7 g/dL Normal 13.0-16.5 [facility] Comment on above: Performed By: #### L 506.1001, L500.4050, L501.9520, L100.0100 #### [facility] [address] [place], [address] IG% 0.400 Normal 0.0-0.9 [facility] Comment on above: Result Comment: IG% - Immature Granulocytes (promyelocytes, myelocytes and metamyelocytes) > 1% indicates that a LEFT SHIFT is Present. Performed By: #### L 506.1001, L500.4050, L501.9520, L100.0100 #### [facility] [address] [place], [address] Lymphocytes/100 WBC (Bld) 27.8 % Normal 19-41 [facility] Comment on above: Performed By: #### L 506.1001, L500.4050, L501.9520, L100.0100 #### [facility] [address] [place], [address] MCH (RBC) [Entitic mass] 29.6 pg Normal 27.0-32.0 [facility] Comment on above: Performed By: #### L 506.1001, L500.4050, L501.9520, L100.0100 #### [facility] [address] [place], [address] MCHC (RBC) [Mass/Vol] 32.5 g/dL Normal 32-36 [facility] Comment on above: Performed By: #### L 506.1001, L500.4050, L501.9520, L100.0100 #### [facility] [address] [place], [address] MCV (RBC) [Entitic vol] 90.9 fL Normal 80-94 [facility] Comment on above: Performed By: #### L 506.1001, L500.4050, L501.9520, L100.0100 #### [facility] [address] [place], [address] Monocytes/100 WBC (Bld) 11.2 % High 0-10 [facility] Comment on above: Performed By: #### L 506.1001, L500.4050, L501.9520, L100.0100 #### [facility] [address] [place], [address] Neutrophils/100 WBC (Bld) 57.3 % Normal 47-70 [facility] Comment on above: Performed By: #### L 506.1001, L500.4050, L501.9520, L100.0100 #### [facility] [address] [place], [address] Nucleated RBC (Bld) [#/Vol] 0 10*3/uL Normal 0-5 [facility] Comment on above: Performed By: #### L 506.1001, L500.4050, L501.9520, L100.0100 #### [facility] [address] [place], [address] Platelet mean volume (Bld) [Entitic vol] 10.1 fL Normal 6.2-12.0 [facility] Comment on above: Performed By: #### L 506.1001, L500.4050, L501.9520, L100.0100 #### [facility] [address] [place], [address] Platelets (Bld) [#/Vol] 216 10*3/uL Normal 150-450 [facility] Comment on above: Performed By: #### L 506.1001, L500.4050, L501.9520, L100.0100 #### [facility] [address] [place], [address] RBC (Bld) [#/Vol] 4.63 10*6/uL Normal 4.6-6.2 [facility] Comment on above: Performed By: #### L 506.1001, L500.4050, L501.9520, L100.0100 #### [facility] [address] [place], [address] RDW SD 47.9 fl High 35.1-43.9 [facility] Comment on above: Performed By: #### L 506.1001, L500.4050, L501.9520, L100.0100 #### [facility] [address] [place], [address] WBC (Bld) [#/Vol] 4.7 10*3/uL Normal 4.4-11.0 [facility] Comment on above: Performed By: #### L 506.1001, L500.4050, L501.9520, L100.0100 #### [facility] [address] [place], [address] Carbon dioxide, total [Moles /volume] in Central venous bloodOrdered By: Nick Daren on 10-11-2024 CO2 [Moles/Vol] 24.1 mmol/L 21.0-32.0 [facility] Chloride assayOrdered By: Jamie Mercedes on 10-11-2024 Chloride [Moles/Vol] 103 mmol/L 98-108 [facility] Comprehensive Metabolic Prof ilon 10-11-2024 Albumin [Mass/Vol] 4.0 g/dL Normal 3.4-4.8 [facility] Comment on above: Performed By: #### L 506.1001, L500.4050, L501.9520, L100.0100 #### [facility] [address] [place], [address] Albumin/Globulin [Mass ratio] 1.3 {ratio} Normal 0.9-2.4 [facility] Comment on above: Performed By: #### L 506.1001, L500.4050, L501.9520, L100.0100 #### [facility] [address] [place], [address] ALK PHOS 79 U/L Normal 40-129 [facility] Comment on above: Performed By: #### L 506.1001, L500.4050, L501.9520, L100.0100 #### [facility] [address] [place], [address] ALT [Catalytic activity/Vol] 19 U/L Normal <=46 [facility] Comment on above: Performed By: #### L 506.1001, L500.4050, L501.9520, L100.0100 #### [facility] [address] [place], [address] AST [Catalytic activity/Vol] 22 U/L Normal <=37 [facility] Comment on above: Performed By: #### L 506.1001, L500.4050, L501.9520, L100.0100 #### [facility] [address] [place], [address] Bilirubin [Mass/Vol] 0.44 mg/dL Normal 0.00-1.30 [facility] Comment on above: Performed By: #### L 506.1001, L500.4050, L501.9520, L100.0100 #### [facility] [address] [place], [address] BUN/CRE 17.6 RATIO Normal 10-20 [facility] Comment on above: Performed By: #### L 506.1001, L500.4050, L501.9520, L100.0100 #### [facility] [address] [place], [address] Calcium [Mass/Vol] 9.0 mg/dL Normal 7.6-11.0 [facility] Comment on above: Performed By: #### L 506.1001, L500.4050, L501.9520, L100.0100 #### [facility] [address] [place], [address] Chloride [Moles/Vol] 103 mmol/L Normal 98-108 [facility] Comment on above: Performed By: #### L 506.1001, L500.4050, L501.9520, L100.0100 #### [facility] [address] [place], [address] CO2 [Moles/Vol] 24.1 mmol/L Normal 21.0-32.0 [facility] Comment on above: Performed By: #### L 506.1001, L500.4050, L501.9520, L100.0100 #### [facility] [address] [place], [address] Creatinine [Mass/Vol] 0.81 mg/dL Normal 0.70-1.20 [facility] Comment on above: Performed By: #### L 506.1001, L500.4050, L501.9520, L100.0100 #### [facility] [address] [place], [address] GAP 11 Normal 5-15 [facility] Comment on above: Performed By: #### L 506.1001, L500.4050, L501.9520, L100.0100 #### [facility] [address] [place], [address] GFR/1.73 sq M.predicted among non-blacks MDRD (S/P/Bld) [Vol rate/Area] 91 mL/min/{1.73_m2} Normal >60 [facility] Comment on above: Result Comment: mL/m in/1.73m2 CKD-EPI Creatinine Equation (2020) Performed By: #### L 506.1001, L500.4050, L501.9520, L100.0100 #### [facility] [address] [place], [address] Globulin (S) [Mass/Vol] 3.1 g/dL Normal 2.2-4.2 [facility] Comment on above: Performed By: #### L 506.1001, L500.4050, L501.9520, L100.0100 #### [facility] [address] [place], [address] Glucose [Mass/Vol] 127 mg/dL High 70-99 [facility] Comment on above: Performed By: #### L 506.1001, L500.4050, L501.9520, L100.0100 #### [facility] [address] [place], [address] Potassium [Moles/Vol] 4.1 mmol/L Normal 3.3-5.1 [facility] Comment on above: Performed By: #### L 506.1001, L500.4050, L501.9520, L100.0100 #### [facility] [address] [place], [address] Sodium [Moles/Vol] 139 mmol/L Normal 133-145 [facility] Comment on above: Performed By: #### L 506.1001, L500.4050, L501.9520, L100.0100 #### [facility] [address] [place], [address] T PROT 7.0 g/dL Normal 5.9-8.4 [facility] Comment on above: Performed By: #### L 506.1001, L500.4050, L501.9520, L100.0100 #### [facility] [address] [place], [address] Urea nitrogen [Mass/Vol] 14 mg/dL Normal 4-19 [facility] Comment on above: Performed By: #### L 506.1001, L500.4050, L501.9520, L100.0100 #### [facility] [address] [place], [address] Eosinophil percentageOrdered By: Nick Mercedes on 10-11-2024 Eosinophils/100 WBC (Bld) 2.5 % 0-5 [facility] Erythrocyte distribution wid th ratioOrdered By: Nick Mercedes on 10-11-2024 Erythrocyte distribution width (RBC) [Ratio] 14.3 % 11.6-14.6 [facility] Erythrocyte distribution wid th standard deviationOrdered By: Nick Mercedes on 10-11-2024 Erythrocyte distribution width (RBC) [Ratio] 47.9 fl High 35.1-43.9 [facility] Glomerular filtration rate ( GFR) estimation/1.73 sq m using serum, plasma, or whole bOrdered By: Nick Mercedes on 10-11-2024 GFR/1.73 sq M.predicted among non-blacks MDRD (S/P/Bld) [Vol rate/Area] 91 mL/min/{1.73_m2} >60 [facility] Comment on above: mL/min/1.73m2 CKD-EP I Creatinine Equation (2020) Hematocrit Auto (Bld) [Volum e fraction]Ordered By: Nick Mercedes on 10-11-2024 Hematocrit (Bld) [Volume fraction] 42.1 % 40-54 [facility] Hemoglobin measurementOrdere d By: Nick Mercedes on 10-11-2024 Hemoglobin (Bld) [Mass/Vol] 13.7 g/dL 13.0-16.5 [facility] Immature granulocytes/100 WB C Auto (Bld)Ordered By: Nick Mercedes on 10-11-2024 Immature granulocytes/100 WBC (Bld) 0.400 % 0.0-0.9 [facility] Comment on above: IG% - Immature Granu locytes (promyelocytes, myelocytes and metamyelocytes) > 1% indicates that a LEFT SHIFT is Present. Laboratory - Chemistry and C hemistry - challengeOrdered By: Nick Mercedes on 10-11-2024 AST [Catalytic activity/Vol] 22 U/L <38 [facility] MCV (mean corpuscular volume ) determinationOrdered By: Nick Mercedes 10-11-2024 MCV (RBC) [Entitic vol] 90.9 fL 80-94 [facility] Mean corpuscular hemoglobin (MCH) determinationOrdered By: Nick Mercedes 10-11-2024 MCH (RBC) [Entitic mass] 29.6 pg 27.0-32.0 [facility] Mean corpuscular hemoglobin concentration (MCHC) determinationOrdered By: Nick Mercedes 10-11-2024 MCHC (RBC) [Mass/Vol] 32.5 g/dL 32-36 [facility] Mean platelet volume determi nationOrdered By: Nick Mercedes 10-11-2024 Platelet mean volume (Bld) [Entitic vol] 10.1 fL 6.2-12.0 [facility] Monocyte percentageOrdered B y: Nick Mercedes on 10-11-2024 Monocytes/100 WBC (Bld) 11.2 % High 0-10 [facility] Neutrophil percentageOrdered By: Nick Mercedes 10-11-2024 Neutrophils/100 WBC (Bld) 57.3 % 47-70 [facility] Nucleated red blood cell per centageOrdered By: Nick Mercedes on 10-11-2024 Nucleated RBC/100 WBC (Bld) [Ratio] 0 % 0-5 [facility] Platelet countOrdered By: Jamie Mercedes on 10-11-2024 Platelets (Bld) [#/Vol] 216 10*3/uL 150-450 [facility] Potassium measurement (mass/ volume)Ordered By: Nick Mercedes on 10-11-2024 Potassium (Unsp spec) [Mass/Vol] 4.1 mmol/L 3.3-5.1 [facility] RBC Auto (Bld) [#/Vol]Ordere d By: Nick Mercedes on 10-11-2024 RBC (Bld) [#/Vol] 4.63 10*6/uL 4.6-6.2 [facility] Serum creatinine measurement (mass/volume)Ordered By: Nick Mercedes on 10-11-2024 Creatinine [Mass/Vol] 0.81 mg/dL 0.70-1.20 [facility] Serum globulin measurementOr dered By: Nick Mercedes 10-11-2024 Globulin (S) [Mass/Vol] 3.1 g/dL 2.2-4.2 [facility] Serum glucose measurement (m ass/volume)Ordered By: Nick Mercedes 10-11-2024 Glucose [Mass/Vol] 127 mg/dL High 70-99 [facility] Serum or plasma alanine goetz otransferase (ALT) measurementOrdered By: Nick Mercedes 10-11-2024 ALT [Catalytic activity/Vol] 19 U/L <47 [facility] Serum or plasma albumin nova urement (mass/volume)Ordered By: Nick Mercedes on 10-11-2024 Albumin [Mass/Vol] 4.0 g/dL 3.4-4.8 [facility] Serum or plasma albumin/glob ulin mass ratioOrdered By: Nick Mercedes 10-11-2024 Albumin/Globulin [Mass ratio] 1.3 {ratio} 0.9-2.4 [facility] Serum or plasma alkaline dinorah sphatase measurementOrdered By: Nick Mercedes 10-11-2024 ALP [Catalytic activity/Vol] 79 U/L 40-129 [facility] Serum or plasma calcium nova urement (mass/volume)Ordered By: Nick Mercedes on 10-11-2024 Calcium [Mass/Vol] 9.0 mg/dL 7.6-11.0 [facility] Serum or plasma urea nitroge n measurement (mass/volume)Ordered By: Nick Mercedes on 10-11-2024 Urea nitrogen [Mass/Vol] 14 mg/dL 4-19 [facility] Sodium levelOrdered By: Nick Mercedes on 10-11-2024 Sodium [Moles/Vol] 139 mmol/L 133-145 [facility] TSH DL <= 0.005 mIU/L QnOrde red By: Nick Mercedes on 10-11-2024 TSH Qn 2.090 uIU/mL 0.300-4.200 [facility] Thyroid Stim Hormone (TSH)on 10-11-2024 TSH 2.090 uIU/mL Normal 0.300-4.200 [facility] Comment on above: Performed By: #### L 506.1001, L500.4050, L501.9520, L100.0100 #### [facility] [address] [place], [address] Total proteinOrdered By: Nick Mercedes on 10-11-2024 Protein [Mass/Vol] 7.0 g/dL 5.9-8.4 [facility] Vitamin D,25 Hydroxyon 10-11 Vitamin D 25-OH 22.2 ng/mL Low 30-100 [facility] Comment on above: Result Comment: Mariah min D Status Deficiency: <20 ng/mL (50nmol/L) Insufficiency: 20-30 ng/mL (50-75 nmol/L) Sufficiency: 30-100 ng/mL (75-250 nmol/L) Toxicity: >100 ng/mL (>250 nmol/L) Performed By: #### L 506.1001, L500.4050, L501.9520, L100.0100 #### [facility] [address] [place], [address] White blood cell (WBC) count Ordered By: Nick Mercedes on 10-11-2024 WBC (Bld) [#/Vol] 4.7 10*3/uL 4.4-11.0 [facility] Absolute lymphocyte countOrd ered By: Nick Mercedes on 08-18-2024 Lymphocytes Auto (Unsp spec) [#/Vol] 1.34 10*3/uL 0.83-4.51 [facility] Absolute neutrophil countOrd ered By: Nick Mercedes on 08-18-2024 Neutrophils (Bld) [#/Vol] 3.5 10*3/uL 2.0-7.7 [facility] Automated lymphocyte count a s percentage of total leukocytesOrdered By: Nick Mercedes on 08-18-2024 Lymphocytes/100 WBC Auto (Unsp spec) 23.0 % 19-41 [facility] Basophil percentageOrdered B y: Nick Mercedes on 08-18-2024 Basophils/100 WBC (Bld) 0.9 % 0-1 [facility] CBC W/Diff, Automatedon 07-22 Absolute Lymph 1.34 X10 3/uL Normal 0.83-4.51 [facility] Comment on above: Performed By: #### L 100.0100 ####[facility] [address] [place], [address] Absolute Neut 3.5 X10 3/uL Normal 2.0-7.7 [facility] Comment on above: Performed By: #### L 100.0100 ####[facility] [address] [place], [address] Basophils/100 WBC (Bld) 0.9 % Normal 0-1 [facility] Comment on above: Performed By: #### L 100.0100 ####[facility] [address] [place], [address] Eosinophils/100 WBC (Bld) 3.6 % Normal 0-5 [facility] Comment on above: Performed By: #### L 100.0100 ####[facility] [address] [place], [address] Erythrocyte distribution width (RBC) [Ratio] 14.4 % Normal 11.6-14.6 [facility] Comment on above: Performed By: #### L 100.0100 ####[facility] [address] [place], [address] Hematocrit (Bld) [Volume fraction] 36.0 % Low 40-54 [facility] Comment on above: Performed By: #### L 100.0100 ####[facility] [address] [place], [address] Hemoglobin (Bld) [Mass/Vol] 11.9 g/dL Low 13.0-16.5 [facility] Comment on above: Performed By: #### L 100.0100 ####[facility] [address] [place], [address] IG% 0.500 Normal 0.0-0.9 [facility] Comment on above: Result Comment: IG% - Immature Granulocytes (promyelocytes, myelocytes and metamyelocytes) > 1% indicates that a LEFT SHIFT is Present. Performed By: #### L 100.0100 ####[facility] [address] [place], [address] Lymphocytes/100 WBC (Bld) 23.0 % Normal 19-41 [facility] Comment on above: Performed By: #### L 100.0100 ####[facility] [address] [place], [address] MCH (RBC) [Entitic mass] 29.8 pg Normal 27.0-32.0 [facility] Comment on above: Performed By: #### L 100.0100 ####[facility] [address] [place], [address] MCHC (RBC) [Mass/Vol] 33.1 g/dL Normal 32-36 [facility] Comment on above: Performed By: #### L 100.0100 ####[facility] [address] [place], [address] MCV (RBC) [Entitic vol] 90.0 fL Normal 80-94 [facility] Comment on above: Performed By: #### L 100.0100 ####[facility] [address] [place], [address] Monocytes/100 WBC (Bld) 12.0 % High 0-10 [facility] Comment on above: Performed By: #### L 100.0100 ####[facility] [address] [place], [address] Neutrophils/100 WBC (Bld) 60.0 % Normal 47-70 [facility] Comment on above: Performed By: #### L 100.0100 ####[facility] [address] [place], [address] Nucleated RBC (Bld) [#/Vol] 0 10*3/uL Normal 0-5 [facility] Comment on above: Performed By: #### L 100.0100 ####[facility] [address] [place], [address] Platelet mean volume (Bld) [Entitic vol] 10.3 fL Normal 6.2-12.0 [facility] Comment on above: Performed By: #### L 100.0100 ####[facility] [address] [place], [address] Platelets (Bld) [#/Vol] 208 10*3/uL Normal 150-450 [facility] Comment on above: Performed By: #### L 100.0100 ####[facility] [address] [place], [address] RBC (Bld) [#/Vol] 4.00 10*6/uL Low 4.6-6.2 [facility] Comment on above: Performed By: #### L 100.0100 ####[facility] [address] [place], [address] RDW SD 47.4 fl High 35.1-43.9 [facility] Comment on above: Performed By: #### L 100.0100 ####[facility] [address] [place], [address] WBC (Bld) [#/Vol] 5.8 10*3/uL Normal 4.4-11.0 [facility] Comment on above: Performed By: #### L 100.0100 ####[facility] [address] [place], [address] Eosinophil percentageOrdered By: [facility] on 08-18-2024 Eosinophils/100 WBC (Bld) 3.6 % 0-5 [facility] Erythrocyte distribution wid th ratioOrdered By: [facility] on 08-18-2024 Erythrocyte distribution width (RBC) [Ratio] 14.4 % 11.6-14.6 [facility] Erythrocyte distribution wid th standard deviationOrdered By: [facility] on 08-18-2024 Erythrocyte distribution width (RBC) [Ratio] 47.4 fl High 35.1-43.9 [facility] Hematocrit Auto (Bld) [Volum e fraction]Ordered By: [facility] 08-18-2024 Hematocrit (Bld) [Volume fraction] 36.0 % Low 40-54 [facility] Hemoglobin measurementOrdere d By: [facility] on 08-18-2024 Hemoglobin (Bld) [Mass/Vol] 11.9 g/dL Low 13.0-16.5 [facility] Immature granulocytes/100 WB C Auto (Bld)Ordered By: Nick Daren on 08-18-2024 Immature granulocytes/100 WBC (Bld) 0.500 % 0.0-0.9 [facility] Comment on above: IG% - Immature Granu locytes (promyelocytes, myelocytes and metamyelocytes) > 1% indicates that a LEFT SHIFT is Present. MCV (mean corpuscular volume ) determinationOrdered By: Nick Mercedes on 08-18-2024 MCV (RBC) [Entitic vol] 90.0 fL 80-94 [facility] Mean corpuscular hemoglobin (MCH) determinationOrdered By: Nick Mercedes on 08-18-2024 MCH (RBC) [Entitic mass] 29.8 pg 27.0-32.0 [facility] Mean corpuscular hemoglobin concentration (MCHC) determinationOrdered By: Nick Mercedes on 08-18-2024 MCHC (RBC) [Mass/Vol] 33.1 g/dL 32-36 [facility] Mean platelet volume determi nationOrdered By: Nick Mercedes on 08-18-2024 Platelet mean volume (Bld) [Entitic vol] 10.3 fL 6.2-12.0 [facility] Monocyte percentageOrdered B y: Nick Mercedes on 08-18-2024 Monocytes/100 WBC (Bld) 12.0 % High 0-10 [facility] Neutrophil percentageOrdered By: Nick Mercedes on 08-18-2024 Neutrophils/100 WBC (Bld) 60.0 % 47-70 [facility] Nucleated red blood cell per centageOrdered By: Nick Mercedes on 08-18-2024 Nucleated RBC/100 WBC (Bld) [Ratio] 0 % 0-5 [facility] Platelet countOrdered By: Jamie Mercedes on 08-18-2024 Platelets (Bld) [#/Vol] 208 10*3/uL 150-450 [facility] RBC Auto (Bld) [#/Vol]Ordere d By: Nick Mercedes on 08-18-2024 RBC (Bld) [#/Vol] 4.00 10*6/uL Low 4.6-6.2 [facility] White blood cell (WBC) count Ordered By: Nick Mercedes on 08-18-2024 WBC (Bld) [#/Vol] 5.8 10*3/uL 4.4-11.0 [facility] Cerv Spine 2 or 3 Viewson Cerv Spine 2 or 3 Views [facility] Imaging Services [address] [place] [address] Cerv Spine 2 or 3 Views MR#: [id number] Acct: [id number] Name: TONEY CANTOR Rep #: [id number] : 1945 79 From: Teofilo Hansen MD PCP: Dr. Nick Mercedes MD Status: DEP AMB Study: Cerv Spine 2 or 3 Views Date of Exam: 08/04/24 Exam# [id number] Ordering Dr: Jeanna Mcallister PROCEDURE: CERV SPINE 2 OR 3 VIEWS [...] resolve on the extension view. Reading Location: [id number] CC: DANY Remy; Dr. Nick Mercedes MD Health Safety And Environment Manager: Signed Normal [facility] Orthopedic Visit Reporton Orthopedic Visit Report [facility] [address] [place] [address] OFFICE VISIT Date of Service: 08/04/24 MR#: [id number] Acct: [id number] Name: TONEY CANTOR Rep #: [id number] : 1945 Provider: Dr. Julio C Sher MD Age/Sex: 79/M Location: [facility] Status: Signed Intake Vital Signs 02/28/24 09:05 [...] the past year?: No PFSH Medical History Rosacea Patent foramen ovale Essential [...] me, Dr. Julio C Sher MD 08/04/24 0931. Part of today???s visit was documented by [...] of lumbar spine surgery between L4-5 at [facility] in about [phone]. He denies any dexterity or balance issues. [...] He carter (more content not included)... Normal [facility] Magnetic resonance imaging r eportOrdered By: Rosette Whittaker on 07-31-2024 Study report [facility] Imaging Services [address] [place], [place] [address] Spine Cervical (Routine) MR#: [id number] Acct: [id number] Name: TONEY CANTOR Rep #: [id number] : 1945 M 79 From: Sonali Whittaker MD PCP: Dr. Nick Mercedes MD Status: REG C LI Study:Spine Cervical (Routine) Date of Exam: 07/27/24 Exam# [id number] Ordering Dr: Nick Mercedes MD PROCEDURE: SPINE [...] IMPRESSION: Spondylosis. Degenerative disc disease. Reading Location[facility] CC: Dr. Nick Mercedes MD ~ Health Safety And Environment Manager: Signed [facility] Spine Cervical (Routine)on 0 07-27-2024 Spine Cervical (Routine) [facility] Imaging Services [address] [place], [place] [address] Spine Cervical (Routine) MR#: [id number] Acct: [id number] Name: TONEY CANTOR Rep #: [id number] : 1945 M 79 From: Rosette walker MD PCP: Dr. Nick Mercedes MD Status: REG CLI Study: Spine Cervical (Routine) Date of Exam: Exam# [id number] Ordering Dr: Nick Mercedes MD PROCEDURE: SPINE [...] IMPRESSION: Spondylosis. Degenerative disc disease. Reading Location: [place] [address] CC: Dr. Nick Mercedes MD Health Safety And Environment Manager: Signed Normal [facility] PT D/C Summary (1)on 025 PT D/C Summary (1) [facility] Physical Therapy [facility] [address] [place] [address]. [address] [place] [address] / REHABILITATION SERVICES DISCHARGE SUMMARY MR#: [id number] Acct: [id number] Name: TONEY CANTOR Rep #: [id number] : 1945 78 From: Ken Israel PT, Cert. T, OCS Referring Dr.: Dr. Nick Mercedes MD Status: REG RCR Insurance: [employer] [facility] [facility] [id number] Discharge Summary D/C summary: It has been my pleasure to treat TONEY CANTOR referred by Dr. Nick Mercedes MD, with the diagnosis of CERVICAL DISC DISEASE for a total of 10 visit(s). Discharge Date: 05/19/24 Please see the following information for a summary of their discharge status. Subjective Subjective: Workout at [employer] 2-3 xweek Patient is able to do [...] please feel free to call me at [phone]. Thank you for the referral of this patient. Sincerely, Ken Israel, PT, Cert MDT, OCS Balance/Gait/Function al tests Balance/Special Test Scores Oswestry Neck Score: 6 Improvement % Improvement: 20 08/22/24 1854 CC: Dr. Nick Mercedes MD JLA Signed Normal [facility] PSA,Total - Annual Screenon 05-03-2024 PSA,TOT SCREEN 2.07 ng/mL Normal 0.00-4.00 [facility] Comment on above: Result Comment: This test was performed using the TPSA assay method for the Art Qualified chemistry system. Values obtained with different assay methods cannot be used interchangably. When changing PSA assays in the course of monitoring a patient, additional sequential testing should be carried out to confirm baseline values. Performed By: #### L 501.9940, L501.9910 ####[facility] [address] [facility] [place], [address] PSA,Total- Diagnosticon 04-23 PSA, DIAGNOSTIC 2.07 ng/mL Normal 0.0-4.0 [facility] Comment on above: Result Comment: This test was performed using the TPSA assay method for the Dimension chemistry system. Values obtained with different assay methods cannot be used interchangably. When changing PSA assays in the course of monitoring a patient, additional sequential testing should be carried out to confirm baseline values. Performed By: #### L 501.9940, L501.9910 ####[facility] [address] [place], [address] Inital Evaluation (1) - PTon 04-19-2024 Inital Evaluation (1) - PT [facility] [address] [place] [address] / REHABILITATION SERVICES INITIAL EVALUATION MR#: [id number] Acct: [id number] Name: TONEY CANTOR Rep #: [id number] : 1945 78 From: Ken Israel PT, Cert. T, OCS Referring Dr.: Dr. Nick Mercedes MD Status: REG RCR Insurance: [employer] [facility] [facility] [id number] Patient's Visit Information Visit Information Visit Information: [...] had cervical pain [address] candelario PT and x-rays Moderate spondylosis C5-C6 and [...] to be FAXED BACK to us at [phone] for Medicare purposes. For Medicare only, by signing this I c (more content not included)... Normal [facility] Absolute lymphocyte countOrd ered By: Nick Mercedes on 04-12-2024 Lymphocytes Auto (Unsp spec) [#/Vol] 1.23 10*3/uL 0.83-4.51 [facility] Absolute neutrophil countOrd ered By: Nick Mercedes on 04-12-2024 Neutrophils (Bld) [#/Vol] 2.4 10*3/uL 2.0-7.7 [facility] Albumin to globulin ratioOrd ered By: Nick Daren on 04-12-2024 Albumin/Globulin [Mass ratio] 0.9 {ratio} 0.9-2.4 [facility] Automated lymphocyte count a s percentage of total leukocytesOrdered By: Nick Mercedes on 04-12-2024 Lymphocytes/100 WBC Auto (Unsp spec) 27.5 % 19-41 [facility] Basophil percentageOrdered B y: Nick Mercedes on 04-12-2024 Basophils/100 WBC (Bld) 0.9 % 0-1 [facility] Bilirubin, totalOrdered By: Nick Mercedes on 04-12-2024 Bilirubin [Mass/Vol] 0.40 mg/dL 0.20-1.00 [facility] Comment on above: For patients on eltr ombopag therapy, use of Dimension [place] TBIL is not recommended. Blood urea nitrogen (BUN)/cr eatinine ratioOrdered By: Nick Mercedes on 04-12-2024 Urea nitrogen/Creatinine [Mass ratio] 14.5 mg/mg 10-20 [facility] CBC W/Diff, Automatedon 03-24 Absolute Lymph 1.23 X10 3/uL Normal 0.83-4.51 [facility] Comment on above: Performed By: #### L 506.1000, L100.0100, L501.9520, L500.4050 ####[facility] [address] [place], [address] Absolute Neut 2.4 X10 3/uL Normal 2.0-7.7 [facility] Comment on above: Performed By: #### L 506.1000, L100.0100, L501.9520, L500.4050 ####[facility] [address] [place], [address] Basophils/100 WBC (Bld) 0.9 % Normal 0-1 [facility] Comment on above: Performed By: #### L 506.1000, L100.0100, L501.9520, L500.4050 ####[facility] [address] [place], [address] Eosinophils/100 WBC (Bld) 2.5 % Normal 0-5 [facility] Comment on above: Performed By: #### L 506.1000, L100.0100, L501.9520, L500.4050 ####[facility] [address] [place], [address] Erythrocyte distribution width (RBC) [Ratio] 14.5 % Normal 11.6-14.6 [facility] Comment on above: Performed By: #### L 506.1000, L100.0100, L501.9520, L500.4050 ####[facility] [address] [place], [address] Hematocrit (Bld) [Volume fraction] 39.4 % Low 40-54 [facility] Comment on above: Performed By: #### L 506.1000, L100.0100, L501.9520, L500.4050 ####[facility] [address] [place], [address] Hemoglobin (Bld) [Mass/Vol] 12.8 g/dL Low 13.0-16.5 [facility] Comment on above: Performed By: #### L 506.1000, L100.0100, L501.9520, L500.4050 ####[facility] [address] [place], [address] IG% 0.200 Normal 0.0-0.9 [facility] Comment on above: Result Comment: IG% - Immature Granulocytes (promyelocytes, myelocytes and metamyelocytes) > 1% indicates that a LEFT SHIFT is Present. Performed By: #### L 506.1000, L100.0100, L501.9520, L500.4050 ####[facility] [address] [place], [address] Lymphocytes/100 WBC (Bld) 27.5 % Normal 19-41 [facility] Comment on above: Performed By: #### L 506.1000, L100.0100, L501.9520, L500.4050 ####[facility] [address] [place], [address] MCH (RBC) [Entitic mass] 28.8 pg Normal 27.0-32.0 [facility] Comment on above: Performed By: #### L 506.1000, L100.0100, L501.9520, L500.4050 ####[facility] [address] [place], [address] MCHC (RBC) [Mass/Vol] 32.5 g/dL Normal 32-36 [facility] Comment on above: Performed By: #### L 506.1000, L100.0100, L501.9520, L500.4050 ####[facility] [address] [place], [address] MCV (RBC) [Entitic vol] 88.7 fL Normal 80-94 [facility] Comment on above: Performed By: #### L 506.1000, L100.0100, L501.9520, L500.4050 ####[facility] [address] [place], [address] Monocytes/100 WBC (Bld) 14.7 % High 0-10 [facility] Comment on above: Performed By: #### L 506.1000, L100.0100, L501.9520, L500.4050 ####[facility] [address] [place], [address] Neutrophils/100 WBC (Bld) 54.2 % Normal 47-70 [facility] Comment on above: Performed By: #### L 506.1000, L100.0100, L501.9520, L500.4050 ####[facility] [address] [place], [address] Nucleated RBC (Bld) [#/Vol] 0 10*3/uL Normal 0-5 [facility] Comment on above: Performed By: #### L 506.1000, L100.0100, L501.9520, L500.4050 ####[facility] [address] [place], [address] Platelet mean volume (Bld) [Entitic vol] 10.0 fL Normal 6.2-12.0 [facility] Comment on above: Performed By: #### L 506.1000, L100.0100, L501.9520, L500.4050 ####[facility] [address] [place], [address] Platelets (Bld) [#/Vol] 216 10*3/uL Normal 150-450 [facility] Comment on above: Performed By: #### L 506.1000, L100.0100, L501.9520, L500.4050 ####[facility] [address] [place], [address] RBC (Bld) [#/Vol] 4.44 10*6/uL Low 4.6-6.2 [facility] Comment on above: Performed By: #### L 506.1000, L100.0100, L501.9520, L500.4050 ####[facility] [address] [place], [address] RDW SD 46.5 fl High 35.1-43.9 [facility] Comment on above: Performed By: #### L 506.1000, L100.0100, L501.9520, L500.4050 ####[facility] [address] [place], [address] WBC (Bld) [#/Vol] 4.5 10*3/uL Normal 4.4-11.0 [facility] Comment on above: Performed By: #### L 506.1000, L100.0100, L501.9520, L500.4050 ####[facility] [address] [place], [address] Carbon dioxide measurementOr dered By: Nick Mercedes on 04-12-2024 CO2 [Moles/Vol] 27.0 mmol/L 21.0-32.0 [facility] Cerv Spine 2 or 3 Viewson Cerv Spine 2 or 3 Views [facility] Imaging Services [address] [place] [address] Cerv Spine 2 or 3 Views MR#: [id number] Acct: [id number] Name: TONEY CANTOR Rep #: [id number] : 1945 M 78 From: Hansel Flanagan PCP: Dr. Nick Mercedes MD Status: REG CLI Study: Cerv Spine 2 or 3 Views Date of Exam: 04/12/24 Exam# [id number] Ordering Dr: Nick Mercedes MD [id number] EXAM: XR CERVICAL SPINE, 2 OR 3 [...] EST , CC: Dr. Nick Mercedes MD Health Safety And Environment Manager: Signed Normal [facility] Chloride measurementOrdered By: Nick Mercedes on 04-12-2024 Chloride [Moles/Vol] 108 mmol/L High 98-107 [facility] Comprehensive Metabolic Prof ilon 04-12-2024 Albumin [Mass/Vol] 3.4 g/dL Normal 3.2-5.0 [facility] Comment on above: Performed By: #### L 506.1000, L100.0100, L501.9520, L500.4050 ####[facility] [address] [place], [address] Albumin/Globulin [Mass ratio] 0.9 {ratio} Normal 0.9-2.4 [facility] Comment on above: Performed By: #### L 506.1000, L100.0100, L501.9520, L500.4050 ####[facility] [address] [place], [address] ALK P 80 U/L Normal 45-117 [facility] Comment on above: Performed By: #### L 506.1000, L100.0100, L501.9520, L500.4050 ####[facility] [address] [place], [address] ALT [Catalytic activity/Vol] 26 U/L Normal 16-61 [facility] Comment on above: Performed By: #### L 506.1000, L100.0100, L501.9520, L500.4050 ####[facility] [address] [place], [address] AST [Catalytic activity/Vol] 20 U/L Normal 15-37 [facility] Comment on above: Performed By: #### L 506.1000, L100.0100, L501.9520, L500.4050 ####[facility] [address] [place], [address] Bilirubin [Mass/Vol] 0.40 mg/dL Normal 0.20-1.00 [facility] Comment on above: Result Comment: For patients on eltrombopag therapy, use of Dimension [place] TBIL is not recommended. Performed By: #### L 506.1000, L100.0100, L501.9520, L500.4050 ####[facility] [address] [place], [address] BUN/CRE 14.5 RATIO Normal 10-20 [facility] Comment on above: Performed By: #### L 506.1000, L100.0100, L501.9520, L500.4050 ####[facility] [address] [place], [address] CA,Total 8.6 mg/dL Normal 8.5-10.1 [facility] Comment on above: Performed By: #### L 506.1000, L100.0100, L501.9520, L500.4050 ####[facility] [address] [place], [address] Chloride [Moles/Vol] 108 mmol/L High 98-107 [facility] Comment on above: Performed By: #### L 506.1000, L100.0100, L501.9520, L500.4050 ####[facility] [address] [place], [address] CO2 [Moles/Vol] 27.0 mmol/L Normal 21.0-32.0 [facility] Comment on above: Performed By: #### L 506.1000, L100.0100, L501.9520, L500.4050 ####[facility] [address] [place], [address] Creatinine [Mass/Vol] 0.90 mg/dL Normal 0.70-1.30 [facility] Comment on above: Result Comment: The validity of the calculated GFR GFRAA in patients over 70 years has not been determined. Clinical correlation is essential. Performed By: #### L 506.1000, L100.0100, L501.9520, L500.4050 ####[facility] [address] [place], [address] EST GFR - AA 106 mL/min Normal >60 [facility] Comment on above: Result Comment: Afri can Swiss GFR Calc Performed By: #### L 506.1000, L100.0100, L501.9520, L500.4050 ####[facility] [address] [place], [address] GAP 2 Low 5-15 [facility] Comment on above: Performed By: #### L 506.1000, L100.0100, L501.9520, L500.4050 ####[facility] [address] [place], [address] GFR/1.73 sq M.predicted among non-blacks MDRD (S/P/Bld) [Vol rate/Area] 87 mL/min/{1.73_m2} Normal >60 [facility] Comment on above: Result Comment: Non- GFR Calc Performed By: #### L 506.1000, L100.0100, L501.9520, L500.4050 ####[facility] [address] [place], [address] Globulin (S) [Mass/Vol] 3.6 g/dL Normal 2.2-4.2 [facility] Comment on above: Performed By: #### L 506.1000, L100.0100, L501.9520, L500.4050 ####[facility] [address] [place], [address] Glucose [Mass/Vol] 87 mg/dL Normal 74-106 [facility] Comment on above: Performed By: #### L 506.1000, L100.0100, L501.9520, L500.4050 ####[facility] [address] [place], [address] Potassium [Moles/Vol] 4.0 mmol/L Normal 3.5-5.1 [facility] Comment on above: Performed By: #### L 506.1000, L100.0100, L501.9520, L500.4050 ####[facility] [address] [place], [address] Sodium [Moles/Vol] 138 mmol/L Normal 136-145 [facility] Comment on above: Performed By: #### L 506.1000, L100.0100, L501.9520, L500.4050 ####[facility] [address] [place], [address] T PROT 7.0 g/dL Normal 6.4-8.2 [facility] Comment on above: Performed By: #### L 506.1000, L100.0100, L501.9520, L500.4050 ####[facility] [address] [place], [address] Urea nitrogen [Mass/Vol] 13 mg/dL Normal 7-18 [facility] Comment on above: Performed By: #### L 506.1000, L100.0100, L501.9520, L500.4050 ####[facility] [address] [place], [address] Eosinophil percentageOrdered By: Nick Mercedes on 04-12-2024 Eosinophils/100 WBC (Bld) 2.5 % 0-5 [facility] Erythrocyte distribution wid th ratioOrdered By: [facility] on 04-12-[facility]24 Erythrocyte distribution width (RBC) [Ratio] 14.5 % 11.6-14.6 [facility] Erythrocyte distribution wid th standard deviationOrdered By: [facility] on 04-12-2024 Erythrocyte distribution width (RBC) [Ratio] 46.5 fl High 35.1-43.9 [facility] Glomerular filtration rate ( GFR) estimationOrdered By: Nick Daren 04-12-2024 GFR/1.73 sq M.predicted among non-blacks MDRD (S/P/Bld) [Vol rate/Area] 87 mL/min/{1.73_m2} >60 [facility] Comment on above: Non- GFR Calc Glucose measurementOrdered B y: Nick Mercedes on 04-12-2024 Glucose [Mass/Vol] 87 mg/dL 74-106 [facility] Hematocrit Auto (Bld) [Volum e fraction]Ordered By: [facility] 04-12-2024 Hematocrit (Bld) [Volume fraction] 39.4 % Low 40-54 [facility] Hemoglobin measurementOrdere d By: Nick Daren 04-12-2024 Hemoglobin (Bld) [Mass/Vol] 12.8 g/dL Low 13.0-16.5 [facility] Immature granulocytes/100 WB C Auto (Bld)Ordered By: Nick Mercedes 04-12-2024 Immature granulocytes/100 WBC (Bld) 0.200 % 0.0-0.9 [facility] Comment on above: IG% - Immature Granu locytes (promyelocytes, myelocytes and metamyelocytes) > 1% indicates that a LEFT SHIFT is Present. Laboratory - Chemistry and C hemistry - challengeOrdered By: Nick Daren 04-12-2024 AST [Catalytic activity/Vol] 20 U/L 15-37 [facility] MCV (mean corpuscular volume ) determinationOrdered By: Nick Mercedes 04-12-2024 MCV (RBC) [Entitic vol] 88.7 fL 80-94 [facility] Mean corpuscular hemoglobin (MCH) determinationOrdered By: Nick Mercedes on 04-12-2024 MCH (RBC) [Entitic mass] 28.8 pg 27.0-32.0 [facility] Mean corpuscular hemoglobin concentration (MCHC) determinationOrdered By: Nick Mercedes on 04-12-2024 MCHC (RBC) [Mass/Vol] 32.5 g/dL 32-36 [facility] Mean platelet volume determi nationOrdered By: Nick Mercedes on 04-12-2024 Platelet mean volume (Bld) [Entitic vol] 10.0 fL 6.2-12.0 [facility] Monocyte percentageOrdered B y: Nick Mercedes on 04-12-2024 Monocytes/100 WBC (Bld) 14.7 % High 0-10 [facility] Neutrophil percentageOrdered By: Nick Mercedes on 04-12-2024 Neutrophils/100 WBC (Bld) 54.2 % 47-70 [facility] Nucleated red blood cell per centageOrdered By: Nick Mercedes on 04-12-2024 Nucleated RBC/100 WBC (Bld) [Ratio] 0 % 0-5 [facility] Platelet countOrdered By: Jamie Mercedes on 04-12-2024 Platelets (Bld) [#/Vol] 216 10*3/uL 150-450 [facility] Potassium measurementOrdered By: Nick Mercedes on 04-12-2024 Potassium [Moles/Vol] 4.0 mmol/L 3.5-5.1 [facility] RBC Auto (Bld) [#/Vol]Ordere d By: Nick Mercedse on 04-12-2024 RBC (Bld) [#/Vol] 4.44 10*6/uL Low 4.6-6.2 [facility] Serum anion gap measurementO rdered By: Nick Mercedes on 04-12-2024 Anion gap [Moles/Vol] 2 mmol/L Low 5-15 [facility] Serum globulin measurementOr dered By: Nick Mercedes on 04-12-2024 Globulin (S) [Mass/Vol] 3.6 g/dL 2.2-4.2 [facility] Serum or plasma alanine goetz otransferase (ALT) measurementOrdered By: Nick Mercedes 04-12-2024 ALT [Catalytic activity/Vol] 26 U/L 16-61 [facility] Serum or plasma albumin nova urement (mass/volume)Ordered By: Nick Mercedes on 04-12-2024 Albumin [Mass/Vol] 3.4 g/dL 3.2-5.0 [facility] Serum or plasma alkaline dinorah sphatase measurementOrdered By: Nick Mercedes on 04-12-2024 ALP [Catalytic activity/Vol] 80 U/L 45-117 [facility] Serum or plasma calcium nova urement (mass/volume)Ordered By: Nick Mercedes on 04-12-2024 Calcium [Mass/Vol] 8.6 mg/dL 8.5-10.1 [facility] Serum or plasma creatinine m easurement (mass/volume)Ordered By: Nick Mercedes 04-12-2024 Creatinine [Mass/Vol] 0.90 mg/dL 0.70-1.30 [facility] Comment on above: The validity of the calculated GFR & GFRAA in patients over 70 years has not been determined. Clinical correlation is essential. Serum or plasma thyroid stim ulating hormone (TSH) measurement (units/volume)Ordered By: Nick Mercedes on 04-12-2024 TSH Qn 2.270 uIU/mL 0.358-3.740 [facility] Serum or plasma urea nitroge n measurement (mass/volume)Ordered By: Nick Mercedes 04-12-2024 Urea nitrogen [Mass/Vol] 13 mg/dL 7-18 [facility] Sodium levelOrdered By: Nick Mercedes 04-12-2024 Sodium [Moles/Vol] 138 mmol/L 136-145 [facility] Thyroid Stim Hormone (TSH)on 04-12-2024 TSH 2.270 uIU/mL Normal 0.358-3.740 [facility] Comment on above: Performed By: #### L 506.1000, L100.0100, L501.9520, L500.4050 ####[facility] [address] [place], [address] Total proteinOrdered By: Nick Mercedes on 04-12-2024 Protein [Mass/Vol] 7.0 g/dL 6.4-8.2 [facility] Vitamin D,25 Hydroxyon 04-12 Vitamin D 25-OH 24.7 ng/mL Normal [facility] Comment on above: Result Comment: Mariah min D 25(OH) Status Range Deficiency <20 ng/mL (50nmol/L) Insufficiency 20 - 30 ng/mL (50 - 75 nmol/L) Sufficiency 30 - 100 ng/mL (75 - 250 nmol/L) Toxicity >100 ng/mL (>250 nmol/L) Performed By: #### L 506.1000, L100.0100, L501.9520, L500.4050 ####[facility] [address] [place], [address] White blood cell (WBC) count Ordered By: Nick Mercedes on 04-12-2024 WBC (Bld) [#/Vol] 4.5 10*3/uL 4.4-11.0 [facility] Urgent Care Visit Reporton 1 04-30-2023 Urgent Care Visit Report [facility] [address], [address] [place], [place] [address] OFFICE VISIT Date of Service: 02/28/24 MR#: [id number] Acct: [id number] Name: TONEY CANTOR Rep #: [id number] : 1945 Provider: CLIF stapleton Age/Sex: 78/M Location: [facility] Status: Signed Intake Vital Signs 11/22/21 13:25 [...] distress Orientation: alert, awake and oriented x3 HENMT Head: normal to inspection and normocephalic Ears: [...] normal vis (more content not included)... Normal [facility] Laboratory - Microbiology an d Antimicrobial susceptibilityOrdered By: Nick Mercedes on 06-09-2023 SARS-CoV-2 (COVID-19) RNA HUMERA+probe Ql (Unsp spec) [facility] - Microbiology an d Antimicrobial susceptibilityOrdered By: Nick Mercedes on 05-08-2023 SARS-CoV-2 (COVID-19) RNA HUMERA+probe Ql (Unsp spec) [facility] SARS-CoV-2 (COVID-19) RNA HUMERA+probe Ql (Unsp spec) [facility] No Panel InformationOrdered By: Ajit Worthy on 04-30-2023 Prostate Specific Antigen Screen 2.18 ng/mL 0.00-4.00 [facility] Comment on above: This test was perfor med using the TPSA assay method for the[employer] chemistry system. Values obtained with differentassay methods cannot be used interchangably.When changing PSA assays in the course of monitoring apatient, additional sequential testing should be carriedout to confirm baseline values. Absolute lymphocyte countOrd ered By: Nick Daren on 04-09-2023 Lymphocytes Auto (Unsp spec) [#/Vol] 1.20 10*3/uL 0.83-4.51 [facility] Automated lymphocyte count a s percentage of total leukocytesOrdered By: Nick Mercedes on 04-09-2023 Lymphocytes/100 WBC Auto (Unsp spec) 26.3 % 19-41 [facility] Basophil percentageOrdered B y: Nick Mercedes on 04-09-2023 Basophils/100 WBC (Bld) 0.7 % 0-1 [facility] Bilirubin [Mass/Vol] 0.60 mg/dL 0.20-1.00 [facility] Comment on above: For patients on eltr ombopag therapy, use of Dimension [place] TBIL is not recommended. Chloride [Moles/Vol] 105 mmol/L 98-107 [facility] Eosinophils/100 WBC (Bld) 1.5 % 0-5 [facility] Glucose [Mass/Vol] 87 mg/dL 74-106 [facility] Hemoglobin (Bld) [Mass/Vol] 13.5 g/dL 13.0-16.5 [facility] Monocytes/100 WBC (Bld) 13.4 % 0-10 [facility] Neutrophils (Bld) [#/Vol] 2.6 10*3/uL 2.0-7.7 [facility] Neutrophils/100 WBC (Bld) 57.9 % 47-70 [facility] Potassium [Moles/Vol] 3.9 mmol/L 3.5-5.1 [facility] Protein [Mass/Vol] 7.4 g/dL 6.4-8.2 [facility] Sodium [Moles/Vol] 138 mmol/L 136-145 [facility] WBC (Bld) [#/Vol] 4.6 10*3/uL 4.4-11.0 [facility] Determination of erythrocyte mean corpuscular volume (MCV)Ordered By: Nick Mercedes on 04-09-2023 MCV (RBC) [Entitic vol] 91.8 fL 80-94 [facility] Erythrocyte distribution wid th ratioOrdered By: Nick Daren on 04-09-2023 Erythrocyte distribution width (RBC) [Ratio] 14.6 % 11.6-14.6 [facility] Erythrocyte distribution wid th standard deviationOrdered By: Nick Daren on 04-09-2023 Erythrocyte distribution width (RBC) [Entitic vol] 49.1 fL 35.1-43.9 [facility] Hematocrit Auto (Bld) [Volum e fraction]Ordered By: [facility] on 04-09-2023 Hematocrit (Bld) [Volume fraction] 42.6 % 40-54 [facility] Immature granulocytes/100 WB C Auto (Bld)Ordered By: Nick Daren 04-09-2023 Immature granulocytes/100 WBC (Bld) 0.200 % 0.0-0.9 [facility] Comment on above: IG% - Immature Granu locytes (promyelocytes, myelocytes and metamyelocytes) > 1% indicates that a LEFT SHIFT is Present. Laboratory - Chemistry and C hemistry - challengeOrdered By: [facility] 04-09-2023 Albumin/Globulin [Mass ratio] 0.9 {ratio} 0.9-2.4 [facility] ALP [Catalytic activity/Vol] 84 U/L 45-117 [facility] ALT [Catalytic activity/Vol] 30 U/L 16-61 [facility] CO2 [Moles/Vol] 28.0 mmol/L 21.0-32.0 [facility] Globulin (S) [Mass/Vol] 3.8 g/dL 2.2-4.2 [facility] Urea nitrogen/Creatinine [Mass ratio] 20.5 mg/mg 10-20 [facility] Laboratory - Hematology and Cell countsOrdered By: Nick Mercedes 04-09-2023 MCH (RBC) [Entitic mass] 29.1 pg 27.0-32.0 [facility] MCHC (RBC) [Mass/Vol] 31.7 g/dL 32-36 [facility] Nucleated RBC/100 WBC (Bld) [Ratio] 0 % 0-5 [facility] Platelets (Bld) [#/Vol] 240 10*3/uL 150-450 [facility] No Panel InformationOrdered By: Nick Mercedes on 04-09-2023 Estimated GFR (MDRD) Amer 116 mL/min >60 [facility] Comment on above: GFR Calc Estimated GFR (MDRD) Non-Af Amer 96 mL/min >60 [facility] Comment on above: Non- GFR Calc Vitamin D 25-Hydroxy 25.3 ng/mL [facility] Comment on above: Vitamin D 25(OH) Sta tus Range Deficiency <20 ng/mL (50nmol/L) Insufficiency 20 - 30 ng/mL (50 - 75 nmol/L) Sufficiency 30 - 100 ng/mL (75 - 250 nmol/L) Toxicity >100 ng/mL (>250 nmol/L) Platelet mean volume Eugene-Ec ker (Bld) [Entitic vol]Ordered By: Nick Mercedes on 04-09-2023 Platelet mean volume (Bld) [Entitic vol] 10.1 fL 6.2-12.0 [facility] RBC Auto (Bld) [#/Vol]Ordere d By: Nick Mercedes on 04-09-2023 RBC (Bld) [#/Vol] 4.64 10*6/uL 4.6-6.2 [facility] Serum or plasma calcium nova urement (mass/volume)Ordered By: Nick Mercedes on 04-09-2023 Calcium [Mass/Vol] 9.1 mg/dL 8.5-10.1 [facility] Serum or plasma creatinine m easurement (mass/volume)Ordered By: Nick Mercedes on 04-09-2023 Creatinine [Mass/Vol] 0.83 mg/dL 0.70-1.30 [facility] Comment on above: The validity of the calculated GFR & GFRAA in patients over 70 years has not been determined. Clinical correlation is essential. Serum or plasma thyroid stim ulating hormone (TSH) measurement (units/volume)Ordered By: Nick Mercedes on 04-09-2023 TSH Qn 1.84 uIU/mL 0.358-3.74 [facility] Serum or plasma urea nitroge n measurement (mass/volume)Ordered By: Nick Mercedes on 04-09-2023 Urea nitrogen [Mass/Vol] 17 mg/dL 7-18 [facility] Thin prep Papanicolaou smear with manual screeningOrdered By: Nick Mercedes on 04-09-2023 Thin prep Papanicolaou smear with manual screening 3.6 g/dL 3.2-5.0 [facility] Thin prep Papanicolaou smear with manual screening 23 U/L 15-37 [facility] Thin prep Papanicolaou smear with manual screening 5 5-15 [facility] - Microbiology an d Antimicrobial susceptibilityOrdered By: Nick Mercedes on 03-04-2023 SARS-CoV-2 (COVID-19) RNA HUMERA+probe Ql (Unsp spec) [facility] SARS-CoV-2 (COVID-19) RNA HUMERA+probe Ql (Unsp spec) [facility] No Panel InformationOrdered By: Nick Mercedes on 03-04-2023 Influenza Types A,B Direct FA (TERA) [facility] Influenza Types A,B Direct FA (TERA) [facility] RSV Ag EIAOrdered By: Nick correia on 03-04-2023 RSV Ag Immune stain Ql (Tiss) [facility] RSV Ag Immune stain Ql (Tiss) [facility] Absolute lymphocyte countOrd ered By: Nick Mercedes on 10-02-2022 Lymphocytes Auto (Unsp spec) [#/Vol] 1.27 10*3/uL 0.83-4.51 [facility] Basophil percentageOrdered B y: Nick Mercedes on 10-02-2022 Basophils/100 WBC (Bld) 1.0 % 0-1 [facility] Bilirubin [Mass/Vol] 0.60 mg/dL 0.20-1.00 [facility] Comment on above: For patients on eltr ombopag therapy, use of Dimension [place] TBIL is not recommended. Chloride [Moles/Vol] 105 mmol/L 98-107 [facility] Eosinophils/100 WBC (Bld) 2.9 % 0-5 [facility] Glucose [Mass/Vol] 107 mg/dL 74-106 [facility] Comment on above: Fasting Glucose resu lt from 100 to 125 mg/dL suggests IMPAIRED HOMEOSTASIS per A.D.A. criteria. Neutrophils (Bld) [#/Vol] 2.2 10*3/uL 2.0-7.7 [facility] Neutrophils/100 WBC (Bld) 52.8 % 47-70 [facility] Potassium [Moles/Vol] 4.1 mmol/L 3.5-5.1 [facility] Protein [Mass/Vol] 7.3 g/dL 6.4-8.2 [facility] Sodium [Moles/Vol] 139 mmol/L 136-145 [facility] WBC (Bld) [#/Vol] 4.1 10*3/uL 4.4-11.0 [facility] Blood erythrocytes count (nu mber/volume)Ordered By: Nick Mercedes on 10-02-2022 RBC (Bld) [#/Vol] 4.51 10*6/uL 4.6-6.2 [facility] Blood hemoglobin measurement (mass/volume)Ordered By: Nick Mercedes on 10-02-2022 Hemoglobin (Bld) [Mass/Vol] 13.1 g/dL 13.0-16.5 [facility] Blood lymphocytes/100 leukoc ytesOrdered By: Nick Mercedes on 10-02-2022 Lymphocytes/100 WBC (Bld) 30.9 % 19-41 [facility] Blood monocytes/100 leukocyt esOrdered By: Nick Mercedes on 10-02-2022 Monocytes/100 WBC (Bld) 12.2 % 0-10 [facility] Blood platelet mean volumeOr dered By: Nick Mercedes on 10-02-2022 Platelet mean volume (Bld) [Entitic vol] 10.9 fL 6.2-12.0 [facility] Determination of erythrocyte mean corpuscular volume (MCV)Ordered By: Nick Mercedes on 10-02-2022 MCV (RBC) [Entitic vol] 90.7 fL 80-94 [facility] Hematocrit Auto (Bld) [Volum e fraction]Ordered By: Nick Mercedes on 10-02-2022 Hematocrit (Bld) [Volume fraction] 40.9 % 40-54 [facility] Laboratory - Chemistry and C hemistry - challengeOrdered By: Nick Mercedes on 10-02-2022 ALP [Catalytic activity/Vol] 71 U/L 45-117 [facility] ALT [Catalytic activity/Vol] 21 U/L 16-61 [facility] CO2 [Moles/Vol] 28.0 mmol/L 21.0-32.0 [facility] Globulin (S) [Mass/Vol] 4.0 g/dL 2.2-4.2 [facility] Urea nitrogen/Creatinine [Mass ratio] 19.2 mg/mg 10-20 [facility] - Hematology and Cell countsOrdered By: Nick Mercedes on 10-02-2022 Erythrocyte distribution width (RBC) [Entitic vol] 49.7 fL 35.1-43.9 [facility] Erythrocyte distribution width (RBC) [Ratio] 14.7 % 11.6-14.6 [facility] Immature granulocytes/100 WBC (Bld) 0.200 % 0.0-0.9 [facility] Comment on above: IG% - Immature Granu locytes (promyelocytes, myelocytes and metamyelocytes) > 1% indicates that a LEFT SHIFT is Present. MCH (RBC) [Entitic mass] 29.0 pg 27.0-32.0 [facility] Nucleated RBC/100 WBC (Bld) [Ratio] 0 % 0-5 [facility] MCHC Auto (RBC) [Mass/Vol]Or dered By: Nick Mercedes on 10-02-2022 MCHC (RBC) [Mass/Vol] 32.0 g/dL 32-36 [facility] No Panel InformationOrdered By: Nick Mercedes on 10-02-2022 Estimated GFR (MDRD) Amer 115 mL/min >60 [facility] Comment on above: GFR Calc Estimated GFR (MDRD) Non-Af Amer 95 mL/min >60 [facility] Comment on above: Non- GFR Calc Thyroid Stimulating Hormone (TSH) 1.73 uIU/mL 0.358-3.74 [facility] Vitamin D 25-Hydroxy 33.9 ng/mL [facility] Comment on above: Vitamin D 25(OH) Sta tus Range Deficiency <20 ng/mL (50nmol/L) Insufficiency 20 - 30 ng/mL (50 - 75 nmol/L) Sufficiency 30 - 100 ng/mL (75 - 250 nmol/L) Toxicity >100 ng/mL (>250 nmol/L) Platelets bldOrdered By: Nick Mercedes on 10-02-2022 Platelets (Bld) [#/Vol] 211 10*3/uL 150-450 [facility] Serum or plasma albumin nova urement (mass/volume)Ordered By: Nick Mercedes on 10-02-2022 Albumin [Mass/Vol] 3.3 g/dL 3.2-5.0 [facility] Serum or plasma albumin/glob ulin mass ratioOrdered By: Nick Mercedes on 10-02-2022 Albumin/Globulin [Mass ratio] 0.8 {ratio} 0.9-2.4 [facility] Serum or plasma calcium nova urement (mass/volume)Ordered By: Nick Mercedes on 10-02-2022 Calcium [Mass/Vol] 8.6 mg/dL 8.5-10.1 [facility] Serum or plasma creatinine m easurement (mass/volume)Ordered By: Nick Mercedes on 10-02-2022 Creatinine [Mass/Vol] 0.83 mg/dL 0.70-1.30 [facility] Comment on above: The validity of the calculated GFR & GFRAA in patients over 70 years has not been determined. Clinical correlation is essential. Serum or plasma urea nitroge n measurement (mass/volume)Ordered By: Nick Mercedes on 10-02-2022 Urea nitrogen [Mass/Vol] 16 mg/dL 7-18 [facility] Thin prep Papanicolaou smear with manual screeningOrdered By: Nick Mercedes on 10-02-2022 Thin prep Papanicolaou smear with manual screening 21 U/L 15-37 [facility] Thin prep Papanicolaou smear with manual screening 6 5-15 [facility] Absolute lymphocyte countOrd ered By: Dr. Mercedes on 03-27-2022 Lymphocytes Auto (Unsp spec) [#/Vol] 1.25 10*3/uL 0.83-4.51 [facility] Basophil percentageOrdered B y: Dr. Mercedes on 03-27-2022 Basophils/100 WBC (Bld) 0.5 % 0-1 [facility] Bilirubin [Mass/Vol] 0.60 mg/dL 0.20-1.00 [facility] Comment on above: For patients on eltr ombopag therapy, use of Dimension [place] TBIL is not recommended. Chloride [Moles/Vol] 104 mmol/L 98-107 [facility] Eosinophils/100 WBC (Bld) 3.4 % 0-5 [facility] Glucose [Mass/Vol] 137 mg/dL 74-106 [facility] Comment on above: Fasting Glucose resu lt greater than or equal to 126 mg/dL suggests DIABETES MELLITUS per A.D.A. criteria. Neutrophils (Bld) [#/Vol] 2.3 10*3/uL 2.0-7.7 [facility] Neutrophils/100 WBC (Bld) 51.4 % 47-70 [facility] Potassium [Moles/Vol] 4.0 mmol/L 3.5-5.1 [facility] Protein [Mass/Vol] 7.6 g/dL 6.4-8.2 [facility] Sodium [Moles/Vol] 136 mmol/L 136-145 [facility] WBC (Bld) [#/Vol] 4.4 10*3/uL 4.4-11.0 [facility] Blood erythrocytes count (nu mber/volume)Ordered By: Dr. Mercedes on 03-27-2022 RBC (Bld) [#/Vol] 4.63 10*6/uL 4.6-6.2 [facility] Blood hemoglobin measurement (mass/volume)Ordered By: Dr. Mercedes on 03-27-2022 Hemoglobin (Bld) [Mass/Vol] 13.2 g/dL 13.0-16.5 [facility] Blood lymphocytes/100 leukoc ytesOrdered By: Dr. Mercedes on 03-27-2022 Lymphocytes/100 WBC (Bld) 28.5 % 19-41 [facility] Blood monocytes/100 leukocyt esOrdered By: Dr. Mercedes on 03-27-2022 Monocytes/100 WBC (Bld) 16.0 % 0-10 [facility] Blood platelet mean volumeOr dered By: Dr. Mercedes on 03-27-2022 Platelet mean volume (Bld) [Entitic vol] 10.7 fL 6.2-12.0 [facility] Determination of erythrocyte mean corpuscular volume (MCV)Ordered By: Dr. Mercedes on 03-27-2022 MCV (RBC) [Entitic vol] 91.1 fL 80-94 [facility] Hematocrit Auto (Bld) [Volum e fraction]Ordered By: Dr. Mercedes on 03-27-2022 Hematocrit (Bld) [Volume fraction] 42.2 % 40-54 [facility] Laboratory - Chemistry and C hemistry - challengeOrdered By: Dr. Mercedes on 03-27-2022 ALP [Catalytic activity/Vol] 74 U/L 45-117 [facility] ALT [Catalytic activity/Vol] 28 U/L 16-61 [facility] CO2 [Moles/Vol] 27.0 mmol/L 21.0-32.0 [facility] Globulin (S) [Mass/Vol] 3.9 g/dL 2.2-4.2 [facility] Urea nitrogen/Creatinine [Mass ratio] 18.4 mg/mg 10-20 [facility] Laboratory - Hematology and Cell countsOrdered By: Dr. Mercedes on 03-27-2022 Erythrocyte distribution width (RBC) [Entitic vol] 46.7 fL 35.1-43.9 [facility] Erythrocyte distribution width (RBC) [Ratio] 13.9 % 11.6-14.6 [facility] Immature granulocytes/100 WBC (Bld) 0.200 % 0.0-0.9 [facility] Comment on above: IG% - Immature Granu locytes (promyelocytes, myelocytes and metamyelocytes) > 1% indicates that a LEFT SHIFT is Present. MCH (RBC) [Entitic mass] 28.5 pg 27.0-32.0 [facility] Nucleated RBC/100 WBC (Bld) [Ratio] 0 % 0-5 [facility] MCHC Auto (RBC) [Mass/Vol]Or dered By: Dr. Mercedes on 03-27-2022 MCHC (RBC) [Mass/Vol] 31.3 g/dL 32-36 [facility] No Panel InformationOrdered By: Dr. Mercedes on 03-27-2022 Estimated GFR (MDRD) Amer 103 mL/min >60 [facility] Comment on above: GFR Calc Estimated GFR (MDRD) Non-Af Amer 85 mL/min >60 [facility] Comment on above: Non- GFR Calc Thyroid Stimulating Hormone (TSH) 2.08 uIU/mL 0.358-3.74 [facility] Vitamin D 25-Hydroxy 21.3 ng/mL [facility] Comment on above: Vitamin D 25(OH) Sta tus Range Deficiency <20 ng/mL (50nmol/L) Insufficiency 20 - 30 ng/mL (50 - 75 nmol/L) Sufficiency 30 - 100 ng/mL (75 - 250 nmol/L) Toxicity >100 ng/mL (>250 nmol/L) Platelets bldOrdered By: Dr. Mercedes on 03-27-2022 Platelets (Bld) [#/Vol] 222 10*3/uL 150-450 [facility] Serum or plasma albumin nova urement (mass/volume)Ordered By: Dr. Mercedes on 03-27-2022 Albumin [Mass/Vol] 3.7 g/dL 3.2-5.0 [facility] Serum or plasma albumin/glob ulin mass ratioOrdered By: Dr. Mercedes on 03-27-2022 Albumin/Globulin [Mass ratio] 0.9 {ratio} 0.9-2.4 [facility] Serum or plasma calcium nova urement (mass/volume)Ordered By: Dr. Mercedes on 03-27-2022 Calcium [Mass/Vol] 8.8 mg/dL 8.5-10.1 [facility] Serum or plasma creatinine m easurement (mass/volume)Ordered By: Dr. Mercedes on 03-27-2022 Creatinine [Mass/Vol] 0.92 mg/dL 0.70-1.30 [facility] Comment on above: The validity of the calculated GFR & GFRAA in patients over 70 years has not been determined. Clinical correlation is essential. Serum or plasma urea nitroge n measurement (mass/volume)Ordered By: Dr. Mercedes on 03-27-2022 Urea nitrogen [Mass/Vol] 17 mg/dL 7-18 [facility] Thin prep Papanicolaou smear with manual screeningOrdered By: Dr. Mercedes on 03-27-2022 Thin prep Papanicolaou smear with manual screening 23 U/L 15-37 [facility] Thin prep Papanicolaou smear with manual screening 5 5-15 [facility] Absolute lymphocyte counton 11-22-2021 Lymphocytes Auto (Unsp spec) [#/Vol] 0.94 10*3/uL 0.83-4.51 [facility] Work Phone: Basophil percentageon 2021 Basophils/100 WBC (Bld) 0.6 % 0-1 [facility] Work Phone: Eosinophils/100 WBC (Bld) 0.4 % 0-5 [facility] Work Phone: Neutrophils (Bld) [#/Vol] 3.6 10*3/uL 2.0-7.7 [facility] Work Phone: Neutrophils/100 WBC (Bld) 69.7 % 47-70 [facility] Work Phone: WBC (Bld) [#/Vol] 5.1 10*3/uL 4.4-11.0 [facility] Blood erythrocytes count (nu mber/volume)on 11-22-2021 RBC (Bld) [#/Vol] 4.52 10*6/uL 4.6-6.2 [facility] Work Phone: Blood hemoglobin measurement (mass/volume)on 11-22-2021 Hemoglobin (Bld) [Mass/Vol] 13.3 g/dL 13.0-16.5 [facility] Work Phone: Blood lymphocytes/100 leukoc yteson 11-22-2021 Lymphocytes/100 WBC (Bld) 18.4 % 19-41 [facility] Work Phone: Blood monocytes/100 leukocyt eson 11-22-2021 Monocytes/100 WBC (Bld) 10.7 % 0-10 [facility] Work Phone: Blood platelet mean volumeon 11-22-2021 Platelet mean volume (Bld) [Entitic vol] 9.7 fL 6.2-12.0 [facility] Work Phone: Determination of erythrocyte mean corpuscular volume (MCV)on 11-22-2021 MCV (RBC) [Entitic vol] 89.4 fL 80-94 [facility] Work Phone: Hematocrit Auto (Bld) [Volum e fraction]on 11-22-2021 Hematocrit (Bld) [Volume fraction] 40.4 % 40-54 [facility] Work Phone: Laboratory - Hematology and Cell countson 11-22-2021 Erythrocyte distribution width (RBC) [Entitic vol] 47.1 fL 35.1-43.9 [facility] Work Phone: Erythrocyte distribution width (RBC) [Ratio] 14.6 % 11.6-14.6 [facility] Work Phone: Immature granulocytes/100 WBC (Bld) 0.200 % 0.0-0.9 [facility] Work Phone: Comment on above: IG% - Immature Granu locytes (promyelocytes, myelocytes and metamyelocytes) > 1% indicates that a LEFT SHIFT is Present. MCH (RBC) [Entitic mass] 29.4 pg 27.0-32.0 [facility] Work Phone: Nucleated RBC/100 WBC (Bld) [Ratio] 0 % 0-5 [facility] Work Phone: MCHC Auto (RBC) [Mass/Vol]on 11-22-2021 MCHC (RBC) [Mass/Vol] 32.9 g/dL 32-36 [facility] Work Phone: No Panel Informationon 11-22 Troponin I High Sensitivity 5 pg/mL 3.0-78.0 [facility] Work Phone: Comment on above: Please Note: New Maribeth t Units and Gender Specific Reference Ranges. For more information see Policy Stat Procedure [place] High Sensitivity Troponin (TNIH) and attachments. Platelets bldon 11-22-2021 Platelets (Bld) [#/Vol] 231 10*3/uL 150-450 [facility] Work Phone: Absolute lymphocyte counton 09-05-2021 Lymphocytes Auto (Unsp spec) [#/Vol] 1.09 10*3/uL 0.83-4.51 [facility] Work Phone: Basophil percentageon 2021 Basophils/100 WBC (Bld) 1.2 % 0-1 [facility] Work Phone: Bilirubin [Mass/Vol] 0.30 mg/dL 0.20-1.00 [facility] Work Phone: Comment on above: For patients on eltr ombopag therapy, use of Dimension [place] TBIL is not recommended. Chloride [Moles/Vol] 106 mmol/L 98-107 [facility] Work Phone: Eosinophils/100 WBC (Bld) 3.1 % 0-5 [facility] Work Phone: Glucose [Mass/Vol] 93 mg/dL 74-106 [facility] Work Phone: Neutrophils (Bld) [#/Vol] 2.3 10*3/uL 2.0-7.7 [facility] Work Phone: Neutrophils/100 WBC (Bld) 55.4 % 47-70 [facility] Work Phone: Potassium [Moles/Vol] 4.4 mmol/L 3.5-5.1 [facility] Work Phone: Protein [Mass/Vol] 7.0 g/dL 6.4-8.2 [facility] Work Phone: Sodium [Moles/Vol] 137 mmol/L 136-145 [facility] Work Phone: WBC (Bld) [#/Vol] 4.1 10*3/uL 4.4-11.0 [facility] Work Phone: Blood erythrocytes count (nu mber/volume)on 09-05-2021 RBC (Bld) [#/Vol] 4.18 10*6/uL 4.6-6.2 [facility]: Blood hemoglobin measurement (mass/volume)on 09-05-2021 Hemoglobin (Bld) [Mass/Vol] 12.2 g/dL 13.0-16.5 [facility] Work Phone: Blood lymphocytes/100 leukoc yteson 09-05-2021 Lymphocytes/100 WBC (Bld) 26.3 % 19-41 [facility] Work Phone: Blood monocytes/100 leukocyt eson 09-05-2021 Monocytes/100 WBC (Bld) 13.8 % 0-10 [facility] Work Phone: Blood platelet mean volumeon 09-05-2021 Platelet mean volume (Bld) [Entitic vol] 10.5 fL 6.2-12.0 [facility] Work Phone: Determination of erythrocyte mean corpuscular volume (MCV)on 09-05-2021 MCV (RBC) [Entitic vol] 89.0 fL 80-94 [facility] Work Phone: Hematocrit Auto (Bld) [Volum e fraction]on 09-05-2021 Hematocrit (Bld) [Volume fraction] 37.2 % 40-54 [facility] Work Phone: Laboratory - Chemistry and C hemistry - challengeon 09-05-2021 ALP [Catalytic activity/Vol] 77 U/L 45-117 [facility] Work Phone: ALT [Catalytic activity/Vol] 28 U/L 16-61 [facility] Work Phone: CO2 [Moles/Vol] 26.0 mmol/L 21.0-32.0 [facility] Work Phone: Globulin (S) [Mass/Vol] 3.6 g/dL 2.2-4.2 [facility] Work Phone: Urea nitrogen/Creatinine [Mass ratio] 20.0 mg/mg 10-20 [facility] Work Phone: Laboratory - Hematology and Cell countson 09-05-2021 Erythrocyte distribution width (RBC) [Entitic vol] 45.1 fL 35.1-43.9 [facility] Work Phone: Erythrocyte distribution width (RBC) [Ratio] 13.7 % 11.6-14.6 [facility] Work Phone: Immature granulocytes/100 WBC (Bld) 0.200 % 0.0-0.9 [facility] Work Phone: Comment on above: IG% - Immature Granu locytes (promyelocytes, myelocytes and metamyelocytes) > 1% indicates that a LEFT SHIFT is Present. MCH (RBC) [Entitic mass] 29.2 pg 27.0-32.0 [facility] Work Phone: Nucleated RBC/100 WBC (Bld) [Ratio] 0 % 0-5 [facility] Work Phone: MCHC Auto (RBC) [Mass/Vol]on 09-05-2021 MCHC (RBC) [Mass/Vol] 32.8 g/dL 32-36 [facility] Work Phone: No Panel Informationon 09-05 Estimated GFR (MDRD) Amer 131 mL/min >60 [facility] Work Phone: Comment on above: GFR Calc Estimated GFR (MDRD) Non-Af Amer 108 mL/min >60 [facility] Work Phone: Comment on above: Non- GFR Calc Thyroid Stimulating Hormone (TSH) 1.56 uIU/mL 0.358-3.74 [facility] Work Phone: Vitamin D 25-Hydroxy 21.8 ng/mL [facility] Work Phone: Comment on above: Vitamin D 25(OH) Sta tus Range Deficiency <20 ng/mL (50nmol/L) Insufficiency 20 - 30 ng/mL (50 - 75 nmol/L) Sufficiency 30 - 100 ng/mL (75 - 250 nmol/L) Toxicity >100 ng/mL (>250 nmol/L) Platelets bldon 09-05-2021 Platelets (Bld) [#/Vol] 204 10*3/uL 150-450 [facility] Work Phone: Serum or plasma albumin nova urement (mass/volume)on 09-05-2021 Albumin [Mass/Vol] 3.4 g/dL 3.2-5.0 [facility] Work Phone: Serum or plasma albumin/glob ulin mass ratioon 09-05-2021 Albumin/Globulin [Mass ratio] 0.9 {ratio} 0.9-2.4 [facility] Work Phone: Serum or plasma calcium nova urement (mass/volume)on 09-05-2021 Calcium [Mass/Vol] 8.5 mg/dL 8.5-10.1 [facility] Work Phone: Serum or plasma creatinine m easurement (mass/volume)on 09-05-2021 Creatinine [Mass/Vol] 0.75 mg/dL 0.70-1.30 [facility] Work Phone: Comment on above: The validity of the calculated GFR & GFRAA in patients over 70 years has not been determined. Clinical correlation is essential. Serum or plasma urea nitroge n measurement (mass/volume)on 09-05-2021 Urea nitrogen [Mass/Vol] 15 mg/dL 7-18 [facility] Work Phone: Thin prep Papanicolaou smear with manual screeningon 09-05-2021 Thin prep Papanicolaou smear with manual screening 25 U/L 15-37 [facility] Work Phone: Thin prep Papanicolaou smear with manual screening 5 5-15 [facility] Work Phone: Clinical Summary: Cb denise 05-09-2021 MC75 OP Visit Invalid Interpretation Code [facility] Work Phone: Office Visit: Postop - subse quent visit, Rm: 30on 05-09-2021 NEGATED: Highlighted rowMRI (magnetic resonance imaging) history of the lumbar spine on 05/06/2021 at [facility] Invalid Interpretation Code [facility] Work Phone: NEGATED: Highlighted rowxray history of the lumbosacral spine on 04/11/2021 at [facility] Invalid Interpretation Code [facility] Work Phone: CNOVon 11-02-2020 CNOV Office Visit (NUAGAK ) TONEY CANTOR ([id number]) 1945 M Date Time Provider Department 11/02/20 [...] Age: [age] year old Sex: male MRN/E# [id number] Chief Complaint: Patient presents with: New Patient [...] Laterality Date - COLONOSCOP W/ OR W/O [facility] SPEC -02-24 Repeat in -2014 - COLONOSCOP W/ OR W/O [facility] SPEC 10/30/2014 Colonoscopy - EGD 2007 [...] of motion (more content not included)... Normal [facility] MR-Spine Lumbar (Routine) IM PORT 07-31-2020 MR-Spine Lumbar (Routine) IMPORT Images were obtained outside of [facility] [id number] Normal [facility] FLOW CYTOMETRY TESTon 2019 FLOW TEST ORDERED CUTANEOUS PANEL Normal [facility] Comment on above: Performed By: #### F CTST #### [facility] [address] [place] [address] SURF MARKERS >15,PATH REVon 09-13-2019 PATH REV. >15 MARKERS KIP Normal [facility] Comment on above: Result Comment: By h er/his signature above, the Pathologist listed as making the final interpretation certifies that she/he has personally reviewed this case. Performed By: #### P R194 #### [facility] [address] [place] [address] SURFACE MARKERS CUTANEOUS PA NELon 09-13-2019 CD19 26 % of Lymph Normal [facility] Comment on above: Result Comment: Poly clonal [place]/Lambda= 67:24 (suboptimal recovery in the stained sample) Performed By: #### C UPAN #### [facility] [address] [place] [address] CD4 45 % of Lymph Normal [facility] Comment on above: Result Comment: No e vidence of clonality by TRBC1 staining. Performed By: #### C UPAN #### [facility] [address] [place] [address] CD8 27 % of Lymph Normal [facility] Comment on above: Result Comment: Slig htly skewed TRBC1 staining (85:15) however no other abnormality noted. Performed By: #### C UPAN #### [facility] [address] [place] [address] DIAGNOSIS SEE BELOW Normal [facility] Comment on above: Result Comment: No d efinitive immunophenotypic evidence of non-Hodgkin lymphoma. Performed By: #### C UPAN #### [facility] [address] [place] [address] NOTE SEE BELOW Normal [facility] Comment on above: Result Comment: Clin ical and morphologic correlation is suggested. Performed By: #### C UPAN #### [facility] [address] [place] [address] Lymphocytes/100 WBC (Bld) 8 % Normal [facility] Comment on above: Performed By: #### C UPAN #### [facility] [address] [place] [address] NK 0 % of Lymph Normal [facility] Comment on above: Performed By: #### C UPAN #### [facility] [address] [place] [address] NUMBER OF CELLS COLLECTED 3,900 - 9,000 Normal [facility] Comment on above: Performed By: #### C UPAN #### [facility] [address] [place] [address] CELL COUNT 0.46 x10E9/L Normal [facility] Comment on above: Performed By: #### C UPAN #### [facility] [address] [place] [address] SPECIMEN SITE Skin Biopsy Normal [facility] [place] Comment on above: Performed By: #### C UPAN #### [facility] [address] [place] [address] Dermatopathologyon 0 Dermatopathology [facility] [id number] [place] [address] [place] [id number] DERMATOPATHOLOGY REPORT Name:TONEY CANTOR. Rec #. [id number] Location: [facility] Date of Procedure: 09/12/2019 Race: PT DECLINED [...] M.D. Electronically Signed Out By SYBIL WHITAKER MD/[facility] By the signature on this report, the individual or group listed as making the Final Interpretation/Diagno sis certifies that they have reviewed this case. Clinical History: [id number] (C). Atypical lymphocytic infiltrate. A piece was taken from center of specimen for flow. Excision. Specimens Submitted As: A: SKIN, LEFT POSTERIOR SHOULDER Gross Description: Received in formalin is one escobedo-brown piece of skin measuring 35 x 15 x 5 mm. The specimen is inked and embedded in toto in four blocks. The tips are in Block 1. mlz/09/13/2019 Normal [facility] Comment on above: Performed By: #### D #### Dermatopathology FLOW CYTOMETRY TESTon 2019 SOURCE SKIN Normal [facility] Comment on above: Performed By: #### F CTST #### [facility] [address] [place] [address] SURFACE MARKERS CUTANEOUS PA NELon 09-12-2019 METHOD SEE BELOW Normal [facility] Comment on above: Result Comment: This test is a multicolor, whole blood lysis assay. It was developed and its performance characteristics determined by the Department of Pathology, [facility], and has not been cleared or [...] alpha/beta, TCR gamma/delta, CD10, CD45RA, CD25, CD45RO, [place], Lambda, CD20, CD38, CD19. Performed By: #### C UPAN #### [facility] [address] [place] [address] SPECIMEN VIABILITY Acceptable Normal [facility] Comment on above: Performed By: #### C UPAN #### [facility] [address] [place] [address] Dermatopathologyon 0 Dermatopathology 4 Pathologist: SYBIL WHITAKER MD Date of Procedure: 07/20/2019 Date Received: 07/21/2019 Date Reported 07/29/2019 Submitting Physician: SANTI MARTIN MD Location: [facility] Copy To/Referring/Attendin g: HERIBERTO JUARES DO FINAL [...] determined by the Department of Pathology at [facility]. The FDA does not require this [...] appropriately. Electronically Signed Out By SYBIL WHITAKER MD/ALICE Clinical History: A: [place] dermal nodule, R/O CTCL. Punch Biopsy. B: [place] plaque, CTCL vs. spongiotic derm. Punch Biopsy. C: [place] papule, CTCL vs. José Luis's vs. folliculitis. Punch Biopsy. ([facility]). Specimens Submitted As: A: SKIN, R UPPER CHEST B: SKIN, R ANTERIOR PROXIMAL ARM C: SKIN, L POSTERIOR SHOULDER Gross Description: A: Received in formalin is a escobedo-brown, cylindrical piece of skin measuring [id number]. The specimen is inked and embedded in toto. B: Received in formalin is a escobedo-brown, cylindrical piece of skin measuring 5o4q7am. The specimen is inked and embedded in toto. C: Received in formalin is a escobedo, cylindrical piece of skin measuring 9t1e2pl. The specimen is inked and embedded in toto. dcp/07/21/2019 Normal [facility] Comment on above: Performed By: #### D #### Dermatopathology Vital Signs Date Time Vital Sign Value Performing Clinician Facility 08-04-2024 09:33-0400 Body height 165.[address] Nick Mercedes MD Work Phone: [facility] 08-04-2024 09:33-0400 Body mass index (BMI) [Ratio] 21.8 kg/m2 Dr. Nick Mercedes MD Work Phone: [facility] 08-04-2024 09:33-0400 Body weight 59.[address] Nick Mercedes MD Work Phone: [facility] 11-22-2021 15:52-0400 Diastolic blood pressure 81 mm[Hg] [facility] Work Phone: 11-22-2021 15:52-0400 Heart rate 70 /min [facility] Work Phone: 11-22-2021 15:52-0400 Systolic blood pressure 137 mm[Hg] [facility] Work Phone: 11-22-2021 14:40-0400 Respiratory rate 12 /min [facility] Work Phone: 11-22-2021 14:40-0400 SaO2% (BldA) [Mass fraction] 100 % [facility] Work Phone: 11-22-2021 13:25-0400 Body height 165.1 cm [facility] Work Phone: 11-22-2021 13:25-0400 Body mass index (BMI) [Ratio] 21.2 kg/m2 [facility] Work Phone: 11-22-2021 13:25-0400 Body temperature 98.2 [degF] [facility] Work Phone: 11-22-2021 13:25-0400 Body weight 58.05 kg [facility] Work Phone: 1945 23:00-0500 >na< Santi Martin Dept. of Dermatology NEGATED: Highlighted [id number] 15:16-0500 Body height 165.1 cm Iqra Duecker AT [facility] Work Phone: NEGATED: Highlighted [id number] 15:16-0500 Body height 165 cm Iqra Duecker AT [facility] Work Phone: NEGATED: Highlighted [id number] 15:16-0500 Body mass index (BMI) [Ratio] 22.55 kg/m2 Iqra Duecker AT [facility] Work Phone: NEGATED: Highlighted [id number] 15:16-0500 Body temperature 97.7 [degF] Qira Duecker AT [facility] Work Phone: NEGATED: Highlighted [id number] 15:16-0500 Body weight 61.24 kg Iqra Duecker AT [facility] Work Phone: NEGATED: Highlighted [id number] 15:16-0500 Body weight 61 kg Iqra Duecker AT [facility] Work Phone: Encounters Encounter Date Encounter Type Care Provider Facility Start: 10-11-2024 End: 10-11-[address] Nick Mercedes MD Work Phone: -Laboratory Phy Office 3rd Flr Start: 10-11-2024 End: 10-11-[address] Nick Mercedes MD -Laboratory Phy Office 3rd Flr Start: 10-11-2024 End: 10-11-2024 ambulatory Nick Mercedes Facility:[facility] Start: 08-18-2024 End: 08-18-[address] Nick Mercedes MD Work Phone: [facility] Work Phone: Start: 08-18-2024 End: 08-18-[address] Nick Mercedes MD -Laboratory Work Phone: Start: 08-18-2024 End: 08-18-2024 ambulatory Nick Mercedes Facility:[facility] Start: 08-04-2024 End: 08-04-[address] Jona Billings MD -[facility] Start: 08-04-2024 End: 08-04-[address] Nick Mercedes MD Work Phone: [facility] Work Phone: Start: 07-27-2024 End: 07-27-[address] Nick Mercedes MD Work Phone: [facility] Work Phone: Start: 07-27-2024 End: 07-27-[address] Nick Mercedes MD [facility] Work Phone: Start: 07-27-2024 End: 07-27-2024 ambulatory [facility] Facility:[facility] Start: 05-19-2024 End: 05-19-2024 ambulatory [facility] Facility:[facility] Start: 05-19-[address] Nick villagran MD -Physical Therapy Work Phone: Start: 05-03-2024 End: 05-03-[address] Ajit Worthy MD -Laboratory Work Phone: Start: 05-03-2024 End: 05-03-2024 ambulatory Ajit Worthy Facility:[facility] Start: 04-12-2024 End: 04-12-[address] Nick Mercedes MD -Laboratory, Phy Office 3rd [facility] Start: 04-12-2024 End: 04-12-2024 ambulatory [facility] Facility:[facility] Start: 02-28-2024 End: 02-28-2024 ambulatory [facility] Facility:[facility] Start: 06-09-2023 End: 06-09-2023 ambulatory [facility] Work Phone: Start: 06-09-2023 End: 06-09-2023 Patient encounter procedure [facility]-Pulmonary Services/Neurology Work Phone: Start: 05-08-2023 End: 05-08-2023 ambulatory [facility] Work Phone: Start: 05-08-2023 End: 05-08-2023 Patient encounter procedure [facility]-Pulmonary Services/Neurology Work Phone: Start: 04-30-2023 End: 04-30-2023 ambulatory [facility] Work Phone: Start: 04-30-2023 End: 04-30-2023 Patient encounter procedure [facility]-Laboratory Work Phone: Start: 04-09-2023 End: 04-09-2023 ambulatory [facility] Work Phone: Start: 04-09-2023 End: 04-09-2023 Patient encounter procedure [facility]-Laboratory, Phy Office 3rd Flr Start: 03-04-2023 End: 03-04-2023 ambulatory [facility] Work Phone: Start: 03-04-2023 End: 03-04-2023 Patient encounter procedure [facility]-Pulmonary Services/Neurology Work Phone: Start: 10-02-2022 End: 10-02-2022 ambulatory [facility] Work Phone: Start: 10-02-2022 End: 10-02-2022 Patient encounter procedure [facility]-Laboratory, Phy Office 3rd Flr Start: 03-27-2022 End: 03-27-2022 ambulatory [facility] Work Phone: Start: 03-27-2022 End: 03-27-2022 Patient encounter procedure [facility]-Laboratory, Phy Office 3rd Flr Start: 11-22-2021 End: 11-22-2021 Emergency department patient visit [facility]-Emergency Department Start: 09-12-2021 End: 09-12-2021 Patient encounter procedure [facility]-Radiology, [facility] Start: 09-05-2021 End: 09-05-2021 Patient encounter procedure [facility]-Laboratory, Phy Office 3rd Flr Start: 05-13-2021 Registered Recurring [facility]-Physical Therapy Start: 12-18-2020 Office outpatient vi sit [...] outpatient vi sit 25 minutes Santi Martin Dept. of Dermatology Procedures Date Procedure Procedure Detail Performing Clinician Start: 10-11-2024 Vitamin D, 25-hydrox y measurement Dr. Nick Mercedes MD Work Phone: Comment on above: Vitamin D StatusDefi ciency: <20 ng/mL (50nmol/L)Insufficiency: 20-30 ng/mL (50-75 nmol/L)Sufficiency: 30-100 ng/mL (75-250 nmol/L)Toxicity: >100 ng/mL (>250 nmol/L) Start: 08-04-2024 X-ray of cervical spine Dr. Nick Mercedes MD Work Phone: Start: 07-27-2024 MRI of cervical spine Panchito Mercedes MD Work Phone: Start: 05-03-2024 Assay of prostate sp ecific antigen total Dr. Nick Mercedes MD Work Phone: Comment on above: This test was perfor med using the TPSA assay method [facility]. Values obtained with differentassay methods [...] scrn no perf at interval Darlene Ruiz DELINQUENT ACCOUNT CLERK-COMMERCIAL H[employer]ICULTURE INSTRUCTOR Work Phone: Start: 05-09-2021 End: 05-09-2021 Calc BMI norm parameters Darlene Key ick DELINQUENT ACCOUNT CLERK-COMMERCIAL HORTICULTURE INSTRUCTOR Work Phone: Start: 05-09-2021 End: 05-09-2021 Current tobacco non-user cad cap copd pv dm Darlene Ruiz DELINQUENT ACCOUNT CLERK-COMMERCIAL HORTICULTURE INSTRUCTOR Work Phone: Start: 05-09-2021 End: 05-09-2021 Docrev cur meds by vidya Ruiz DELINQUENT ACCOUNT CLERK-COMMERCIAL HORTICULTURE INSTRUCTOR Work Phone: Start: 05-09-2021 End: 05-09-2021 Pain neg no plan Darlene Ruiz DELINQUENT ACCOUNT CLERK-COMMERCIAL HORTICULTURE INSTRUCTOR Work Phone: Start: 05-09-2021 End: 05-09-2021 Patient encounter procedure Darlene Ruiz DELINQUENT ACCOUNT CLERK-COMMERCIAL HORTICULTURE INSTRUCTOR Work Phone: Start: 12-18-2020 Destruction premalig nant lesion 1st Santi Martin Start: 12-18-2020 Established Office V isit Level 3 20733~GC~25 Santi Martin Start: 12-18-2020 Tangential biopsy sk in single lesion Santi Martin Start: 09-12-2019 Excision mal lesion trunk/arm/leg 1.1-2.0 cm Santi Martin Start: 07-20-2019 Punch biopsy skin si ngle lesion Santi Martin Start: 03-30-2018 Established Office V isit Level 4 Kamila Reynolds Teofilo Hancock Chong Start: 08-26-2016 Established Office V isit Level 3 Julianna Mata Santi Chong Start: 08-26-2016 Smr prim src wet wesley nt nfct agt Santi Martin Start: 07-05-2014 Bx skin subcutaneous&/mucous membrane 1 lesion Santiparker Martin NEGATED: Highlighted rowStart: 05-09-2021 End: 05-09-2021 Documentation of current medications Iqra Hein AT Plan of Treatment Date Care Activity Detail Author Start: 08-04-2024 X-ray of cervical spine Cerv Spine 2 or 3 Views [facility] Start: 08-04-2024 XR Cervical spine 2 or 3 Views [facility] Start: 09-12-2021 X-ray of chest posteroanterior view Ribs Uni Min 3V w/PA Chest [facility] Work Phone: Start: 09-12-2021 XR Ribs GE 3 Views and Chest PA [facility] Work Phone: Start: 05-09-2021 End: 05-09-2021 Patient encounter procedure Appointment [facility] Work Phone: Patient Education ED Chest Pain, Noncardiac ED Chest Pain, Uncertain Cause [facility] Work Phone: Patient referral [facility] Work Phone: Immunizations Immunization Date Immunization Notes Care Provider Fa shantal 1945 pneumococcal conjuga te vaccine, 7 valent Santi Martin Dept. of Dermatology Payers Date Payer Category Payer Private Health Insurance [id number] 2024 Self-pay [id number] 2012 Medicare [id number] Unknown [place] AUTH REQUIR ED SEE NOTE [id number] Unknown [id number] Unknown [id number] Unknown [id number] Unknown [id number] Unknown [id number] Unknown [id number] Unknown [id number] Unknown [id number] Social History Date Type Detail Facility Start: 10-03-2020 End: 11-22-2021 Dept. of Dermatology Start: 1945 Sex Assigned At Male [facility] Start: 06-22-2024 [facility] Goals Date Patient Goal Desired Activity /State Mental Status Date Assessment Result Facility 11-22-2021 Cognitive function Voice/Name [facility] Work Phone: Evaluation note 08-04-2024 Note Date & Type Note Facility 08-04-2024 Evaluation note Diagnosis Onset Date Resolution Cervical radiculopathy acute Ma 2024 9:24am Spondylolisthesis, cervical region acute August 04, 2024 9:24am [facility] Work Phone: Instructions 05-09-2021 Note Date & Type Note Facility 05-09-2021 Instructions Completed [facility] Work Phone: Progress note 11-02-2020 Note Date & Type Note Facility 11-02-2020 Note HNO ID: [id number] Author: Dolly Del Real MD Service: ? Author Type: Physician Type: Progress Notes Filed: 11/02/2020 10:34 AM Note Text: NEUROSURGERY CONSULT NOTE Dolly Del Real MD Date of visit: November 02, 2020 Patient Name: Mr.Thomas Cass Cantor Date of : 1945 Current Age: [age] year old Sex: male MRN/E# [id number] Chief Complaint: Patient presents with: New Patient [...] Laterality Date - COLONOSCOP W/ OR W/O [facility] SPEC 08-01-04 Repeat in -2014 - COLONOSCOP W/ OR W/O [facility] SPEC 10/30/2014 Colonoscopy - EGD 2007 [...] Mental Status Aler (more content not included)... [facility] Evaluation note Note Date & Type Note Facility Evaluation note N/A Dept. of Dermato logy Evaluation note Note Date & Type Note Facility Evaluation note There may be informa tion available, but it has not been provided by the sender. [facility] Work Phone: Evaluation note Note Date & Type Note Facility Evaluation note No assessment information availa ble [facility] Work Phone: Reason for referral (narrative) Note Date & Type Note Facility Reason for referral (narrati ve) NA NA Dept. of Dermatology Reason for referral (narrative) Note Date & Type Note Facility Reason for referral (narrative) No reason for referral information available [facility] Work Phone: Summary Purpose Family History No Family History Records FoundNo Family History Records FoundThere may be information available, but it has not been provided by the sender.No Family History Records FoundNo Family History Records Found Advance Directives No Advanced Directives Records Found Advance Directive Response Recorded Date/ Time Living Will No February 25 1:54pm Power of Animation Director No February 25, 2018 1:54pm Advance Directive Response Recorded Date/ Time Living Will No November 22 1:41pm Power of Animation Director No November 22, 2021 1:41pm Advance Directive Response Recorded Date/ Time Living Will No November 22 12:41pm Power of Animation Director No November 22, 2021 12:41pm Chief Complaint [...] 24am Spondylolisthesis, cervical region July 212024 9:24am Chief Complaint Admit Date NECK PAIN/CERVICAL DISC DISEASE/RADICULO DANIE July 27, 2024 7:00am CERVICAL SPINE August 04, 2024 9:24a m Room 1 August 04, 2024 9:41a m Additional Source Comments (unrecognized sect ion and content) No Status Records FoundNo Status Records FoundNo Status Records FoundNo Status Records Found INFORMATION SOURCE (unrecogn ized section and content) DATE CREATED AUTHOR 10/09/2019 [facility] ical Center DATE CREATED AUTHOR AUTHOR'S ORGANIZ ATION 11/03/2020 [facility] dical Center DATE CREATED AUTHOR AUTHOR'S ORGANIZ ATION 05/15/2021 [facility] DATE CREATED AUTHOR AUTHOR'S OR[facility]IZ ATION [facility] for [facility] (unrecogniz ed [...] 04, 2024 End: August 04, 2024 Dr. Julio C Sher [...] August 18, 2024 End: August 18, 2024 Team Status: Active Member Role/Relationship Status Dates Dr. Nick Mercedes MD Primary Care Provider Active Team Status: Inactive Member Role/Relationship Status Dates Dr. Nick Mercedes MD Primary Care Provider Active Start: July 27, 2024 End: July 27, 2024 Dr. Nick Mercedes MD Attending Provider Active Start: July 27, 2024 End: July 27, 2024 Dr. Nick Mercedes MD Referring Provider Active Start: July 27, 2024 End: July 27, 2024 Team Status: Inactive Member Role/Relationship Status Dates Dr. Nick Mercedes MD Primary Care Provider Active Start: August 04, 2024 End: August 04, 2024 Dr. Nick Mercedes MD Referring Provider Active Start: August 04, 2024 End: August 04, 2024 Dr. Julio C Sher MD Attending Provider Active Start: August 04, 2024 End: August 04, 2024 Team Status: Inactive Member Role/Relationship Status Dates Dr. Nick Mercedes MD Primary Care Provider Active Start: August 04, 2024 End: August 04, 2024 Dr. Jona Billings MD Attending Provider Active S tart: August 04, 2024 End: August 04, 2024 Team Status: Inactive Member Role/Relationship Status Dates Dr. Nick Mercedes MD Primary Care Provider Active Start: August 18, 2024 End: August 18, 2024 Dr. Nick Mercedes MD Attending Provider Active Start: August 18, 2024 End: August 18, 2024 Dr. Nick Mercedes MD Referring Provider Active Start: August 18, 2024 End: August 18, 2024 Team Status: Inactive Member Role/Relationship Status Dates Dr. Nick Mercedes MD Primary Care Provider Active Start: October 11, 2024 End: October 11, 2024 Dr. Nick Mercedes MD Attending Provider Active Start: October 11, 2024 End: October 11, 2024 FOR RECORDS PERTAINING TO PATIENTS WHO [...] BE BASED ON THE PRIMARY CLINICAL RECORDS. [employer] [facility]. provides no warranty or guarantee of the accuracy or completeness of information in this document.
[2025-02-04 19:17] VITALS: BP 148/72; PULSE 69; RESP 16; TEMP 36.7; O2SAT 99
[2025-02-04] MEDS: Erythromycin Ophthalmic (NSY) 1 GM OPTH.TUBE 1 APPLIC LEFT EYE (19:19)
== END 2025-02-04 19:21 | disposition home or self-care (01) ==
PROVIDERS: Emergency Provider Emergency Medicine; PCP Family Medicine Geriatric Medicine; Visit Provider Emergency Medicine
DX: S05.02XA Injury of conjunctiva and corneal abrasion without foreign body, left eye, initial encounter (principal); W22.8XXA Striking against or struck by other objects, initial encounter; I10 Essential (primary) hypertension; Z79.82 Long term (current) use of aspirin; Z87.891 Personal history of nicotine dependence
CPT/HCPCS: 99282